=== PATIENT | male | born 1960 | race American Indian/Alaskan Native ===

== ENCOUNTER 2017-07-09 19:58 | Inpatient (IN) | payer OTHER ==
[2017-07-09] MEDS ORDERED: NACL 0.9% 500 ML 500 ML IV ONE (20:36)
[2017-07-09 21:24] LABS: Bacteria,Urine 1+ /HPF (Negative); Bilirubin,Urine NEG (Negative); Blood,Urine NEG (Negative); Ketones,Urine NEG (Negative); Leukocyte Esterase,Urine SM (Negative); Mucus,Urine FEW /HPF; Nitrite,Urine NEG (Negative)
--- NOTE | 2017-07-09 21:25 | Emergency Department Report ---
ED General Adult HPI - General Chief complaint: Dyspnea/Respdistress Stated complaint: WEAKNESS Time Seen by Provider: 07/09/17 21:16 Source: patient, EMS Mode of arrival: Stretcher Limitations: Physical Limitation - History of Present Illness Initial comments: Patient is a 57-year-old male past medical history of CHF who presents with shortness of breath. Patient was found his residence with difficulty in breathing. Patient states that he fell on Tuesday and is able to get. Patient states that he feels pain in his body and his legs. He denies having any chest pain his leg pain is a 6 out of 10 doesn't radiate nothing makes it better or worse. Denies having any symptoms of nausea or vomiting. She is not able to recall how he fell patient denies falling on his head. She is currently satting 96% on 4 L of O2. Patient is not normally not on any oxygen at home. Severity scale (0 -10): 0 - Related Data Allergies Allergy/AdvReac Type Severity Reaction Status Date / Time No Known Allergies Allergy Unverified 07/09/17 20:35 ED Review of Systems ROS: Stated complaint: WEAKNESS Other details as noted in HPI Constitutional: denies: chills, fever Eyes: denies: eye pain, eye discharge, vision change ENT: denies: ear pain, throat pain Respiratory: denies: cough, shortness of breath, wheezing Cardiovascular: denies: chest pain, palpitations Endocrine: no symptoms reported Gastrointestinal: denies: abdominal pain, nausea, diarrhea Genitourinary: denies: urgency, dysuria Musculoskeletal: denies: back pain, joint swelling, arthralgia Skin: denies: rash, lesions Neurological: denies: headache, weakness, paresthesias Psychiatric: denies: anxiety, depression Hematological/Lymphatic: denies: easy bleeding, easy bruising ED Past Medical Hx - Past Medical History Hx Hypertension: Yes Hx Congestive Heart Failure: Yes Hx Diabetes: Yes - Social History Smoking Status: Never Smoker Substance Use Type: None ED Physical Exam - General Limitations: Physical Limitation General appearance: alert, in distress, obese - Head Head exam: Present: atraumatic, normocephalic - Eye Eye exam: Present: normal appearance - ENT ENT exam: Present: mucous membranes moist - Neck Neck exam: Present: normal inspection - Respiratory Respiratory exam: Present: other (dimished breath sounds ). Absent: respiratory distress - Cardiovascular Cardiovascular Exam: Present: regular rate, tachycardia. Absent: systolic murmur, diastolic murmur, rubs, gallop - GI/Abdominal GI/Abdominal exam: Present: soft, normal bowel sounds - Rectal Rectal exam: Present: deferred - exam: Present: other (potter catheter placement ) - Extremities Exam Extremities exam: Present: pedal edema (+2) - Back Exam Back exam: Present: paraspinal tenderness - Neurological Exam Neurological exam: Present: alert - Psychiatric Psychiatric exam: Present: normal affect, normal mood - Skin Skin exam: Present: normal color, other (thickening of skin and edema ). Absent : rash ED Course Vital Signs 07/09/17 07/09/17 07/09/17 20:52 21:30 22:30 Temperature 97 F L Pulse Rate 108 H 109 H 109 H Respiratory 22 20 20 Rate Blood Pressure 88/71 Blood Pressure 88/71 102/67 127/67 [Left] O2 Sat by Pulse 97 97 99 Oximetry 07/09/17 07/10/17 23:35 00:21 Temperature Pulse Rate 109 H 109 H Respiratory 20 20 Rate Blood Pressure Blood Pressure 118/97 113/66 [Left] O2 Sat by Pulse 100 99 Oximetry - Central Line Placement Right IJ Consent Obtained: verbal consent Time Out Performed: Yes Patient Placed on Monitor/Pulse Ox: Yes Prep: mask, gown, gloves, other Ultrasound Used for Placement: Yes Central Line Lumen Inserted: triple Bloods Obtained for Lab: Yes Central Line Position: good blood return, all ports aspirated, flus, sutured in place with 2-0 Dressing Applied: Tegaderm Post Procedure X-Ray: tip of catheter in good p Patient Tolerated Procedure: well Complications: none ED Medical Decision Making - Lab Data Result diagrams: 07/09/17 21:14 07/09/17 21:14 Lab Results 07/09/17 07/09/17 07/09/17 Range/Units 20:52 21:14 21:14 WBC 10.0 (4.5-11.0) K/mm3 RBC 5.09 H (3.65-5.03) M/mm3 Hgb 13.5 (11.8-15.2) gm/dl Hct 42.4 (35.5-45.6) % MCV 83 L (84-94) fl MCH 27 L (28-32) pg MCHC 32 (32-34) % RDW 23.7 H (13.2-15.2) % Plt Count 173 (140-440) K/mm3 Lymph % (Auto) 2.5 L (13.4-35.0) % [place] % (Auto) 9.7 H (0.0-7.3) % Eos % (Auto) 0.1 (0.0-4.3) % Baso % (Auto) 0.2 (0.0-1.8) % Lymph # 0.2 L (1.2-5.4) K/mm3 [place] # 1.0 H (0.0-0.8) K/mm3 Eos # 0.0 (0.0-0.4) K/mm3 Baso # 0.0 (0.0-0.1) K/mm3 Seg Neutrophils % 87.5 H (40.0-70.0) % Seg Neutrophils # 8.8 H (1.8-7.7) K/mm3 PT 17.6 H (12.2-14.9) Sec. INR 1.37 H (0.87-1.13) VBG pH (7.320-7.420) Sodium (137-145) mmol/L Potassium (3.6-5.0) mmol/L Chloride (98-107) mmol/L Carbon Dioxide (22-30) mmol/L Anion Gap mmol/L BUN (9-20) mg/dL Creatinine (0.8-1.5) mg/dL Estimated GFR ml/min BUN/Creatinine Ratio % Glucose (75-100) mg/dL Lactic Acid (0.7-2.0) mmol/L Calcium (8.4-10.2) mg/dL Total Bilirubin (0.1-1.2) mg/dL AST (5-40) units/L ALT (7-56) units/L Alkaline Phosphatase (35-129) units/L Total Creatine Kinase (55-170) units/L Troponin T (0.00-0.029) ng/mL NT-Pro-B Natriuret Pep (0-900) pg/mL Total Protein (6.3-8.2) g/dL Albumin (3.9-5) g/dL Albumin/Globulin Ratio % Triglycerides (2-149) mg/dL Cholesterol (50-199) mg/dL LDL Cholesterol Direct (50-130) mg/dL HDL Cholesterol (40-59) mg/dL Cholesterol/HDL Ratio % Urine Color Priyanka (Yellow) Urine Turbidity Clear (Clear) Urine pH 5.0 (5.0-7.0) Ur Specific [place] 1.014 (1.003-1.030) Urine Protein 100 mg/dl (Negative) mg/dL Urine Glucose (UA) Neg (Negative) mg/dL Urine Ketones Neg (Negative) mg/dL Urine Blood Neg (Negative) Urine Nitrite Neg (Negative) Urine Bilirubin Neg (Negative) Urine Urobilinogen 4.0 (<2.0) mg/dL Ur Leukocyte Esterase Sm (Negative) Urine WBC (Auto) 17.0 H (0.0-6.0) /HPF Urine RBC (Auto) 7.0 (0.0-6.0) /HPF Urine Bacteria (Auto) 1+ (Negative) /HPF Urine Mucus Few /HPF 07/09/17 07/09/17 07/09/17 Range/Units 21:14 21:14 21:14 WBC (4.5-11.0) K/mm3 RBC (3.65-5.03) M/mm3 Hgb (11.8-15.2) gm/dl Hct (35.5-45.6) % MCV (84-94) fl MCH (28-32) pg MCHC (32-34) % RDW (13.2-15.2) % Plt Count (140-440) K/mm3 Lymph % (Auto) (13.4-35.0) % [place] % (Auto) (0.0-7.3) % Eos % (Auto) (0.0-4.3) % Baso % (Auto) (0.0-1.8) % Lymph # (1.2-5.4) K/mm3 [place] # (0.0-0.8) K/mm3 Eos # (0.0-0.4) K/mm3 Baso # (0.0-0.1) K/mm3 Seg Neutrophils % (40.0-70.0) % Seg Neutrophils # (1.8-7.7) K/mm3 PT (12.2-14.9) Sec. INR (0.87-1.13) VBG pH 7.362 (7.320-7.420) Sodium 142 (137-145) mmol/L Potassium 5.3 H (3.6-5.0) mmol/L Chloride 101.9 (98-107) mmol/L Carbon Dioxide 15 L (22-30) mmol/L Anion Gap 30 mmol/L BUN 134 H (9-20) mg/dL Creatinine 4.5 H (0.8-1.5) mg/dL Estimated GFR 16 ml/min BUN/Creatinine Ratio 30 % Glucose 53 L (75-100) mg/dL Lactic Acid 2.00 (0.7-2.0) mmol/L Calcium 9.6 (8.4-10.2) mg/dL Total Bilirubin 3.20 H (0.1-1.2) mg/dL AST 94 H (5-40) units/L ALT 48 (7-56) units/L Alkaline Phosphatase 92 (35-129) units/L Total Creatine Kinase (55-170) units/L Troponin T (0.00-0.029) ng/mL NT-Pro-B Natriuret Pep (0-900) pg/mL Total Protein 7.4 (6.3-8.2) g/dL Albumin 3.5 L (3.9-5) g/dL Albumin/Globulin Ratio 0.9 % Triglycerides (2-149) mg/dL Cholesterol (50-199) mg/dL LDL Cholesterol Direct (50-130) mg/dL HDL Cholesterol (40-59) mg/dL Cholesterol/HDL Ratio % Urine Color (Yellow) Urine Turbidity (Clear) Urine pH (5.0-7.0) Ur Specific [place] (1.003-1.030) Urine Protein (Negative) mg/dL Urine Glucose (UA) (Negative) mg/dL Urine Ketones (Negative) mg/dL Urine Blood (Negative) Urine Nitrite (Negative) Urine Bilirubin (Negative) Urine Urobilinogen (<2.0) mg/dL Ur Leukocyte Esterase (Negative) Urine WBC (Auto) (0.0-6.0) /HPF Urine RBC (Auto) (0.0-6.0) /HPF Urine Bacteria (Auto) (Negative) /HPF Urine Mucus /HPF 07/09/17 07/09/17 07/09/17 Range/Units 21:27 21:27 21:27 WBC (4.5-11.0) K/mm3 RBC (3.65-5.03) M/mm3 Hgb (11.8-15.2) gm/dl Hct (35.5-45.6) % MCV (84-94) fl MCH (28-32) pg MCHC (32-34) % RDW (13.2-15.2) % Plt Count (140-440) K/mm3 Lymph % (Auto) (13.4-35.0) % [place] % (Auto) (0.0-7.3) % Eos % (Auto) (0.0-4.3) % Baso % (Auto) (0.0-1.8) % Lymph # (1.2-5.4) K/mm3 [place] # (0.0-0.8) K/mm3 Eos # (0.0-0.4) K/mm3 Baso # (0.0-0.1) K/mm3 Seg Neutrophils % (40.0-70.0) % Seg Neutrophils # (1.8-7.7) K/mm3 PT (12.2-14.9) Sec. INR (0.87-1.13) VBG pH (7.320-7.420) Sodium (137-145) mmol/L Potassium (3.6-5.0) mmol/L Chloride (98-107) mmol/L Carbon Dioxide (22-30) mmol/L Anion Gap mmol/L BUN (9-20) mg/dL Creatinine (0.8-1.5) mg/dL Estimated GFR ml/min BUN/Creatinine Ratio % Glucose (75-100) mg/dL Lactic Acid (0.7-2.0) mmol/L Calcium (8.4-10.2) mg/dL Total Bilirubin (0.1-1.2) mg/dL AST (5-40) units/L ALT (7-56) units/L Alkaline Phosphatase (35-129) units/L Total Creatine Kinase 1651 H (55-170) units/L Troponin T 0.235 H* (0.00-0.029) ng/mL NT-Pro-B Natriuret Pep 21704 H (0-900) pg/mL Total Protein (6.3-8.2) g/dL Albumin (3.9-5) g/dL Albumin/Globulin Ratio % Triglycerides 93 (2-149) mg/dL Cholesterol 137 (50-199) mg/dL LDL Cholesterol Direct 74 (50-130) mg/dL HDL Cholesterol 45 (40-59) mg/dL Cholesterol/HDL Ratio 3.04 % Urine Color (Yellow) Urine Turbidity (Clear) Urine pH (5.0-7.0) Ur Specific [place] (1.003-1.030) Urine Protein (Negative) mg/dL Urine Glucose (UA) (Negative) mg/dL Urine Ketones (Negative) mg/dL Urine Blood (Negative) Urine Nitrite (Negative) Urine Bilirubin (Negative) Urine Urobilinogen (<2.0) mg/dL Ur Leukocyte Esterase (Negative) Urine WBC (Auto) (0.0-6.0) /HPF Urine RBC (Auto) (0.0-6.0) /HPF Urine Bacteria (Auto) (Negative) /HPF Urine Mucus /HPF 07/09/17 Range/Units 23:11 WBC (4.5-11.0) K/mm3 RBC (3.65-5.03) M/mm3 Hgb (11.8-15.2) gm/dl Hct (35.5-45.6) % MCV (84-94) fl MCH (28-32) pg MCHC (32-34) % RDW (13.2-15.2) % Plt Count (140-440) K/mm3 Lymph % (Auto) (13.4-35.0) % [place] % (Auto) (0.0-7.3) % Eos % (Auto) (0.0-4.3) % Baso % (Auto) (0.0-1.8) % Lymph # (1.2-5.4) K/mm3 [place] # (0.0-0.8) K/mm3 Eos # (0.0-0.4) K/mm3 Baso # (0.0-0.1) K/mm3 Seg Neutrophils % (40.0-70.0) % Seg Neutrophils # (1.8-7.7) K/mm3 PT (12.2-14.9) Sec. INR (0.87-1.13) VBG pH (7.320-7.420) Sodium (137-145) mmol/L Potassium (3.6-5.0) mmol/L Chloride (98-107) mmol/L Carbon Dioxide (22-30) mmol/L Anion Gap mmol/L BUN (9-20) mg/dL Creatinine (0.8-1.5) mg/dL Estimated GFR ml/min BUN/Creatinine Ratio % Glucose (75-100) mg/dL Lactic Acid 1.60 (0.7-2.0) mmol/L Calcium (8.4-10.2) mg/dL Total Bilirubin (0.1-1.2) mg/dL AST (5-40) units/L ALT (7-56) units/L Alkaline Phosphatase (35-129) units/L Total Creatine Kinase (55-170) units/L Troponin T (0.00-0.029) ng/mL NT-Pro-B Natriuret Pep (0-900) pg/mL Total Protein (6.3-8.2) g/dL Albumin (3.9-5) g/dL Albumin/Globulin Ratio % Triglycerides (2-149) mg/dL Cholesterol (50-199) mg/dL LDL Cholesterol Direct (50-130) mg/dL HDL Cholesterol (40-59) mg/dL Cholesterol/HDL Ratio % Urine Color (Yellow) Urine Turbidity (Clear) Urine pH (5.0-7.0) Ur Specific [place] (1.003-1.030) Urine Protein (Negative) mg/dL Urine Glucose (UA) (Negative) mg/dL Urine Ketones (Negative) mg/dL Urine Blood (Negative) Urine Nitrite (Negative) Urine Bilirubin (Negative) Urine Urobilinogen (<2.0) mg/dL Ur Leukocyte Esterase (Negative) Urine WBC (Auto) (0.0-6.0) /HPF Urine RBC (Auto) (0.0-6.0) /HPF Urine Bacteria (Auto) (Negative) /HPF Urine Mucus /HPF - EKG Data -: EKG Interpreted by Pr - EKG Data 07/10/17 02:24 EKG shows sinus or ectopic atrial tachycardia prolonged [place] interval no axis deviation low voltage. - Radiology Data Radiology results: report reviewed, image reviewed Chest x-ray: Shows cardiomegaly no acute findings Chest x-ray: Shows right IJ placement in satisfactory condition. - Medical Decision Making Chief medical diagnosis: Congestive heart failure exacerbation Differential medical diagnosis: Rhabdomyolysis, sepsis, electrolyte abnormality , non-STEMI I'll do EKG, chest x-ray, CBC, CMP, troponin, IV, UA, CK and lactic acid. Due to patient's respiratory distress and being on oxygen he will need to be admitted to the hospital. He has rhabdomyolysis I'll give patient fluid boluses and patient will be admitted to the hospitalist service. Discussed plan with patient he agrees with plan. Critical care attestation.: If time is entered above; I have spent that time in minutes in the direct care of this critically ill patient, excluding procedure time. ED Disposition Clinical Impression: JA (acute kidney injury), SOB (shortness of breath), Hyperkalemia CHF (congestive heart failure) Qualifiers: Congestive heart failure type: unspecified congestive heart failure type Congestive heart failure chronicity: unspecified congestive heart failure chronicity Qualified Code(s): I50.9 - Heart failure, unspecified Rhabdomyolysis Qualifiers: Rhabdomyolysis type: non-traumatic Qualified Code(s): M62.82 - Rhabdomyolysis Disposition: OP ADMIT IP TO THIS HOSP Is pt being admited?: Yes Does the pt Need Aspirin: No Condition: Stable
[2017-07-09 21:40] LABS: Basophils % (Auto) 0.2 % (0.0-1.8); Eosinophils % (Auto) 0.1 % (0.0-4.3); Hematocrit 42.4 % (35.5-45.6); Hemoglobin 13.5 gm/dl (11.8-15.2); Mean Corpuscular HGB Conc 32 % (32-34); Mean Corpuscular Hemoglobin 27 pg (28-32); Mean Corpuscular Volume 83 fl (84-94); Red Blood Count 5.09 M/mm3 (3.65-5.03)
[2017-07-09 21:49] LABS: Platelet Count 173 K/mm3 (140-440); Red Cell Distribution Width 23.7 % (13.2-15.2)
[2017-07-09 21:51] LABS: INR 1.37 (0.87-1.13)
[2017-07-09 21:58] LABS: Albumin 3.5 g/dL (3.9-5); Albumin/Globulin Ratio 0.9 %; Bilirubin,Total 3.2 mg/dL (0.1-1.2); Calcium 9.6 mg/dL (8.4-10.2); Chloride 101.9 mmol/L (98-107); Potassium 5.3 mmol/L (3.6-5.0); Total Protein 7.4 g/dL (6.3-8.2)
--- NOTE | 2017-07-09 22:39 | XRay Report ---
FINAL REPORT EXAM: XR CHEST 1V AP HISTORY: possible Sepsis TECHNIQUE: AP portable view of the chest. PRIORS: None. FINDINGS: The cardiac silhouette is enlarged. The pulmonary vascularity appears normal. The lungs are clear. The bones and soft tissues are unremarkable. IMPRESSION: Cardiomegaly. Otherwise, no acute findings
--- NOTE | 2017-07-09 23:00 | XRay Report ---
FINAL REPORT EXAM: XR CHEST 1V AP HISTORY: SP CVL placement COMPARISON: July 09, 2017. FINDINGS: Frontal view(s) of the chest obtained. Stable mild to moderate cardiac enlargement. Right IJ line is in place with distal tip projecting over the distal SVC in satisfactory position. Shallow inspiration. The cardiac silhouette obscures the left lung base. Remaining lungs are clear. No pneumothorax. IMPRESSION: Right IJ line in satisfactory position. Stable cardiac enlargement. Lungs are grossly clear.
[2017-07-09] MEDS ORDERED: LACTATED RINGERS 1,000 ML IV ONE (23:08)
[2017-07-09] MEDS ORDERED: NACL 0.9% 500 ML 500 ML ONE (23:24)
[2017-07-09] MEDS ORDERED: SUBLIMAZE IV ONE (23:52)
[2017-07-10] MEDS ORDERED: LASIX IV ONE (03:05)
[2017-07-10] MEDS ORDERED: ZOFRAN ONE (04:09)
[2017-07-10] MEDS ORDERED: TYLENOL PO PRN (06:20)
[2017-07-10] MEDS ORDERED: ZOFRAN IV PRN (06:20)
--- NOTE | 2017-07-10 06:29 | History and Physical Report ---
History of Present Illness Date of examination: 07/10/17 History of present illness: 57-year-old man with a history of hypertension, diabetes, CHF was brought to the emergency room because he fell at home and was unable to get up. Patient cannot remember much details Review Of Systems: Constitutional: no weight loss Ears, eyes, nose, mouth and throat: no nasal congestion, no nasal discharge, no sinus pressure, blurry vision, diplopia Neck: No neck pain or rigidity. Cardiovascular: chest pain, orthopnea, palpitations Respiratory: No shortness of breath, cough Gastrointestinal: abdominal pain, hematochezia Genitourinary : no dysuria, frequency , hematuria Musculoskeletal: no muscle ache Integumentary: no rash, no pruritis Neurological: no parathesias, focal weakness Endocrine: no cold or heat intolerance, no polyuria or polydipsia Hematologic/Lymphatic: no easy bruising, no easy bleeding, no gland swelling Allergic/Immunologic: no urticaria, no angioedema. PAST MEDICAL HISTORY:hypertension, diabetes, CHF PAST SURGICAL HISTORY: None FAMILY HISTORY:hypertension SOCIAL HISTORY: Denies alcohol, tobacco, drugs Medications and Allergies Allergies Allergy/AdvReac Type Severity Reaction Status Date / Time No Known Allergies Allergy Unverified 07/09/17 20:35 Home Medications Medication Instructions Recorded Confirmed Last Taken Type B1/B2/Niacin/B12/Protease 1 each PO DAILY 07/10/17 07/10/17 2 Days Ago History [B-Complex with B-12 Tablet] Carvedilol [Coreg] 25 mg PO BID 07/10/17 07/10/17 2 Days Ago History Cholecalciferol (Vitamin D3) 2,000 units PO DAILY 07/10/17 07/10/17 2 Days Ago History [Vitamin D3 2,000 unit] Furosemide [Lasix] 80 mg PO BID 07/10/17 07/10/17 2 Days Ago History Lisinopril [Zestril] 40 mg PO BID 07/10/17 07/10/17 2 Days Ago History Metformin HCl [Glucophage] 1,000 mg PO BID 07/10/17 07/10/17 2 Days Ago History Potassium Chloride [K-Dur] 40 meq PO DAILY 07/10/17 07/10/17 2 Days Ago History Sildenafil Citrate [Sildenafil] 20 mg PO QDAY 07/10/17 07/10/17 2 Days Ago History Spironolactone [Aldactone] 25 mg PO QDAY 07/10/17 07/10/17 2 Days Ago History amLODIPine [Norvasc] 20 mg PO DAILY 07/10/17 07/10/17 2 Days Ago History glipiZIDE [Glipizide] 20 mg PO BID 07/10/17 07/10/17 2 Days Ago History hydrALAZINE [Apresoline] 25 mg PO Q8HR 07/10/17 07/10/17 2 Days Ago History Exam - Physical Exam Narrative exam: Gen. appearance: Patient lying in bed in no acute distress HEENT: Normocephalic/atraumatic, pupils equal round reactive to light, extra alkaline movement intact, no scleral icterus, no JVD or thyromegaly or nodule, neck is supple, mucous membrane moist, no erythema or exudate Heart: S1-S2, regular rate and rhythm Lungs: Clear to auscultation bilateral breathing comfortable Abdomen: Positive bowel sounds, nontender, nondistended, no organomegaly Extremities: anasarcfrom torso down to toes, no cyanosis, clubbing Neuro:: Oriented 3 , cranial nerves II-12 intact, speech, motor intact Skin: No rash, nodules, warm dry - Constitutional Vitals: Temp Pulse Resp BP Pulse Ox 97 F L 110 H 20 152/81 98 07/09/17 20:52 07/10/17 05:30 07/10/17 05:30 07/10/17 05:30 07/10/17 05:30 Results - Labs CBC & Chem 7: 07/13/17 02:30 07/13/17 02:30 Labs: Abnormal lab results 07/09/17 07/09/17 07/09/17 Range/Units 20:52 21:14 21:14 RBC 5.09 H (3.65-5.03) M/mm3 MCV 83 L (84-94) fl MCH 27 L (28-32) pg RDW 23.7 H (13.2-15.2) % Lymph % (Auto) 2.5 L (13.4-35.0) % [place] % (Auto) 9.7 H (0.0-7.3) % Lymph # 0.2 L (1.2-5.4) K/mm3 [place] # 1.0 H (0.0-0.8) K/mm3 Seg Neutrophils % 87.5 H (40.0-70.0) % Seg Neutrophils # 8.8 H (1.8-7.7) K/mm3 PT 17.6 H (12.2-14.9) Sec. INR 1.37 H (0.87-1.13) Potassium (3.6-5.0) mmol/L Carbon Dioxide (22-30) mmol/L BUN (9-20) mg/dL Creatinine (0.8-1.5) mg/dL Glucose (75-100) mg/dL Total Bilirubin (0.1-1.2) mg/dL AST (5-40) units/L Total Creatine Kinase (55-170) units/L Troponin T (0.00-0.029) ng/mL NT-Pro-B Natriuret Pep (0-900) pg/mL Albumin (3.9-5) g/dL Urine WBC (Auto) 17.0 H (0.0-6.0) /HPF 07/09/17 07/09/17 07/09/17 Range/Units 21:14 21:27 21:27 RBC (3.65-5.03) M/mm3 MCV (84-94) fl MCH (28-32) pg RDW (13.2-15.2) % Lymph % (Auto) (13.4-35.0) % [place] % (Auto) (0.0-7.3) % Lymph # (1.2-5.4) K/mm3 [place] # (0.0-0.8) K/mm3 Seg Neutrophils % (40.0-70.0) % Seg Neutrophils # (1.8-7.7) K/mm3 PT (12.2-14.9) Sec. INR (0.87-1.13) Potassium 5.3 H (3.6-5.0) mmol/L Carbon Dioxide 15 L (22-30) mmol/L BUN 134 H (9-20) mg/dL Creatinine 4.5 H (0.8-1.5) mg/dL Glucose 53 L (75-100) mg/dL Total Bilirubin 3.20 H (0.1-1.2) mg/dL AST 94 H (5-40) units/L Total Creatine Kinase 1651 H (55-170) units/L Troponin T (0.00-0.029) ng/mL NT-Pro-B Natriuret Pep 32268 H (0-900) pg/mL Albumin 3.5 L (3.9-5) g/dL Urine WBC (Auto) (0.0-6.0) /HPF 07/09/17 Range/Units 21:27 RBC (3.65-5.03) M/mm3 MCV (84-94) fl MCH (28-32) pg RDW (13.2-15.2) % Lymph % (Auto) (13.4-35.0) % [place] % (Auto) (0.0-7.3) % Lymph # (1.2-5.4) K/mm3 [place] # (0.0-0.8) K/mm3 Seg Neutrophils % (40.0-70.0) % Seg Neutrophils # (1.8-7.7) K/mm3 PT (12.2-14.9) Sec. INR (0.87-1.13) Potassium (3.6-5.0) mmol/L Carbon Dioxide (22-30) mmol/L BUN (9-20) mg/dL Creatinine (0.8-1.5) mg/dL Glucose (75-100) mg/dL Total Bilirubin (0.1-1.2) mg/dL AST (5-40) units/L Total Creatine Kinase (55-170) units/L Troponin T 0.235 H* (0.00-0.029) ng/mL NT-Pro-B Natriuret Pep (0-900) pg/mL Albumin (3.9-5) g/dL Urine WBC (Auto) (0.0-6.0) /HPF - Imaging and Cardiology Chest x-ray: pending CT Scan - head: pending Assessment and Plan Assessment Diffuse anasarca Acute renal failure Rhabdomyolysis Diabetes Hypertension Plan Admit to medicine Consult renal, case discussed with Dr Cortez He recommended decubitus of Lasix Check 56 and initiate insulin sliding scale Please follow CT head Initiate DVT prophylaxis after DVT head
--- NOTE | 2017-07-10 06:43 | Cat Scan Report ---
FINAL REPORT EXAM: CT HEAD/BRAIN WO CON HISTORY: altered mental status TECHNIQUE: CT imaging acquired through the head without intravenous contrast. Transaxial reformations are provided. PRIORS: None. FINDINGS: The ventricles, cisterns and sulci are within normal limits. No intraparenchymal or extra-axial mass, hemorrhage, or mass effect. Vazquez and white-matter differentiation is within normal limits for patient age. Normal spherical shape of the globes. No significant abnormality involving the imaged portions of the paranasal sinuses and mastoid air cells. No skull or facial fracture visualized. IMPRESSION: No acute intracranial abnormality. Consider MRI follow-up as warranted.
[2017-07-10] MEDS ORDERED: D50W (25GM) Syringe IV PRN (06:46)
[2017-07-10] MEDS ORDERED: ZOFRAN IV ONE (07:23)
[2017-07-10 07:34] LABS: Basophils % (Auto) 0.1 % (0.0-1.8); Hematocrit 38.4 % (35.5-45.6); Hemoglobin 12.4 gm/dl (11.8-15.2); Mean Corpuscular HGB Conc 32 % (32-34); Mean Corpuscular Hemoglobin 26 pg (28-32); Mean Corpuscular Volume 80 fl (84-94); Platelet Count 170 K/mm3 (140-440); Red Blood Count 4.78 M/mm3 (3.65-5.03); White Blood Count 10.3 K/mm3 (4.5-11.0)
[2017-07-10] MEDS: NOVOLOG SUB-Q SCH ×3 (07:50→17:48)
[2017-07-10 07:52] LABS: Red Cell Distribution Width 22.1 % (13.2-15.2)
[2017-07-10 07:53] LABS: Calcium 9.5 mg/dL (8.4-10.2); Chloride 100.3 mmol/L (98-107); Potassium 5.3 mmol/L (3.6-5.0)
[2017-07-10 07:55] LABS: Creatine Kinase MB 32.4 ng/mL (0.0-4.0)
--- NOTE | 2017-07-10 08:40 | Progress Note ---
Assessment and Plan Assessment and plan: 57-year-old man with a history of hypertension, diabetes, CHF was brought to the emergency room because he fell at home and was unable to get up. Patient cannot remember much details Diffuse anasarca Acute renal failure Rhabdomyolysis Diabetes Hypertension Plan Admit to medicine Consult renal, case discussed with Dr Cortez He recommended decubitus of Lasix Check 56 and initiate insulin sliding scale Please follow CT head Initiate DVT prophylaxis after DVT head Hospitalist Physical - Constitutional Vitals: Temp Pulse Resp BP Pulse Ox 97 F L 110 H 20 108/81 100 07/09/17 20:52 07/10/17 06:30 07/10/17 06:30 07/10/17 06:30 07/10/17 06:30 Results - Labs CBC & Chem 7: 07/10/17 06:34 07/10/17 06:34 Labs: Laboratory Last Values WBC 10.3 K/mm3 (4.5-11.0) 07/10/17 06:34 RBC 4.78 M/mm3 (3.65-5.03) 07/10/17 06:34 Hgb 12.4 gm/dl (11.8-15.2) 07/10/17 06:34 Hct 38.4 % (35.5-45.6) 07/10/17 06:34 MCV 80 fl (84-94) L 07/10/17 06:34 MCH 26 pg (28-32) L 07/10/17 06:34 MCHC 32 % (32-34) 07/10/17 06:34 RDW 22.1 % (13.2-15.2) H 07/10/17 06:34 Plt Count 170 K/mm3 (140-440) 07/10/17 06:34 Lymph % (Auto) 2.1 % (13.4-35.0) L 07/10/17 06:34 Carter % (Auto) 10.1 % (0.0-7.3) H 07/10/17 06:34 Eos % (Auto) 0.0 % (0.0-4.3) 07/10/17 06:34 Baso % (Auto) 0.1 % (0.0-1.8) 07/10/17 06:34 Lymph # 0.2 K/mm3 (1.2-5.4) L 07/10/17 06:34 Carter # 1.0 K/mm3 (0.0-0.8) H 07/10/17 06:34 Eos # 0.0 K/mm3 (0.0-0.4) 07/10/17 06:34 Baso # 0.0 K/mm3 (0.0-0.1) 07/10/17 06:34 Seg Neutrophils % 87.7 % (40.0-70.0) H 07/10/17 06:34 Seg Neutrophils # 9.1 K/mm3 (1.8-7.7) H 07/10/17 06:34 PT 17.6 Sec. (12.2-14.9) H 07/09/17 21:14 INR 1.37 (0.87-1.13) H 07/09/17 21:14 VBG pH 7.362 (7.320-7.420) 07/09/17 21:14 Sodium 141 mmol/L (137-145) 07/10/17 06:34 Potassium 5.3 mmol/L (3.6-5.0) H 07/10/17 06:34 Chloride 100.3 mmol/L (98-107) 07/10/17 06:34 Carbon Dioxide 16 mmol/L (22-30) L 07/10/17 06:34 Anion Gap 30 mmol/L 07/10/17 06:34 BUN 138 mg/dL (9-20) H 07/10/17 06:34 Creatinine 4.7 mg/dL (0.8-1.5) H 07/10/17 06:34 Estimated GFR 16 ml/min 07/10/17 06:34 BUN/Creatinine Ratio 29 % 07/10/17 06:34 Glucose 51 mg/dL (75-100) L 07/10/17 06:34 Lactic Acid 1.60 mmol/L (0.7-2.0) 07/09/17 23:11 Calcium 9.5 mg/dL (8.4-10.2) 07/10/17 06:34 Total Bilirubin 3.20 mg/dL (0.1-1.2) H 07/09/17 21:14 AST 94 units/L (5-40) H 07/09/17 21:14 ALT 48 units/L (7-56) 10/14/17 21:14 Alkaline Phosphatase 92 units/L (35-129) 07/09/17 21:14 Total Creatine Kinase 1099 units/L (55-170) H 07/10/17 06:32 CK-MB (CK-2) 32.4 ng/mL (0.0-4.0) H 07/10/17 06:32 CK-MB (CK-2) Rel Index 2.9 (0-4) 07/10/17 06:32 Troponin T 0.253 ng/mL (0.00-0.029) H* 07/10/17 06:32 NT-Pro-B Natriuret Pep 12330 pg/mL (0-900) H 07/09/17 21:27 Total Protein 7.4 g/dL (6.3-8.2) 07/09/17 21:14 Albumin 3.5 g/dL (3.9-5) L 07/09/17 21:14 Albumin/Globulin Ratio 0.9 % 07/09/17 21:14 Triglycerides 93 mg/dL (2-149) 07/09/17 21:27 Cholesterol 137 mg/dL (50-199) 07/09/17 21:27 LDL Cholesterol Direct 74 mg/dL (50-130) 07/09/17 21:27 HDL Cholesterol 45 mg/dL (40-59) 07/09/17 21:27 Cholesterol/HDL Ratio 3.04 % 07/09/17 21:27 Urine Color Priyanka (Yellow) 07/09/17 20:52 Urine Turbidity Clear (Clear) 07/09/17 20:52 Urine pH 5.0 (5.0-7.0) 07/09/17 20:52 Ur Specific [place] 1.014 (1.003-1.030) 07/09/17 20:52 Urine Protein 100 mg/dl mg/dL (Negative) 07/09/17 20:52 Urine Glucose (UA) Neg mg/dL (Negative) 07/09/17 20:52 Urine Ketones Neg mg/dL (Negative) 07/09/17 20:52 Urine Blood Neg (Negative) 07/09/17 20:52 Urine Nitrite Neg (Negative) 07/09/17 20:52 Urine Bilirubin Neg (Negative) 07/09/17 20:52 Urine Urobilinogen 4.0 mg/dL (<2.0) 07/09/17 20:52 Ur Leukocyte Esterase Sm (Negative) 07/09/17 20:52 Urine WBC (Auto) 17.0 /HPF (0.0-6.0) H 07/09/17 20:52 Urine RBC (Auto) 7.0 /HPF (0.0-6.0) 07/09/17 20:52 Urine Bacteria (Auto) 1+ /HPF (Negative) 07/09/17 20:52 Urine Mucus Few /HPF 07/09/17 20:52
[2017-07-10] MEDS ORDERED: LOVENOX SUB-Q SCH ×2 (10:00)
[2017-07-10] MEDS ORDERED: D50W (25GM) Vial IV ONE (11:00)
[2017-07-10] MEDS: LOVENOX SUB-Q SCH (11:06)
[2017-07-10] MEDS ORDERED: LASIX IV SCH (12:00)
--- NOTE | 2017-07-10 12:14 | Consultation ---
History of Present Illness - Reason for Consult Consult date: 07/10/17 acute renal failure, hyperkalemia Requesting physician: MARIA DOLORES DODSON - History of Present Illness This is a 57 year old male with PMH of diabetes mellitus type 2 insulin dependent, hypertension, and possibly CHF who presented to [facility] ED last night with complaints of shortness of breath, bilateral upper and lower extremity edema, s/p fall at home (unable to provide information about fall). Patient is lethargic, arouses to verbal stimuli, oriented to self, confused, follows simple commands, but only able to provide limited history, no family at bedside so history obtained from medical record. Patient reported having shortness of breath, worsening edema throughout his body, but doesn't recall duration of swelling, drifts back to sleep. Nurse reports patient had vomiting episode today in the ED, also s/p D50 administration for hypoglycemia management. Patient denies history of kidney problems, reports history of diabetes mellitus type 2 for 10 years and hypertension for 15 years. We were consulted to evaluate this patient who has acute renal failure with anasarca and nephrology consultation requested. On admission, SCr level was 4.5 with BUN of 134, SCr increased to 4.7 with BUN level of 138 today. BNP level was 21,165, IV fluids discontinued, lactic acid 1.60, CK level 1099, and troponin T 0.253. Chest X Ray on 07/09/17 showed cardiomegaly, otherwise no acute findings. CT Head without contrast on 07/09/17 showed no acute intracranial abnormality. Patient seen in the ED, s/p potter catheter placement with blood tinged urine output noted, discussed with nurse who states she notified primary team. We will follow patient closely throughout hospitalization. Past History Past Medical History: diabetes, hypertension Medications and Allergies Allergies Allergy/AdvReac Type Severity Reaction Status Date / Time No Known Allergies Allergy Unverified 07/09/17 20:35 Active Meds: Active Medications Acetaminophen (Tylenol) 650 mg PO Q4H PRN PRN Reason: Pain MILD(1-3)/Fever >100.5/LOCKETT Dextrose (D50w (25gm) Syringe) 50 ml IV PRN PRN PRN Reason: Hypoglycemia Last Admin: 07/10/17 11:00 Dose: 50 ml Enoxaparin Sodium (Lovenox) 30 mg SUB-Q QDAY AUBRIE Last Admin: 07/10/17 11:06 Dose: 30 mg Furosemide (Lasix) 80 mg IV Q12H [facility] Insulin Aspart (Novolog) 0 units SUB-Q ACHS AUBRIE PRN Reason: Protocol Last Admin: 07/10/17 07:50 Dose: Not Given Ondansetron HCl (Zofran) 4 mg IV Q8H PRN PRN Reason: N/V unrelieved by Reglan Review of Systems ROS unobtainable: due to mental status (ROS very limited secondary to confusion) Cardiovascular: edema, shortness of breath, dyspnea on exertion, leg edema, no chest pain Respiratory: shortness of breath, dyspnea on exertion Gastrointestinal: nausea, vomiting Genitourinary Male: hematuria (blood tinged urine) Integumentary: sores (bilateral lower extremity skin sores noted) Exam - Vital Signs Vital signs: Vital Signs Temp Pulse Resp BP Pulse Ox 97 F L 108 H 22 88/71 97 07/09/17 20:52 07/09/17 20:52 07/09/17 20:52 07/09/17 20:52 07/09/17 20:52 - General Appearance General appearance: other (lethargic, oriented to self only, drifts back to sleep, no acute distress) EENT: ATNC Neck: Present: neck supple Respiratory: Other (Lung sounds decreased bilaterally, unlabored on 2 liters nasal cannula) Heart: tachycardia, S1S2 Gastrointestinal: Present: normoactive bowel sounds, other (: Potter to gravity draining blood tinged urine output). Absent: tenderness Integumentary: other (bilateral lower extremity skin sores noted, skin sore wounds underneath right breast fold) Neurologic: confused (lethargic, arouses to verbal stimuli, oriented to self, follows simple commands, moves all 4 extremities) Musculoskeletal: Present: other (anasarca from upper chest/torso down to both lower extremities, 2-3+ edema to both upper and lower extremities) Results - Lab Results 07/10/17 06:34 07/10/17 06:34 Most recent lab results Calcium 9.5 mg/dL (8.4-10.2) 07/10/17 06:34 Assessment and Plan - Patient Problems (1) Anasarca Current Visit: Yes Status: Acute Plan to address problem: Started on Lasix 80 mg IV twice a day Urine studies ordered for evaluation of proteinuria, possible need for Glomerulonephritis work up depending on urine protein studies Patient will require Hemodialysis for ultrafiltration and clearance within the next 24 hours - consulted vascular surgery for Vas Cath placement (2) Acute renal failure (ARF) Current Visit: Yes Status: Acute Qualifiers: Acute renal failure type: A Plan to address problem: Renal function reviewed, SCr level increased to 4.7 with BUN level of 138 today , yesterday's SCr level was 4.5 with BUN of 134 Patient will require initiation of hemodialysis within the next 24 hours, consulted vascular surgery ([facility]) for Vas Catheter placement Hemodialysis orders placed for gentle ultrafiltration and clearance after Vas Catheter placement (either today or tomorrow) Assess need for HD on daily basis Started on Lasix 80 mg IV twice a day Obtain renal ultrasound to r/o obstruction Chest X Ray on 07/09/17 showed cardiomegaly, otherwise no acute findings, BNP was 21,165 on admission Obtain urine lytes/protein studies Follow up results of urine protein studies and determine if Glomerulonephritis work up is needed CK level was 1099 Blood and urine cultures pending Recommend wound care consult for evaluation of skin sore/wound underneath right breastfold and bilateral lower extremities Renally dose medications Obtain daily weight Potter Catheter: Yes Strict intake and output Renal plan discussed with Dr Cortez Continue supportive therapy (3) Hyperkalemia Current Visit: Yes Status: Acute Plan to address problem: Obtain ABG, s/p Lasix Started on renal diet Start Hemodialysis for gentle ultrafiltration and clearance after Vas Catheter placement (4) Type 2 diabetes mellitus with insulin therapy Current Visit: Yes Status: Acute Plan to address problem: On Sliding scale insulin As per primary team
[2017-07-10 12:43] LABS: Creatine Kinase MB 30.9 ng/mL (0.0-4.0)
[2017-07-10] MEDS ORDERED: NACL 0.9% 100 ML IV PRN (13:04)
--- NOTE | 2017-07-10 13:05 | Ultrasound Report ---
RENAL ULTRASOUND: 07/10/17 12:06:00 CLINICAL: Acute renal failure. FINDINGS: High resolution ultrasound demonstrated a very large body habitus severely limits the quality of the exam. Nondilated renal collecting systems. Normal echogenicity of the kidneys. No renal mass, cyst or calculus identified. The right kidney measures 13.9 x 4.3 x 6.3-cm. The renal parenchyma measures 1.4-cm in thickness. The left kidney measures 12.6 x 5.2 x 5.3-cm. The renal parenchyma measures 1.7-cm in thickness. The urinary bladder was not imaged. IMPRESSION: Normal kidneys but limited examination due to body habitus. No hydronephrosis.
[2017-07-10 16:47] LABS: ABG Base Excess -8.5 mmol/L (-2.0-3.0); ABG HCO3 17.4 mmol/L (20.0-26.0); ABG Oxygen Saturation 89.5 % (95.0-99.0); ABG PCO2 37.7 mm Hg; ABG PH 7.283 pH Units (7.350-7.450); ABG PO2 56.5 mm Hg (80.0-90.0)
[2017-07-10] MEDS ORDERED: LASIX 100 MG in NACL 0.9% 50 ML IV ONE ×2 (17:44→17:49)
[2017-07-10] MEDS ORDERED: LASIX PO SCH (18:00)
--- NOTE | 2017-07-10 18:36 | Event Note ---
Date: 07/10/17 Notified by telemetry charge nurse that patient has experienced a change in respiratory status. Pt seen and evaluated. Upon review of laboratory, and radiologic studies-Pt found to have Metabolic Acidosis suspected secondary to Acute on Chronic Renal failure, as well as hypervolemia resulting in acute respiratory failure. Pt found to be hypoxemic and started on NIPPV. Discussed patient status with Nephrology. Pt requires urgent dialysis, and will be transferred to ICU and Vascular Surgery service notified by Dr. Nunez for urgent permacath placement today, so patient can be dialyzed today. Discussed care plan with who is at bedside during exam and interview. Pt acknowledges understanding of care plan, and agrees with plan.
--- NOTE | 2017-07-10 21:38 | Post Operative Note ---
Pre-op diagnosis: ARF Post-op diagnosis: same Findings: 30 cm Trialysis via Rt CFV Procedure: VasCath Anesthesia: local Surgeon: ARGELIA COOLEY Estimated blood loss: none Pathology: none Condition: critical Disposition: ICU
[2017-07-11] MEDS: HEPARIN IV PRN ×2 (01:20→14:43)
[2017-07-11] MEDS: LASIX 100 MG in NACL 0.9% 50 ML IV SCH ×2 (02:35→02:40)
[2017-07-11] MEDS: NOVOLOG SUB-Q SCH ×4 (05:58→22:00)
[2017-07-11 10:19] LABS: Hematocrit 36.7 % (35.5-45.6); Mean Corpuscular HGB Conc 33 % (32-34); Mean Corpuscular Volume 79 fl (84-94); Platelet Count 154 K/mm3 (140-440); Red Blood Count 4.65 M/mm3 (3.65-5.03); White Blood Count 9.1 K/mm3 (4.5-11.0)
[2017-07-11 10:22] LABS: Mean Corpuscular Hemoglobin 26 pg (28-32); Red Cell Distribution Width 22.2 % (13.2-15.2)
[2017-07-11 10:39] LABS: Calcium 8.9 mg/dL (8.4-10.2); Chloride 99.1 mmol/L (98-107); Magnesium 2.9 mg/dL (1.7-2.3); Phosphorous 6.1 mg/dL (2.5-4.5)
[2017-07-11] MEDS: LOVENOX SUB-Q SCH (11:25)
--- NOTE | 2017-07-11 11:30 | Operative Report ---
Operative Report Operative Report: Procedure: Placement of a right common femoral temporary dialysis catheter. Date of Procedure: 07/10/2017 History/Indication: This is a 57 year old male with renal failure. Impression: Successful placement of a 30 cm Trialysis temporary dialysis catheter via the right common femoral vein. Physician: Wade Casiano MD Technique/Procedural Details: Informed consent was obtained. The patient's right groin was prepped and draped in the usual sterile fashion. After administration of local anesthetic, the right common femoral vein was accessed under continuous ultrasound guidance , with an 18-gauge needle. A J-wire was advanced through the needle, and the needle was exchanged for a tissue dilator. After tissue dilation, the temporary dialysis catheter was advanced over the wire. The wire was removed. All 3 lumens were aspirated and flushed. A sterile dressing was placed. There were no complications. Discussion: A 30 cm Trialysis catheter was successfully placed. The right common femoral vein is patent and compressible. Specimen: None EBL: <5 cc
[2017-07-11] MEDS ORDERED: Fluarix Quad 2017-2018(36 MOS+ IM ONE (12:00)
[2017-07-11] MEDS ORDERED: PNEUMOVAX 23 IM ONE (12:00)
[2017-07-11] MEDS ORDERED: SIMPLE SYRUP FEEDTUBE PRN ×2 (13:41)
[2017-07-11] MEDS ORDERED: SODIUM BICARBONATE FEEDTUBE PRN (13:41)
[2017-07-11] MEDS ORDERED: PANCREAZE DR 10,500 UNIT FEEDTUBE PRN (13:41)
--- NOTE | 2017-07-11 14:11 | Event Note ---
Date: 07/11/17 Patient transferred to ICU last evening for stat HD. Vascath was placed by vascular. Once dialyzed, off bipap therapy and no longer in distress. Currently undergoing HD right now. Please transfer out of ICU after HD
[2017-07-11] MEDS ORDERED: NACL 0.9% 100 ML IV PRN (14:23)
--- NOTE | 2017-07-11 14:36 | Progress Note ---
Assessment and Plan Acute renal failure possibly cardiorenal syndrome on intermittent hemodialysis: Unknown CKD: Anasarca with volume overload -Pt does have h/o DM so could have CKD from it, no BL Cr available -UA showed 100 protein, Urine PCR has been ordered. -Urine also showed some red cells will eval for nephritic syndrome with CHRISTOPHER, ANCA, Anti-GBM, C3/C4, Hep panel, HIV. -Initiated on HD yesterday, HD#2 today, HD#3 tomorrow, Pt is volume overloaded. Target UF 3-4L with each HD. -Renally dose all meds and avoid nephrotoxic meds -Renal US -ve for hydronephrosis Hyperkalemia: -Improved with HD -Low K diet when ok to eat per primary 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, acute: -TTE shows low EF -Cardiology consulted -UF via HD Diabetes mellitus type 2 on insulin: -On insulin -Per primary Essential Hypertension: -BP running low, hold all bp meds for now Plan d/w bedside RN. Pato Fisher MD Nephrology, Hypertension, Dialysis, Transplantation Phone no: [phone] Subjective Date of service: 07/11/17 Interval history: Initiated on HD yesterday, getting HD#2 today. On O2 via NC. Objective - Exam Narrative Exam: GE: Awake HEENT: Normocephalic Neck: No JVD Chest: Coarse BS BL CVS: Tachycardic Abd: Soft/BS+ Ext: 3-4+ BLE edema, fem VC Neuro: Awake - Vital Signs Vital signs: Vital Signs - 12hr 07/11/17 07/11/17 07/11/17 02:30 02:41 02:51 Temperature Pulse Rate 123 H 122 H 123 H Respiratory 17 17 19 Rate Blood Pressure 95/59 95/59 95/59 O2 Sat by Pulse 100 Oximetry O2 Sat by Pulse Oximetry [ Anterior Bilateral Throughout] 07/11/17 07/11/17 07/11/17 03:01 03:11 03:21 Temperature Pulse Rate 123 H 123 H 123 H Respiratory 21 16 23 Rate Blood Pressure 95/59 95/59 95/59 O2 Sat by Pulse 98 77 L 100 Oximetry O2 Sat by Pulse Oximetry [ Anterior Bilateral Throughout] 07/11/17 07/11/17 07/11/17 03:31 03:34 03:41 Temperature 95.8 F L Pulse Rate 123 H 124 H Respiratory 18 17 Rate Blood Pressure 120/103 120/103 O2 Sat by Pulse 99 100 Oximetry O2 Sat by Pulse Oximetry [ Anterior Bilateral Throughout] 07/11/17 07/11/17 07/11/17 03:51 04:01 04:11 Temperature Pulse Rate 123 H 123 H 123 H Respiratory 20 20 17 Rate Blood Pressure 141/68 103/58 103/58 O2 Sat by Pulse 100 100 100 Oximetry O2 Sat by Pulse Oximetry [ Anterior Bilateral Throughout] 07/11/17 07/11/17 07/11/17 04:21 04:30 04:34 Temperature Pulse Rate 123 H 123 H 123 H Respiratory 16 24 22 Rate Blood Pressure 103/58 106/67 106/67 O2 Sat by Pulse 100 100 100 Oximetry O2 Sat by Pulse Oximetry [ Anterior Bilateral Throughout] 07/11/17 07/11/17 07/11/17 04:41 04:51 05:00 Temperature Pulse Rate 123 H 123 H 123 H Respiratory 20 17 13 Rate Blood Pressure 106/67 106/67 97/58 O2 Sat by Pulse 100 100 100 Oximetry O2 Sat by Pulse Oximetry [ Anterior Bilateral Throughout] 07/11/17 07/11/17 07/11/17 05:11 05:18 05:21 Temperature Pulse Rate 123 H 124 H 124 H Respiratory 19 14 Rate Blood Pressure 97/58 97/58 O2 Sat by Pulse 100 97 Oximetry O2 Sat by Pulse Oximetry [ Anterior Bilateral Throughout] 07/11/17 07/11/17 07/11/17 05:31 05:41 05:51 Temperature Pulse Rate 124 H 124 H 124 H Respiratory 13 13 13 Rate Blood Pressure 97/58 97/58 97/58 O2 Sat by Pulse 99 100 100 Oximetry O2 Sat by Pulse Oximetry [ Anterior Bilateral Throughout] 07/11/17 07/11/17 07/11/17 06:01 06:11 06:21 Temperature Pulse Rate 124 H 124 H 125 H Respiratory 14 15 19 Rate Blood Pressure 98/72 98/72 98/72 O2 Sat by Pulse 100 100 98 Oximetry O2 Sat by Pulse Oximetry [ Anterior Bilateral Throughout] 07/11/17 07/11/17 07/11/17 06:30 06:41 06:51 Temperature Pulse Rate 125 H 126 H 126 H Respiratory 14 13 18 Rate Blood Pressure 105/64 105/64 105/64 O2 Sat by Pulse 97 100 99 Oximetry O2 Sat by Pulse Oximetry [ Anterior Bilateral Throughout] 07/11/17 07/11/17 07/11/17 07:00 07:01 07:11 Temperature Pulse Rate 126 H 126 H Respiratory 13 14 Rate Blood Pressure 102/53 102/53 O2 Sat by Pulse 98 98 100 Oximetry O2 Sat by Pulse Oximetry [ Anterior Bilateral Throughout] 07/11/17 07/11/17 07/11/17 07:21 07:30 07:41 Temperature Pulse Rate 126 H 127 H 127 H Respiratory 17 17 18 Rate Blood Pressure 102/53 107/63 107/63 O2 Sat by Pulse 100 98 100 Oximetry O2 Sat by Pulse Oximetry [ Anterior Bilateral Throughout] 07/11/17 07/11/17 07/11/17 07:47 07:51 08:00 Temperature 98.0 F Pulse Rate 127 H 127 H Respiratory 26 H 13 Rate Blood Pressure 107/63 107/63 O2 Sat by Pulse 99 99 Oximetry O2 Sat by Pulse Oximetry [ Anterior Bilateral Throughout] 07/11/17 07/11/17 07/11/17 08:01 08:11 08:21 Temperature Pulse Rate 127 H 127 H 128 H Respiratory 15 19 19 Rate Blood Pressure 101/63 101/63 101/63 O2 Sat by Pulse 97 100 100 Oximetry O2 Sat by Pulse Oximetry [ Anterior Bilateral Throughout] 07/11/17 07/11/17 07/11/17 08:30 08:40 08:50 Temperature Pulse Rate 127 H 128 H 127 H Respiratory 18 17 28 H Rate Blood Pressure 98/59 98/59 98/59 O2 Sat by Pulse 99 100 100 Oximetry O2 Sat by Pulse Oximetry [ Anterior Bilateral Throughout] 07/11/17 07/11/17 07/11/17 09:00 09:11 09:21 Temperature Pulse Rate 127 H 128 H 128 H Respiratory 15 19 18 Rate Blood Pressure 109/64 109/64 109/64 O2 Sat by Pulse 98 99 99 Oximetry O2 Sat by Pulse Oximetry [ Anterior Bilateral Throughout] 07/11/17 07/11/17 07/11/17 09:30 09:41 09:51 Temperature Pulse Rate 128 H 128 H Respiratory 15 15 12 Rate Blood Pressure 105/67 105/67 105/67 O2 Sat by Pulse 95 98 98 Oximetry O2 Sat by Pulse Oximetry [ Anterior Bilateral Throughout] 10/07/11/17 07/11/17 10:00 10:11 10:21 Temperature Pulse Rate 128 H 129 H 129 H Respiratory 16 12 20 Rate Blood Pressure 108/66 108/66 108/66 O2 Sat by Pulse 98 98 Oximetry O2 Sat by Pulse Oximetry [ Anterior Bilateral Throughout] 07/11/17 07/11/17 07/11/17 10:30 10:41 10:45 Temperature 98 F Pulse Rate 128 H 128 H 129 H Respiratory 15 18 13 Rate Blood Pressure 108/72 106/52 115/58 O2 Sat by Pulse 95 93 Oximetry O2 Sat by Pulse 97 Oximetry [ Anterior Bilateral Throughout] 07/11/17 07/11/17 07/11/17 10:51 11:00 11:11 Temperature Pulse Rate 129 H 129 H 129 H Respiratory 15 19 16 Rate Blood Pressure 115/58 112/71 112/71 O2 Sat by Pulse 99 97 Oximetry O2 Sat by Pulse Oximetry [ Anterior Bilateral Throughout] 07/11/17 07/11/17 07/11/17 11:15 11:21 11:30 Temperature Pulse Rate 129 H 129 H 129 H Respiratory 8 L Rate Blood Pressure 102/67 102/67 107/57 O2 Sat by Pulse 97 Oximetry O2 Sat by Pulse Oximetry [ Anterior Bilateral Throughout] 07/11/17 07/11/17 07/11/17 11:31 11:41 11:45 Temperature Pulse Rate 129 H 129 H 129 H Respiratory 15 16 Rate Blood Pressure 107/57 107/57 97/64 O2 Sat by Pulse 98 96 Oximetry O2 Sat by Pulse Oximetry [ Anterior Bilateral Throughout] 07/11/17 07/11/17 07/11/17 11:51 12:00 12:01 Temperature 97.7 F Pulse Rate 129 H 129 H 129 H Respiratory 15 15 Rate Blood Pressure 97/64 90/58 90/58 O2 Sat by Pulse 96 96 Oximetry O2 Sat by Pulse Oximetry [ Anterior Bilateral Throughout] 07/11/17 07/11/17 07/11/17 12:10 12:15 12:21 Temperature Pulse Rate 129 H 128 H 128 H Respiratory 18 19 Rate Blood Pressure 90/58 109/61 109/61 O2 Sat by Pulse 96 96 Oximetry O2 Sat by Pulse Oximetry [ Anterior Bilateral Throughout] 07/11/17 07/11/17 07/11/17 12:30 12:41 12:45 Temperature Pulse Rate 128 H 128 H 128 H Respiratory 17 17 Rate Blood Pressure 96/65 96/65 96/62 O2 Sat by Pulse 96 97 Oximetry O2 Sat by Pulse Oximetry [ Anterior Bilateral Throughout] 07/11/17 07/11/17 07/11/17 12:51 13:00 13:11 Temperature Pulse Rate 128 H 128 H 128 H Respiratory 20 17 15 Rate Blood Pressure 96/62 96/62 101/62 O2 Sat by Pulse 97 96 97 Oximetry O2 Sat by Pulse Oximetry [ Anterior Bilateral Throughout] 07/11/17 07/11/17 07/11/17 13:15 13:21 13:30 Temperature Pulse Rate 126 H 128 H 129 H Respiratory 19 13 Rate Blood Pressure 105/53 105/53 96/58 O2 Sat by Pulse 97 95 Oximetry O2 Sat by Pulse Oximetry [ Anterior Bilateral Throughout] 07/11/17 07/11/17 13:45 14:00 Temperature Pulse Rate 128 H 128 H Respiratory Rate Blood Pressure 99/65 95/58 O2 Sat by Pulse Oximetry O2 Sat by Pulse Oximetry [ Anterior Bilateral Throughout] - Lab 07/11/17 10:16 07/11/17 10:16 Most recent lab results ABG pH 7.283 pH Units (7.350-7.450) L 07/10/17 16:06 ABG pCO2 37.7 mm Hg 07/10/17 16:06 ABG pO2 56.5 mm Hg (80.0-90.0) L 07/10/17 16:06 ABG HCO3 17.4 mmol/L (20.0-26.0) L 07/10/17 16:06 ABG O2 Saturation 89.5 % (95.0-99.0) L 07/10/17 16:06 Calcium 8.9 mg/dL (8.4-10.2) 07/11/17 10:16 Phosphorus 6.10 mg/dL (2.5-4.5) H 07/11/17 10:16 Magnesium 2.90 mg/dL (1.7-2.3) H 07/11/17 10:16
[2017-07-11 14:58] LABS: Albumin 3.2 g/dL (3.9-5); Albumin/Globulin Ratio 0.9 %; Bilirubin,Direct 1.5 mg/dL (0-0.2); Bilirubin,Indirect 0.8 mg/dL; Bilirubin,Total 2.3 mg/dL (0.1-1.2); Total Protein 6.7 g/dL (6.3-8.2)
--- NOTE | 2017-07-11 15:25 | Progress Note ---
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, acute: -TTE shows low EF 15 to 20% -Cardiology consulted -UF via HD /Diabetes mellitus type 2 on insulin: -On insulin at home - SSI coverage for now /hypoglycemia - noted in the ED, corrected with d50 /elevated troponin - likely from worsening renal function and underlying CHF - will consult cardiology /Essential Hypertension: -BP running low, hold all bp meds for now /FEN - Npo now as his mental status still not improved - will place on d5NS @30ml/h - RN failed to place a dobhoff Brief History: This is a 57 year old male with PMH of diabetes mellitus type 2 insulin dependent, hypertension, and possibly CHF who presented to [facility] ED last night with complaints of shortness of breath, bilateral upper and lower extremity edema, s/p fall at home (unable to provide information about fall). On admission, SCr level was 4.5 with BUN of 134, BNP level was 21,165, IV fluids discontinued. Chest X Ray on 07/09/17 showed cardiomegaly, otherwise no acute findings. CT Head without contrast on 07/09/17 showed no acute intracranial abnormality. Active medication: Generic Name Dose Route Start Last Admin Trade Name Freq PRN Reason Stop Dose Admin Acetaminophen 650 mg 07/10/17 06:20 Tylenol PO Q4H PRN Pain MILD(1-3)/Fever >100.5/LOCKETT Lipase/Protease/Amylase 1 each 07/11/17 13:41 Pancreshey Nguyen 10,500 Unit FEEDTUBE PRN PRN For Clogged Feeding Tube Aspirin 81 mg 07/12/17 10:00 Baby Aspirin PO QDAY AUBRIE Carvedilol 3.125 mg 07/11/17 22:00 07/12/17 01:48 Coreg PO Not Given BID AUBRIE Dextrose 50 ml 07/10/17 06:46 07/10/17 11:00 D50w (25gm) Syringe IV 50 ml PRN PRN Administration Hypoglycemia Enoxaparin Sodium 30 mg 07/10/17 10:00 07/11/17 11:25 Lovenox SUB-Q 30 mg QDAY AUBRIE Administration Heparin Sodium (Porcine) 5,000 unit 07/10/17 22:10 07/11/17 14:43 Heparin IV 5,000 unit JA PRN Administration dewell Sodium Chloride 100 mls @ 999 mls/hr 07/11/17 14:23 Nacl 0.9% IV JA PRN Hypotension Dextrose/Sodium Chloride 1,000 mls @ 30 mls/hr 07/11/17 17:00 07/11/17 17:10 D5ns IV 30 mls/hr DIRECT AUBRIE Administration Norepinephrine 8 mg/ Sodium 250 mls @ 3.75 mls/hr 07/12/17 04:00 07/12/17 06: 35 Chloride IV 10 mcg/min TITR AUBRIE 18.75 mls/hr Protocol Titration 2 MCG/MIN Insulin Aspart 0 units 07/10/17 07:30 07/11/17 22:00 Novolog SUB-Q Not Given ACHS [facility] Protocol Ondansetron HCl 4 mg 07/10/17 06:20 Zofran IV Q8H PRN N/V unrelieved by Reglan Simple Syrup 15 ml 07/11/17 13:41 Simple Syrup FEEDTUBE PRN PRN Hypoglycemia Simple Syrup 30 ml 07/11/17 13:41 Simple Syrup FEEDTUBE PRN PRN Hypoglycemia Sodium Bicarbonate 325 mg 07/11/17 13:41 Sodium Bicarbonate FEEDTUBE PRN PRN For Clogged Feeding Tube Microbiology 07/09/17 21:14 Peripheral/Venous Blood Culture - Preliminary NO GROWTH AFTER 24 HOURS 07/09/17 21:14 Peripheral/Venous Blood Culture - Preliminary NO GROWTH AFTER 48 HOURS 07/09/17 20:52 Urine,[place] Urine Culture - Final NO GROWTH AFTER 48 HOURS Subjective Date of service: 07/11/17 Interval history: Patient seen and examined. Medical records and medication list reviewed. Discussed plan of care at bedside with the brother Patient getting dialysis at the bedside Patient remained altered and confused and unable to provide any details Attempt of dobhoff failed multiple times, not ready for swallow eval also Review of system: Unable to obtain Objective - Exam Narrative Exam: GENERAL: well-developed and well-nourished WM lying on bed appeared to be confused and not following commend. HEENT: Normocephalic. Atraumatic. No conjunctival congestion or icterus. Patient has dry mucous membranes. NECK: Supple. Trachea midline. CHEST/LUNGS: + BS auscultated bilaterally, breathing nonlabored. HEART/CARDIOVASCULAR: tachycardic. S1 and S2 positive. ABDOMEN: Abdomen is soft, nontender. Patient has normal bowel sounds. SKIN: There is no rash. Warm and dry. NEURO: No focal motor deficit. does not Follows command. MUSCULOSKELETAL: No joint effusion or tenderness. EXTRIMITY: No edema, no cyanosis or clubbing. rt leg with wound dressing PSYCH: not Cooperative. - Constitutional Vitals: Vital Signs - 12hr 07/11/17 07/11/17 07/11/17 03:31 03:34 03:41 Temperature 95.8 F L Pulse Rate 123 H 124 H Respiratory 18 17 Rate Blood Pressure 120/103 120/103 O2 Sat by Pulse 99 100 Oximetry O2 Sat by Pulse Oximetry [ Anterior Bilateral Throughout] 07/11/17 07/11/17 07/11/17 03:51 04:01 04:11 Temperature Pulse Rate 123 H 123 H 123 H Respiratory 20 20 17 Rate Blood Pressure 141/68 103/58 103/58 O2 Sat by Pulse 100 100 100 Oximetry O2 Sat by Pulse Oximetry [ Anterior Bilateral Throughout] 07/11/17 07/11/17 07/11/17 04:21 04:30 04:34 Temperature Pulse Rate 123 H 123 H 123 H Respiratory 16 24 22 Rate Blood Pressure 103/58 106/67 106/67 O2 Sat by Pulse 100 100 100 Oximetry O2 Sat by Pulse Oximetry [ Anterior Bilateral Throughout] 07/11/17 07/11/17 07/11/17 04:41 04:51 05:00 Temperature Pulse Rate 123 H 123 H 123 H Respiratory 20 17 13 Rate Blood Pressure 106/67 106/67 97/58 O2 Sat by Pulse 100 100 100 Oximetry O2 Sat by Pulse Oximetry [ Anterior Bilateral Throughout] 07/11/17 07/11/17 07/11/17 05:11 05:18 05:21 Temperature Pulse Rate 123 H 124 H 124 H Respiratory 19 14 Rate Blood Pressure 97/58 97/58 O2 Sat by Pulse 100 97 Oximetry O2 Sat by Pulse Oximetry [ Anterior Bilateral Throughout] 07/11/17 07/11/17 07/11/17 05:31 05:41 05:51 Temperature Pulse Rate 124 H 124 H 124 H Respiratory 13 13 13 Rate Blood Pressure 97/58 97/58 97/58 O2 Sat by Pulse 99 100 100 Oximetry O2 Sat by Pulse Oximetry [ Anterior Bilateral Throughout] 07/11/17 07/11/17 07/11/17 06:01 06:11 06:21 Temperature Pulse Rate 124 H 124 H 125 H Respiratory 14 15 19 Rate Blood Pressure 98/72 98/72 98/72 O2 Sat by Pulse 100 100 98 Oximetry O2 Sat by Pulse Oximetry [ Anterior Bilateral Throughout] 07/11/17 07/11/17 07/11/17 06:30 06:41 06:51 Temperature Pulse Rate 125 H 126 H 126 H Respiratory 14 13 18 Rate Blood Pressure 105/64 105/64 105/64 O2 Sat by Pulse 97 100 99 Oximetry O2 Sat by Pulse Oximetry [ Anterior Bilateral Throughout] 07/11/17 07/11/17 07/11/17 07:00 07:01 07:11 Temperature Pulse Rate 126 H 126 H Respiratory 13 14 Rate Blood Pressure 102/53 102/53 O2 Sat by Pulse 98 98 100 Oximetry O2 Sat by Pulse Oximetry [ Anterior Bilateral Throughout] 07/11/17 07/11/17 07/11/17 07:21 07:30 07:41 Temperature Pulse Rate 126 H 127 H 127 H Respiratory 17 17 18 Rate Blood Pressure 102/53 107/63 107/63 O2 Sat by Pulse 100 98 100 Oximetry O2 Sat by Pulse Oximetry [ Anterior Bilateral Throughout] 07/11/17 07/11/17 07/11/17 07:47 07:51 08:00 Temperature 98.0 F Pulse Rate 127 H 127 H Respiratory 26 H 13 Rate Blood Pressure 107/63 107/63 O2 Sat by Pulse 99 99 Oximetry O2 Sat by Pulse Oximetry [ Anterior Bilateral Throughout] 07/11/17 07/11/17 07/11/17 08:01 08:11 08:21 Temperature Pulse Rate 127 H 127 H 128 H Respiratory 15 19 19 Rate Blood Pressure 101/63 101/63 101/63 O2 Sat by Pulse 97 100 100 Oximetry O2 Sat by Pulse Oximetry [ Anterior Bilateral Throughout] 07/11/17 07/11/17 07/11/17 08:30 08:40 08:50 Temperature Pulse Rate 127 H 128 H 127 H Respiratory 18 17 28 H Rate Blood Pressure 98/59 98/59 98/59 O2 Sat by Pulse 99 100 100 Oximetry O2 Sat by Pulse Oximetry [ Anterior Bilateral Throughout] 07/11/17 07/11/17 07/11/17 09:00 09:11 09:21 Temperature Pulse Rate 127 H 128 H 128 H Respiratory 15 19 18 Rate Blood Pressure 109/64 109/64 109/64 O2 Sat by Pulse 98 99 99 Oximetry O2 Sat by Pulse Oximetry [ Anterior Bilateral Throughout] 07/11/17 07/11/17 07/11/17 09:30 09:41 09:51 Temperature Pulse Rate 128 H 128 H Respiratory 15 15 12 Rate Blood Pressure 105/67 105/67 105/67 O2 Sat by Pulse 95 98 98 Oximetry O2 Sat by Pulse Oximetry [ Anterior Bilateral Throughout] 07/11/17 07/11/17 07/11/17 10:00 10:11 10:21 Temperature Pulse Rate 128 H 129 H 129 H Respiratory 16 12 20 Rate Blood Pressure 108/66 108/66 108/66 O2 Sat by Pulse 98 98 Oximetry O2 Sat by Pulse Oximetry [ Anterior Bilateral Throughout] 07/11/17 07/11/17 07/11/17 10:30 10:41 10:45 Temperature 98 F Pulse Rate 128 H 128 H 129 H Respiratory 15 18 13 Rate Blood Pressure 108/72 106/52 115/58 O2 Sat by Pulse 95 93 Oximetry O2 Sat by Pulse 97 Oximetry [ Anterior Bilateral Throughout] 07/11/17 07/11/17 07/11/17 10:51 11:00 11:11 Temperature Pulse Rate 129 H 129 H 129 H Respiratory 15 19 16 Rate Blood Pressure 115/58 112/71 112/71 O2 Sat by Pulse 99 97 Oximetry O2 Sat by Pulse Oximetry [ Anterior Bilateral Throughout] 07/11/17 07/11/17 07/11/17 11:15 11:21 11:30 Temperature Pulse Rate 129 H 129 H 129 H Respiratory 8 L Rate Blood Pressure 102/67 102/67 107/57 O2 Sat by Pulse 97 Oximetry O2 Sat by Pulse Oximetry [ Anterior Bilateral Throughout] 07/11/17 07/11/17 07/11/17 11:31 11:41 11:45 Temperature Pulse Rate 129 H 129 H 129 H Respiratory 15 16 Rate Blood Pressure 107/57 107/57 97/64 O2 Sat by Pulse 98 96 Oximetry O2 Sat by Pulse Oximetry [ Anterior Bilateral Throughout] 07/11/17 07/11/17 07/11/17 11:51 12:00 12:01 Temperature 97.7 F Pulse Rate 129 H 129 H 129 H Respiratory 15 15 Rate Blood Pressure 97/64 90/58 90/58 O2 Sat by Pulse 96 96 Oximetry O2 Sat by Pulse Oximetry [ Anterior Bilateral Throughout] 07/11/17 07/11/17 07/11/17 12:10 12:15 12:21 Temperature Pulse Rate 129 H 128 H 128 H Respiratory 18 19 Rate Blood Pressure 90/58 109/61 109/61 O2 Sat by Pulse 96 96 Oximetry O2 Sat by Pulse Oximetry [ Anterior Bilateral Throughout] 07/11/17 07/11/17 07/11/17 12:30 12:41 12:45 Temperature Pulse Rate 128 H 128 H 128 H Respiratory 17 17 Rate Blood Pressure 96/65 96/65 96/62 O2 Sat by Pulse 96 97 Oximetry O2 Sat by Pulse Oximetry [ Anterior Bilateral Throughout] 07/11/17 07/11/17 07/11/17 12:51 13:00 13:11 Temperature Pulse Rate 128 H 128 H 128 H Respiratory 20 17 15 Rate Blood Pressure 96/62 96/62 101/62 O2 Sat by Pulse 97 96 97 Oximetry O2 Sat by Pulse Oximetry [ Anterior Bilateral Throughout] 07/11/17 07/11/17 07/11/17 13:15 13:21 13:30 Temperature Pulse Rate 126 H 128 H 129 H Respiratory 19 13 Rate Blood Pressure 105/53 105/53 96/58 O2 Sat by Pulse 97 95 Oximetry O2 Sat by Pulse Oximetry [ Anterior Bilateral Throughout] 07/11/17 07/11/17 07/11/17 13:45 14:00 14:35 Temperature 98.6 F Pulse Rate 128 H 128 H 128 H Respiratory 20 Rate Blood Pressure 99/65 95/58 95/62 O2 Sat by Pulse Oximetry O2 Sat by Pulse Oximetry [ Anterior Bilateral Throughout] - Labs CBC & Chem 7: 07/12/17 03:29 07/12/17 03:29 Labs: Abnormal lab results 10/07/11/17 07/11/17 Range/Units 16:06 10:16 10:16 MCV 79 L (84-94) fl MCH 26 L (28-32) pg RDW 22.2 H (13.2-15.2) % ABG pH 7.283 L (7.350-7.450) pH Units ABG pO2 56.5 L (80.0-90.0) mm Hg ABG HCO3 17.4 L (20.0-26.0) mmol/L ABG O2 Saturation 89.5 L (95.0-99.0) % ABG Base Excess -8.5 L (-2.0-3.0) mmol/L ABG Hemoglobin 6.3 L (14.0-18.0) gm/dl Oxyhemoglobin 87.5 L (95.0-99.0) % Carbon Dioxide 21 L (22-30) mmol/L BUN 102 H (9-20) mg/dL Creatinine 4.3 H (0.8-1.5) mg/dL Phosphorus 6.10 H (2.5-4.5) mg/dL Magnesium 2.90 H (1.7-2.3) mg/dL Total Bilirubin (0.1-1.2) mg/dL Direct Bilirubin (0-0.2) mg/dL AST (5-40) units/L Albumin (3.9-5) g/dL 07/11/17 Range/Units 14:32 MCV (84-94) fl MCH (28-32) pg RDW (13.2-15.2) % ABG pH (7.350-7.450) pH Units ABG pO2 (80.0-90.0) mm Hg ABG HCO3 (20.0-26.0) mmol/L ABG O2 Saturation (95.0-99.0) % ABG Base Excess (-2.0-3.0) mmol/L ABG Hemoglobin (14.0-18.0) gm/dl Oxyhemoglobin (95.0-99.0) % Carbon Dioxide (22-30) mmol/L BUN (9-20) mg/dL Creatinine (0.8-1.5) mg/dL Phosphorus (2.5-4.5) mg/dL Magnesium (1.7-2.3) mg/dL Total Bilirubin 2.30 H (0.1-1.2) mg/dL Direct Bilirubin 1.5 H (0-0.2) mg/dL AST 59 H (5-40) units/L Albumin 3.2 L (3.9-5) g/dL
--- NOTE | 2017-07-11 16:31 | Consultation ---
History of Present Illness Consult date: 07/11/17 Requesting physician: STEVEN LYNN Consult reason: congestive heart failure, elevated troponin History of present illness: The pt is a 57-year-old male with a past medical history significant for HTN, DM , HLP, systolic heart failure and morbid obesity. He is followed regularly by [facility] - last seen by Dr. Richards in 02/2017. Pt is lethargic and nonverbal on evaluation and thus HPI is obtained per the records. He was brought to the emergency room because he fell at home and was unable to get up. Patient cannot remember much details. Following admission, pt was found to be in acute renal failure with serum K+ 5.3 and he subsequently underwent emergent HD. [facility] 10/2000 at showed angiographically normal coronary arteries. Stress echo done 02/2009 was negative for ischemia, EF heber from 50-65%. Past History Past Medical History: diabetes, hypertension, hyperlipidemia Medications and Allergies Allergies Allergy/AdvReac Type Severity Reaction Status Date / Time No Known Allergies Allergy Unverified 07/09/17 20:35 Home Medications Medication Instructions Recorded Confirmed Last Taken Type B1/B2/Niacin/B12/Protease 1 each PO DAILY 07/10/17 07/10/17 2 Days Ago History [B-Complex with B-12 Tablet] Carvedilol [Coreg] 25 mg PO BID 07/10/17 07/10/17 2 Days Ago History Cholecalciferol (Vitamin D3) 2,000 units PO DAILY 07/10/17 07/10/17 2 Days Ago History [Vitamin D3 2,000 unit] Furosemide [Lasix] 80 mg PO BID 07/10/17 07/10/17 2 Days Ago History Lisinopril [Zestril] 40 mg PO BID 07/10/17 07/10/17 2 Days Ago History Metformin HCl [Glucophage] 1,000 mg PO BID 07/10/17 07/10/17 2 Days Ago History Potassium Chloride [K-Dur] 40 meq PO DAILY 07/10/17 07/10/17 2 Days Ago History Sildenafil Citrate [Sildenafil] 20 mg PO QDAY 07/10/17 07/10/17 2 Days Ago History Spironolactone [Aldactone] 25 mg PO QDAY 07/10/17 07/10/17 2 Days Ago History amLODIPine [Norvasc] 20 mg PO DAILY 07/10/17 07/10/17 2 Days Ago History glipiZIDE [Glipizide] 20 mg PO BID 07/10/17 07/10/17 2 Days Ago History hydrALAZINE [Apresoline] 25 mg PO Q8HR 07/10/17 07/10/17 2 Days Ago History Active Meds: Active Medications Acetaminophen (Tylenol) 650 mg PO Q4H PRN PRN Reason: Pain MILD(1-3)/Fever >100.5/LOCKETT Lipase/Protease/Amylase (Pancreaze Dr 10,500 Unit) 1 each FEEDTUBE PRN PRN PRN Reason: For Clogged Feeding Tube Dextrose (D50w (25gm) Syringe) 50 ml IV PRN PRN PRN Reason: Hypoglycemia Last Admin: 07/10/17 11:00 Dose: 50 ml Enoxaparin Sodium (Lovenox) 30 mg SUB-Q QDAY [facility] Last Admin: 07/11/17 11:25 Dose: 30 mg Heparin Sodium (Porcine) (Heparin) 5,000 unit IV JA PRN PRN Reason: cassidy Last Admin: 07/11/17 14:43 Dose: 5,000 unit Sodium Chloride (Nacl 0.9%) 100 mls @ 999 mls/hr IV JA PRN PRN Reason: Hypotension Furosemide 100 mg/ Sodium (Chloride) 60 mls @ 100 mls/hr IV Q8H [facility] Last Admin: 07/11/17 02:35 Dose: 100 mls/hr Sodium Chloride (Nacl 0.9%) 100 mls @ 999 mls/hr IV JA PRN PRN Reason: Hypotension Insulin Aspart (Novolog) 0 units SUB-Q ACHS [facility] PRN Reason: Protocol Last Admin: 07/11/17 12:08 Dose: Not Given Ondansetron HCl (Zofran) 4 mg IV Q8H PRN PRN Reason: N/V unrelieved by Reglan Simple Syrup (Simple Syrup) 15 ml FEEDTUBE PRN PRN PRN Reason: Hypoglycemia Simple Syrup (Simple Syrup) 30 ml FEEDTUBE PRN PRN PRN Reason: Hypoglycemia Sodium Bicarbonate (Sodium Bicarbonate) 325 mg FEEDTUBE PRN PRN PRN Reason: For Clogged Feeding Tube Review of Systems ROS unobtainable: due to mental status Physical Examination Vital Signs Temp Pulse Resp BP Pulse Ox 97 F L 108 H 22 88/71 97 07/09/17 20:52 07/09/17 20:52 07/09/17 20:52 07/09/17 20:52 07/09/17 20:52 General appearance: no acute distress, other (generalized edema) HEENT: Positive: PERRL, Normocephaly, Mucus Membranes Moist Neck: Positive: neck supple, trachea midline Cardiac: Positive: Regular Rhythm, S1/S2, Tachycardia Lungs: Positive: clear to auscultation (anterior) Neuro: Positive: Other (lethargic) Abdomen: Positive: Other (distended). Negative: Tender Skin: Positive: Clear, Other (generalized edema). Negative: Wound Extremities: Present: edema (BUE/BLE and generalized edema) Results 07/11/17 10:16 07/11/17 10:16 Cardiac Enzymes 07/11/17 Range/Units 14:32 AST 59 H (5-40) units/L CBC 07/11/17 Range/Units 10:16 WBC 9.1 (4.5-11.0) K/mm3 RBC 4.65 (3.65-5.03) M/mm3 Hgb 12.0 (11.8-15.2) gm/dl Hct 36.7 (35.5-45.6) % Plt Count 154 (140-440) K/mm3 Comprehensive Metabolic Panel 07/11/17 07/11/17 Range/Units 10:16 14:32 Sodium 140 (137-145) mmol/L Potassium 5.0 (3.6-5.0) mmol/L Chloride 99.1 (98-107) mmol/L Carbon Dioxide 21 L (22-30) mmol/L BUN 102 H (9-20) mg/dL Creatinine 4.3 H (0.8-1.5) mg/dL Glucose 100 (75-100) mg/dL Calcium 8.9 (8.4-10.2) mg/dL Direct Bilirubin 1.5 H (0-0.2) mg/dL Indirect Bilirubin 0.8 mg/dL AST 59 H (5-40) units/L ALT 43 (7-56) units/L Alkaline Phosphatase 91 (35-129) units/L Total Protein 6.7 (6.3-8.2) g/dL Albumin 3.2 L (3.9-5) g/dL - Imaging and Cardiology Echo: report reviewed (Stress echo done 02/2009 was negative for ischemia, EF heber from 50-65%) Cardiac cath: report reviewed ([facility] 10/2000 at showed angiographically normal coronary arteries) EKG interpretations - Telemetry EKG Rhythm: Sinus Tachycardia - EKG Sinus rhythms and dysrhythmias: sinus tachycardia (low voltage) Assessment and Plan Assessment: Acute renal failure / volume overload - s/p emergent HD Acute systolic heart failure Dilated CMP - EF 15-20% Acute respiratory failure Elevated troponins - ECG with NAF; flat; currently nonspecific in setting of ARF and acutely decompensated systolic HF AMS - head CT with NAF Hyperkalemia - improved s/p HD Anasarca Sinus tachycardia Mild transaminitis and hyperbilirubinemia - ? hepatorenal syndrome H/o HTN - currently with hypotension HLP DM H/o normal coronaries - [facility] 10/2000 at showed angiographically normal coronary arteries Plan: Echo reviewed - EF 15-20%, LV moderate to severely dilated, LA moderate to severely dilated, mild MR, RV moderate to severely dilated, RA moderate to severely dilated, mild TR. Volume optimization per nephrology. Initiate low dose coreg cautiously. Hold for HR <60 and SBP <100. No ACEI/ARB or aldactone at this time in setting of hypotension and ARF. [facility] records reveal that pt was tolerating Coreg, amlodipine, lasix (80mg BID), lisinopril, aldactone at home. Initiate ASA 81. Hold lipitor in setting of mild transaminitis and hyperbilirubinemia. Hold nitrates in setting of hypotension. Repeat EKG in AM. Consider ischemic evaluation once medically stabilized. The patient has been seen in conjunction with Dr. Nice who agrees with the assessment and plan of care.
[2017-07-11] MEDS ORDERED: D5NS 1,000 ML IV SCH (17:00)
[2017-07-11] MEDS ORDERED: MORPHINE IV ONE (17:00)
[2017-07-11 18:42] LABS: HIV-1 Antigen p24 Non React (Non React); HIVR-1/2 Ab Non React (Non React)
[2017-07-11] MEDS ORDERED: NACL 0.9 (PRIMING MACHINE ONLY DIALYSIS) MC ONE (23:13)
--- NOTE | 2017-07-11 23:52 | XRay Report ---
FINAL REPORT EXAM: XR ABDOMEN 1V AP HISTORY: DUBHOFF TUBE PLACEMENT TECHNIQUE: Single-view abdomen 1 image PRIORS: None. FINDINGS: Distal aspect of right internal jugular central venous catheter is seen in the region the superior vena cava. There is a nonobstructed bowel-gas pattern. No feeding tube is identified. No acute osseous abnormality is identified. IMPRESSION: 1. No feeding tube is identified. It is possible that it is external to the patient or coiled in the pharynx. UNF
[2017-07-12] MEDS ORDERED: NACL 0.9% 250ML 250 ML IV ONE (01:45)
[2017-07-12] MEDS: COREG PO SCH ×3 (01:48→23:29)
[2017-07-12] MEDS: LEVOPHED 8 MG in NACL 0.9% 250ML 242 ML IV SCH ×2 (03:37→15:13)
[2017-07-12 04:10] LABS: Hematocrit 36.4 % (35.5-45.6); Hemoglobin 11.8 gm/dl (11.8-15.2); Mean Corpuscular HGB Conc 32 % (32-34); Mean Corpuscular Volume 79 fl (84-94); Platelet Count 130 K/mm3 (140-440)
[2017-07-12 04:22] LABS: Calcium 8.6 mg/dL (8.4-10.2); Chloride 99.2 mmol/L (98-107); Potassium 4.2 mmol/L (3.6-5.0)
[2017-07-12 04:31] LABS: Mean Corpuscular Hemoglobin 26 pg (28-32); Red Cell Distribution Width 22.3 % (13.2-15.2)
[2017-07-12] MEDS ORDERED: LOPRESSOR IV ONE (06:35)
[2017-07-12] MEDS: NOVOLOG SUB-Q SCH ×4 (07:30→23:34)
[2017-07-12] MEDS ORDERED: PROAMATINE PO SCH (11:00)
--- NOTE | 2017-07-12 11:34 | Progress Note ---
Assessment and Plan Assessment: Acute renal failure / volume overload - s/p emergent HD Acute systolic heart failure Dilated CMP - EF 15-20% Atrial flutter with RVR - ? new onset Acute respiratory failure Elevated troponins - ECG with NAF; flat; currently nonspecific in setting of ARF and acutely decompensated systolic HF AMS - head CT with NAF Hyperkalemia - improved s/p HD Anasarca Mild transaminitis and hyperbilirubinemia - ? hepatorenal syndrome H/o HTN - currently with hypotension HLP DM H/o normal coronaries - [facility] 10/2000 at showed angiographically normal coronary arteries Plan: Echo reviewed - EF 15-20%, LV moderate to severely dilated, LA moderate to severely dilated, mild MR, RV moderate to severely dilated, RA moderate to severely dilated, mild TR. Volume optimization per nephrology. Cont low dose coreg cautiously. Hold for HR <60 and SBP <100. No ACEI/ARB or aldactone at this time in setting of hypotension and ARF. [facility] records reveal that pt was tolerating Coreg, amlodipine, lasix (80mg BID), lisinopril, aldactone at home. Cont ASA 81. Hold lipitor in setting of mild transaminitis and hyperbilirubinemia. Hold nitrates in setting of hypotension. Give IV digoxin x 1 dose now and obtain digoxin level this evening. Consider DCCV if pt remains hypotensive and tachycardic. Initiate heparin gtt with initial bolus in setting of AFlutter. 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 Consider ischemic evaluation once medically stabilized. The patient has been seen in conjunction with Dr. Pryor who agrees with the assessment and plan of care. Subjective Date of service: 07/12/17 Principal diagnosis: ARF; HF Interval history: Pt resting in bed, undergoing HD. Appears to be in AFlutter with RVR on telemetry, HR 130s-140s. Hypotensive, requiring levophed gtt. Objective Last Vital Signs Temp 98.5 F 07/12/17 09:30 Pulse 146 H 07/12/17 11:15 Resp 16 07/12/17 10:00 BP 115/69 07/12/17 11:15 Pulse Ox 100 07/12/17 10:00 - Physical Examination General: Other (lethargic) HEENT: Positive: PERRL, Normocephaly, Mucus Membranes Moist Neck: Positive: neck supple, trachea midline Cardiac: Positive: irregularly irregular, S1/S2, Tachycardia Lungs: Positive: Decreased Breath Sounds Neuro: Positive: Other (lethargic) Abdomen: Positive: Other (distended). Negative: Tender Skin: Positive: Clear, Other (generalized edema). Negative: Wound Extremities: Present: edema (BUE/BLE and generalized edema) - Labs and Meds Cardiac Enzymes 07/11/17 Range/Units 14:32 AST 59 H (5-40) units/L CBC 07/12/17 Range/Units 03:29 WBC 9.0 (4.5-11.0) K/mm3 RBC 4.60 (3.65-5.03) M/mm3 Hgb 11.8 (11.8-15.2) gm/dl Hct 36.4 (35.5-45.6) % Plt Count 130 L (140-440) K/mm3 Comprehensive Metabolic Panel 07/11/17 07/12/17 Range/Units 14:32 03:29 Sodium 140 (137-145) mmol/L Potassium 4.2 (3.6-5.0) mmol/L Chloride 99.2 (98-107) mmol/L Carbon Dioxide 23 (22-30) mmol/L BUN 74 H (9-20) mg/dL Creatinine 3.9 H (0.8-1.5) mg/dL Glucose 120 H (75-100) mg/dL Calcium 8.6 (8.4-10.2) mg/dL Direct Bilirubin 1.5 H (0-0.2) mg/dL Indirect Bilirubin 0.8 mg/dL AST 59 H (5-40) units/L ALT 43 (7-56) units/L Alkaline Phosphatase 91 (35-129) units/L Total Protein 6.7 (6.3-8.2) g/dL Albumin 3.2 L (3.9-5) g/dL - Imaging and Cardiology Echo: report reviewed (Stress echo done 02/2009 was negative for ischemia, EF heber from 50-65%) Cardiac cath: report reviewed ([facility] 10/2000 at showed angiographically normal coronary arteries) - Telemetry EKG Rhythm: Atrial Flutter - EKG Sinus rhythms and dysrhythmias: sinus tachycardia (low voltage)
--- NOTE | 2017-07-12 11:54 | Consultation ---
History of Present Illness - Reason for Consult Consult date: 07/12/17 Hypotension on Pressors Requesting physician: AVIVA SCHUSTER - History of Present Illness 57 y/o male, admitted two days go in need of HD. HAd to have emergent vascath and HD done so transferred to unit. Had HD on yesterday and tolerated but now in aflutter on levophed. Past History Past Medical History: diabetes, hypertension, hyperlipidemia Medications and Allergies Allergies Allergy/AdvReac Type Severity Reaction Status Date / Time No Known Allergies Allergy Unverified 07/09/17 20:35 Home Medications Medication Instructions Recorded Confirmed Last Taken Type B1/B2/Niacin/B12/Protease 1 each PO DAILY 07/10/17 07/10/17 2 Days Ago History [B-Complex with B-12 Tablet] Carvedilol [Coreg] 25 mg PO BID 07/10/17 07/10/17 2 Days Ago History Cholecalciferol (Vitamin D3) 2,000 units PO DAILY 07/10/17 07/10/17 2 Days Ago History [Vitamin D3 2,000 unit] Furosemide [Lasix] 80 mg PO BID 07/10/17 07/10/17 2 Days Ago History Lisinopril [Zestril] 40 mg PO BID 07/10/17 07/10/17 2 Days Ago History Metformin HCl [Glucophage] 1,000 mg PO BID 07/10/17 07/10/17 2 Days Ago History Potassium Chloride [K-Dur] 40 meq PO DAILY 07/10/17 07/10/17 2 Days Ago History Sildenafil Citrate [Sildenafil] 20 mg PO QDAY 07/10/17 07/10/17 2 Days Ago History Spironolactone [Aldactone] 25 mg PO QDAY 07/10/17 07/10/17 2 Days Ago History amLODIPine [Norvasc] 20 mg PO DAILY 07/10/17 07/10/17 2 Days Ago History glipiZIDE [Glipizide] 20 mg PO BID 07/10/17 07/10/17 2 Days Ago History hydrALAZINE [Apresoline] 25 mg PO Q8HR 07/10/17 07/10/17 2 Days Ago History Active Meds: Active Medications Acetaminophen (Tylenol) 650 mg PO Q4H PRN PRN Reason: Pain MILD(1-3)/Fever >100.5/LOCKETT Lipase/Protease/Amylase (Jeannine Nguyen 10,500 Unit) 1 each FEEDTUBE PRN PRN PRN Reason: For Clogged Feeding Tube Aspirin (Baby Aspirin) 81 mg PO QDAY [facility] Carvedilol (Coreg) 3.125 mg PO BID [facility] Last Admin: 07/12/17 01:48 Dose: Not Given Dextrose (D50w (25gm) Syringe) 50 ml IV PRN PRN PRN Reason: Hypoglycemia Last Admin: 07/10/17 11:00 Dose: 50 ml Enoxaparin Sodium (Lovenox) 30 mg SUB-Q QDAY [facility] Last Admin: 07/11/17 11:25 Dose: 30 mg Heparin Sodium (Porcine) (Heparin) 5,000 unit IV JA PRN PRN Reason: cassidy Last Admin: 07/11/17 14:43 Dose: 5,000 unit Sodium Chloride (Nacl 0.9%) 100 mls @ 999 mls/hr IV JA PRN PRN Reason: Hypotension Dextrose/Sodium Chloride (D5ns) 1,000 mls @ 30 mls/hr IV DIRECT AUBRIE Last Admin: 07/11/17 17:10 Dose: 30 mls/hr Norepinephrine 8 mg/ Sodium (Chloride) 250 mls @ 3.75 mls/hr IV TITR AUBRIE; 2 MCG /MIN PRN Reason: Protocol Last Titration: 07/12/17 06:35 Dose: 10 mcg/min, 18.75 mls/hr Insulin Aspart (Novolog) 0 units SUB-Q ACHS AUBRIE PRN Reason: Protocol Last Admin: 07/11/17 22:00 Dose: Not Given Ondansetron HCl (Zofran) 4 mg IV Q8H PRN PRN Reason: N/V unrelieved by Reglan Simple Syrup (Simple Syrup) 15 ml FEEDTUBE PRN PRN PRN Reason: Hypoglycemia Simple Syrup (Simple Syrup) 30 ml FEEDTUBE PRN PRN PRN Reason: Hypoglycemia Sodium Bicarbonate (Sodium Bicarbonate) 325 mg FEEDTUBE PRN PRN PRN Reason: For Clogged Feeding Tube Exam - Constitutional Vitals: Temp Pulse Resp BP Pulse Ox 98.5 F 151 H 17 99/66 100 07/12/17 09:30 07/12/17 11:48 07/12/17 11:30 07/12/17 11:48 07/12/17 11:20 Results - Labs CBC & Chem 7: 07/12/17 03:29 07/12/17 03:29 Labs: Abnormal lab results 07/10/17 07/11/17 07/11/17 Range/Units Unknown 11:38 14:32 MCV (84-94) fl MCH (28-32) pg RDW (13.2-15.2) % Plt Count (140-440) K/mm3 BUN (9-20) mg/dL Creatinine (0.8-1.5) mg/dL Glucose (75-100) mg/dL POC Glucose 113 H (70-105) Total Bilirubin 2.30 H (0.1-1.2) mg/dL Direct Bilirubin 1.5 H (0-0.2) mg/dL AST 59 H (5-40) units/L Albumin 3.2 L (3.9-5) g/dL Urine Creatinine 101.5 H (0.1-20.0) mg/dL Urine Total Protein 112 H (5-11.8) mg/dL 07/11/17 07/11/17 07/11/17 Range/Units 17:54 21:23 Unknown MCV (84-94) fl MCH (28-32) pg RDW (13.2-15.2) % Plt Count (140-440) K/mm3 BUN (9-20) mg/dL Creatinine (0.8-1.5) mg/dL Glucose (75-100) mg/dL POC Glucose 108 H 123 H (70-105) Total Bilirubin (0.1-1.2) mg/dL Direct Bilirubin (0-0.2) mg/dL AST (5-40) units/L Albumin (3.9-5) g/dL Urine Creatinine 101.1 H (0.1-20.0) mg/dL Urine Total Protein 112 H (5-11.8) mg/dL 07/12/17 07/12/17 Range/Units 03:29 03:29 MCV 79 L (84-94) fl MCH 26 L (28-32) pg RDW 22.3 H (13.2-15.2) % Plt Count 130 L (140-440) K/mm3 BUN 74 H (9-20) mg/dL Creatinine 3.9 H (0.8-1.5) mg/dL Glucose 120 H (75-100) mg/dL POC Glucose (70-105) Total Bilirubin (0.1-1.2) mg/dL Direct Bilirubin (0-0.2) mg/dL AST (5-40) units/L Albumin (3.9-5) g/dL Urine Creatinine (0.1-20.0) mg/dL Urine Total Protein (5-11.8) mg/dL Assessment and Plan 57 y/o male with acute renal failure requiring HD, now in new onset Aflutter with hypotension. 1. Wean Levophed for MAPS greater than 60-65 2. Spoke with cards and they are evaluating, may consider cardioversion 3. HD per renal 4. Will continue to monitor in unit.
[2017-07-12] MEDS ORDERED: LOPRESSOR IV PRN ×2 (12:30→12:32)
[2017-07-12] MEDS: HEPARIN IV PRN (13:03)
--- NOTE | 2017-07-12 13:07 | Progress Note ---
Assessment and Plan - Patient Problems (1) Anasarca Current Visit: Yes Status: Acute Plan to address problem: Continue daily Hemodialysis for ultrafiltration and clearance via Right Femoral Vas Catheter Monitor labs and patient daily and adjust HD prescription as needed (2) Acute renal failure (ARF) Current Visit: Yes Status: Acute Qualifiers: Acute renal failure type: A Plan to address problem: Acute Renal Failure possibly secondary to cardiorenal syndrome initiated on Hemodialysis Status post HD treatments on 07/10 (first HD treatment) and 07/11/17 Additional Hemodialysis treatment today for ultrafiltration and clearance via right femoral vas catheter Patient will require daily Hemodialysis for ultrafiltration and clearance, goal UF 3-4 liters Assess need for HD on daily basis Renally dose medications Obtain daily weight Thorne Catheter: Yes Strict intake and output Renal plan discussed with Dr Cortez Continue supportive therapy (3) Atrial flutter with rapid ventricular response Current Visit: Yes Status: Acute Plan to address problem: Cardiology consulted, considering DCCV after HD today if remains hypotensive and tachycardic, follow up recs (4) Systolic and diastolic CHF, acute Current Visit: Yes Status: Acute Plan to address problem: Cardiology on board, s/p TTE on 07/10/17 showed EF 15-20% Daily Hemodialysis with ultrafiltation for management of volume overload (5) Type 2 diabetes mellitus with insulin therapy Current Visit: Yes Status: Acute Plan to address problem: On Sliding scale insulin As per primary team Subjective Date of service: 07/12/17 Principal diagnosis: ARF; HF Interval history: Patient very lethargic, opens eyes care home to physical stimuli, but drifts back to sleep, undergoing HD at bedside Objective - Vital Signs Vital signs: Vital Signs - 12hr 07/12/17 07/12/17 07/12/17 01:10 01:20 01:30 Temperature Pulse Rate 129 H 129 H 128 H Respiratory 16 19 16 Rate Respiratory Rate [Soft Tissue] Blood Pressure 87/49 84/50 88/46 O2 Sat by Pulse 99 99 99 Oximetry O2 Sat by Pulse Oximetry [ Anterior Bilateral Throughout] 07/12/17 07/12/17 07/12/17 01:40 01:50 02:00 Temperature Pulse Rate 130 H 130 H 129 H Respiratory 17 16 19 Rate Respiratory Rate [Soft Tissue] Blood Pressure 88/46 84/46 84/50 O2 Sat by Pulse 99 99 93 Oximetry O2 Sat by Pulse Oximetry [ Anterior Bilateral Throughout] 07/12/17 07/12/17 07/12/17 02:10 02:20 02:30 Temperature Pulse Rate 131 H 130 H Respiratory 11 L 15 Rate Respiratory Rate [Soft Tissue] Blood Pressure 84/50 84/50 65/38 O2 Sat by Pulse 97 99 95 Oximetry O2 Sat by Pulse Oximetry [ Anterior Bilateral Throughout] 07/12/17 07/12/17 07/12/17 02:40 02:50 03:00 Temperature Pulse Rate 129 H 129 H 130 H Respiratory 18 16 14 Rate Respiratory Rate [Soft Tissue] Blood Pressure 65/38 69/39 71/36 O2 Sat by Pulse 97 97 95 Oximetry O2 Sat by Pulse Oximetry [ Anterior Bilateral Throughout] 07/12/17 07/12/17 07/12/17 03:10 03:20 03:30 Temperature Pulse Rate 129 H 130 H 129 H Respiratory 17 17 22 Rate Respiratory Rate [Soft Tissue] Blood Pressure 71/36 73/33 69/38 O2 Sat by Pulse 97 97 93 Oximetry O2 Sat by Pulse Oximetry [ Anterior Bilateral Throughout] 07/12/17 07/12/17 07/12/17 03:40 03:50 03:53 Temperature 99.7 F H Pulse Rate 129 H 129 H Respiratory 15 12 Rate Respiratory Rate [Soft Tissue] Blood Pressure 69/38 76/37 O2 Sat by Pulse 98 98 Oximetry O2 Sat by Pulse Oximetry [ Anterior Bilateral Throughout] 07/12/17 07/12/17 07/12/17 04:00 04:06 04:10 Temperature Pulse Rate 130 H 129 H 130 H Respiratory 17 17 Rate Respiratory Rate [Soft Tissue] Blood Pressure 88/37 88/37 O2 Sat by Pulse 95 99 Oximetry O2 Sat by Pulse Oximetry [ Anterior Bilateral Throughout] 07/12/17 07/12/17 07/12/17 04:20 04:30 04:40 Temperature Pulse Rate 130 H 130 H 130 H Respiratory 22 20 16 Rate Respiratory Rate [Soft Tissue] Blood Pressure 87/40 80/49 80/49 O2 Sat by Pulse 98 97 98 Oximetry O2 Sat by Pulse Oximetry [ Anterior Bilateral Throughout] 07/12/17 07/12/17 07/12/17 04:50 05:00 05:08 Temperature Pulse Rate 130 H 131 H Respiratory 21 19 16 Rate Respiratory Rate [Soft Tissue] Blood Pressure 85/53 86/56 O2 Sat by Pulse 100 100 Oximetry O2 Sat by Pulse Oximetry [ Anterior Bilateral Throughout] 07/12/17 07/12/17 07/12/17 05:10 05:20 05:30 Temperature Pulse Rate 133 H 134 H 130 H Respiratory 20 19 21 Rate Respiratory Rate [Soft Tissue] Blood Pressure 86/56 96/58 86/56 O2 Sat by Pulse 96 Oximetry O2 Sat by Pulse Oximetry [ Anterior Bilateral Throughout] 07/12/17 07/12/17 07/12/17 05:40 05:50 06:00 Temperature Pulse Rate 144 H 144 H 143 H Respiratory 18 18 18 Rate Respiratory Rate [Soft Tissue] Blood Pressure 86/56 96/51 95/54 O2 Sat by Pulse 96 97 95 Oximetry O2 Sat by Pulse Oximetry [ Anterior Bilateral Throughout] 07/12/17 07/12/17 07/12/17 06:10 06:20 06:30 Temperature Pulse Rate 140 H 138 H 145 H Respiratory 20 15 19 Rate Respiratory Rate [Soft Tissue] Blood Pressure 95/54 90/44 97/34 O2 Sat by Pulse 97 98 97 Oximetry O2 Sat by Pulse Oximetry [ Anterior Bilateral Throughout] 07/12/17 07/12/17 07/12/17 06:31 06:40 06:47 Temperature 99.8 F H Pulse Rate 144 H 144 H Respiratory 16 Rate Respiratory Rate [Soft Tissue] Blood Pressure 97/34 97/43 O2 Sat by Pulse 97 Oximetry O2 Sat by Pulse Oximetry [ Anterior Bilateral Throughout] 07/12/17 07/12/17 07/12/17 06:50 07:00 07:10 Temperature Pulse Rate 133 H 130 H 130 H Respiratory 19 20 23 Rate Respiratory Rate [Soft Tissue] Blood Pressure 97/43 94/49 94/49 O2 Sat by Pulse 96 100 97 Oximetry O2 Sat by Pulse Oximetry [ Anterior Bilateral Throughout] 07/12/17 07/12/17 07/12/17 07:20 07:30 07:32 Temperature Pulse Rate 136 H 132 H Respiratory 20 18 Rate Respiratory Rate [Soft Tissue] Blood Pressure 89/47 94/37 O2 Sat by Pulse 97 97 Oximetry O2 Sat by Pulse Oximetry [ Anterior Bilateral Throughout] 07/12/17 07/12/17 07/12/17 07:40 07:50 08:00 Temperature 98.5 F Pulse Rate 132 H 132 H 132 H Respiratory 20 22 22 Rate Respiratory Rate [Soft Tissue] Blood Pressure 94/37 85/37 90/50 O2 Sat by Pulse 96 97 97 Oximetry O2 Sat by Pulse Oximetry [ Anterior Bilateral Throughout] 07/12/17 07/12/17 07/12/17 08:10 08:20 08:30 Temperature Pulse Rate 133 H 132 H 135 H Respiratory 21 20 21 Rate Respiratory Rate [Soft Tissue] Blood Pressure 90/50 84/49 89/59 O2 Sat by Pulse 98 97 97 Oximetry O2 Sat by Pulse Oximetry [ Anterior Bilateral Throughout] 07/12/17 07/12/17 07/12/17 08:40 08:50 09:00 Temperature Pulse Rate 133 H 133 H 133 H Respiratory 20 18 22 Rate Respiratory Rate [Soft Tissue] Blood Pressure 89/59 94/55 96/47 O2 Sat by Pulse 97 98 95 Oximetry O2 Sat by Pulse Oximetry [ Anterior Bilateral Throughout] 07/12/17 07/12/17 07/12/17 09:10 09:20 09:30 Temperature 98.5 F Pulse Rate 134 H 135 H 134 H Respiratory 18 16 18 Rate Respiratory Rate [Soft Tissue] Blood Pressure 96/47 82/57 87/54 O2 Sat by Pulse 98 96 97 Oximetry O2 Sat by Pulse 99 Oximetry [ Anterior Bilateral Throughout] 07/12/17 07/12/17 07/12/17 09:40 09:45 09:50 Temperature Pulse Rate 134 H 135 H 134 H Respiratory 16 16 Rate Respiratory Rate [Soft Tissue] Blood Pressure 96/47 88/59 97/49 O2 Sat by Pulse 98 98 Oximetry O2 Sat by Pulse Oximetry [ Anterior Bilateral Throughout] 07/12/17 07/12/17 07/12/17 10:00 10:10 10:15 Temperature Pulse Rate 135 H 136 H 139 H Respiratory 16 17 Rate Respiratory 16 Rate [Soft Tissue] Blood Pressure 97/55 97/49 91/65 O2 Sat by Pulse 97 99 Oximetry O2 Sat by Pulse Oximetry [ Anterior Bilateral Throughout] 07/12/17 07/12/17 07/12/17 10:20 10:30 10:40 Temperature Pulse Rate 137 H 150 H 139 H Respiratory 17 25 H 17 Rate Respiratory Rate [Soft Tissue] Blood Pressure 91/65 97/73 97/73 O2 Sat by Pulse 100 97 100 Oximetry O2 Sat by Pulse Oximetry [ Anterior Bilateral Throughout] 07/12/17 07/12/17 07/12/17 10:45 10:50 11:00 Temperature Pulse Rate 139 H 139 H 146 H Respiratory 17 19 Rate Respiratory Rate [Soft Tissue] Blood Pressure 114/43 114/43 114/43 O2 Sat by Pulse 100 100 Oximetry O2 Sat by Pulse Oximetry [ Anterior Bilateral Throughout] 07/12/17 07/12/17 07/12/17 11:10 11:15 11:20 Temperature Pulse Rate 139 H 146 H 157 H Respiratory 19 20 Rate Respiratory Rate [Soft Tissue] Blood Pressure 98/54 115/69 115/69 O2 Sat by Pulse 99 100 Oximetry O2 Sat by Pulse Oximetry [ Anterior Bilateral Throughout] 07/12/17 07/12/17 07/12/17 11:30 11:31 11:48 Temperature Pulse Rate 155 H 149 H 151 H Respiratory 17 Rate Respiratory Rate [Soft Tissue] Blood Pressure 115/69 124/61 99/66 O2 Sat by Pulse Oximetry O2 Sat by Pulse Oximetry [ Anterior Bilateral Throughout] 07/12/17 07/12/17 07/12/17 12:00 12:02 12:18 Temperature 98.1 F Pulse Rate 158 H 157 H Respiratory Rate Respiratory Rate [Soft Tissue] Blood Pressure 94/60 92/68 O2 Sat by Pulse Oximetry O2 Sat by Pulse Oximetry [ Anterior Bilateral Throughout] 07/12/17 07/12/17 12:30 12:53 Temperature 98.1 F Pulse Rate 172 H 148 H Respiratory 18 Rate Respiratory Rate [Soft Tissue] Blood Pressure 118/61 99/59 O2 Sat by Pulse Oximetry O2 Sat by Pulse 98 Oximetry [ Anterior Bilateral Throughout] - General Appearance General appearance: other (very lethargic, doesn't follow commands, no family at bedside) EENT: ATNC Respiratory: Present: Other (Lung sounds decreased bilaterally) Cardiology: irregularly irregular, tachycardia, S1S2 Gastrointestinal: normoactive bowel sounds, distended Integumentary: other (bilateral skin wounds to both lower extremities/ dressings in place) Neurologic: disoriented (very lethargic, doesn't follow commands, opens eyes care home to physical stimuli, but drifts back to sleep) Musculoskeletal: other (Anasarca to upper torso down to both lower extremities, 3+ edema to both lower extremities) - Lab 07/12/17 03:29 07/12/17 03:29 Most recent lab results ABG pH 7.283 pH Units (7.350-7.450) L 07/10/17 16:06 ABG pCO2 37.7 mm Hg 07/10/17 16:06 ABG pO2 56.5 mm Hg (80.0-90.0) L 07/10/17 16:06 ABG HCO3 17.4 mmol/L (20.0-26.0) L 07/10/17 16:06 ABG O2 Saturation 89.5 % (95.0-99.0) L 07/10/17 16:06 Calcium 8.6 mg/dL (8.4-10.2) 07/12/17 03:29 Phosphorus 6.10 mg/dL (2.5-4.5) H 07/11/17 10:16 Magnesium 2.90 mg/dL (1.7-2.3) H 07/11/17 10:16 Urine Creatinine 101.1 mg/dL (0.1-20.0) H 07/11/17 Unknown Urine Sodium 38 mEq/L 07/10/17 Unknown Urine Total Protein 112 mg/dL (5-11.8) H 07/11/17 Unknown
[2017-07-12] MEDS ORDERED: LANOXIN IV ONE (13:18)
[2017-07-12] MEDS: LOVENOX SUB-Q SCH (13:43)
[2017-07-12] MEDS: BABY ASPIRIN PO SCH (13:52)
--- NOTE | 2017-07-12 16:27 | Progress Note ---
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 /Acute metabolic encephalopathy likley from uremia has h/o fall, Ct head was unremarkable on admission will obtain MRI to r/o possible acute CVA improving / Hyperkalemia: -Improved with HD -Low K pureed diet /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, acute: -TTE shows low EF 15 to 20% -Cardiology consulted -UF via HD /Diabetes mellitus type 2 on insulin: -On insulin at home - SSI coverage for now /hypoglycemia - noted in the ED, corrected with d50 /elevated troponin - likely from worsening renal function and underlying CHF - follow cardiology recommendation /Essential Hypertension: -BP running low, hold all bp meds for now /FEN - placed on pureed diet Brief History: This is a 57 year old male with PMH of diabetes mellitus type 2 insulin dependent, hypertension, and possibly CHF who presented to [facility] ED last night with complaints of shortness of breath, bilateral upper and lower extremity edema, s/p fall at home (unable to provide information about fall). On admission, SCr level was 4.5 with BUN of 134, BNP level was 21,165, IV fluids discontinued. Chest X Ray on 07/09/17 showed cardiomegaly, otherwise no acute findings. CT Head without contrast on 07/09/17 showed no acute intracranial abnormality. Active medication: Generic Name Dose Route Start Last Admin Trade Name Freq PRN Reason Stop Dose Admin Acetaminophen 650 mg 07/10/17 06:20 Tylenol PO Q4H PRN Pain MILD(1-3)/Fever >100.5/LOCKETT Lipase/Protease/Amylase 1 each 07/11/17 13:41 Pancreshey Nguyen 10,500 Unit FEEDTUBE PRN PRN For Clogged Feeding Tube Aspirin 81 mg 07/12/17 10:00 Baby Aspirin PO QDAY AUBRIE Carvedilol 3.125 mg 07/11/17 22:00 07/12/17 01:48 Coreg PO Not Given BID AUBRIE Dextrose 50 ml 07/10/17 06:46 07/10/17 11:00 D50w (25gm) Syringe IV 50 ml PRN PRN Administration Hypoglycemia Enoxaparin Sodium 30 mg 07/10/17 10:00 07/11/17 11:25 Lovenox SUB-Q 30 mg QDAY AUBRIE Administration Heparin Sodium (Porcine) 5,000 unit 07/10/17 22:10 07/11/17 14:43 Heparin IV 5,000 unit JA PRN Administration dewell Sodium Chloride 100 mls @ 999 mls/hr 07/11/17 14:23 Nacl 0.9% IV JA PRN Hypotension Dextrose/Sodium Chloride 1,000 mls @ 30 mls/hr 07/11/17 17:00 07/11/17 17:10 D5ns IV 30 mls/hr DIRECT AUBRIE Administration Norepinephrine 8 mg/ Sodium 250 mls @ 3.75 mls/hr 07/12/17 04:00 07/12/17 06: 35 Chloride IV 10 mcg/min TITR AUBRIE 18.75 mls/hr Protocol Titration 2 MCG/MIN Insulin Aspart 0 units 07/10/17 07:30 07/11/17 22:00 Novolog SUB-Q Not Given [facility] Protocol Ondansetron HCl 4 mg 07/10/17 06:20 Zofran IV Q8H PRN N/V unrelieved by Junior Simple Syrup 15 ml 07/11/17 13:41 Simple Syrup FEEDTUBE PRN PRN Hypoglycemia Simple Syrup 30 ml 07/11/17 13:41 Simple Syrup FEEDTUBE PRN PRN Hypoglycemia Sodium Bicarbonate 325 mg 07/11/17 13:41 Sodium Bicarbonate FEEDTUBE PRN PRN For Clogged Feeding Tube Microbiology 07/09/17 21:14 Peripheral/Venous Blood Culture - Preliminary NO GROWTH AFTER 24 HOURS 07/09/17 21:14 Peripheral/Venous Blood Culture - Preliminary NO GROWTH AFTER 48 HOURS 07/09/17 20:52 Urine,[place] Urine Culture - Final NO GROWTH AFTER 48 HOURS Subjective Date of service: 07/12/17 Principal diagnosis: ARF; HF Interval history: Patient seen and examined. Medical records and medication list reviewed. Patient getting dialysis at the bedside Patient tolerated speech eval today placed on levophed since last night noted atrial flutter on monitor Objective - Constitutional Vitals: Vital Signs - 12hr 07/12/17 07/12/17 07/12/17 04:30 04:40 04:50 Temperature Pulse Rate 130 H 130 H 130 H Respiratory 20 16 21 Rate Respiratory Rate [Soft Tissue] Blood Pressure 80/49 80/49 85/53 O2 Sat by Pulse 97 98 100 Oximetry O2 Sat by Pulse Oximetry [ Anterior Bilateral Throughout] 07/12/17 07/12/17 07/12/17 05:00 05:08 05:10 Temperature Pulse Rate 131 H 133 H Respiratory 19 16 20 Rate Respiratory Rate [Soft Tissue] Blood Pressure 86/56 86/56 O2 Sat by Pulse 100 Oximetry O2 Sat by Pulse Oximetry [ Anterior Bilateral Throughout] 07/12/17 07/12/17 07/12/17 05:20 05:30 05:40 Temperature Pulse Rate 134 H 130 H 144 H Respiratory 19 21 18 Rate Respiratory Rate [Soft Tissue] Blood Pressure 96/58 86/56 86/56 O2 Sat by Pulse 96 96 Oximetry O2 Sat by Pulse Oximetry [ Anterior Bilateral Throughout] 07/12/17 07/12/17 07/12/17 05:50 06:00 06:10 Temperature Pulse Rate 144 H 143 H 140 H Respiratory 18 18 20 Rate Respiratory Rate [Soft Tissue] Blood Pressure 96/51 95/54 95/54 O2 Sat by Pulse 97 95 97 Oximetry O2 Sat by Pulse Oximetry [ Anterior Bilateral Throughout] 07/12/17 07/12/17 07/12/17 06:20 06:30 06:31 Temperature 99.8 F H Pulse Rate 138 H 145 H Respiratory 15 19 Rate Respiratory Rate [Soft Tissue] Blood Pressure 90/44 97/34 O2 Sat by Pulse 98 97 Oximetry O2 Sat by Pulse Oximetry [ Anterior Bilateral Throughout] 07/12/17 07/12/17 07/12/17 06:40 06:47 06:50 Temperature Pulse Rate 144 H 144 H 133 H Respiratory 16 19 Rate Respiratory Rate [Soft Tissue] Blood Pressure 97/34 97/43 97/43 O2 Sat by Pulse 97 96 Oximetry O2 Sat by Pulse Oximetry [ Anterior Bilateral Throughout] 07/12/17 07/12/17 07/12/17 07:00 07:10 07:20 Temperature Pulse Rate 130 H 130 H 136 H Respiratory 20 23 20 Rate Respiratory Rate [Soft Tissue] Blood Pressure 94/49 94/49 89/47 O2 Sat by Pulse 100 97 Oximetry O2 Sat by Pulse Oximetry [ Anterior Bilateral Throughout] 07/12/17 07/12/17 07/12/17 07:30 07:32 07:40 Temperature Pulse Rate 132 H 132 H Respiratory 18 20 Rate Respiratory Rate [Soft Tissue] Blood Pressure 94/37 94/37 O2 Sat by Pulse 97 97 96 Oximetry O2 Sat by Pulse Oximetry [ Anterior Bilateral Throughout] 07/12/17 07/12/17 07/12/17 07:50 08:00 08:10 Temperature 98.5 F Pulse Rate 132 H 132 H 133 H Respiratory 22 22 21 Rate Respiratory Rate [Soft Tissue] Blood Pressure 85/37 90/50 90/50 O2 Sat by Pulse 97 97 98 Oximetry O2 Sat by Pulse Oximetry [ Anterior Bilateral Throughout] 07/12/17 07/12/17 07/12/17 08:20 08:30 08:40 Temperature Pulse Rate 132 H 135 H 133 H Respiratory 20 21 20 Rate Respiratory Rate [Soft Tissue] Blood Pressure 84/49 89/59 89/59 O2 Sat by Pulse 97 97 97 Oximetry O2 Sat by Pulse Oximetry [ Anterior Bilateral Throughout] 07/12/17 07/12/17 07/12/17 08:50 09:00 09:10 Temperature Pulse Rate 133 H 133 H 134 H Respiratory 18 22 18 Rate Respiratory Rate [Soft Tissue] Blood Pressure 94/55 96/47 96/47 O2 Sat by Pulse 98 95 98 Oximetry O2 Sat by Pulse Oximetry [ Anterior Bilateral Throughout] 07/12/17 07/12/17 07/12/17 09:20 09:30 09:40 Temperature 98.5 F Pulse Rate 135 H 134 H 134 H Respiratory 16 18 16 Rate Respiratory Rate [Soft Tissue] Blood Pressure 82/57 87/54 96/47 O2 Sat by Pulse 96 97 98 Oximetry O2 Sat by Pulse 99 Oximetry [ Anterior Bilateral Throughout] 07/12/17 07/12/17 07/12/17 09:45 09:50 10:00 Temperature Pulse Rate 135 H 134 H 135 H Respiratory 16 16 Rate Respiratory 16 Rate [Soft Tissue] Blood Pressure 88/59 97/49 97/55 O2 Sat by Pulse 98 97 Oximetry O2 Sat by Pulse Oximetry [ Anterior Bilateral Throughout] 07/12/17 07/12/17 07/12/17 10:10 10:15 10:20 Temperature Pulse Rate 136 H 139 H 137 H Respiratory 17 17 Rate Respiratory Rate [Soft Tissue] Blood Pressure 97/49 91/65 91/65 O2 Sat by Pulse 99 100 Oximetry O2 Sat by Pulse Oximetry [ Anterior Bilateral Throughout] 07/12/17 07/12/17 07/12/17 10:30 10:40 10:45 Temperature Pulse Rate 130 H 139 H 139 H Respiratory 25 H 17 Rate Respiratory Rate [Soft Tissue] Blood Pressure 97/73 97/73 114/43 O2 Sat by Pulse 97 100 Oximetry O2 Sat by Pulse Oximetry [ Anterior Bilateral Throughout] 07/12/17 07/12/17 07/12/17 10:50 11:00 11:10 Temperature Pulse Rate 139 H 146 H 139 H Respiratory 17 19 19 Rate Respiratory Rate [Soft Tissue] Blood Pressure 114/43 114/43 98/54 O2 Sat by Pulse 100 100 99 Oximetry O2 Sat by Pulse Oximetry [ Anterior Bilateral Throughout] 07/12/17 07/12/17 07/12/17 11:15 11:20 11:30 Temperature Pulse Rate 146 H 157 H 155 H Respiratory 20 17 Rate Respiratory Rate [Soft Tissue] Blood Pressure 115/69 115/69 115/69 O2 Sat by Pulse 100 Oximetry O2 Sat by Pulse Oximetry [ Anterior Bilateral Throughout] 07/12/17 07/12/17 07/12/17 11:31 11:46 11:48 Temperature Pulse Rate 149 H 151 H 151 H Respiratory 17 Rate Respiratory Rate [Soft Tissue] Blood Pressure 124/61 99/66 99/66 O2 Sat by Pulse 100 Oximetry O2 Sat by Pulse Oximetry [ Anterior Bilateral Throughout] 07/12/17 07/12/17 07/12/17 12:00 12:02 12:16 Temperature 98.1 F Pulse Rate 157 H 158 H 153 H Respiratory 17 17 Rate Respiratory Rate [Soft Tissue] Blood Pressure 94/60 94/60 92/68 O2 Sat by Pulse 99 100 Oximetry O2 Sat by Pulse Oximetry [ Anterior Bilateral Throughout] 07/12/17 07/12/17 07/12/17 12:18 12:30 12:46 Temperature Pulse Rate 157 H 160 H 160 H Respiratory 17 13 Rate Respiratory Rate [Soft Tissue] Blood Pressure 92/68 92/68 92/68 O2 Sat by Pulse 99 100 Oximetry O2 Sat by Pulse Oximetry [ Anterior Bilateral Throughout] 07/12/17 07/12/17 07/12/17 12:53 13:00 13:15 Temperature 98.1 F Pulse Rate 148 H 151 H 147 H Respiratory 18 19 17 Rate Respiratory Rate [Soft Tissue] Blood Pressure 99/59 99/59 107/62 O2 Sat by Pulse 97 96 Oximetry O2 Sat by Pulse 98 Oximetry [ Anterior Bilateral Throughout] 07/12/17 07/12/17 07/12/17 13:30 13:37 13:45 Temperature Pulse Rate 148 H 148 H 143 H Respiratory 18 21 Rate Respiratory Rate [Soft Tissue] Blood Pressure 106/62 106/62 104/72 O2 Sat by Pulse 99 95 Oximetry O2 Sat by Pulse Oximetry [ Anterior Bilateral Throughout] 07/12/17 07/12/17 07/12/17 14:00 14:15 14:30 Temperature Pulse Rate 146 H 138 H 139 H Respiratory 22 21 18 Rate Respiratory Rate [Soft Tissue] Blood Pressure 100/50 111/54 99/61 O2 Sat by Pulse 97 96 96 Oximetry O2 Sat by Pulse Oximetry [ Anterior Bilateral Throughout] 07/12/17 07/12/17 07/12/17 14:46 15:00 15:15 Temperature Pulse Rate 136 H 137 H 137 H Respiratory 22 20 21 Rate Respiratory Rate [Soft Tissue] Blood Pressure 102/55 99/60 110/63 O2 Sat by Pulse 99 96 98 Oximetry O2 Sat by Pulse Oximetry [ Anterior Bilateral Throughout] 07/12/17 16:00 Temperature 98.5 F Pulse Rate Respiratory Rate Respiratory Rate [Soft Tissue] Blood Pressure O2 Sat by Pulse Oximetry O2 Sat by Pulse Oximetry [ Anterior Bilateral Throughout] - Labs CBC & Chem 7: 07/12/17 16:38 07/12/17 03:29 Labs: Abnormal lab results 07/10/17 07/11/17 07/11/17 Range/Units Unknown 11:38 17:54 MCV (84-94) fl MCH (28-32) pg RDW (13.2-15.2) % Plt Count (140-440) K/mm3 BUN (9-20) mg/dL Creatinine (0.8-1.5) mg/dL Glucose (75-100) mg/dL POC Glucose 113 H 108 H (70-105) Urine Creatinine 101.5 H (0.1-20.0) mg/dL Urine Total Protein 112 H (5-11.8) mg/dL 1007/11/17 07/12/17 Range/Units 21:23 Unknown 03:29 MCV 79 L (84-94) fl MCH 26 L (28-32) pg RDW 22.3 H (13.2-15.2) % Plt Count 130 L (140-440) K/mm3 BUN (9-20) mg/dL Creatinine (0.8-1.5) mg/dL Glucose (75-100) mg/dL POC Glucose 123 H (70-105) Urine Creatinine 101.1 H (0.1-20.0) mg/dL Urine Total Protein 112 H (5-11.8) mg/dL 07/12/17 07/12/17 07/12/17 Range/Units 03:29 07:46 12:13 MCV (84-94) fl MCH (28-32) pg RDW (13.2-15.2) % Plt Count (140-440) K/mm3 BUN 74 H (9-20) mg/dL Creatinine 3.9 H (0.8-1.5) mg/dL Glucose 120 H (75-100) mg/dL POC Glucose 121 H 127 H (70-105) Urine Creatinine (0.1-20.0) mg/dL Urine Total Protein (5-11.8) mg/dL 07/12/17 Range/Units 16:01 MCV (84-94) fl MCH (28-32) pg RDW (13.2-15.2) % Plt Count (140-440) K/mm3 BUN (9-20) mg/dL Creatinine (0.8-1.5) mg/dL Glucose (75-100) mg/dL POC Glucose 137 H (70-105) Urine Creatinine (0.1-20.0) mg/dL Urine Total Protein (5-11.8) mg/dL
[2017-07-12] MEDS ORDERED: HEPARIN 10,000 UNITS/10 ML IV ONE (17:00)
[2017-07-12 17:23] LABS: Hematocrit 38.6 % (35.5-45.6); Hemoglobin 12.7 gm/dl (11.8-15.2)
[2017-07-12 17:58] LABS: INR 1.59 (0.87-1.13)
[2017-07-12 17:59] LABS: Partial Thromboplastin Time 39.8 Sec. (24.2-36.6)
[2017-07-12] MEDS: HEPARIN/ 0.45% NACL-25,000 UNIT/500 ML 25,000 UNIT/500 ML BAG IV SCH (19:46)
[2017-07-13 03:01] LABS: Mean Corpuscular HGB Conc 33 % (32-34); Mean Corpuscular Hemoglobin 26 pg (28-32); Mean Corpuscular Volume 79 fl (84-94); Platelet Count 157 K/mm3 (140-440); Red Blood Count 4.97 M/mm3 (3.65-5.03); White Blood Count 10.3 K/mm3 (4.5-11.0)
[2017-07-13 03:02] LABS: Red Cell Distribution Width 22.7 % (13.2-15.2)
[2017-07-13 03:20] LABS: Chloride 100.2 mmol/L (98-107); Potassium 4.3 mmol/L (3.6-5.0)
[2017-07-13] MEDS: LEVOPHED 8 MG in NACL 0.9% 250ML 242 ML IV SCH ×2 (03:26→22:58)
[2017-07-13] MEDS: NOVOLOG SUB-Q SCH ×3 (09:13→22:55)
[2017-07-13] MEDS ORDERED: HEPARIN 10,000 UNITS/10 ML ONE (09:42)
--- NOTE | 2017-07-13 09:56 | Progress Note ---
Assessment and Plan Assessment: Acute renal failure / volume overload - requiring HD Acute systolic heart failure Dilated CMP - EF 15-20% Atrial flutter with RVR - ? new onset; pt reports 2 year h/o atrial fibrillation /atrial flutter, states he was on coumadin prior to admission Acute respiratory failure Elevated troponins - ECG with NAF; flat; currently nonspecific in setting of ARF and acutely decompensated systolic HF AMS - head CT with NAF Hyperkalemia - improved s/p HD Anasarca Mild transaminitis and hyperbilirubinemia - ? hepatorenal syndrome H/o HTN - currently with hypotension HLP DM H/o normal coronaries - [facility] 10/2000 at showed angiographically normal coronary arteries Plan: Volume optimization per nephrology. Cont low dose coreg cautiously. Hold for HR <60 and SBP <100. No ACEI/ARB or aldactone at this time in setting of hypotension and ARF. Cont ASA 81. Hold lipitor in setting of mild transaminitis and hyperbilirubinemia. Hold nitrates in setting of hypotension. Give another dose IV digoxin x 1 dose now and obtain digoxin level in AM. Consider JADA guided DCCV if pt remains hypotensive and tachycardic. Wean levophed as tolerated. Cont heparin gtt. 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 Consider ischemic evaluation once medically stabilized. The patient has been seen in conjunction with Dr. Pryor who agrees with the assessment and plan of care. Subjective Date of service: 07/13/17 Principal diagnosis: ARF; HF Interval history: Pt resting in bed, undergoing HD. Appears more alert today. Remains in AFlutter with RVR on telemetry, HR 130ss. HR peaked to 170s yesterday afternoon and improved following IV digoxin. Hypotensive, requiring levophed gtt. Objective Last Vital Signs Temp 98.9 F 07/13/17 08:00 Pulse 129 H 07/13/17 08:46 Resp 11 L 07/13/17 08:46 BP 99/72 07/13/17 08:46 Pulse Ox 96 07/13/17 08:46 - Physical Examination General: No Apparent Distress HEENT: Positive: PERRL, Normocephaly, Mucus Membranes Moist Neck: Positive: neck supple, trachea midline Cardiac: Positive: irregularly irregular, S1/S2, S3, S4, Tachycardia Lungs: Positive: Decreased Breath Sounds Neuro: Positive: Grossly Intact Abdomen: Positive: Other (distended). Negative: Tender Skin: Positive: Clear, Other (generalized edema). Negative: Wound Extremities: Present: edema (BUE/BLE and generalized edema) - Labs and Meds Coagulation 07/12/17 Range/Units 16:38 PT 19.7 H (12.2-14.9) Sec. INR 1.59 H (0.87-1.13) APTT 39.8 H (24.2-36.6) Sec. CBC 07/12/17 07/13/17 Range/Units 16:38 02:30 WBC 10.3 (4.5-11.0) K/mm3 RBC 4.97 (3.65-5.03) M/mm3 Hgb 12.7 13.0 (11.8-15.2) gm/dl Hct 38.6 39.0 (35.5-45.6) % Plt Count 149 157 (140-440) K/mm3 Comprehensive Metabolic Panel 07/13/17 Range/Units 02:30 Sodium 142 (137-145) mmol/L Potassium 4.3 (3.6-5.0) mmol/L Chloride 100.2 (98-107) mmol/L Carbon Dioxide 25 (22-30) mmol/L BUN 65 H (9-20) mg/dL Creatinine 3.6 H (0.8-1.5) mg/dL Glucose 155 H (75-100) mg/dL Calcium 9.0 (8.4-10.2) mg/dL - Imaging and Cardiology Echo: report reviewed (Stress echo done 02/2009 was negative for ischemia, EF heber from 50-65%) Cardiac cath: report reviewed ([facility] 10/2000 at showed angiographically normal coronary arteries) - Telemetry EKG Rhythm: Atrial Flutter - EKG Sinus rhythms and dysrhythmias: sinus tachycardia (low voltage)
--- NOTE | 2017-07-13 10:41 | Progress Note ---
Assessment and Plan Congestive heart failure, decompensated Cardiomyopathy with low ejection fraction Atrial flutter. Currently been followed by cardiology and some discussion about JADA directed cardioversion, been considered Acute on chronic kidney injury. Patient is having hemodialysis morning Morbid obesity Recommendations Hemodialysis in process, monitor blood pressure and optimize fluids Following cardiology leaving regarding atrial flutter management. Digoxin 1 being ordered already Taper down Levophed as tolerated Baseline patient hemodynamics unknown. Unclear if he tends to run with low blood pressure chronically Continue heparin drip and monitor per protocol Watch for fever and initiate cultures as noted No family members available for case discussion Critical care time was 35 minutes of [id number] evaluation and coordination of care Subjective Date of service: 07/13/17 Principal diagnosis: ARF; HF Interval history: Reports no respiratory complaints. He appears slightly confused, asking for the phone to instruct his Objective Vital Signs - 12hr 07/12/17 07/12/17 07/12/17 22:45 23:00 23:16 Temperature Pulse Rate 136 H 130 H 136 H Respiratory 25 H 19 22 Rate Blood Pressure 107/65 111/61 115/50 O2 Sat by Pulse 99 98 Oximetry O2 Sat by Pulse Oximetry [ Anterior Bilateral Throughout] 07/12/17 07/12/17 07/12/17 23:20 23:29 23:30 Temperature Pulse Rate 138 H 138 H 137 H Respiratory 17 23 Rate Blood Pressure 104/65 110/50 115/50 O2 Sat by Pulse 98 92 Oximetry O2 Sat by Pulse Oximetry [ Anterior Bilateral Throughout] 07/12/17 07/12/17 07/13/17 23:36 23:46 00:00 Temperature 98.6 F Pulse Rate 137 H 137 H 133 H Respiratory 22 20 22 Rate Blood Pressure 112/44 110/69 107/72 O2 Sat by Pulse 99 Oximetry O2 Sat by Pulse Oximetry [ Anterior Bilateral Throughout] 07/13/17 07/13/17 07/13/17 00:11 00:16 00:30 Temperature Pulse Rate 138 H 130 H Respiratory 22 21 Rate Blood Pressure 103/71 108/66 O2 Sat by Pulse 98 95 93 Oximetry O2 Sat by Pulse Oximetry [ Anterior Bilateral Throughout] 07/13/17 07/13/17 07/13/17 00:45 01:00 01:15 Temperature Pulse Rate 122 H 122 H Respiratory 22 21 Rate Blood Pressure 108/63 109/67 108/68 O2 Sat by Pulse 94 94 97 Oximetry O2 Sat by Pulse Oximetry [ Anterior Bilateral Throughout] 07/13/17 07/13/17 07/13/17 01:30 01:45 02:00 Temperature Pulse Rate 126 H 138 H 122 H Respiratory 18 11 L 17 Rate Blood Pressure 108/68 107/66 107/63 O2 Sat by Pulse 97 97 100 Oximetry O2 Sat by Pulse Oximetry [ Anterior Bilateral Throughout] 07/13/17 07/13/17 07/13/17 02:15 02:30 02:45 Temperature Pulse Rate 124 H 123 H 130 H Respiratory 24 20 23 Rate Blood Pressure 104/67 101/62 103/68 O2 Sat by Pulse 97 97 97 Oximetry O2 Sat by Pulse Oximetry [ Anterior Bilateral Throughout] 07/13/17 07/13/17 07/13/17 03:00 03:16 03:30 Temperature Pulse Rate 129 H Respiratory 16 Rate Blood Pressure 103/68 103/68 100/73 O2 Sat by Pulse 99 98 95 Oximetry O2 Sat by Pulse Oximetry [ Anterior Bilateral Throughout] 07/13/17 07/13/17 07/13/17 03:45 03:51 04:01 Temperature 98.9 F Pulse Rate 129 H 129 H Respiratory 24 20 Rate Blood Pressure 87/66 104/59 O2 Sat by Pulse 96 97 Oximetry O2 Sat by Pulse Oximetry [ Anterior Bilateral Throughout] 07/13/17 07/13/17 07/13/17 04:15 04:30 04:33 Temperature Pulse Rate 123 H 129 H Respiratory 16 22 16 Rate Blood Pressure 94/62 99/58 O2 Sat by Pulse 96 97 100 Oximetry O2 Sat by Pulse Oximetry [ Anterior Bilateral Throughout] 07/13/17 07/13/17 07/13/17 04:45 04:56 05:00 Temperature Pulse Rate 138 H 138 H 137 H Respiratory 26 H 15 Rate Blood Pressure 95/66 103/58 O2 Sat by Pulse 96 97 Oximetry O2 Sat by Pulse Oximetry [ Anterior Bilateral Throughout] 07/13/17 07/13/17 07/13/17 05:15 05:30 05:45 Temperature Pulse Rate 121 H 121 H 128 H Respiratory 20 18 20 Rate Blood Pressure 93/63 91/56 99/63 O2 Sat by Pulse 92 92 93 Oximetry O2 Sat by Pulse Oximetry [ Anterior Bilateral Throughout] 07/13/17 07/13/17 07/13/17 06:00 06:15 06:30 Temperature Pulse Rate 126 H 122 H 137 H Respiratory 14 17 21 Rate Blood Pressure 90/57 94/61 102/65 O2 Sat by Pulse 96 94 94 Oximetry O2 Sat by Pulse Oximetry [ Anterior Bilateral Throughout] 07/13/17 07/13/17 07/13/17 06:46 07:00 07:15 Temperature Pulse Rate 137 H 137 H 137 H Respiratory 20 18 16 Rate Blood Pressure 102/65 90/65 95/65 O2 Sat by Pulse 97 94 93 Oximetry O2 Sat by Pulse Oximetry [ Anterior Bilateral Throughout] 07/13/17 07/13/17 07/13/17 07:30 07:41 07:45 Temperature Pulse Rate 137 H 138 H Respiratory 19 22 Rate Blood Pressure 103/57 102/64 O2 Sat by Pulse 95 100 96 Oximetry O2 Sat by Pulse Oximetry [ Anterior Bilateral Throughout] 07/13/17 07/13/17 07/13/17 08:00 08:15 08:30 Temperature 98.9 F 98.9 F Pulse Rate 138 H 131 H 137 H Respiratory 20 10 L 26 H Rate Blood Pressure 103/67 95/57 98/63 O2 Sat by Pulse 95 94 94 Oximetry O2 Sat by Pulse 100 Oximetry [ Anterior Bilateral Throughout] 07/13/17 07/13/17 07/13/17 08:46 08:50 09:00 Temperature Pulse Rate 129 H 137 H 137 H Respiratory 11 L Rate Blood Pressure 99/72 98/63 93/59 O2 Sat by Pulse 96 Oximetry O2 Sat by Pulse Oximetry [ Anterior Bilateral Throughout] 07/13/17 07/13/17 07/13/17 09:15 09:30 09:45 Temperature Pulse Rate 138 H 138 H 137 H Respiratory Rate Blood Pressure 95/69 95/74 97/82 O2 Sat by Pulse Oximetry O2 Sat by Pulse Oximetry [ Anterior Bilateral Throughout] 07/13/17 07/13/17 07/13/17 10:00 10:15 10:30 Temperature Pulse Rate 137 H 131 H 129 H Respiratory Rate Blood Pressure 109/79 108/74 97/68 O2 Sat by Pulse Oximetry O2 Sat by Pulse Oximetry [ Anterior Bilateral Throughout] Constitutional: no acute distress, alert Neck: supple, no lymphadenopathy, no JVD, other (right IJ) Ascultation: Bilateral: clear (obese patient), diminished breath sounds ( Limited expansion) Cardiovascular: irregular rhythm, other (tachycardic) Gastrointestinal: normoactive bowel sounds, non-distended, other (morbidly obese ) Extremities: no cyanosis, no edema Neurologic: non-focal exam, pupils equal and round, CN II-XII normal, motor strength normal and, other (appears slightly confused) Psychiatric: mood appropriate, affect normal CBC and BMP: 07/13/17 02:30 07/13/17 02:30 ABG, PT/INR, D-dimer: ABG ABG pH 7.283 pH Units (7.350-7.450) L 07/10/17 16:06 ABG pCO2 37.7 mm Hg 07/10/17 16:06 ABG pO2 56.5 mm Hg (80.0-90.0) L 07/10/17 16:06 ABG O2 Saturation 89.5 % (95.0-99.0) L 07/10/17 16:06 PT/INR, D-dimer PT 19.7 Sec. (12.2-14.9) H 07/12/17 16:38 INR 1.59 (0.87-1.13) H 07/12/17 16:38 Abnormal lab findings: Abnormal Labs 07/10/17 07/10/17 07/10/17 06:32 06:34 06:34 MCV 80 L MCH 26 L RDW 22.1 H Plt Count Lymph % (Auto) 2.1 L Randolph % (Auto) 10.1 H Lymph # 0.2 L Randolph # 1.0 H Seg Neutrophils % 87.7 H Seg Neutrophils # 9.1 H PT INR APTT Heparin Anti-Xa Level ABG pH ABG pO2 ABG HCO3 ABG O2 Saturation ABG Base Excess ABG Hemoglobin Oxyhemoglobin Potassium 5.3 H Carbon Dioxide 16 L BUN 138 H Creatinine 4.7 H Glucose 51 L POC Glucose Phosphorus Magnesium Total Bilirubin Direct Bilirubin AST Total Creatine Kinase 1099 H CK-MB (CK-2) 32.4 H Troponin T 0.253 H* Albumin Urine Creatinine Urine Total Protein Digoxin 07/10/17 07/10/17 07/10/17 10:43 12:11 13:31 MCV MCH RDW Plt Count Lymph % (Auto) Randolph % (Auto) Lymph # Randolph # Seg Neutrophils % Seg Neutrophils # PT INR APTT Heparin Anti-Xa Level ABG pH ABG pO2 ABG HCO3 ABG O2 Saturation ABG Base Excess ABG Hemoglobin Oxyhemoglobin Potassium Carbon Dioxide BUN Creatinine Glucose POC Glucose 49 L 69 L Phosphorus Magnesium Total Bilirubin Direct Bilirubin AST Total Creatine Kinase 892 H CK-MB (CK-2) 30.9 H Troponin T 0.267 H* Albumin Urine Creatinine Urine Total Protein Digoxin 07/10/17 07/10/17 07/11/17 16:06 Unknown 10:16 MCV 79 L MCH 26 L RDW 22.2 H Plt Count Lymph % (Auto) Randolph % (Auto) Lymph # Randolph # Seg Neutrophils % Seg Neutrophils # PT INR APTT Heparin Anti-Xa Level ABG pH 7.283 L ABG pO2 56.5 L ABG HCO3 17.4 L ABG O2 Saturation 89.5 L ABG Base Excess -8.5 L ABG Hemoglobin 6.3 L Oxyhemoglobin 87.5 L Potassium Carbon Dioxide BUN Creatinine Glucose POC Glucose Phosphorus Magnesium Total Bilirubin Direct Bilirubin AST Total Creatine Kinase CK-MB (CK-2) Troponin T Albumin Urine Creatinine 101.5 H Urine Total Protein 112 H Digoxin 07/11/17 07/11/17 07/11/17 10:16 11:38 14:32 MCV MCH RDW Plt Count Lymph % (Auto) Randolph % (Auto) Lymph # Randolph # Seg Neutrophils % Seg Neutrophils # PT INR APTT Heparin Anti-Xa Level ABG pH ABG pO2 ABG HCO3 ABG O2 Saturation ABG Base Excess ABG Hemoglobin Oxyhemoglobin Potassium Carbon Dioxide 21 L BUN 102 H Creatinine 4.3 H Glucose POC Glucose 113 H Phosphorus 6.10 H Magnesium 2.90 H Total Bilirubin 2.30 H Direct Bilirubin 1.5 H AST 59 H Total Creatine Kinase CK-MB (CK-2) Troponin T Albumin 3.2 L Urine Creatinine Urine Total Protein Digoxin 07/11/17 07/11/17 07/11/17 17:54 21:23 Unknown MCV MCH RDW Plt Count Lymph % (Auto) Randolph % (Auto) Lymph # Randolph # Seg Neutrophils % Seg Neutrophils # PT INR APTT Heparin Anti-Xa Level ABG pH ABG pO2 ABG HCO3 ABG O2 Saturation ABG Base Excess ABG Hemoglobin Oxyhemoglobin Potassium Carbon Dioxide BUN Creatinine Glucose POC Glucose 108 H 123 H Phosphorus Magnesium Total Bilirubin Direct Bilirubin AST Total Creatine Kinase CK-MB (CK-2) Troponin T Albumin Urine Creatinine 101.1 H Urine Total Protein 112 H Digoxin 07/12/17 07/12/17 07/12/17 03:29 03:29 07:46 MCV 79 L MCH 26 L RDW 22.3 H Plt Count 130 L Lymph % (Auto) Randolph % (Auto) Lymph # Randolph # Seg Neutrophils % Seg Neutrophils # PT INR APTT Heparin Anti-Xa Level ABG pH ABG pO2 ABG HCO3 ABG O2 Saturation ABG Base Excess ABG Hemoglobin Oxyhemoglobin Potassium Carbon Dioxide BUN 74 H Creatinine 3.9 H Glucose 120 H POC Glucose 121 H Phosphorus Magnesium Total Bilirubin Direct Bilirubin AST Total Creatine Kinase CK-MB (CK-2) Troponin T Albumin Urine Creatinine Urine Total Protein Digoxin 07/12/17 07/12/17 07/12/17 12:13 16:01 16:38 MCV MCH RDW Plt Count Lymph % (Auto) Randolph % (Auto) Lymph # Randolph # Seg Neutrophils % Seg Neutrophils # PT 19.7 H INR 1.59 H APTT 39.8 H Heparin Anti-Xa Level ABG pH ABG pO2 ABG HCO3 ABG O2 Saturation ABG Base Excess ABG Hemoglobin Oxyhemoglobin Potassium Carbon Dioxide BUN Creatinine Glucose POC Glucose 127 H 137 H Phosphorus Magnesium Total Bilirubin Direct Bilirubin AST Total Creatine Kinase CK-MB (CK-2) Troponin T Albumin Urine Creatinine Urine Total Protein Digoxin 07/12/17 07/12/17 07/13/17 19:00 22:12 02:30 MCV 79 L MCH 26 L RDW 22.7 H Plt Count Lymph % (Auto) Randolph % (Auto) Lymph # Randolph # Seg Neutrophils % Seg Neutrophils # PT INR APTT Heparin Anti-Xa Level ABG pH ABG pO2 ABG HCO3 ABG O2 Saturation ABG Base Excess ABG Hemoglobin Oxyhemoglobin Potassium Carbon Dioxide BUN Creatinine Glucose POC Glucose 158 H Phosphorus Magnesium Total Bilirubin Direct Bilirubin AST Total Creatine Kinase CK-MB (CK-2) Troponin T Albumin Urine Creatinine Urine Total Protein Digoxin 0.7 L 07/13/17 07/13/17 02:30 02:30 MCV MCH RDW Plt Count Lymph % (Auto) Randolph % (Auto) Lymph # Randolph # Seg Neutrophils % Seg Neutrophils # PT INR APTT Heparin Anti-Xa Level 0.10 L ABG pH ABG pO2 ABG HCO3 ABG O2 Saturation ABG Base Excess ABG Hemoglobin Oxyhemoglobin Potassium Carbon Dioxide BUN 65 H Creatinine 3.6 H Glucose 155 H POC Glucose Phosphorus Magnesium Total Bilirubin Direct Bilirubin AST Total Creatine Kinase CK-MB (CK-2) Troponin T Albumin Urine Creatinine Urine Total Protein Digoxin
--- NOTE | 2017-07-13 10:47 | Progress Note ---
Assessment and Plan Assessment and plan: Acute kidney injury due to acute tubular necrosis Presented with Anasarca and volume overload Pt does have h/o DM so could have CKD from it, baseline unknown Initiated on HD since 07/10/17, Renally dose all meds and avoid nephrotoxic meds Renal US -ve for hydronephrosis Shock/Hypotension May be due to cardiogenic shock he is still on Levophed to maintain blood pressure Atrial flutter BB for rate control placed on heparin drip by admission specialist Acute metabolic encephalopathy likley from uremia has h/o fall, CT head was unremarkable on admission MRI Brain ordered to r/o possible acute CVA improving Hyperkalemia: This is now resolved with dialysis. Potassium 4.3 today, was 5.3 on admission. Low K pureed diet Acute on chronic combined Systolic and diastolic congestive heart failure TTE shows low EF 15 to 20% Cardiology following UF via HD Diabetes mellitus type 2 on insulin: On insulin at home SSI coverage for now hypoglycemia noted in the ED, corrected with D50 elevated troponin likely from worsening renal function and underlying CHF Cardiology following Essential Hypertension,history Antihypertensives on hold because of hypotension DVT prophylaxis. On Heparin drip. Full code status. History Interval history: Patient initially presented with shortness of breath, edema and fall at home. Less shortness of breath, No chest pain Hospitalist Physical - Physical exam Narrative exam: Gen Appearance: Not in acute distress,Morbidly obese HEENT: normocephalic, atraumatic Neck: supple, no JVD Lungs: Clear to auscultation, no rales, no wheezing, Heart: S1 and S2 regular, no murmurs,no rubs or gallop, Abdomen: Soft , non tender, non distended, normal bowel sounds Extremity: Edema both lower ext, no clubbing or cyanosis, Neuro : Awake,alert, normal speech, moves all extremities - Constitutional Vitals: Temp Pulse Resp BP Pulse Ox 98.9 F 129 H 11 L 97/68 96 07/13/17 08:30 07/13/17 10:30 07/13/17 08:46 07/13/17 10:30 07/13/17 08:46 General appearance: Present: no acute distress, other (generalized edema) Results - Labs CBC & Chem 7: 07/13/17 02:30 07/13/17 02:30 Labs: Laboratory Last Values WBC 10.3 K/mm3 (4.5-11.0) 07/13/17 02:30 RBC 4.97 M/mm3 (3.65-5.03) 07/13/17 02:30 Hgb 13.0 gm/dl (11.8-15.2) 07/13/17 02:30 Hct 39.0 % (35.5-45.6) 07/13/17 02:30 MCV 79 fl (84-94) L 07/13/17 02:30 MCH 26 pg (28-32) L 07/13/17 02:30 MCHC 33 % (32-34) 07/13/17 02:30 RDW 22.7 % (13.2-15.2) H 07/13/17 02:30 Plt Count 157 K/mm3 (140-440) 07/13/17 02:30 Lymph % (Auto) 2.1 % (13.4-35.0) L 07/10/17 06:34 Mcdowell % (Auto) 10.1 % (0.0-7.3) H 07/10/17 06:34 Eos % (Auto) 0.0 % (0.0-4.3) 07/10/17 06:34 Baso % (Auto) 0.1 % (0.0-1.8) 07/10/17 06:34 Lymph # 0.2 K/mm3 (1.2-5.4) L 07/10/17 06:34 Mcdowell # 1.0 K/mm3 (0.0-0.8) H 07/10/17 06:34 Eos # 0.0 K/mm3 (0.0-0.4) 07/10/17 06:34 Baso # 0.0 K/mm3 (0.0-0.1) 07/10/17 06:34 Seg Neutrophils % 87.7 % (40.0-70.0) H 07/10/17 06:34 Seg Neutrophils # 9.1 K/mm3 (1.8-7.7) H 07/10/17 06:34 PT 19.7 Sec. (12.2-14.9) H 07/12/17 16:38 INR 1.59 (0.87-1.13) H 07/12/17 16:38 APTT 39.8 Sec. (24.2-36.6) H 07/12/17 16:38 Heparin Anti-Xa Level 0.10 U.I./ml (0.3-0.7) L 07/13/17 02:30 ABG pH 7.283 pH Units (7.350-7.450) L 07/10/17 16:06 ABG pCO2 37.7 mm Hg 07/10/17 16:06 ABG pO2 56.5 mm Hg (80.0-90.0) L 07/10/17 16:06 ABG HCO3 17.4 mmol/L (20.0-26.0) L 07/10/17 16:06 ABG O2 Saturation 89.5 % (95.0-99.0) L 07/10/17 16:06 ABG O2 Content 7.9 (0.0-44) 07/10/17 16:06 ABG Base Excess -8.5 mmol/L (-2.0-3.0) L 07/10/17 16:06 ABG Hemoglobin 6.3 gm/dl (14.0-18.0) L 07/10/17 16:06 ABG Carboxyhemoglobin 1.8 % (0.0-5.0) 07/10/17 16:06 ABG Methemoglobin 0.3 % (0.0-1.5) 07/10/17 16:06 VBG pH 7.362 (7.320-7.420) 07/09/17 21:14 Oxyhemoglobin 87.5 % (95.0-99.0) L 07/10/17 16:06 FiO2 28 % 07/10/17 16:06 Sodium 142 mmol/L (137-145) 07/13/17 02:30 Potassium 4.3 mmol/L (3.6-5.0) 07/13/17 02:30 Chloride 100.2 mmol/L (98-107) 07/13/17 02:30 Carbon Dioxide 25 mmol/L (22-30) 07/13/17 02:30 Anion Gap 21 mmol/L 07/13/17 02:30 BUN 65 mg/dL (9-20) H 07/13/17 02:30 Creatinine 3.6 mg/dL (0.8-1.5) H 07/13/17 02:30 Estimated GFR 21 ml/min 07/13/17 02:30 BUN/Creatinine Ratio 18 % 07/13/17 02:30 Glucose 155 mg/dL (75-100) H 07/13/17 02:30 POC Glucose 158 (70-105) H 07/12/17 22:12 Lactic Acid 1.60 mmol/L (0.7-2.0) 07/09/17 23:11 Calcium 9.0 mg/dL (8.4-10.2) 07/13/17 02:30 Phosphorus 6.10 mg/dL (2.5-4.5) H 07/11/17 10:16 Magnesium 2.90 mg/dL (1.7-2.3) H 07/11/17 10:16 Total Bilirubin 2.30 mg/dL (0.1-1.2) H 07/11/17 14:32 Direct Bilirubin 1.5 mg/dL (0-0.2) H 07/11/17 14:32 Indirect Bilirubin 0.8 mg/dL 07/11/17 14:32 AST 59 units/L (5-40) H 07/11/17 14:32 ALT 43 units/L (7-56) 07/11/17 14:32 Alkaline Phosphatase 91 units/L (35-129) 07/11/17 14:32 Total Creatine Kinase 892 units/L (55-170) H 07/10/17 12:11 CK-MB (CK-2) 30.9 ng/mL (0.0-4.0) H 07/10/17 12:11 CK-MB (CK-2) Rel Index 3.4 (0-4) 07/10/17 12:11 Troponin T 0.267 ng/mL (0.00-0.029) H* 07/10/17 12:11 NT-Pro-B Natriuret Pep 08884 pg/mL (0-900) H 07/09/17 21:27 Total Protein 6.7 g/dL (6.3-8.2) 07/11/17 14:32 Albumin 3.2 g/dL (3.9-5) L 07/11/17 14:32 Albumin/Globulin Ratio 0.9 % 07/11/17 14:32 Triglycerides 93 mg/dL (2-149) 07/09/17 21: Cholesterol 137 mg/dL (50-199) 07/09/17 21:27 LDL Cholesterol Direct 74 mg/dL (50-130) 07/09/17 21: HDL Cholesterol 45 mg/dL (40-59) 07/09/17 21:27 Cholesterol/HDL Ratio 3.04 % 07/09/17 21:27 Urine Color Priyanka (Yellow) 07/09/17 20:52 Urine Turbidity Clear (Clear) 07/09/17 20:52 Urine pH 5.0 (5.0-7.0) 07/09/17 20:52 Ur Specific [place] 1.014 (1.003-1.030) 07/09/17 20:52 Urine Protein 100 mg/dl mg/dL (Negative) 07/09/17 20:52 Urine Glucose (UA) Neg mg/dL (Negative) 07/09/17 20:52 Urine Ketones Neg mg/dL (Negative) 07/09/17 20:52 Urine Blood Neg (Negative) 07/09/17 20:52 Urine Nitrite Neg (Negative) 07/09/17 20:52 Urine Bilirubin Neg (Negative) 07/09/17 20:52 Urine Urobilinogen 4.0 mg/dL (<2.0) 07/09/17 20:52 Ur Leukocyte Esterase Sm (Negative) 07/09/17 20:52 Urine WBC (Auto) 17.0 /HPF (0.0-6.0) H 07/09/17 20:52 Urine RBC (Auto) 7.0 /HPF (0.0-6.0) 07/09/17 20:52 Urine Bacteria (Auto) 1+ /HPF (Negative) 07/09/17 20:52 Urine Mucus Few /HPF 07/09/17 20:52 Urine Eosinophils None seen (None Seen) 07/11/17 Unknown Urine Creatinine 101.1 mg/dL (0.1-20.0) H 07/11/17 Unknown Urine Microalbumin 27.9 mg/dL (0.1-34.0) 07/10/17 Unknown Microalb/Creat Ratio 274.8 ug/mg 07/10/17 Unknown Protein/Creatinin Ratio 1.11 07/11/17 Unknown Urine Sodium 38 mEq/L 07/10/17 Unknown Urine Urea Nitrogen 337 10/15/17 Unknown Urine Total Protein 112 mg/dL (5-11.8) H 07/11/17 Unknown Digoxin 0.7 ng/mL (0.9-2.0) L 07/12/17 19:00 Hepatitis A IgM Ab Non-reactive (NonReactive) 07/11/17 09:19 Hep Bs Antigen Non-reactive (Negative) 07/11/17 09:19 Hep B Core IgM Ab Non-reactive (NonReactive) 07/11/17 09:19 Hepatitis C Antibody Non-reactive (NonReactive) 07/11/17 09:19 HIV 1&2 Antibody Rapid Non react (Non React) 07/11/17 09:19 HIV P24 Antigen Non react (Non React) 07/11/17 09:19
[2017-07-13] MEDS ORDERED: LANOXIN IV ONE (11:00)
[2017-07-13] MEDS: HEPARIN IV PRN (12:42)
[2017-07-13] MEDS: COREG PO SCH ×2 (12:46→22:48)
[2017-07-13] MEDS: BABY ASPIRIN PO SCH (12:47)
[2017-07-13] MEDS: HEPARIN/ 0.45% NACL-25,000 UNIT/500 ML 25,000 UNIT/500 ML BAG IV SCH (12:48)
--- NOTE | 2017-07-13 14:11 | Progress Note ---
Assessment and Plan Acute renal failure possibly cardiorenal syndrome/ATN from low BP on intermittent hemodialysis: Unknown CKD: Anasarca with volume overload -Pt does have h/o DM so could have CKD from it, no BL Cr available -UA showed 100 protein, Urine PCR is 1.11. Check SPEP/UPEP/IFX. -Urine also showed some red cells will eval for nephritic syndrome with CHRISTOPHER, ANCA, Anti-GBM, C3/C4, Hep panel, HIV. -HIV, Hep panel -ve. -Currently on IHD via fem VC. HD today, HD again tomorrow via fem VC. Target UF 3-4L with each HD. -Renally dose all meds and avoid nephrotoxic meds -Renal US -ve for hydronephrosis Metabolic acidosis: -on NahCO3 -Imrpoved with IHD, hold NaHCO3 for now. 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 -UF via HD Diabetes mellitus type 2 on insulin: -On insulin -Per primary Hypotension -BP running low, hold all bp meds for now -Pt on levophed for hypotension -Per ICU Atrial fibrillation: -Cards considering TTE Cardioversion. per them Plan d/w bedside RN. Pato Fisher MD Nephrology, Hypertension, Dialysis, Transplantation Phone no: [phone] Subjective Date of service: 07/13/17 Principal diagnosis: ARF; HF Interval history: s/p HD today. Remains somewhat confused, per nurse only oriented to self only. Objective - Exam Narrative Exam: GE: Awake, confused HEENT: Normocephalic Neck: No JVD Chest: Coarse BS BL CVS: Tachycardic Abd: Soft/BS+ Ext: 3-4+ BLE edema, fem VC Neuro: Awake - Vital Signs Vital signs: Vital Signs - 12hr 07/13/17 07/13/17 07/13/17 02:15 02:30 02:45 Temperature Pulse Rate 124 H 123 H 130 H Respiratory 24 20 23 Rate Blood Pressure 104/67 101/62 103/68 O2 Sat by Pulse 97 97 97 Oximetry O2 Sat by Pulse Oximetry [ Anterior Bilateral Throughout] 07/13/17 07/13/17 07/13/17 03:00 03:16 03:30 Temperature Pulse Rate 129 H Respiratory 16 Rate Blood Pressure 103/68 103/68 100/73 O2 Sat by Pulse 99 98 95 Oximetry O2 Sat by Pulse Oximetry [ Anterior Bilateral Throughout] 07/13/17 07/13/17 07/13/17 03:45 03:51 04:01 Temperature 98.9 F Pulse Rate 129 H 129 H Respiratory 24 20 Rate Blood Pressure 87/66 104/59 O2 Sat by Pulse 96 97 Oximetry O2 Sat by Pulse Oximetry [ Anterior Bilateral Throughout] 07/13/17 07/13/17 07/13/17 04:15 04:30 04:33 Temperature Pulse Rate 123 H 129 H Respiratory 16 22 16 Rate Blood Pressure 94/62 99/58 O2 Sat by Pulse 96 97 100 Oximetry O2 Sat by Pulse Oximetry [ Anterior Bilateral Throughout] 07/13/17 07/13/17 07/13/17 04:45 04:56 05:00 Temperature Pulse Rate 138 H 138 H 137 H Respiratory 26 H 15 Rate Blood Pressure 95/66 103/58 O2 Sat by Pulse 96 97 Oximetry O2 Sat by Pulse Oximetry [ Anterior Bilateral Throughout] 07/13/17 07/13/17 07/13/17 05:15 05:30 05:45 Temperature Pulse Rate 121 H 121 H 128 H Respiratory 20 18 20 Rate Blood Pressure 93/63 91/56 99/63 O2 Sat by Pulse 92 92 93 Oximetry O2 Sat by Pulse Oximetry [ Anterior Bilateral Throughout] 07/13/17 07/13/17 07/13/17 06:00 06:15 06:30 Temperature Pulse Rate 126 H 122 H 137 H Respiratory 14 17 21 Rate Blood Pressure 90/57 94/61 102/65 O2 Sat by Pulse 96 94 94 Oximetry O2 Sat by Pulse Oximetry [ Anterior Bilateral Throughout] 07/13/17 07/13/17 07/13/17 06:46 07:00 07:15 Temperature Pulse Rate 137 H 137 H 137 H Respiratory 20 18 16 Rate Blood Pressure 102/65 90/65 95/65 O2 Sat by Pulse 97 94 93 Oximetry O2 Sat by Pulse Oximetry [ Anterior Bilateral Throughout] 07/13/17 07/13/17 07/13/17 07:30 07:41 07:45 Temperature Pulse Rate 137 H 138 H Respiratory 19 22 Rate Blood Pressure 103/57 102/64 O2 Sat by Pulse 95 100 96 Oximetry O2 Sat by Pulse Oximetry [ Anterior Bilateral Throughout] 07/13/17 07/13/17 07/13/17 08:00 08:15 08:30 Temperature 98.9 F 98.9 F Pulse Rate 138 H 131 H 137 H Respiratory 20 10 L 26 H Rate Blood Pressure 103/67 95/57 98/63 O2 Sat by Pulse 95 94 94 Oximetry O2 Sat by Pulse 100 Oximetry [ Anterior Bilateral Throughout] 07/13/17 07/13/17 07/13/17 08:46 08:50 09:00 Temperature Pulse Rate 129 H 137 H 137 H Respiratory 11 L Rate Blood Pressure 99/72 98/63 93/59 O2 Sat by Pulse 96 Oximetry O2 Sat by Pulse Oximetry [ Anterior Bilateral Throughout] 07/13/17 07/13/17 07/13/17 09:15 09:30 09:45 Temperature Pulse Rate 138 H 138 H 137 H Respiratory Rate Blood Pressure 95/69 95/74 97/82 O2 Sat by Pulse Oximetry O2 Sat by Pulse Oximetry [ Anterior Bilateral Throughout] 07/13/17 07/13/17 07/13/17 10:00 10:15 10:30 Temperature Pulse Rate 137 H 131 H 129 H Respiratory Rate Blood Pressure 109/79 108/74 97/68 O2 Sat by Pulse Oximetry O2 Sat by Pulse Oximetry [ Anterior Bilateral Throughout] 07/13/17 07/13/17 07/13/17 10:45 11:00 11:15 Temperature Pulse Rate 124 H 122 H 141 H Respiratory Rate Blood Pressure 97/67 106/64 94/69 O2 Sat by Pulse Oximetry O2 Sat by Pulse Oximetry [ Anterior Bilateral Throughout] 07/13/17 07/13/17 07/13/17 11:32 11:46 12:00 Temperature 98.4 F Pulse Rate 129 H 121 H 122 H Respiratory Rate Blood Pressure 93/66 106/65 97/59 O2 Sat by Pulse Oximetry O2 Sat by Pulse Oximetry [ Anterior Bilateral Throughout] 07/13/17 07/13/17 07/13/17 12:15 12:32 12:34 Temperature 98.4 F Pulse Rate 122 H 131 H 122 H Respiratory 17 Rate Blood Pressure 105/62 103/64 103/64 O2 Sat by Pulse Oximetry O2 Sat by Pulse 97 Oximetry [ Anterior Bilateral Throughout] 07/13/17 07/13/17 12:45 12:46 Temperature Pulse Rate 122 H 136 H Respiratory Rate Blood Pressure 103/64 97/59 O2 Sat by Pulse Oximetry O2 Sat by Pulse Oximetry [ Anterior Bilateral Throughout] - Lab 07/13/17 02:30 07/13/17 02:30 Most recent lab results ABG pH 7.283 pH Units (7.350-7.450) L 07/10/17 16:06 ABG pCO2 37.7 mm Hg 07/10/17 16:06 ABG pO2 56.5 mm Hg (80.0-90.0) L 07/10/17 16:06 ABG HCO3 17.4 mmol/L (20.0-26.0) L 07/10/17 16:06 ABG O2 Saturation 89.5 % (95.0-99.0) L 07/10/17 16:06 Calcium 9.0 mg/dL (8.4-10.2) 07/13/17 02:30 Phosphorus 6.10 mg/dL (2.5-4.5) H 07/11/17 10:16 Magnesium 2.90 mg/dL (1.7-2.3) H 07/11/17 10:16 Urine Creatinine 101.1 mg/dL (0.1-20.0) H 07/11/17 Unknown Urine Sodium 38 mEq/L 07/10/17 Unknown Urine Total Protein 112 mg/dL (5-11.8) H 07/11/17 Unknown
--- NOTE | 2017-07-13 14:13 | XRay Report ---
Single view chest: Compared to 07/09/17. History: Congestion. Findings: Marked cardiomegaly. Trachea is midline. No consolidation, pneumothorax or pleural effusion. Stable right central line. Impression: Cardiomegaly. No acute lung changes.
[2017-07-14] MEDS: HEPARIN/ 0.45% NACL-25,000 UNIT/500 ML 25,000 UNIT/500 ML BAG IV SCH ×2 (02:44→17:23)
[2017-07-14 05:21] LABS: Hematocrit 38.6 % (35.5-45.6); Hemoglobin 13.1 gm/dl (11.8-15.2); Mean Corpuscular HGB Conc 34 % (32-34); Mean Corpuscular Hemoglobin 27 pg (28-32); Mean Corpuscular Volume 79 fl (84-94); Red Blood Count 4.91 M/mm3 (3.65-5.03); White Blood Count 8.5 K/mm3 (4.5-11.0)
[2017-07-14 05:22] LABS: Platelet Count 149 K/mm3 (140-440); Red Cell Distribution Width 22.8 % (13.2-15.2)
[2017-07-14 05:42] LABS: Calcium 8.7 mg/dL (8.4-10.2); Chloride 96.4 mmol/L (98-107); Potassium 4.1 mmol/L (3.6-5.0)
[2017-07-14] MEDS: NOVOLOG SUB-Q SCH ×5 (07:58→21:38)
--- NOTE | 2017-07-14 07:58 | Progress Note ---
Assessment and Plan Congestive heart failure, decompensated. Appears to be controlled Hypotension.still on levo. Cardiomyopathy with low ejection fraction Atrial flutter. Followed by cardiology and some discussion about JADA directed cardioversion, on Dig Acute on chronic kidney injury. Nephro following , on hemodialysis Morbid obesity DM Recommendations monitor blood pressure and optimize fluids Cardiology f/u Taper down Levophed as tolerated Baseline patient hemodynamics unknown. He may be running with low blood pressure chronically, but is unclear at this point Continue heparin drip and monitor per protocol Watch for fever No family members available for case discussion Critical care time was 31 minutes of [id number] evaluation and coordination of care Subjective Date of service: 07/14/17 Principal diagnosis: ARF; HF Interval history: Alert, not combative but confused. Objective Vital Signs - 12hr 07/13/17 07/13/17 07/13/17 20:00 20:15 20:30 Temperature Pulse Rate 90 102 H 104 H Respiratory 22 21 16 Rate Blood Pressure 95/69 102/64 98/72 O2 Sat by Pulse Oximetry 07/13/17 07/13/17 07/13/17 20:45 21:00 21:15 Temperature Pulse Rate 101 H 104 H 107 H Respiratory 23 17 19 Rate Blood Pressure 103/74 94/66 97/67 O2 Sat by Pulse Oximetry 07/13/17 07/13/17 07/13/17 21:30 21:45 22:00 Temperature Pulse Rate 92 H 104 H 97 H Respiratory 19 18 16 Rate Blood Pressure 90/64 89/59 99/62 O2 Sat by Pulse 100 100 100 Oximetry 07/13/17 07/13/17 07/13/17 22:15 22:28 22:30 Temperature Pulse Rate 92 H 93 H 93 H Respiratory 19 16 17 Rate Blood Pressure 95/57 95/57 91/54 O2 Sat by Pulse 100 100 100 Oximetry 07/13/17 07/13/17 07/13/17 22:45 22:48 23:00 Temperature Pulse Rate 97 H 93 H 91 H Respiratory 18 17 Rate Blood Pressure 96/67 96/67 93/64 O2 Sat by Pulse 100 Oximetry 07/13/17 07/13/17 07/13/17 23:16 23:30 23:44 Temperature Pulse Rate 105 H 96 H Respiratory 28 H 17 Rate Blood Pressure 96/66 94/68 O2 Sat by Pulse 100 100 100 Oximetry 1007/14/17 07/14/17 23:45 00:00 00:15 Temperature 98.9 F Pulse Rate 91 H 102 H 94 H Respiratory 15 19 20 Rate Blood Pressure 91/62 93/69 100/65 O2 Sat by Pulse 100 100 100 Oximetry 07/14/17 07/14/17 07/14/17 00:30 00:45 01:00 Temperature Pulse Rate 96 H 101 H 92 H Respiratory 18 18 18 Rate Blood Pressure 104/68 102/65 98/65 O2 Sat by Pulse 100 100 100 Oximetry 07/14/17 07/14/17 07/14/17 01:15 01:30 01:46 Temperature Pulse Rate 97 H 124 H 105 H Respiratory 17 22 11 L Rate Blood Pressure 108/67 105/65 100/64 O2 Sat by Pulse 100 100 96 Oximetry 07/14/17 07/14/17 07/14/17 02:00 02:15 02:30 Temperature Pulse Rate 95 H 97 H 94 H Respiratory 19 19 20 Rate Blood Pressure 103/67 103/63 95/69 O2 Sat by Pulse 100 99 99 Oximetry 07/14/17 07/14/17 07/14/17 02:45 03:00 03:15 Temperature Pulse Rate 105 H 94 H 123 H Respiratory 24 13 17 Rate Blood Pressure 101/70 100/70 102/67 O2 Sat by Pulse 95 Oximetry 07/14/17 07/14/17 07/14/17 03:30 03:45 04:00 Temperature 98.7 F Pulse Rate 123 H 123 H 123 H Respiratory 19 20 21 Rate Blood Pressure 107/67 107/70 117/60 O2 Sat by Pulse Oximetry 07/14/17 07/14/17 07/14/17 04:16 04:30 04:45 Temperature Pulse Rate 125 H 124 H 124 H Respiratory 18 20 23 Rate Blood Pressure 116/66 113/73 108/64 O2 Sat by Pulse 99 99 Oximetry 07/14/17 07/14/17 07/14/17 05:00 05:15 05:30 Temperature Pulse Rate 124 H 124 H 123 H Respiratory 22 17 20 Rate Blood Pressure 106/66 113/69 110/62 O2 Sat by Pulse 99 Oximetry 07/14/17 07/14/17 07/14/17 05:45 05:56 07:55 Temperature 98.3 F Pulse Rate 123 H Respiratory 20 16 Rate Blood Pressure 107/68 O2 Sat by Pulse Oximetry Constitutional: no acute distress, alert, other (morbidly obese) ENT: other (medical closure with Mallampati class IV airway) Neck: supple, no lymphadenopathy, no JVD, other (right IJ) Ascultation: Bilateral: clear (obese patient), diminished breath sounds ( Limited expansion) Cardiovascular: irregular rhythm, other (tachycardic) Gastrointestinal: normoactive bowel sounds, non-distended, other (morbidly obese ) Extremities: no cyanosis, no edema Neurologic: non-focal exam, pupils equal and round, CN II-XII normal, motor strength normal and, other (appears slightly confused) Psychiatric: mood appropriate, affect normal CBC and BMP: 07/14/17 04:00 07/14/17 05:00 ABG, PT/INR, D-dimer: ABG ABG pH 7.283 pH Units (7.350-7.450) L 07/10/17 16:06 ABG pCO2 37.7 mm Hg 07/10/17 16:06 ABG pO2 56.5 mm Hg (80.0-90.0) L 07/10/17 16:06 ABG O2 Saturation 89.5 % (95.0-99.0) L 07/10/17 16:06 PT/INR, D-dimer PT 19.7 Sec. (12.2-14.9) H 07/12/17 16:38 INR 1.59 (0.87-1.13) H 07/12/17 16:38 Abnormal lab findings: Abnormal Labs 07/10/17 07/10/17 07/10/17 06:32 06:34 06:34 MCV 80 L MCH 26 L RDW 22.1 H Plt Count Lymph % (Auto) 2.1 L [place] % (Auto) 10.1 H Lymph # 0.2 L [place] # 1.0 H Seg Neutrophils % 87.7 H Seg Neutrophils # 9.1 H PT INR APTT Heparin Anti-Xa Level ABG pH ABG pO2 ABG HCO3 ABG O2 Saturation ABG Base Excess ABG Hemoglobin Oxyhemoglobin Potassium 5.3 H Chloride Carbon Dioxide 16 L BUN 138 H Creatinine 4.7 H Glucose 51 L POC Glucose Phosphorus Magnesium Total Bilirubin Direct Bilirubin AST Total Creatine Kinase 1099 H CK-MB (CK-2) 32.4 H Troponin T 0.253 H* Albumin Urine Creatinine Urine Total Protein Digoxin 07/10/17 07/10/17 07/10/17 10:43 12:11 13:31 MCV MCH RDW Plt Count Lymph % (Auto) [place] % (Auto) Lymph # [place] # Seg Neutrophils % Seg Neutrophils # PT INR APTT Heparin Anti-Xa Level ABG pH ABG pO2 ABG HCO3 ABG O2 Saturation ABG Base Excess ABG Hemoglobin Oxyhemoglobin Potassium Chloride Carbon Dioxide BUN Creatinine Glucose POC Glucose 49 L 69 L Phosphorus Magnesium Total Bilirubin Direct Bilirubin AST Total Creatine Kinase 892 H CK-MB (CK-2) 30.9 H Troponin T 0.267 H* Albumin Urine Creatinine Urine Total Protein Digoxin 07/10/17 07/10/17 07/11/17 16:06 Unknown 10:16 MCV 79 L MCH 26 L RDW 22.2 H Plt Count Lymph % (Auto) [place] % (Auto) Lymph # [place] # Seg Neutrophils % Seg Neutrophils # PT INR APTT Heparin Anti-Xa Level ABG pH 7.283 L ABG pO2 56.5 L ABG HCO3 17.4 L ABG O2 Saturation 89.5 L ABG Base Excess -8.5 L ABG Hemoglobin 6.3 L Oxyhemoglobin 87.5 L Potassium Chloride Carbon Dioxide BUN Creatinine Glucose POC Glucose Phosphorus Magnesium Total Bilirubin Direct Bilirubin AST Total Creatine Kinase CK-MB (CK-2) Troponin T Albumin Urine Creatinine 101.5 H Urine Total Protein 112 H Digoxin 07/11/17 07/11/17 07/11/17 10:16 11:38 14:32 MCV MCH RDW Plt Count Lymph % (Auto) [place] % (Auto) Lymph # [place] # Seg Neutrophils % Seg Neutrophils # PT INR APTT Heparin Anti-Xa Level ABG pH ABG pO2 ABG HCO3 ABG O2 Saturation ABG Base Excess ABG Hemoglobin Oxyhemoglobin Potassium Chloride Carbon Dioxide 21 L BUN 102 H Creatinine 4.3 H Glucose POC Glucose 113 H Phosphorus 6.10 H Magnesium 2.90 H Total Bilirubin 2.30 H Direct Bilirubin 1.5 H AST 59 H Total Creatine Kinase CK-MB (CK-2) Troponin T Albumin 3.2 L Urine Creatinine Urine Total Protein Digoxin 07/11/17 07/11/17 07/11/17 17:54 21:23 Unknown MCV MCH RDW Plt Count Lymph % (Auto) [place] % (Auto) Lymph # [place] # Seg Neutrophils % Seg Neutrophils # PT INR APTT Heparin Anti-Xa Level ABG pH ABG pO2 ABG HCO3 ABG O2 Saturation ABG Base Excess ABG Hemoglobin Oxyhemoglobin Potassium Chloride Carbon Dioxide BUN Creatinine Glucose POC Glucose 108 H 123 H Phosphorus Magnesium Total Bilirubin Direct Bilirubin AST Total Creatine Kinase CK-MB (CK-2) Troponin T Albumin Urine Creatinine 101.1 H Urine Total Protein 112 H Digoxin 07/12/17 07/12/17 07/12/17 03:29 03:29 07:46 MCV 79 L MCH 26 L RDW 22.3 H Plt Count 130 L Lymph % (Auto) [place] % (Auto) Lymph # [place] # Seg Neutrophils % Seg Neutrophils # PT INR APTT Heparin Anti-Xa Level ABG pH ABG pO2 ABG HCO3 ABG O2 Saturation ABG Base Excess ABG Hemoglobin Oxyhemoglobin Potassium Chloride Carbon Dioxide BUN 74 H Creatinine 3.9 H Glucose 120 H POC Glucose 121 H Phosphorus Magnesium Total Bilirubin Direct Bilirubin AST Total Creatine Kinase CK-MB (CK-2) Troponin T Albumin Urine Creatinine Urine Total Protein Digoxin 07/12/17 07/12/17 07/12/17 12:13 16:01 16:38 MCV MCH RDW Plt Count Lymph % (Auto) [place] % (Auto) Lymph # [place] # Seg Neutrophils % Seg Neutrophils # PT 19.7 H INR 1.59 H APTT 39.8 H Heparin Anti-Xa Level ABG pH ABG pO2 ABG HCO3 ABG O2 Saturation ABG Base Excess ABG Hemoglobin Oxyhemoglobin Potassium Chloride Carbon Dioxide BUN Creatinine Glucose POC Glucose 127 H 137 H Phosphorus Magnesium Total Bilirubin Direct Bilirubin AST Total Creatine Kinase CK-MB (CK-2) Troponin T Albumin Urine Creatinine Urine Total Protein Digoxin 07/12/17 07/12/17 07/13/17 19:00 22:12 02:30 MCV 79 L MCH 26 L RDW 22.7 H Plt Count Lymph % (Auto) [place] % (Auto) Lymph # [place] # Seg Neutrophils % Seg Neutrophils # PT INR APTT Heparin Anti-Xa Level ABG pH ABG pO2 ABG HCO3 ABG O2 Saturation ABG Base Excess ABG Hemoglobin Oxyhemoglobin Potassium Chloride Carbon Dioxide BUN Creatinine Glucose POC Glucose 158 H Phosphorus Magnesium Total Bilirubin Direct Bilirubin AST Total Creatine Kinase CK-MB (CK-2) Troponin T Albumin Urine Creatinine Urine Total Protein Digoxin 0.7 L 07/13/17 07/13/17 07/13/17 02:30 02:30 08:10 MCV MCH RDW Plt Count Lymph % (Auto) [place] % (Auto) Lymph # [place] # Seg Neutrophils % Seg Neutrophils # PT INR APTT Heparin Anti-Xa Level 0.10 L ABG pH ABG pO2 ABG HCO3 ABG O2 Saturation ABG Base Excess ABG Hemoglobin Oxyhemoglobin Potassium Chloride Carbon Dioxide BUN 65 H Creatinine 3.6 H Glucose 155 H POC Glucose 122 H Phosphorus Magnesium Total Bilirubin Direct Bilirubin AST Total Creatine Kinase CK-MB (CK-2) Troponin T Albumin Urine Creatinine Urine Total Protein Digoxin 07/13/17 07/13/17 07/13/17 11:47 16:15 21:20 MCV MCH RDW Plt Count Lymph % (Auto) [place] % (Auto) Lymph # [place] # Seg Neutrophils % Seg Neutrophils # PT INR APTT Heparin Anti-Xa Level ABG pH ABG pO2 ABG HCO3 ABG O2 Saturation ABG Base Excess ABG Hemoglobin Oxyhemoglobin Potassium Chloride Carbon Dioxide BUN Creatinine Glucose POC Glucose 140 H 146 H 156 H Phosphorus Magnesium Total Bilirubin Direct Bilirubin AST Total Creatine Kinase CK-MB (CK-2) Troponin T Albumin Urine Creatinine Urine Total Protein Digoxin 07/14/17 07/14/17 07/14/17 04:00 04:00 05:00 MCV 79 L MCH 27 L RDW 22.8 H Plt Count Lymph % (Auto) [place] % (Auto) Lymph # [place] # Seg Neutrophils % Seg Neutrophils # PT INR APTT Heparin Anti-Xa Level ABG pH ABG pO2 ABG HCO3 ABG O2 Saturation ABG Base Excess ABG Hemoglobin Oxyhemoglobin Potassium Chloride 96.4 L Carbon Dioxide BUN 50 H Creatinine 2.9 H Glucose 171 H POC Glucose Phosphorus Magnesium Total Bilirubin Direct Bilirubin AST Total Creatine Kinase CK-MB (CK-2) Troponin T Albumin Urine Creatinine Urine Total Protein Digoxin 0.6 L 07/14/17 07:44 MCV MCH RDW Plt Count Lymph % (Auto) [place] % (Auto) Lymph # [place] # Seg Neutrophils % Seg Neutrophils # PT INR APTT Heparin Anti-Xa Level ABG pH ABG pO2 ABG HCO3 ABG O2 Saturation ABG Base Excess ABG Hemoglobin Oxyhemoglobin Potassium Chloride Carbon Dioxide BUN Creatinine Glucose POC Glucose 143 H Phosphorus Magnesium Total Bilirubin Direct Bilirubin AST Total Creatine Kinase CK-MB (CK-2) Troponin T Albumin Urine Creatinine Urine Total Protein Digoxin
--- NOTE | 2017-07-14 09:35 | Progress Note ---
Assessment and Plan Assessment: Acute renal failure / volume overload - requiring HD Acute systolic heart failure Dilated CMP - EF 15-20% Atrial flutter with RVR - ? new onset; pt reports 2 year h/o atrial fibrillation /atrial flutter, states he was on coumadin prior to admission Acute respiratory failure Elevated troponins - ECG with NAF; flat; currently nonspecific in setting of ARF and acutely decompensated systolic HF AMS - head CT with NAF Hyperkalemia - improved s/p HD Anasarca Mild transaminitis and hyperbilirubinemia - ? hepatorenal syndrome H/o HTN - currently with hypotension HLP DM H/o normal coronaries - [facility] 10/2000 at showed angiographically normal coronary arteries Plan: Volume optimization per nephrology. No BB, ACEI/ARB or aldactone at this time in setting of hypotension and ARF. Cont ASA 81. Hold lipitor in setting of mild transaminitis and hyperbilirubinemia. Hold nitrates in setting of hypotension. Give another dose IV digoxin x 1 dose now and obtain digoxin level in AM. D/c levophed and initiate dobutamine gtt. Maintain MAP >65mmHg. Cont heparin gtt. Plan for conversion to shelter systemic OAC prior to discharge. Consider ischemic evaluation once medically stabilized. The patient has been seen in conjunction with Dr. Pryor who agrees with the assessment and plan of care. Subjective Date of service: 07/14/17 Principal diagnosis: ARF; HF Interval history: Pt resting in bed, NAD. A&O. no current complaints. Remains in AFlutter with RVR on telemetry, HR 120s. Hypotensive, requiring levophed gtt. Objective Last Vital Signs Temp 98.3 F 07/14/17 07:55 Pulse 121 H 07/14/17 09:16 Resp 22 07/14/17 09:16 BP 105/62 07/14/17 09:16 Pulse Ox 99 07/14/17 07:45 - Physical Examination General: No Apparent Distress HEENT: Positive: PERRL, Normocephaly, Mucus Membranes Moist Neck: Positive: neck supple, trachea midline Cardiac: Positive: irregularly irregular, S1/S2, S3, Tachycardia Lungs: Positive: Decreased Breath Sounds Neuro: Positive: Grossly Intact Abdomen: Positive: Other (distended). Negative: Tender Skin: Positive: Clear, Other (generalized edema). Negative: Wound Extremities: Present: edema (BUE/BLE and generalized edema) - Labs and Meds CBC 07/14/17 Range/Units 04:00 WBC 8.5 (4.5-11.0) K/mm3 RBC 4.91 (3.65-5.03) M/mm3 Hgb 13.1 (11.8-15.2) gm/dl Hct 38.6 (35.5-45.6) % Plt Count 149 (140-440) K/mm3 Comprehensive Metabolic Panel 07/14/17 Range/Units 05:00 Sodium 137 (137-145) mmol/L Potassium 4.1 (3.6-5.0) mmol/L Chloride 96.4 L (98-107) mmol/L Carbon Dioxide 27 (22-30) mmol/L BUN 50 H (9-20) mg/dL Creatinine 2.9 H (0.8-1.5) mg/dL Glucose 171 H (75-100) mg/dL Calcium 8.7 (8.4-10.2) mg/dL - Imaging and Cardiology Echo: report reviewed (Stress echo done 02/2009 was negative for ischemia, EF heber from 50-65%) Cardiac cath: report reviewed ([facility] 10/2000 at showed angiographically normal coronary arteries) - Telemetry EKG Rhythm: Atrial Flutter - EKG Sinus rhythms and dysrhythmias: sinus tachycardia (low voltage)
[2017-07-14] MEDS ORDERED: LANOXIN IV ONE ×2 (10:00→14:00)
--- NOTE | 2017-07-14 10:05 | Progress Note ---
Assessment and Plan Assessment and plan: Acute kidney injury due to acute tubular necrosis Presented with Anasarca and volume overload Pt does have h/o DM so could have CKD from it, baseline unknown Initiated on HD since 07/10/17, Renally dose all meds and avoid nephrotoxic meds Renal US neg for hydronephrosis Shock/Hypotension May be due to cardiogenic shock he is still on Levophed to maintain blood pressure Atrial flutter BB for rate control placed on heparin drip by java core developer Acute metabolic encephalopathy daniele from uremia has h/o fall, CT head was unremarkable on admission MRI Brain ordered to r/o possible acute CVA Improving mental status. he is oriented to person, place but not to time. Hyperkalemia: This is now resolved with dialysis. Potassium 4.1 today, was 5.3 on admission. Acute on chronic combined Systolic and diastolic congestive heart failure TTE shows low EF of 15 to 20% Cardiology following Start Dobutamine drip today Diabetes mellitus type 2 on insulin: On insulin at home SSI coverage for now hypoglycemia noted in the ED, corrected with 50% [id number] elevated troponin likely from worsening renal function and underlying CHF Cardiology following Essential Hypertension,history Antihypertensives on hold because of hypotension DVT prophylaxis. On Heparin drip. Full code status. History Interval history: Patient initially presented with shortness of breath, edema and fall at home. Less shortness of breath, No chest pain Hospitalist Physical - Physical exam Narrative exam: Gen Appearance: Not in acute distress,Morbidly obese HEENT: normocephalic, atraumatic Neck: supple, no JVD Lungs: Clear to auscultation, no rales, no wheezing, Heart: S1 and S2 regular, no murmurs,no rubs or gallop, Abdomen: Soft , non tender, non distended, normal bowel sounds Extremity: Edema both lower ext, no clubbing or cyanosis, Neuro : Awake,alert, normal speech, moves all extremities - Constitutional Vitals: Temp Pulse Resp BP Pulse Ox 98.3 F 121 H 22 105/62 99 07/14/17 07:55 07/14/17 09:16 07/14/17 09:16 07/14/17 09:16 07/14/17 07:45 General appearance: Present: no acute distress, other (generalized edema) Results - Labs CBC & Chem 7: 07/14/17 04:00 07/14/17 05:00 Labs: Laboratory Last Values WBC 8.5 K/mm3 (4.5-11.0) 07/14/17 04:00 RBC 4.91 M/mm3 (3.65-5.03) 07/14/17 04:00 Hgb 13.1 gm/dl (11.8-15.2) 07/14/17 04:00 Hct 38.6 % (35.5-45.6) 07/14/17 04:00 MCV 79 fl (84-94) L 07/14/17 04:00 MCH 27 pg (28-32) L 07/14/17 04:00 MCHC 34 % (32-34) 07/14/17 04:00 RDW 22.8 % (13.2-15.2) H 07/14/17 04:00 Plt Count 149 K/mm3 (140-440) 07/14/17 04:00 Lymph % (Auto) 2.1 % (13.4-35.0) L 07/10/17 06:34 Vance % (Auto) 10.1 % (0.0-7.3) H 07/10/17 06:34 Eos % (Auto) 0.0 % (0.0-4.3) 07/10/17 06:34 Baso % (Auto) 0.1 % (0.0-1.8) 07/10/17 06:34 Lymph # 0.2 K/mm3 (1.2-5.4) L 07/10/17 06:34 Vance # 1.0 K/mm3 (0.0-0.8) H 07/10/17 06:34 Eos # 0.0 K/mm3 (0.0-0.4) 07/10/17 06:34 Baso # 0.0 K/mm3 (0.0-0.1) 07/10/17 06:34 Seg Neutrophils % 87.7 % (40.0-70.0) H 07/10/17 06:34 Seg Neutrophils # 9.1 K/mm3 (1.8-7.7) H 07/10/17 06:34 PT 19.7 Sec. (12.2-14.9) H 07/12/17 16:38 INR 1.59 (0.87-1.13) H 07/12/17 16:38 APTT 39.8 Sec. (24.2-36.6) H 07/12/17 16:38 Heparin Anti-Xa Level 0.34 U.I./ml (0.3-0.7) 07/13/17 11:00 ABG pH 7.283 pH Units (7.350-7.450) L 07/10/17 16:06 ABG pCO2 37.7 mm Hg 07/10/17 16:06 ABG pO2 56.5 mm Hg (80.0-90.0) L 07/10/17 16:06 ABG HCO3 17.4 mmol/L (20.0-26.0) L 07/10/17 16:06 ABG O2 Saturation 89.5 % (95.0-99.0) L 07/10/17 16:06 ABG O2 Content 7.9 (0.0-44) 07/10/17 16:06 ABG Base Excess -8.5 mmol/L (-2.0-3.0) L 07/10/17 16:06 ABG Hemoglobin 6.3 gm/dl (14.0-18.0) L 07/10/17 16:06 ABG Carboxyhemoglobin 1.8 % (0.0-5.0) 07/10/17 16:06 ABG Methemoglobin 0.3 % (0.0-1.5) 07/10/17 16:06 VBG pH 7.362 (7.320-7.420) 07/09/17 21:14 Oxyhemoglobin 87.5 % (95.0-99.0) L 07/10/17 16:06 FiO2 28 % 07/10/17 16:06 Sodium 137 mmol/L (137-145) 07/14/17 05:00 Potassium 4.1 mmol/L (3.6-5.0) 07/14/17 05:00 Chloride 96.4 mmol/L (98-107) L 07/14/17 05:00 Carbon Dioxide 27 mmol/L (22-30) 07/14/17 05:00 Anion Gap 18 mmol/L 07/14/17 05:00 BUN 50 mg/dL (9-20) H 07/14/17 05:00 Creatinine 2.9 mg/dL (0.8-1.5) H 07/14/17 05:00 Estimated GFR 27 ml/min 07/14/17 05:00 BUN/Creatinine Ratio 17 % 07/14/17 05:00 Glucose 171 mg/dL (75-100) H 07/14/17 05:00 POC Glucose 143 (70-105) H 07/14/17 07:44 Lactic Acid 1.60 mmol/L (0.7-2.0) 07/09/17 23:11 Calcium 8.7 mg/dL (8.4-10.2) 07/14/17 05:00 Phosphorus 6.10 mg/dL (2.5-4.5) H 07/11/17 10:16 Magnesium 2.90 mg/dL (1.7-2.3) H 07/11/17 10: Total Bilirubin 2.30 mg/dL (0.1-1.2) H 07/11/17 14:32 Direct Bilirubin 1.5 mg/dL (0-0.2) H 07/11/17 14:32 Indirect Bilirubin 0.8 mg/dL 07/11/17 14:32 AST 59 units/L (5-40) H 07/11/17 14:32 ALT 43 units/L (7-56) 07/11/17 14:32 Alkaline Phosphatase 91 units/L (35-129) 07/11/17 14:32 Total Creatine Kinase 892 units/L (55-170) H 07/10/17 12:11 CK-MB (CK-2) 30.9 ng/mL (0.0-4.0) H 07/10/17 12:11 CK-MB (CK-2) Rel Index 3.4 (0-4) 07/10/17 12:11 Troponin T 0.267 ng/mL (0.00-0.029) H* 07/10/17 12:11 NT-Pro-B Natriuret Pep 63490 pg/mL (0-900) H 07/09/17 21:27 Total Protein 6.7 g/dL (6.3-8.2) 07/11/17 14:32 Albumin 3.2 g/dL (3.9-5) L 07/11/17 14:32 Albumin/Globulin Ratio 0.9 % 07/11/17 14:32 Triglycerides 93 mg/dL (2-149) 07/09/17 21:27 Cholesterol 137 mg/dL (50-199) 07/09/17 21:27 LDL Cholesterol Direct 74 mg/dL (50-130) 07/09/17 21:27 HDL Cholesterol 45 mg/dL (40-59) 07/09/17 21:27 Cholesterol/HDL Ratio 3.04 % 07/09/17 21:27 Urine Color Priyanka (Yellow) 07/09/17 20:52 Urine Turbidity Clear (Clear) 07/09/17 20:52 Urine pH 5.0 (5.0-7.0) 07/09/17 20:52 Ur Specific [place] 1.014 (1.003-1.030) 07/09/17 20:52 Urine Protein 100 mg/dl mg/dL (Negative) 07/09/17 20:52 Urine Glucose (UA) Neg mg/dL (Negative) 07/09/17 20:52 Urine Ketones Neg mg/dL (Negative) 07/09/17 20:52 Urine Blood Neg (Negative) 07/09/17 20:52 Urine Nitrite Neg (Negative) 07/09/17 20:52 Urine Bilirubin Neg (Negative) 07/09/17 20:52 Urine Urobilinogen 4.0 mg/dL (<2.0) 07/09/17 20:52 Ur Leukocyte Esterase Sm (Negative) 07/09/17 20:52 Urine WBC (Auto) 17.0 /HPF (0.0-6.0) H 07/09/17 20:52 Urine RBC (Auto) 7.0 /HPF (0.0-6.0) 07/09/17 20:52 Urine Bacteria (Auto) 1+ /HPF (Negative) 07/09/17 20:52 Urine Mucus Few /HPF 07/09/17 20:52 Urine Eosinophils None seen (None Seen) 07/11/17 Unknown Urine Creatinine 101.1 mg/dL (0.1-20.0) H 07/11/17 Unknown Urine Microalbumin 27.9 mg/dL (0.1-34.0) 07/10/17 Unknown Microalb/Creat Ratio 274.8 ug/mg 07/10/17 Unknown Protein/Creatinin Ratio 1.11 07/11/17 Unknown Urine Sodium 38 mEq/L 07/10/17 Unknown Urine Urea Nitrogen 337 07/10/17 Unknown Urine Total Protein 112 mg/dL (5-11.8) H 07/11/17 Unknown Digoxin 0.6 ng/mL (0.9-2.0) L 07/14/17 04:00 CHRISTOPHER Screen Negative (Negative) 07/11/17 09:19 Hepatitis A IgM Ab Non-reactive (NonReactive) 07/11/17 09:19 Hep Bs Antigen Non-reactive (Negative) 07/11/17 09:19 Hep B Core IgM Ab Non-reactive (NonReactive) 07/11/17 09:19 Hepatitis C Antibody Non-reactive (NonReactive) 07/11/17 09:19 HIV 1&2 Antibody Rapid Non react (Non React) 07/11/17 09:19 HIV P24 Antigen Non react (Non React) 07/11/17 09:19
--- NOTE | 2017-07-14 10:19 | Progress Note ---
Assessment and Plan (1) Anasarca Current Visit: Yes Status: Acute Plan to address problem: cont daily ultrafiltration (2) Acute renal failure (ARF) Current Visit: Yes Status: Acute Qualifiers: Acute renal failure type: A Plan to address problem: unknown baseline kidney function HD today for clearance and volume removal will cont daily HD for ultrafiltraion, UF goal 3-4 L as tolerated vasculitis and secondary GN work up is pending Renally dose medications Obtain daily weight Thorne Catheter: Yes (3) Atrial flutter with rapid ventricular response Current Visit: Yes Status: Acute Plan to address problem: Cardiology consulted On Digoxin (4) Systolic and diastolic CHF, acute Current Visit: Yes Status: Acute Plan to address problem: Cardiology on board, s/p TTE on 07/10/17 showed EF 15-20% will be switched to Dobutamine today (5) Type 2 diabetes mellitus with insulin therapy Current Visit: Yes Status: Acute Plan to address problem: On Sliding scale insulin As per primary team Subjective Date of service: 07/14/17 Principal diagnosis: ARF; HF Interval history: more awake this AM, tolerated dialysis yesterday Objective - Vital Signs Vital signs: Vital Signs - 12hr 07/13/17 07/13/17 07/13/17 22:28 22:30 22:45 Temperature Pulse Rate 93 H 93 H 97 H Respiratory 16 17 18 Rate Blood Pressure 95/57 91/54 96/67 O2 Sat by Pulse 100 100 100 Oximetry 07/13/17 07/13/17 07/13/17 22:48 23:00 23:16 Temperature Pulse Rate 93 H 91 H 105 H Respiratory 17 28 H Rate Blood Pressure 96/67 93/64 96/66 O2 Sat by Pulse 100 Oximetry 07/13/17 07/13/17 07/13/17 23:30 23:44 23:45 Temperature Pulse Rate 96 H 91 H Respiratory 17 15 Rate Blood Pressure 94/68 91/62 O2 Sat by Pulse 100 100 100 Oximetry 07/14/17 07/14/17 07/14/17 00:00 00:15 00:30 Temperature 98.9 F Pulse Rate 102 H 94 H 96 H Respiratory 19 20 18 Rate Blood Pressure 93/69 100/65 104/68 O2 Sat by Pulse 100 100 100 Oximetry 07/14/17 07/14/17 07/14/17 00:45 01:00 01:15 Temperature Pulse Rate 101 H 92 H 97 H Respiratory 18 18 17 Rate Blood Pressure 102/65 98/65 108/67 O2 Sat by Pulse 100 100 100 Oximetry 07/14/17 07/14/17 07/14/17 01:30 01:46 02:00 Temperature Pulse Rate 124 H 105 H 95 H Respiratory 22 11 L 19 Rate Blood Pressure 105/65 100/64 103/67 O2 Sat by Pulse 100 96 100 Oximetry 07/14/17 07/14/17 07/14/17 02:15 02:30 02:45 Temperature Pulse Rate 97 H 94 H 105 H Respiratory 19 20 24 Rate Blood Pressure 103/63 95/69 101/70 O2 Sat by Pulse 99 99 95 Oximetry 07/14/17 07/14/17 07/14/17 03:00 03:15 03:30 Temperature Pulse Rate 94 H 123 H 123 H Respiratory 13 17 19 Rate Blood Pressure 100/70 102/67 107/67 O2 Sat by Pulse Oximetry 07/14/17 07/14/17 07/14/17 03:45 04:00 04:16 Temperature 98.7 F Pulse Rate 123 H 123 H 125 H Respiratory 20 21 18 Rate Blood Pressure 107/70 117/60 116/66 O2 Sat by Pulse 99 Oximetry 07/14/17 07/14/17 07/14/17 04:30 04:45 05:00 Temperature Pulse Rate 124 H 124 H 124 H Respiratory 20 23 22 Rate Blood Pressure 113/73 108/64 106/66 O2 Sat by Pulse 99 Oximetry 07/14/17 07/14/17 07/14/17 05:15 05:30 05:45 Temperature Pulse Rate 124 H 123 H 123 H Respiratory 17 20 20 Rate Blood Pressure 113/69 110/62 107/68 O2 Sat by Pulse 99 Oximetry 07/14/17 07/14/17 07/14/17 05:56 06:00 06:15 Temperature Pulse Rate 123 H 125 H Respiratory 16 17 30 H Rate Blood Pressure 115/68 113/67 O2 Sat by Pulse 82 L Oximetry 07/14/17 07/14/17 07/14/17 06:30 06:45 07:00 Temperature Pulse Rate 129 H 124 H 132 H Respiratory 13 18 19 Rate Blood Pressure 113/67 116/69 122/74 O2 Sat by Pulse Oximetry 07/14/17 07/14/17 07/14/17 07:15 07:30 07:45 Temperature Pulse Rate 123 H 123 H 123 H Respiratory 21 12 8 L Rate Blood Pressure 114/68 115/64 112/65 O2 Sat by Pulse 99 99 99 Oximetry 07/14/17 07/14/17 07/14/17 07:55 08:00 08:15 Temperature 98.3 F Pulse Rate 123 H 123 H Respiratory 20 11 L Rate Blood Pressure 112/66 112/66 O2 Sat by Pulse Oximetry 07/14/17 07/14/17 07/14/17 08:30 08:46 09:00 Temperature Pulse Rate 122 H 123 H 122 H Respiratory 17 21 17 Rate Blood Pressure 105/58 102/59 104/59 O2 Sat by Pulse Oximetry 07/14/17 09:16 Temperature Pulse Rate 121 H Respiratory 22 Rate Blood Pressure 105/62 O2 Sat by Pulse Oximetry - General Appearance General appearance: well-developed, well-nourished EENT: ATNC, PERRL, mucous membranes moist Neck: no JVD, no carotid bruit Respiratory: Present: Decreased Breath Sounds Cardiology: tachycardia Gastrointestinal: normoactive bowel sounds, no tenderness, no distended, obese Integumentary: no rash, warm and dry Neurologic: no focal deficit Musculoskeletal: other (Anasarca) Psychiatric: cooperative - Lab 07/14/17 04:00 07/14/17 05:00 Most recent lab results ABG pH 7.283 pH Units (7.350-7.450) L 07/10/17 16:06 ABG pCO2 37.7 mm Hg 07/10/17 16:06 ABG pO2 56.5 mm Hg (80.0-90.0) L 07/10/17 16:06 ABG HCO3 17.4 mmol/L (20.0-26.0) L 07/10/17 16:06 ABG O2 Saturation 89.5 % (95.0-99.0) L 07/10/17 16:06 Calcium 8.7 mg/dL (8.4-10.2) 07/14/17 05:00 Phosphorus 6.10 mg/dL (2.5-4.5) H 07/11/17 10:16 Magnesium 2.90 mg/dL (1.7-2.3) H 07/11/17 10:16 Urine Creatinine 101.1 mg/dL (0.1-20.0) H 07/11/17 Unknown Urine Sodium 38 mEq/L 07/10/17 Unknown Urine Total Protein 112 mg/dL (5-11.8) H 07/11/17 Unknown
[2017-07-14] MEDS: HEPARIN IV PRN (13:41)
[2017-07-14] MEDS: DOBUTREX DRIP 500MG/D5W 250ML 500 MG/250 ML BAG IV SCH (14:06)
[2017-07-14] MEDS: BABY ASPIRIN PO SCH (14:13)
[2017-07-14 17:45] LABS: Myeloperoxidase Antibody <1.0 AI (<1.0)
[2017-07-15] MEDS: DOBUTREX DRIP 500MG/D5W 250ML 500 MG/250 ML BAG IV SCH ×2 (02:30→14:41)
[2017-07-15 06:00] LABS: Hematocrit 35.4 % (35.5-45.6); Hemoglobin 11.7 gm/dl (11.8-15.2); Mean Corpuscular HGB Conc 33 % (32-34); Mean Corpuscular Hemoglobin 26 pg (28-32); Mean Corpuscular Volume 79 fl (84-94); Platelet Count 120 K/mm3 (140-440); Red Blood Count 4.47 M/mm3 (3.65-5.03); White Blood Count 5.7 K/mm3 (4.5-11.0)
[2017-07-15 06:02] LABS: Red Cell Distribution Width 22.3 % (13.2-15.2)
[2017-07-15 06:22] LABS: Calcium 8.3 mg/dL (8.4-10.2); Chloride 97.6 mmol/L (98-107); Potassium 3.8 mmol/L (3.6-5.0)
[2017-07-15] MEDS: NOVOLOG SUB-Q SCH ×3 (07:41→17:18)
[2017-07-15] MEDS: HEPARIN/ 0.45% NACL-25,000 UNIT/500 ML 25,000 UNIT/500 ML BAG IV SCH ×2 (07:48→21:45)
--- NOTE | 2017-07-15 09:05 | Progress Note ---
Assessment and Plan Congestive heart failure, decompensated. Controlled Hypotension. Improved. probably running low BP also due to HF low EF state Cardiomyopathy with low ejection fraction Atrial flutter. On meds,improving Acute on chronic kidney injury. Nephro following , on hemodialysis Morbid obesity DM Recommendations Agree with recommendation to change RT femoral access to other site for HD. Should avoid use for > 5 days if possible Taper pressors to keep BP > 90/60, MAP> 60. Discussed with nephro/HD goal of maintaining euvolemia,avoiding reflex tachycardia Dobutamine per cards Watch x bleeding on hep drip,follow protocol Monitor for fever No family members available for case discussion Critical care time was 31 minutes of [id number] evaluation and coordination of care Subjective Date of service: 07/15/17 Principal diagnosis: ARF; HF Interval history: Denies cough or SOB Objective Vital Signs - 12hr 07/14/17 07/14/17 07/14/17 21:16 21:30 21:36 Temperature Pulse Rate 125 H 124 H 125 H Respiratory 18 17 16 Rate Blood Pressure 106/46 110/50 110/50 O2 Sat by Pulse 97 98 Oximetry 07/14/17 07/14/17 07/14/17 21:45 22:00 22:16 Temperature Pulse Rate 125 H 113 H 126 H Respiratory 16 16 17 Rate Blood Pressure 95/49 99/59 113/47 O2 Sat by Pulse 99 98 100 Oximetry 07/14/17 07/14/17 07/14/17 22:30 22:45 23:00 Temperature Pulse Rate 125 H 125 H 114 H Respiratory 17 17 18 Rate Blood Pressure 113/51 112/50 96/51 O2 Sat by Pulse 100 100 100 Oximetry 07/14/17 07/14/17 07/14/17 23:16 23:30 23:36 Temperature 99.6 F Pulse Rate 119 H 127 H Respiratory 15 18 Rate Blood Pressure 103/52 109/49 O2 Sat by Pulse 100 99 Oximetry 07/14/17 07/15/17 07/15/17 23:45 00:00 00:05 Temperature Pulse Rate 125 H 124 H 126 H Respiratory 16 17 15 Rate Blood Pressure 106/49 103/54 O2 Sat by Pulse 98 100 Oximetry 07/15/17 07/15/17 07/15/17 00:15 00:30 00:45 Temperature Pulse Rate 126 H 126 H 118 H Respiratory 14 13 12 Rate Blood Pressure 109/51 112/49 107/49 O2 Sat by Pulse 96 96 96 Oximetry 07/15/17 07/15/17 07/15/17 01:00 01:15 01:28 Temperature Pulse Rate 124 H 124 H 125 H Respiratory 16 16 18 Rate Blood Pressure 108/46 111/52 111/52 O2 Sat by Pulse 96 96 98 Oximetry 07/15/17 07/15/17 07/15/17 01:30 01:45 02:00 Temperature Pulse Rate 124 H 125 H 125 H Respiratory 21 17 16 Rate Blood Pressure 107/46 113/51 120/60 O2 Sat by Pulse 96 97 99 Oximetry 07/15/17 07/15/17 07/15/17 02:15 02:30 02:45 Temperature Pulse Rate 124 H 125 H 121 H Respiratory 15 17 19 Rate Blood Pressure 110/47 110/49 111/55 O2 Sat by Pulse 96 96 96 Oximetry 07/15/17 07/15/17 07/15/17 03:00 03:15 03:30 Temperature Pulse Rate 125 H 122 H 125 H Respiratory 11 L 17 18 Rate Blood Pressure 111/49 113/48 112/48 O2 Sat by Pulse 97 97 96 Oximetry 07/15/17 07/15/17 07/15/17 03:41 03:45 03:50 Temperature 98.6 F Pulse Rate 126 H 126 H Respiratory 20 16 Rate Blood Pressure 105/48 O2 Sat by Pulse 96 100 Oximetry 07/15/17 07/15/17 07/15/17 04:00 04:15 04:30 Temperature Pulse Rate 125 H 124 H 125 H Respiratory 17 18 20 Rate Blood Pressure 114/49 111/58 111/51 O2 Sat by Pulse 96 98 99 Oximetry 07/15/17 07/15/17 07/15/17 04:45 05:00 05:15 Temperature Pulse Rate 125 H 125 H 130 H Respiratory 18 20 21 Rate Blood Pressure 113/48 117/46 115/53 O2 Sat by Pulse Oximetry 07/15/17 07/15/17 07/15/17 05:22 05:25 05:30 Temperature Pulse Rate 127 H 124 H Respiratory 21 16 18 Rate Blood Pressure 115/53 118/54 O2 Sat by Pulse 98 100 Oximetry 07/15/17 07/15/17 07/15/17 05:45 06:00 06:15 Temperature Pulse Rate 125 H 125 H 113 H Respiratory 17 11 L 23 Rate Blood Pressure 119/50 111/46 107/51 O2 Sat by Pulse Oximetry 07/15/17 07/15/17 07/15/17 06:30 06:46 07:00 Temperature Pulse Rate 125 H 124 H 125 H Respiratory 19 21 16 Rate Blood Pressure 108/57 116/49 113/43 O2 Sat by Pulse 96 Oximetry 07/15/17 07/15/17 07/15/17 07:16 07:30 07:46 Temperature Pulse Rate 115 H 111 H 108 H Respiratory 16 13 21 Rate Blood Pressure 99/52 102/56 106/48 O2 Sat by Pulse 98 95 Oximetry 07/15/17 07/15/17 07/15/17 08:00 08:15 08:30 Temperature 97.8 F Pulse Rate 108 H 120 H 116 H Respiratory 19 14 17 Rate Blood Pressure 103/54 117/91 117/91 O2 Sat by Pulse 92 Oximetry Constitutional: no acute distress, alert, other (morbidly obese) ENT: other (medical closure with Mallampati class IV airway) Neck: supple, no lymphadenopathy, no JVD, other (right IJ) Ascultation: Bilateral: clear (obese patient), diminished breath sounds ( Limited expansion) Cardiovascular: irregular rhythm, other (tachycardic) Gastrointestinal: normoactive bowel sounds, non-distended, other (morbidly obese ) Extremities: no cyanosis, no edema, other (Rt femoral line) Neurologic: non-focal exam, pupils equal and round, CN II-XII normal, motor strength normal and, other (appears slightly confused) Psychiatric: mood appropriate, affect normal CBC and BMP: 07/15/17 04:25 07/15/17 04:25 ABG, PT/INR, D-dimer: ABG ABG pH 7.283 pH Units (7.350-7.450) L 07/10/17 16:06 ABG pCO2 37.7 mm Hg 07/10/17 16:06 ABG pO2 56.5 mm Hg (80.0-90.0) L 07/10/17 16:06 ABG O2 Saturation 89.5 % (95.0-99.0) L 07/10/17 16:06 PT/INR, D-dimer PT 19.7 Sec. (12.2-14.9) H 07/12/17 16:38 INR 1.59 (0.87-1.13) H 07/12/17 16:38 Abnormal lab findings: Abnormal Labs 07/10/17 07/10/17 07/10/17 06:32 06:34 06:34 Hgb Hct MCV 80 L MCH 26 L RDW 22.1 H Plt Count Lymph % (Auto) 2.1 L Rogers % (Auto) 10.1 H Lymph # 0.2 L Rogers # 1.0 H Seg Neutrophils % 87.7 H Seg Neutrophils # 9.1 H PT INR APTT Heparin Anti-Xa Level ABG pH ABG pO2 ABG HCO3 ABG O2 Saturation ABG Base Excess ABG Hemoglobin Oxyhemoglobin Potassium 5.3 H Chloride Carbon Dioxide 16 L BUN 138 H Creatinine 4.7 H Glucose 51 L POC Glucose Hemoglobin A1c Calcium Phosphorus Magnesium Total Bilirubin Direct Bilirubin AST Total Creatine Kinase 1099 H CK-MB (CK-2) 32.4 H Troponin T 0.253 H* Albumin Urine Creatinine Urine Total Protein Digoxin 07/10/17 07/10/17 07/10/17 10:43 12:11 13:31 Hgb Hct MCV MCH RDW Plt Count Lymph % (Auto) [place] % (Auto) Lymph # Rogers # Seg Neutrophils % Seg Neutrophils # PT INR APTT Heparin Anti-Xa Level ABG pH ABG pO2 ABG HCO3 ABG O2 Saturation ABG Base Excess ABG Hemoglobin Oxyhemoglobin Potassium Chloride Carbon Dioxide BUN Creatinine Glucose POC Glucose 49 L 69 L Hemoglobin A1c Calcium Phosphorus Magnesium Total Bilirubin Direct Bilirubin AST Total Creatine Kinase 892 H CK-MB (CK-2) 30.9 H Troponin T 0.267 H* Albumin Urine Creatinine Urine Total Protein Digoxin 07/10/17 07/10/17 07/11/17 16:06 Unknown 10:16 Hgb Hct MCV 79 L MCH 26 L RDW 22.2 H Plt Count Lymph % (Auto) [place] % (Auto) Lymph # Rogers # Seg Neutrophils % Seg Neutrophils # PT INR APTT Heparin Anti-Xa Level ABG pH 7.283 L ABG pO2 56.5 L ABG HCO3 17.4 L ABG O2 Saturation 89.5 L ABG Base Excess -8.5 L ABG Hemoglobin 6.3 L Oxyhemoglobin 87.5 L Potassium Chloride Carbon Dioxide BUN Creatinine Glucose POC Glucose Hemoglobin A1c Calcium Phosphorus Magnesium Total Bilirubin Direct Bilirubin AST Total Creatine Kinase CK-MB (CK-2) Troponin T Albumin Urine Creatinine 101.5 H Urine Total Protein 112 H Digoxin 07/11/17 07/11/17 07/11/17 10:16 11:38 14:32 Hgb Hct MCV MCH RDW Plt Count Lymph % (Auto) [place] % (Auto) Lymph # Rogers # Seg Neutrophils % Seg Neutrophils # PT INR APTT Heparin Anti-Xa Level ABG pH ABG pO2 ABG HCO3 ABG O2 Saturation ABG Base Excess ABG Hemoglobin Oxyhemoglobin Potassium Chloride Carbon Dioxide 21 L BUN 102 H Creatinine 4.3 H Glucose POC Glucose 113 H Hemoglobin A1c Calcium Phosphorus 6.10 H Magnesium 2.90 H Total Bilirubin 2.30 H Direct Bilirubin 1.5 H AST 59 H Total Creatine Kinase CK-MB (CK-2) Troponin T Albumin 3.2 L Urine Creatinine Urine Total Protein Digoxin 07/11/17 07/11/17 07/11/17 17:54 21:23 Unknown Hgb Hct MCV MCH RDW Plt Count Lymph % (Auto) [place] % (Auto) Lymph # Rogers # Seg Neutrophils % Seg Neutrophils # PT INR APTT Heparin Anti-Xa Level ABG pH ABG pO2 ABG HCO3 ABG O2 Saturation ABG Base Excess ABG Hemoglobin Oxyhemoglobin Potassium Chloride Carbon Dioxide BUN Creatinine Glucose POC Glucose 108 H 123 H Hemoglobin A1c Calcium Phosphorus Magnesium Total Bilirubin Direct Bilirubin AST Total Creatine Kinase CK-MB (CK-2) Troponin T Albumin Urine Creatinine 101.1 H Urine Total Protein 112 H Digoxin 07/12/17 07/12/17 07/12/17 03:29 03:29 07:46 Hgb Hct MCV 79 L MCH 26 L RDW 22.3 H Plt Count 130 L Lymph % (Auto) [place] % (Auto) Lymph # Rogers # Seg Neutrophils % Seg Neutrophils # PT INR APTT Heparin Anti-Xa Level ABG pH ABG pO2 ABG HCO3 ABG O2 Saturation ABG Base Excess ABG Hemoglobin Oxyhemoglobin Potassium Chloride Carbon Dioxide BUN 74 H Creatinine 3.9 H Glucose 120 H POC Glucose 121 H Hemoglobin A1c Calcium Phosphorus Magnesium Total Bilirubin Direct Bilirubin AST Total Creatine Kinase CK-MB (CK-2) Troponin T Albumin Urine Creatinine Urine Total Protein Digoxin 07/12/17 07/12/17 07/12/17 12:13 16:01 16:38 Hgb Hct MCV MCH RDW Plt Count Lymph % (Auto) [place] % (Auto) Lymph # Rogers # Seg Neutrophils % Seg Neutrophils # PT 19.7 H INR 1.59 H APTT 39.8 H Heparin Anti-Xa Level ABG pH ABG pO2 ABG HCO3 ABG O2 Saturation ABG Base Excess ABG Hemoglobin Oxyhemoglobin Potassium Chloride Carbon Dioxide BUN Creatinine Glucose POC Glucose 127 H 137 H Hemoglobin A1c Calcium Phosphorus Magnesium Total Bilirubin Direct Bilirubin AST Total Creatine Kinase CK-MB (CK-2) Troponin T Albumin Urine Creatinine Urine Total Protein Digoxin 07/12/17 07/12/17 07/13/17 19:00 22:12 02:30 Hgb Hct MCV 79 L MCH 26 L RDW 22.7 H Plt Count Lymph % (Auto) [place] % (Auto) Lymph # Rogers # Seg Neutrophils % Seg Neutrophils # PT INR APTT Heparin Anti-Xa Level ABG pH ABG pO2 ABG HCO3 ABG O2 Saturation ABG Base Excess ABG Hemoglobin Oxyhemoglobin Potassium Chloride Carbon Dioxide BUN Creatinine Glucose POC Glucose 158 H Hemoglobin A1c Calcium Phosphorus Magnesium Total Bilirubin Direct Bilirubin AST Total Creatine Kinase CK-MB (CK-2) Troponin T Albumin Urine Creatinine Urine Total Protein Digoxin 0.7 L 07/13/17 07/13/17 07/13/17 02:30 02:30 08:10 Hgb Hct MCV MCH RDW Plt Count Lymph % (Auto) [place] % (Auto) Lymph # Rogers # Seg Neutrophils % Seg Neutrophils # PT INR APTT Heparin Anti-Xa Level 0.10 L ABG pH ABG pO2 ABG HCO3 ABG O2 Saturation ABG Base Excess ABG Hemoglobin Oxyhemoglobin Potassium Chloride Carbon Dioxide BUN 65 H Creatinine 3.6 H Glucose 155 H POC Glucose 122 H Hemoglobin A1c Calcium Phosphorus Magnesium Total Bilirubin Direct Bilirubin AST Total Creatine Kinase CK-MB (CK-2) Troponin T Albumin Urine Creatinine Urine Total Protein Digoxin 07/13/17 07/13/17 07/13/17 11:47 16:15 21:20 Hgb Hct MCV MCH RDW Plt Count Lymph % (Auto) [place] % (Auto) Lymph # Rogers # Seg Neutrophils % Seg Neutrophils # PT INR APTT Heparin Anti-Xa Level ABG pH ABG pO2 ABG HCO3 ABG O2 Saturation ABG Base Excess ABG Hemoglobin Oxyhemoglobin Potassium Chloride Carbon Dioxide BUN Creatinine Glucose POC Glucose 140 H 146 H 156 H Hemoglobin A1c Calcium Phosphorus Magnesium Total Bilirubin Direct Bilirubin AST Total Creatine Kinase CK-MB (CK-2) Troponin T Albumin Urine Creatinine Urine Total Protein Digoxin 07/14/17 07/14/17 07/14/17 04:00 04:00 05:00 Hgb Hct MCV 79 L MCH 27 L RDW 22.8 H Plt Count Lymph % (Auto) [place] % (Auto) Lymph # Rogers # Seg Neutrophils % Seg Neutrophils # PT INR APTT Heparin Anti-Xa Level ABG pH ABG pO2 ABG HCO3 ABG O2 Saturation ABG Base Excess ABG Hemoglobin Oxyhemoglobin Potassium Chloride 96.4 L Carbon Dioxide BUN 50 H Creatinine 2.9 H Glucose 171 H POC Glucose Hemoglobin A1c Calcium Phosphorus Magnesium Total Bilirubin Direct Bilirubin AST Total Creatine Kinase CK-MB (CK-2) Troponin T Albumin Urine Creatinine Urine Total Protein Digoxin 0.6 L 07/14/17 07/14/17 07/14/17 07:44 11:50 16:36 Hgb Hct MCV MCH RDW Plt Count Lymph % (Auto) [place] % (Auto) Lymph # Rogers # Seg Neutrophils % Seg Neutrophils # PT INR APTT Heparin Anti-Xa Level ABG pH ABG pO2 ABG HCO3 ABG O2 Saturation ABG Base Excess ABG Hemoglobin Oxyhemoglobin Potassium Chloride Carbon Dioxide BUN Creatinine Glucose POC Glucose 143 H 137 H 178 H Hemoglobin A1c Calcium Phosphorus Magnesium Total Bilirubin Direct Bilirubin AST Total Creatine Kinase CK-MB (CK-2) Troponin T Albumin Urine Creatinine Urine Total Protein Digoxin 07/14/17 07/15/17 07/15/17 21:24 04:25 04:25 Hgb 11.7 L Hct 35.4 L MCV 79 L MCH 26 L RDW 22.3 H Plt Count 120 L Lymph % (Auto) [place] % (Auto) Lymph # Rogers # Seg Neutrophils % Seg Neutrophils # PT INR APTT Heparin Anti-Xa Level ABG pH ABG pO2 ABG HCO3 ABG O2 Saturation ABG Base Excess ABG Hemoglobin Oxyhemoglobin Potassium Chloride 97.6 L Carbon Dioxide BUN 36 H Creatinine 2.4 H Glucose 132 H POC Glucose 144 H Hemoglobin A1c Calcium 8.3 L Phosphorus Magnesium Total Bilirubin Direct Bilirubin AST Total Creatine Kinase CK-MB (CK-2) Troponin T Albumin Urine Creatinine Urine Total Protein Digoxin 07/15/17 07/15/17 04:25 04:25 Hgb Hct MCV MCH RDW Plt Count Lymph % (Auto) Rogers % (Auto) Lymph # Rogers # Seg Neutrophils % Seg Neutrophils # PT INR APTT Heparin Anti-Xa Level ABG pH ABG pO2 ABG HCO3 ABG O2 Saturation ABG Base Excess ABG Hemoglobin Oxyhemoglobin Potassium Chloride Carbon Dioxide BUN Creatinine Glucose POC Glucose Hemoglobin A1c 6.6 H Calcium Phosphorus Magnesium Total Bilirubin Direct Bilirubin AST Total Creatine Kinase CK-MB (CK-2) Troponin T Albumin Urine Creatinine Urine Total Protein Digoxin 0.8 L
--- NOTE | 2017-07-15 09:46 | Progress Note ---
Assessment and Plan Assessment: Acute renal failure / volume overload - requiring HD Acute systolic heart failure / ? 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 new onset; pt reports 2 year h/o atrial fibrillation /atrial flutter, states he was on coumadin prior to admission Acute respiratory failure Elevated troponins - ECG with NAF; flat; currently nonspecific in setting of ARF and acutely decompensated systolic HF AMS - improving; head CT with NAF Hyperkalemia - improved s/p HD Anasarca Mild transaminitis and hyperbilirubinemia - ? hepatorenal syndrome H/o HTN - currently with hypotension HLP DM H/o normal coronaries - C 10/2000 at showed angiographically normal coronary arteries Plan: Volume optimization per nephrology. pt reportedly net neg 10L since admission per primary RN. No BB, ACEI/ARB or aldactone at this time in setting of hypotension and ARF. Cont ASA 81. Hold lipitor in setting of mild transaminitis and hyperbilirubinemia. Hold nitrates in setting of hypotension. Give another dose IV digoxin x 1 dose now and obtain digoxin level in AM. Cont dobutamine gtt (will plan to continue for full 72hours - d/c ~07/17). Maintain MAP >65mmHg. Cont heparin gtt. Plan for conversion to [facility] systemic OAC prior to discharge. Consider ischemic evaluation once medically stabilized. The patient has been seen in conjunction with Dr. Nice who agrees with the assessment and plan of care. Subjective Date of service: 07/15/17 Principal diagnosis: ARF; HF Interval history: Pt resting in bed, NAD. A&O. no current complaints. Remains in AFlutter with RVR on telemetry, HR 100-120ss. BPs improved. On dobutamine gtt. Objective Last Vital Signs Temp 97.8 F 07/15/17 08:00 Pulse 112 H 07/15/17 09:15 Resp 19 07/15/17 09:15 BP 118/59 07/15/17 09:15 Pulse Ox 92 07/15/17 08:00 - Physical Examination General: No Apparent Distress HEENT: Positive: PERRL, Normocephaly, Mucus Membranes Moist Neck: Positive: neck supple, trachea midline Cardiac: Positive: irregularly irregular, S1/S2 Lungs: Positive: Decreased Breath Sounds Neuro: Positive: Grossly Intact Abdomen: Positive: Other (distended). Negative: Tender Skin: Positive: Clear, Other (generalized edema). Negative: Wound Extremities: Present: edema (BUE/BLE and generalized edema) - Labs and Meds CBC 07/15/17 Range/Units 04:25 WBC 5.7 (4.5-11.0) K/mm3 RBC 4.47 (3.65-5.03) M/mm3 Hgb 11.7 L (11.8-15.2) gm/dl Hct 35.4 L (35.5-45.6) % Plt Count 120 L (140-440) K/mm3 Comprehensive Metabolic Panel 07/15/17 Range/Units 04:25 Sodium 137 (137-145) mmol/L Potassium 3.8 (3.6-5.0) mmol/L Chloride 97.6 L (98-107) mmol/L Carbon Dioxide 28 (22-30) mmol/L BUN 36 H (9-20) mg/dL Creatinine 2.4 H (0.8-1.5) mg/dL Glucose 132 H (75-100) mg/dL Calcium 8.3 L (8.4-10.2) mg/dL - Imaging and Cardiology Echo: report reviewed (Stress echo done 02/2009 was negative for ischemia, EF heber from 50-65%) Cardiac cath: report reviewed ([facility] 10/2000 at showed angiographically normal coronary arteries) - EKG Sinus rhythms and dysrhythmias: sinus tachycardia (low voltage)
[2017-07-15] MEDS ORDERED: LANOXIN IV ONE ×2 (11:30→15:00)
--- NOTE | 2017-07-15 11:40 | Progress Note ---
Assessment and Plan Assessment and plan: Acute kidney injury due to acute tubular necrosis Presented with Anasarca and volume overload Pt does have h/o DM so could have CKD from it, baseline unknown Initiated on HD since 07/10/17, Renally dose all meds and avoid nephrotoxic meds Renal US neg for hydronephrosis Shock/Hypotension May be due to cardiogenic shock he is still on Levophed to maintain blood pressure Atrial flutter BB for rate control placed on heparin drip by tooth inspector Acute metabolic encephalopathy daniele from uremia has h/o fall, CT head was unremarkable on admission MRI Brain ordered to r/o possible acute CVA Improving mental status. he is oriented to person, place but not to time. Hyperkalemia: This is now resolved with dialysis. Potassium 3.8 today, was 5.3 on admission. Acute on chronic combined Systolic and diastolic congestive heart failure TTE shows low EF of 15 to 20% Cardiology following Started on Dobutamine drip yesteday Diabetes mellitus type 2 on insulin: On insulin at home SSI coverage for now hypoglycemia noted in the ED, corrected with 50% [id number] elevated troponin likely from worsening renal function and underlying CHF Cardiology following Essential Hypertension,history Antihypertensives on hold because of hypotension DVT prophylaxis. On Heparin drip. Full code status. Discussed with brother yesterday. History Interval history: Patient initially presented with shortness of breath, edema and fall at home. Less shortness of breath, No chest pain, less confusion Hospitalist Physical - Physical exam Narrative exam: Gen Appearance: Not in acute distress,Morbidly obese HEENT: normocephalic, atraumatic Neck: supple, no JVD Lungs: Clear to auscultation, no rales, no wheezing, Heart: S1 and S2 regular, no murmurs,no rubs or gallop, Abdomen: Soft , non tender, non distended, normal bowel sounds Extremity: Edema both lower ext, no clubbing or cyanosis, Neuro : Awake,alert, normal speech, Oriented in person, place, not in time, moves all extremities - Constitutional Vitals: Temp Pulse Resp BP Pulse Ox 97.8 F 135 H 10 L 114/65 92 07/15/17 09:00 07/15/17 11:16 07/15/17 10:16 07/15/17 11:16 07/15/17 08:00 General appearance: Present: no acute distress, other (generalized edema) Results - Labs CBC & Chem 7: 07/15/17 04:25 07/15/17 04:25 Labs: Laboratory Last Values WBC 5.7 K/mm3 (4.5-11.0) 07/15/17 04:25 RBC 4.47 M/mm3 (3.65-5.03) 07/15/17 04:25 Hgb 11.7 gm/dl (11.8-15.2) L 07/15/17 04:25 Hct 35.4 % (35.5-45.6) L 07/15/17 04:25 MCV 79 fl (84-94) L 07/15/17 04:25 MCH 26 pg (28-32) L 07/15/17 04:25 MCHC 33 % (32-34) 07/15/17 04:25 RDW 22.3 % (13.2-15.2) H 07/15/17 04:25 Plt Count 120 K/mm3 (140-440) L 07/15/17 04:25 Lymph % (Auto) 2.1 % (13.4-35.0) L 07/10/17 06:34 [place] % (Auto) 10.1 % (0.0-7.3) H 07/10/17 06:34 Eos % (Auto) 0.0 % (0.0-4.3) 07/10/17 06:34 Baso % (Auto) 0.1 % (0.0-1.8) 07/10/17 06:34 Lymph # 0.2 K/mm3 (1.2-5.4) L 07/10/17 06:34 [place] # 1.0 K/mm3 (0.0-0.8) H 07/10/17 06:34 Eos # 0.0 K/mm3 (0.0-0.4) 07/10/17 06:34 Baso # 0.0 K/mm3 (0.0-0.1) 07/10/17 06:34 Seg Neutrophils % 87.7 % (40.0-70.0) H 07/10/17 06:34 Seg Neutrophils # 9.1 K/mm3 (1.8-7.7) H 07/10/17 06:34 PT 19.7 Sec. (12.2-14.9) H 07/12/17 16:38 INR 1.59 (0.87-1.13) H 07/12/17 16:38 APTT 39.8 Sec. (24.2-36.6) H 07/12/17 16:38 Heparin Anti-Xa Level 0.15 U.I./ml (0.3-0.7) L 07/15/17 10:42 ABG pH 7.283 pH Units (7.350-7.450) L 07/10/17 16:06 ABG pCO2 37.7 mm Hg 07/10/17 16:06 ABG pO2 56.5 mm Hg (80.0-90.0) L 07/10/17 16:06 ABG HCO3 17.4 mmol/L (20.0-26.0) L 07/10/17 16:06 ABG O2 Saturation 89.5 % (95.0-99.0) L 07/10/17 16:06 ABG O2 Content 7.9 (0.0-44) 07/10/17 16:06 ABG Base Excess -8.5 mmol/L (-2.0-3.0) L 07/10/17 16:06 ABG Hemoglobin 6.3 gm/dl (14.0-18.0) L 07/10/17 16:06 ABG Carboxyhemoglobin 1.8 % (0.0-5.0) 07/10/17 16:06 ABG Methemoglobin 0.3 % (0.0-1.5) 07/10/17 16:06 VBG pH 7.362 (7.320-7.420) 07/09/17 21:14 Oxyhemoglobin 87.5 % (95.0-99.0) L 07/10/17 16:06 FiO2 28 % 07/10/17 16:06 Sodium 137 mmol/L (137-145) 07/15/17 04:25 Potassium 3.8 mmol/L (3.6-5.0) 07/15/17 04:25 Chloride 97.6 mmol/L (98-107) L 07/15/17 04:25 Carbon Dioxide 28 mmol/L (22-30) 07/15/17 04:25 Anion Gap 15 mmol/L 07/15/17 04:25 BUN 36 mg/dL (9-20) H 07/15/17 04:25 Creatinine 2.4 mg/dL (0.8-1.5) H 07/15/17 04:25 Estimated GFR 34 ml/min 07/15/17 04:25 BUN/Creatinine Ratio 15 % 07/15/17 04:25 Glucose 132 mg/dL (75-100) H 07/15/17 04:25 POC Glucose 153 (70-105) H 07/15/17 11:29 Hemoglobin A1c 6.6 % (4-6) H 07/15/17 04:25 Lactic Acid 1.60 mmol/L (0.7-2.0) 07/09/17 23:11 Calcium 8.3 mg/dL (8.4-10.2) L 07/15/17 04:25 Phosphorus 6.10 mg/dL (2.5-4.5) H 07/11/17 10:16 Magnesium 2.90 mg/dL (1.7-2.3) H 07/11/17 10:16 Total Bilirubin 2.30 mg/dL (0.1-1.2) H 07/11/17 14:32 Direct Bilirubin 1.5 mg/dL (0-0.2) H 07/11/17 14:32 Indirect Bilirubin 0.8 mg/dL 07/11/17 14:32 AST 59 units/L (5-40) H 07/11/17 14:32 ALT 43 units/L (7-56) 07/11/17 14:32 Alkaline Phosphatase 91 units/L (35-129) 07/11/17 14:32 Total Creatine Kinase 892 units/L (55-170) H 07/10/17 12:11 CK-MB (CK-2) 30.9 ng/mL (0.0-4.0) H 07/10/17 12:11 CK-MB (CK-2) Rel Index 3.4 (0-4) 07/10/17 12:11 Troponin T 0.267 ng/mL (0.00-0.029) H* 07/10/17 12:11 NT-Pro-B Natriuret Pep 82218 pg/mL (0-900) H 07/09/17 21:27 Total Protein 6.7 g/dL (6.3-8.2) 07/11/17 14:32 Albumin 3.2 g/dL (3.9-5) L 07/11/17 14:32 Albumin/Globulin Ratio 0.9 % 07/11/17 14:32 Triglycerides 93 mg/dL (2-149) 07/09/17 21: Cholesterol 137 mg/dL (50-199) 07/09/17 21: LDL Cholesterol Direct 74 mg/dL (50-130) 07/09/17 21: HDL Cholesterol 45 mg/dL (40-59) 07/09/17 21: Cholesterol/HDL Ratio 3.04 % 07/09/17 21:27 Urine Color Priyanka (Yellow) 07/09/17 20:52 Urine Turbidity Clear (Clear) 07/09/17 20:52 Urine pH 5.0 (5.0-7.0) 07/09/17 20:52 Ur Specific [place] 1.014 (1.003-1.030) 07/09/17 20:52 Urine Protein 100 mg/dl mg/dL (Negative) 07/09/17 20:52 Urine Glucose (UA) Neg mg/dL (Negative) 07/09/17 20:52 Urine Ketones Neg mg/dL (Negative) 07/09/17 20:52 Urine Blood Neg (Negative) 07/09/17 20:52 Urine Nitrite Neg (Negative) 07/09/17 20:52 Urine Bilirubin Neg (Negative) 07/09/17 20:52 Urine Urobilinogen 4.0 mg/dL (<2.0) 07/09/17 20:52 Ur Leukocyte Esterase Sm (Negative) 07/09/17 20:52 Urine WBC (Auto) 17.0 /HPF (0.0-6.0) H 07/09/17 20:52 Urine RBC (Auto) 7.0 /HPF (0.0-6.0) 07/09/17 20:52 Urine Bacteria (Auto) 1+ /HPF (Negative) 07/09/17 20:52 Urine Mucus Few /HPF 07/09/17 20:52 Urine Eosinophils None seen (None Seen) 07/11/17 Unknown Urine Creatinine 101.1 mg/dL (0.1-20.0) H 07/11/17 Unknown Urine Microalbumin 27.9 mg/dL (0.1-34.0) 07/10/17 Unknown Microalb/Creat Ratio 274.8 ug/mg 07/10/17 Unknown Protein/Creatinin Ratio 1.11 07/11/17 Unknown Urine Sodium 38 mEq/L 07/10/17 Unknown Urine Urea Nitrogen 337 07/10/17 Unknown Urine Total Protein 112 mg/dL (5-11.8) H 07/11/17 Unknown Digoxin 0.8 ng/mL (0.9-2.0) L 07/15/17 04:25 CHRISTOPHER Screen Negative (Negative) 07/11/17 09:19 Proteinase 3 (PR3) Ab <1.0 AI (<1.0) 07/11/17 09:19 Myeloperoxidase Ab <1.0 AI (<1.0) 07/11/17 09:19 Hepatitis A IgM Ab Non-reactive (NonReactive) 07/11/17 09:19 Hep Bs Antigen Non-reactive (Negative) 07/11/17 09:19 Hep B Core IgM Ab Non-reactive (NonReactive) 07/11/17 09:19 Hepatitis C Antibody Non-reactive (NonReactive) 07/11/17 09:19 HIV 1&2 Antibody Rapid Non react (Non React) 07/11/17 09:19 HIV P24 Antigen Non react (Non React) 07/11/17 09:19
[2017-07-15] MEDS ORDERED: NACL 0.9% 1000 ML 2,000 ML ONE (11:53)
--- NOTE | 2017-07-15 12:01 | Progress Note ---
Assessment and Plan Acute renal failure possibly cardiorenal syndrome/ATN from low BP on intermittent hemodialysis: Unknown CKD: Anasarca with volume overload -Pt does have h/o DM so could have CKD from it, no BL Cr available -UA showed 100 protein, Urine PCR is 1.11. Check SPEP/UPEP/IFX. -Urine also showed some red cells will eval for nephritic syndrome with CHRISTOPHER, ANCA, Anti-GBM, C3/C4, Hep panel, HIV. -HIV, Hep panel -ve. -Currently on IHD via fem VC. HD today, HD again tomorrow via fem VC. Target UF 3-4L with each HD. -Recommend consulting Vascular Surgery to switch Fem VC to IJ Tunnel dialysis catheter (Permcath) since may be dialysis dependant for now. -Renally dose all meds and avoid nephrotoxic meds -Renal US -ve for hydronephrosis Metabolic acidosis: -Improved with IHD. 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 -UF via HD -On dobutamine drip. Diabetes mellitus type 2 on insulin: -On insulin -Per primary Hypotension -BP running low, hold all bp meds for now -Pt on dubutamine drip for hypotension -Per ICU Atrial fibrillation: -Cards considering TTE Cardioversion. per them Plan d/w bedside RN. Pato Fisher MD Nephrology, Hypertension, Dialysis, Transplantation Phone no: [phone] Subjective Date of service: 07/15/17 Principal diagnosis: ARF; HF Interval history: Seen on HD today. Mental status improved. Awake and interactive. Objective - Exam Narrative Exam: GE: Awake HEENT: Normocephalic Neck: No JVD Chest: Coarse BS BL CVS: Tachycardic Abd: Soft/BS+ Ext: 3-4+ BLE edema, fem VC Neuro: Awake - Vital Signs Vital signs: Vital Signs - 12hr 07/15/17 07/15/17 07/15/17 00:00 00:05 00:15 Temperature Pulse Rate 124 H 126 H 126 H Pulse Rate [ From Monitor] Respiratory 17 15 14 Rate Blood Pressure 103/54 109/51 O2 Sat by Pulse 100 96 Oximetry 07/15/17 07/15/17 07/15/17 00:30 00:45 01:00 Temperature Pulse Rate 126 H 118 H 124 H Pulse Rate [ From Monitor] Respiratory 13 12 16 Rate Blood Pressure 112/49 107/49 108/46 O2 Sat by Pulse 96 96 96 Oximetry 07/15/17 07/15/17 07/15/17 01:15 01:28 01:30 Temperature Pulse Rate 124 H 125 H 124 H Pulse Rate [ From Monitor] Respiratory 16 18 21 Rate Blood Pressure 111/52 111/52 107/46 O2 Sat by Pulse 96 98 96 Oximetry 07/15/17 07/15/17 07/15/17 01:45 02:00 02:15 Temperature Pulse Rate 125 H 125 H 124 H Pulse Rate [ From Monitor] Respiratory 17 16 15 Rate Blood Pressure 113/51 120/60 110/47 O2 Sat by Pulse 97 99 96 Oximetry 07/15/17 07/15/17 07/15/17 02:30 02:45 03:00 Temperature Pulse Rate 125 H 121 H 125 H Pulse Rate [ From Monitor] Respiratory 17 19 11 L Rate Blood Pressure 110/49 111/55 111/49 O2 Sat by Pulse 96 96 97 Oximetry 07/15/17 07/15/17 07/15/17 03:15 03:30 03:41 Temperature 98.6 F Pulse Rate 122 H 125 H Pulse Rate [ From Monitor] Respiratory 17 18 Rate Blood Pressure 113/48 112/48 O2 Sat by Pulse 97 96 Oximetry 07/15/17 07/15/17 07/15/17 03:45 03:50 04:00 Temperature Pulse Rate 126 H 126 H 125 H Pulse Rate [ From Monitor] Respiratory 20 16 17 Rate Blood Pressure 105/48 114/49 O2 Sat by Pulse 96 100 96 Oximetry 07/15/17 07/15/17 07/15/17 04:15 04:30 04:45 Temperature Pulse Rate 124 H 125 H 125 H Pulse Rate [ From Monitor] Respiratory 18 20 18 Rate Blood Pressure 111/58 111/51 113/48 O2 Sat by Pulse 98 99 Oximetry 07/15/17 07/15/17 07/15/17 05:00 05:15 05:22 Temperature Pulse Rate 125 H 130 H 127 H Pulse Rate [ From Monitor] Respiratory 20 21 21 Rate Blood Pressure 117/46 115/53 115/53 O2 Sat by Pulse 98 Oximetry 07/15/17 07/15/17 07/15/17 05:25 05:30 05:45 Temperature Pulse Rate 124 H 125 H Pulse Rate [ From Monitor] Respiratory 16 18 17 Rate Blood Pressure 118/54 119/50 O2 Sat by Pulse 100 Oximetry 07/15/17 07/15/17 07/15/17 06:00 06:15 06:30 Temperature Pulse Rate 125 H 113 H 125 H Pulse Rate [ From Monitor] Respiratory 11 L 23 19 Rate Blood Pressure 111/46 107/51 108/57 O2 Sat by Pulse Oximetry 07/15/17 07/15/17 07/15/17 06:46 07:00 07:16 Temperature Pulse Rate 124 H 125 H 115 H Pulse Rate [ From Monitor] Respiratory 21 16 16 Rate Blood Pressure 116/49 113/43 99/52 O2 Sat by Pulse 96 Oximetry 07/15/17 07/15/17 07/15/17 07:30 07:46 08:00 Temperature 97.8 F Pulse Rate 111 H 108 H 108 H Pulse Rate [ 107 H From Monitor] Respiratory 13 21 19 Rate Blood Pressure 102/56 106/48 103/54 O2 Sat by Pulse 98 95 92 Oximetry 07/15/17 07/15/17 07/15/17 08:15 08:30 08:46 Temperature Pulse Rate 120 H 116 H 125 H Pulse Rate [ From Monitor] Respiratory 14 17 13 Rate Blood Pressure 117/91 117/91 117/91 O2 Sat by Pulse Oximetry 07/15/17 07/15/17 07/15/17 09:00 09:15 09:30 Temperature 97.8 F Pulse Rate 101 H 101 H 109 H Pulse Rate [ From Monitor] Respiratory 19 19 16 Rate Blood Pressure 118/59 118/59 132/73 O2 Sat by Pulse Oximetry 07/15/17 07/15/17 07/15/17 09:45 09:46 10:00 Temperature Pulse Rate 120 H 123 H 125 H Pulse Rate [ From Monitor] Respiratory 16 17 Rate Blood Pressure 124/64 124/64 130/62 O2 Sat by Pulse Oximetry 07/15/17 07/15/17 07/15/17 10:15 10:16 10:30 Temperature Pulse Rate 120 H 125 H 124 H Pulse Rate [ From Monitor] Respiratory 10 L Rate Blood Pressure 129/63 129/63 130/60 O2 Sat by Pulse Oximetry 07/15/17 07/15/17 07/15/17 10:45 11:00 11:16 Temperature Pulse Rate 130 H 135 H 135 H Pulse Rate [ From Monitor] Respiratory Rate Blood Pressure 119/69 127/65 114/65 O2 Sat by Pulse Oximetry 07/15/17 07/15/17 11:30 11:45 Temperature Pulse Rate 134 H 133 H Pulse Rate [ From Monitor] Respiratory Rate Blood Pressure 119/68 120/69 O2 Sat by Pulse Oximetry - Lab 07/15/17 04:25 07/15/17 04:25 Most recent lab results ABG pH 7.283 pH Units (7.350-7.450) L 07/10/17 16:06 ABG pCO2 37.7 mm Hg 07/10/17 16:06 ABG pO2 56.5 mm Hg (80.0-90.0) L 07/10/17 16:06 ABG HCO3 17.4 mmol/L (20.0-26.0) L 07/10/17 16:06 ABG O2 Saturation 89.5 % (95.0-99.0) L 07/10/17 16:06 Calcium 8.3 mg/dL (8.4-10.2) L 07/15/17 04:25 Phosphorus 6.10 mg/dL (2.5-4.5) H 07/11/17 10:16 Magnesium 2.90 mg/dL (1.7-2.3) H 07/11/17 10:16 Urine Creatinine 101.1 mg/dL (0.1-20.0) H 07/11/17 Unknown Urine Sodium 38 mEq/L 07/10/17 Unknown Urine Total Protein 112 mg/dL (5-11.8) H 07/11/17 Unknown
[2017-07-15] MEDS: HEPARIN IV PRN (13:03)
[2017-07-15] MEDS: BABY ASPIRIN PO SCH (14:46)
[2017-07-16] MEDS: NOVOLOG SUB-Q SCH ×5 (00:10→22:09)
[2017-07-16] MEDS: DOBUTREX DRIP 500MG/D5W 250ML 500 MG/250 ML BAG IV SCH ×2 (06:08→18:15)
[2017-07-16 07:00] LABS: Hematocrit 35.2 % (35.5-45.6); Hemoglobin 11.6 gm/dl (11.8-15.2); Mean Corpuscular HGB Conc 33 % (32-34); Mean Corpuscular Volume 79 fl (84-94); Platelet Count 107 K/mm3 (140-440); Red Blood Count 4.48 M/mm3 (3.65-5.03); White Blood Count 5.4 K/mm3 (4.5-11.0)
[2017-07-16 07:06] LABS: Mean Corpuscular Hemoglobin 26 pg (28-32); Red Cell Distribution Width 22.5 % (13.2-15.2)
[2017-07-16 07:18] LABS: Calcium 8.4 mg/dL (8.4-10.2); Chloride 99.3 mmol/L (98-107); Potassium 3.6 mmol/L (3.6-5.0)
--- NOTE | 2017-07-16 08:36 | Progress Note ---
Assessment and Plan - Patient Problems (1) Acute renal failure (ARF) Current Visit: Yes Status: Acute Qualifiers: Acute renal failure type: A Plan to address problem: Renal function reviewed. Serum creatinine 2.1 today. Was receiving HD daily due to Anasarca Hemodialysis today for UF mainly Patient accepted at [facility] on T,T,S at 10:30 a,m SPEP/UPEP/IFX-pending Will need Permcath placement prior to discharge since may be dialysis dependent for now Renally dose all meds Avoid Nephrotoxic agents Obtain dialy weights Assess dialysis needs daily (2) Acute systolic CHF (congestive heart failure) Current Visit: Yes Status: Acute Plan to address problem: TTE- LV EF of 15 to 20% Cardiology following On Dobutamine drip (3) Type 2 diabetes mellitus with insulin therapy Current Visit: Yes Status: Acute Plan to address problem: As per primary team Subjective Date of service: 07/16/17 Principal diagnosis: ARF; HF Interval history: Patient seen lying in bed receiving HD. Objective - Vital Signs Vital signs: Vital Signs - 12hr 07/15/17 07/15/17 07/15/17 20:45 21:00 21:15 Temperature Pulse Rate 132 H 134 H 132 H Pulse Rate [ From Monitor] Respiratory 17 27 H 22 Rate Blood Pressure 115/71 109/69 116/72 O2 Sat by Pulse 95 97 Oximetry 07/15/17 07/15/17 07/15/17 21:30 21:45 21:51 Temperature Pulse Rate 131 H 132 H 134 H Pulse Rate [ From Monitor] Respiratory 16 18 16 Rate Blood Pressure 109/65 116/74 116/74 O2 Sat by Pulse 96 97 99 Oximetry 07/15/17 07/15/17 07/15/17 22:00 22:15 22:30 Temperature Pulse Rate 131 H 132 H 132 H Pulse Rate [ From Monitor] Respiratory 16 20 25 H Rate Blood Pressure 121/74 124/82 117/78 O2 Sat by Pulse 94 Oximetry 07/15/17 07/15/17 07/15/17 22:45 23:00 23:15 Temperature Pulse Rate 132 H 131 H 132 H Pulse Rate [ From Monitor] Respiratory 15 14 16 Rate Blood Pressure 118/77 125/82 116/79 O2 Sat by Pulse Oximetry 07/15/17 07/15/17 07/16/17 23:30 23:45 00:00 Temperature Pulse Rate 132 H 118 H 132 H Pulse Rate [ From Monitor] Respiratory 15 17 20 Rate Blood Pressure 115/75 112/74 115/75 O2 Sat by Pulse Oximetry 07/16/17 07/16/17 07/16/17 00:15 00:30 00:45 Temperature Pulse Rate 132 H 132 H 132 H Pulse Rate [ From Monitor] Respiratory 16 21 27 H Rate Blood Pressure 115/72 120/74 119/78 O2 Sat by Pulse Oximetry 07/16/17 07/16/17 07/16/17 01:00 01:15 01:31 Temperature Pulse Rate 131 H 132 H 132 H Pulse Rate [ From Monitor] Respiratory 15 14 Rate Blood Pressure 118/78 120/74 112/68 O2 Sat by Pulse 98 Oximetry 07/16/17 07/16/17 07/16/17 01:45 02:00 02:15 Temperature Pulse Rate 134 H 131 H 133 H Pulse Rate [ From Monitor] Respiratory 14 12 17 Rate Blood Pressure 119/76 127/76 127/76 O2 Sat by Pulse 97 97 97 Oximetry 07/16/17 07/16/17 07/16/17 02:31 02:45 03:01 Temperature Pulse Rate 134 H 133 H 134 H Pulse Rate [ From Monitor] Respiratory 23 20 16 Rate Blood Pressure 127/76 127/76 127/76 O2 Sat by Pulse 97 96 98 Oximetry 07/16/17 07/16/17 07/16/17 03:15 03:31 03:45 Temperature Pulse Rate 119 H 133 H 131 H Pulse Rate [ From Monitor] Respiratory 17 16 17 Rate Blood Pressure 127/76 127/76 112/63 O2 Sat by Pulse 97 97 93 Oximetry 07/16/17 07/16/17 07/16/17 04:00 04:15 04:30 Temperature Pulse Rate 134 H 134 H 134 H Pulse Rate [ From Monitor] Respiratory 16 14 15 Rate Blood Pressure 116/64 112/63 120/74 O2 Sat by Pulse 94 95 96 Oximetry 07/16/17 07/16/17 07/16/17 04:45 05:00 05:15 Temperature Pulse Rate 110 H 127 H 99 H Pulse Rate [ From Monitor] Respiratory 17 18 16 Rate Blood Pressure 113/53 103/66 94/57 O2 Sat by Pulse 93 94 96 Oximetry 07/16/17 07/16/17 07/16/17 05:31 05:45 06:01 Temperature Pulse Rate 89 89 118 H Pulse Rate [ From Monitor] Respiratory 17 9 L 13 Rate Blood Pressure 94/57 94/57 94/57 O2 Sat by Pulse 93 Oximetry 07/16/17 07/16/17 07/16/17 06:15 06:31 06:45 Temperature Pulse Rate 124 H 134 H 134 H Pulse Rate [ From Monitor] Respiratory 14 17 15 Rate Blood Pressure 96/63 113/75 124/76 O2 Sat by Pulse Oximetry 07/16/17 07/16/17 07/16/17 07:00 07:15 07:30 Temperature Pulse Rate 134 H 134 H 136 H Pulse Rate [ From Monitor] Respiratory 15 18 19 Rate Blood Pressure 124/77 118/72 116/81 O2 Sat by Pulse Oximetry 07/16/17 07/16/17 07/16/17 07:45 08:00 08:15 Temperature 98.1 F Pulse Rate 126 H 121 H 124 H Pulse Rate [ 123 H From Monitor] Respiratory 18 17 17 Rate Blood Pressure 113/69 117/66 119/68 O2 Sat by Pulse Oximetry - General Appearance General appearance: well-developed, appears stated age EENT: ATNC, PERRL, hearing intact, vision intact Neck: no JVD, supple Respiratory: Present: Decreased Breath Sounds Cardiology: regular, S1S2 Gastrointestinal: normoactive bowel sounds Integumentary: warm and dry Neurologic: alert and oriented x3 Musculoskeletal: joint swelling, other (has 2+ edema to thighs and legs) Psychiatric: cooperative - Lab 07/16/17 06:00 07/16/17 06:00 Most recent lab results ABG pH 7.283 pH Units (7.350-7.450) L 07/10/17 16:06 ABG pCO2 37.7 mm Hg 07/10/17 16:06 ABG pO2 56.5 mm Hg (80.0-90.0) L 07/10/17 16:06 ABG HCO3 17.4 mmol/L (20.0-26.0) L 07/10/17 16:06 ABG O2 Saturation 89.5 % (95.0-99.0) L 07/10/17 16:06 Calcium 8.4 mg/dL (8.4-10.2) 07/16/17 06:00 Phosphorus 6.10 mg/dL (2.5-4.5) H 07/11/17 10:16 Magnesium 2.90 mg/dL (1.7-2.3) H 07/11/17 10:16 Urine Creatinine 101.1 mg/dL (0.1-20.0) H 07/11/17 Unknown Urine Sodium 38 mEq/L 07/10/17 Unknown Urine Total Protein 112 mg/dL (5-11.8) H 07/11/17 Unknown
[2017-07-16] MEDS ORDERED: NACL 0.9% 100 ML IV PRN (08:56)
--- NOTE | 2017-07-16 09:18 | Progress Note ---
Assessment and Plan Assessment and plan: Acute kidney injury due to acute tubular necrosis Presented with Anasarca and volume overload Pt does have h/o DM so could have CKD from it, baseline unknown Initiated on HD since 07/10/17, Renally dose all meds and avoid nephrotoxic meds Renal US neg for hydronephrosis Shock/Hypotension May be due to cardiogenic shock Now on Dobutamine, off Levophed Atrial flutter BB for rate control placed on heparin drip by weir fisher Acute metabolic encephalopathy daniele from uremia has h/o fall, CT head was unremarkable on admission MRI Brain ordered to r/o possible acute CVA Improving mental status. He is oriented to person, place but not to time. Hyperkalemia: This is now resolved with dialysis. Potassium 3.6 today. Acute on chronic combined Systolic and diastolic congestive heart failure TTE shows low EF of 15 to 20% Cardiology following Continue Dobutamine drip Diabetes mellitus type 2 on insulin: On insulin at home SSI coverage for now hypoglycemia noted in the ED, corrected with 50% [id number] elevated troponin likely from worsening renal function and underlying CHF Cardiology following Essential Hypertension,history Antihypertensives on hold because of hypotension DVT prophylaxis. On Heparin drip. Full code status. Discussed with brother few days ago. History Interval history: Patient initially presented with shortness of breath, edema and fall at home. Less shortness of breath, No chest pain, No more confusion Hospitalist Physical - Physical exam Narrative exam: Gen Appearance: Not in acute distress,Morbidly obese HEENT: normocephalic, atraumatic Neck: supple, no JVD Lungs: Clear to auscultation, no rales, no wheezing, Heart: S1 and S2 regular, no murmurs,no rubs or gallop, Abdomen: Soft , non tender, non distended, normal bowel sounds Extremity: Edema both lower ext, no clubbing or cyanosis, Neuro : Awake,alert, normal speech, Oriented in person, place, not in time, moves all extremities - Constitutional Vitals: Temp Pulse Resp BP Pulse Ox 98.1 F 124 H 17 136/74 93 07/16/17 08:00 07/16/17 09:01 07/16/17 08:15 07/16/17 09:01 07/16/17 05:31 General appearance: Present: no acute distress, other (generalized edema) Results - Labs CBC & Chem 7: 07/16/17 06:00 07/16/17 06:00 Labs: Laboratory Last Values WBC 5.4 K/mm3 (4.5-11.0) 07/16/17 06:00 RBC 4.48 M/mm3 (3.65-5.03) 07/16/17 06:00 Hgb 11.6 gm/dl (11.8-15.2) L 07/16/17 06:00 Hct 35.2 % (35.5-45.6) L 07/16/17 06:00 MCV 79 fl (84-94) L 07/16/17 06:00 MCH 26 pg (28-32) L 07/16/17 06:00 MCHC 33 % (32-34) 07/16/17 06:00 RDW 22.5 % (13.2-15.2) H 07/16/17 06:00 Plt Count 107 K/mm3 (140-440) L 07/16/17 06:00 Lymph % (Auto) 2.1 % (13.4-35.0) L 07/10/17 06:34 [place] % (Auto) 10.1 % (0.0-7.3) H 07/10/17 06:34 Eos % (Auto) 0.0 % (0.0-4.3) 07/10/17 06:34 Baso % (Auto) 0.1 % (0.0-1.8) 07/10/17 06:34 Lymph # 0.2 K/mm3 (1.2-5.4) L 07/10/17 06:34 [place] # 1.0 K/mm3 (0.0-0.8) H 07/10/17 06:34 Eos # 0.0 K/mm3 (0.0-0.4) 07/10/17 06:34 Baso # 0.0 K/mm3 (0.0-0.1) 07/10/17 06:34 Seg Neutrophils % 87.7 % (40.0-70.0) H 07/10/17 06:34 Seg Neutrophils # 9.1 K/mm3 (1.8-7.7) H 07/10/17 06:34 PT 19.7 Sec. (12.2-14.9) H 07/12/17 16:38 INR 1.59 (0.87-1.13) H 07/12/17 16:38 APTT 39.8 Sec. (24.2-36.6) H 07/12/17 16:38 Heparin Anti-Xa Level 0.10 U.I./ml (0.3-0.7) L 07/16/17 06:00 ABG pH 7.283 pH Units (7.350-7.450) L 07/10/17 16:06 ABG pCO2 37.7 mm Hg 07/10/17 16:06 ABG pO2 56.5 mm Hg (80.0-90.0) L 07/10/17 16:06 ABG HCO3 17.4 mmol/L (20.0-26.0) L 07/10/17 16:06 ABG O2 Saturation 89.5 % (95.0-99.0) L 07/10/17 16:06 ABG O2 Content 7.9 (0.0-44) 07/10/17 16:06 ABG Base Excess -8.5 mmol/L (-2.0-3.0) L 07/10/17 16:06 ABG Hemoglobin 6.3 gm/dl (14.0-18.0) L 07/10/17 16:06 ABG Carboxyhemoglobin 1.8 % (0.0-5.0) 07/10/17 16:06 ABG Methemoglobin 0.3 % (0.0-1.5) 07/10/17 16:06 VBG pH 7.362 (7.320-7.420) 07/09/17 21:14 Oxyhemoglobin 87.5 % (95.0-99.0) L 07/10/17 16:06 FiO2 28 % 07/10/17 16:06 Sodium 139 mmol/L (137-145) 07/16/17 06:00 Potassium 3.6 mmol/L (3.6-5.0) 07/16/17 06:00 Chloride 99.3 mmol/L (98-107) 07/16/17 06:00 Carbon Dioxide 30 mmol/L (22-30) 07/16/17 06:00 Anion Gap 13 mmol/L 07/16/17 06:00 BUN 27 mg/dL (9-20) H 07/16/17 06:00 Creatinine 2.1 mg/dL (0.8-1.5) H 07/16/17 06:00 Estimated GFR 40 ml/min 07/16/17 06:00 BUN/Creatinine Ratio 13 % 07/16/17 06:00 Glucose 162 mg/dL (75-100) H 07/16/17 06:00 POC Glucose 205 (70-105) H 07/16/17 00:01 Hemoglobin A1c 6.6 % (4-6) H 07/15/17 04:25 Lactic Acid 1.60 mmol/L (0.7-2.0) 07/09/17 23:11 Calcium 8.4 mg/dL (8.4-10.2) 07/16/17 06:00 Phosphorus 6.10 mg/dL (2.5-4.5) H 07/11/17 10:16 Magnesium 2.90 mg/dL (1.7-2.3) H 07/11/17 10:16 Total Bilirubin 2.30 mg/dL (0.1-1.2) H 07/11/17 14:32 Direct Bilirubin 1.5 mg/dL (0-0.2) H 07/11/17 14:32 Indirect Bilirubin 0.8 mg/dL 07/11/17 14:32 AST 59 units/L (5-40) H 07/11/17 14:32 ALT 43 units/L (7-56) 07/11/17 14:32 Alkaline Phosphatase 91 units/L (35-129) 07/11/17 14:32 Total Creatine Kinase 892 units/L (55-170) H 07/10/17 12:11 CK-MB (CK-2) 30.9 ng/mL (0.0-4.0) H 07/10/17 12:11 CK-MB (CK-2) Rel Index 3.4 (0-4) 07/10/17 12:11 Troponin T 0.267 ng/mL (0.00-0.029) H* 07/10/17 12:11 NT-Pro-B Natriuret Pep 17962 pg/mL (0-900) H 07/09/17 21:27 Total Protein 6.7 g/dL (6.3-8.2) 07/11/17 14:32 Albumin 3.2 g/dL (3.9-5) L 07/11/17 14:32 Albumin/Globulin Ratio 0.9 % 07/11/17 14:32 Triglycerides 93 mg/dL (2-149) 07/09/17 21: Cholesterol 137 mg/dL (50-199) 07/09/17 21: LDL Cholesterol Direct 74 mg/dL (50-130) 07/09/17 21: HDL Cholesterol 45 mg/dL (40-59) 07/09/17 21: Cholesterol/HDL Ratio 3.04 % 07/09/17 21:27 Urine Color Priyanka (Yellow) 07/09/17 20:52 Urine Turbidity Clear (Clear) 07/09/17 20:52 Urine pH 5.0 (5.0-7.0) 07/09/17 20:52 Ur Specific [place] 1.014 (1.003-1.030) 07/09/17 20:52 Urine Protein 100 mg/dl mg/dL (Negative) 07/09/17 20:52 Urine Glucose (UA) Neg mg/dL (Negative) 07/09/17 20:52 Urine Ketones Neg mg/dL (Negative) 07/09/17 20:52 Urine Blood Neg (Negative) 07/09/17 20:52 Urine Nitrite Neg (Negative) 07/09/17 20:52 Urine Bilirubin Neg (Negative) 07/09/17 20:52 Urine Urobilinogen 4.0 mg/dL (<2.0) 07/09/17 20:52 Ur Leukocyte Esterase Sm (Negative) 07/09/17 20:52 Urine WBC (Auto) 17.0 /HPF (0.0-6.0) H 07/09/17 20:52 Urine RBC (Auto) 7.0 /HPF (0.0-6.0) 07/09/17 20:52 Urine Bacteria (Auto) 1+ /HPF (Negative) 07/09/17 20:52 Urine Mucus Few /HPF 07/09/17 20:52 Urine Eosinophils None seen (None Seen) 07/11/17 Unknown Urine Creatinine 101.1 mg/dL (0.1-20.0) H 07/11/17 Unknown Urine Microalbumin 27.9 mg/dL (0.1-34.0) 07/10/17 Unknown Microalb/Creat Ratio 274.8 ug/mg 07/10/17 Unknown Protein/Creatinin Ratio 1.11 07/11/17 Unknown Urine Sodium 38 mEq/L 07/10/17 Unknown Urine Urea Nitrogen 337 07/10/17 Unknown Urine Total Protein 112 mg/dL (5-11.8) H 07/11/17 Unknown Digoxin 0.7 ng/mL (0.9-2.0) L 07/16/17 06:00 CHRISTOPHER Screen Negative (Negative) 07/11/17: Proteinase 3 (PR3) Ab <1.0 AI (<1.0) 07/11/17 09:19 Myeloperoxidase Ab <1.0 AI (<1.0) 07/11/17 09:19 Hepatitis A IgM Ab Non-reactive (NonReactive) 07/11/17:19 Hep Bs Antigen Non-reactive (Negative) 07/11/17 09:19 Hep B Core IgM Ab Non-reactive (NonReactive) 07/11/17 09:19 Hepatitis C Antibody Non-reactive (NonReactive) 07/11/17:19 HIV 1&2 Antibody Rapid Non react (Non React) 07/11/17 09:19 HIV P24 Antigen Non react (Non React) 07/11/17 09:19
--- NOTE | 2017-07-16 10:13 | Progress Note ---
Assessment and Plan - Patient Problems (1) Acute renal failure (ARF) Current Visit: Yes Status: Acute Qualifiers: Acute renal failure type: A (2) Acute respiratory failure Current Visit: Yes Status: Acute Qualifiers: Respiratory failure complication: R (3) Acute systolic CHF (congestive heart failure) Current Visit: Yes Status: Acute (4) Anasarca Current Visit: Yes Status: Acute (5) Atrial flutter with rapid ventricular response Current Visit: Yes Status: Acute (6) CHF (congestive heart failure) Current Visit: Yes Status: Acute Qualifiers: Congestive heart failure type: unspecified congestive heart failure type Congestive heart failure chronicity: unspecified congestive heart failure chronicity Qualified Code(s): I50.9 - Heart failure, unspecified (7) Hyperkalemia Current Visit: Yes Status: Acute (8) Type 2 diabetes mellitus Current Visit: Yes Status: Acute Qualifiers: Diabetes mellitus complication status: D Diabetes mellitus complication detail: D Diabetic retinopathy severity: D Proliferative retinopathy type: P Diabetes mellitus macular edema: D 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 : D Laterality: L Chronic kidney disease stage: C Subjective Principal diagnosis: ARF; HF Interval history: On HD at time of visit Objective Vital Signs - 12hr 07/15/17 07/15/17 07/15/17 22:15 22:30 22:45 Temperature Pulse Rate 132 H 132 H 132 H Pulse Rate [ From Monitor] Respiratory 20 25 H 15 Rate Blood Pressure 124/82 117/78 118/77 O2 Sat by Pulse Oximetry 07/15/17 07/15/17 07/15/17 23:00 23:15 23:30 Temperature Pulse Rate 131 H 132 H 132 H Pulse Rate [ From Monitor] Respiratory 14 16 15 Rate Blood Pressure 125/82 116/79 115/75 O2 Sat by Pulse Oximetry 07/15/17 07/16/17 07/16/17 23:45 00:00 00:15 Temperature 98.4 F Pulse Rate 118 H 132 H 132 H Pulse Rate [ From Monitor] Respiratory 17 20 16 Rate Blood Pressure 112/74 115/75 115/72 O2 Sat by Pulse Oximetry 07/16/17 07/16/17 07/16/17 00:30 00:45 01:00 Temperature Pulse Rate 132 H 132 H 131 H Pulse Rate [ From Monitor] Respiratory 21 27 H 15 Rate Blood Pressure 120/74 119/78 118/78 O2 Sat by Pulse Oximetry 07/16/17 07/16/17 07/16/17 01:15 01:31 01:45 Temperature Pulse Rate 132 H 132 H 134 H Pulse Rate [ From Monitor] Respiratory 14 14 Rate Blood Pressure 120/74 112/68 119/76 O2 Sat by Pulse 98 97 Oximetry 07/16/17 07/16/17 07/16/17 02:00 02:15 02:31 Temperature Pulse Rate 131 H 133 H 134 H Pulse Rate [ 34 L From Monitor] Respiratory 12 17 23 Rate Blood Pressure 127/76 127/76 127/76 O2 Sat by Pulse 97 97 97 Oximetry 07/16/17 07/16/17 07/16/17 02:45 03:01 03:15 Temperature Pulse Rate 133 H 134 H 119 H Pulse Rate [ From Monitor] Respiratory 20 16 17 Rate Blood Pressure 127/76 127/76 127/76 O2 Sat by Pulse 96 98 97 Oximetry 07/16/17 07/16/17 07/16/17 03:31 03:45 04:00 Temperature 98.1 F Pulse Rate 133 H 131 H 134 H Pulse Rate [ From Monitor] Respiratory 16 17 16 Rate Blood Pressure 127/76 112/63 116/64 O2 Sat by Pulse 97 93 94 Oximetry 07/16/17 07/16/17 07/16/17 04:15 04:30 04:45 Temperature Pulse Rate 134 H 134 H 110 H Pulse Rate [ From Monitor] Respiratory 14 15 17 Rate Blood Pressure 112/63 120/74 113/53 O2 Sat by Pulse 95 96 93 Oximetry 07/16/17 07/16/17 07/16/17 05:00 05:15 05:31 Temperature Pulse Rate 127 H 99 H 89 Pulse Rate [ From Monitor] Respiratory 18 16 17 Rate Blood Pressure 103/66 94/57 94/57 O2 Sat by Pulse 94 96 93 Oximetry 07/16/17 07/16/17 07/16/17 05:45 06:01 06:15 Temperature Pulse Rate 89 118 H 124 H Pulse Rate [ From Monitor] Respiratory 9 L 13 14 Rate Blood Pressure 94/57 94/57 96/63 O2 Sat by Pulse Oximetry 07/16/17 07/16/17 07/16/17 06:31 06:45 07:00 Temperature Pulse Rate 134 H 134 H 134 H Pulse Rate [ From Monitor] Respiratory 17 15 15 Rate Blood Pressure 113/75 124/76 124/77 O2 Sat by Pulse Oximetry 07/16/17 07/16/17 07/16/17 07:15 07:30 07:45 Temperature Pulse Rate 134 H 136 H 126 H Pulse Rate [ From Monitor] Respiratory 18 19 18 Rate Blood Pressure 118/72 116/81 113/69 O2 Sat by Pulse Oximetry 07/16/17 07/16/17 07/16/17 08:00 08:10 08:15 Temperature 98.1 F Pulse Rate 117 H 117 H 118 H Pulse Rate [ 123 H From Monitor] Respiratory 17 17 Rate Blood Pressure 117/66 117/66 119/68 O2 Sat by Pulse Oximetry 07/16/17 07/16/17 07/16/17 08:30 08:31 08:45 Temperature Pulse Rate 122 H 118 H 124 H Pulse Rate [ From Monitor] Respiratory 15 18 Rate Blood Pressure 132/87 132/87 127/88 O2 Sat by Pulse Oximetry 07/16/17 07/16/17 07/16/17 09:01 09:15 09:30 Temperature Pulse Rate 123 H 120 H 136 H Pulse Rate [ From Monitor] Respiratory 17 18 Rate Blood Pressure 136/74 130/70 122/87 O2 Sat by Pulse Oximetry 07/16/17 09:45 Temperature Pulse Rate 121 H Pulse Rate [ From Monitor] Respiratory Rate Blood Pressure 121/79 O2 Sat by Pulse Oximetry Constitutional: no acute distress, alert ENT: other (medical closure with Mallampati class IV airway) Neck: supple, no lymphadenopathy, no JVD, other (right IJ) Ascultation: Bilateral: clear (obese patient), diminished breath sounds ( Limited expansion) Cardiovascular: irregular rhythm, other (tachycardic) Gastrointestinal: normoactive bowel sounds, non-distended, other (morbidly obese ) Extremities: no cyanosis, no edema, other (Rt femoral line) Neurologic: non-focal exam, pupils equal and round, CN II-XII normal, motor strength normal and, other (appears slightly confused) Psychiatric: mood appropriate, affect normal CBC and BMP: 07/16/17 06:00 07/16/17 06:00 ABG, PT/INR, D-dimer: ABG ABG pH 7.283 pH Units (7.350-7.450) L 07/10/17 16:06 ABG pCO2 37.7 mm Hg 07/10/17 16:06 ABG pO2 56.5 mm Hg (80.0-90.0) L 07/10/17 16:06 ABG O2 Saturation 89.5 % (95.0-99.0) L 07/10/17 16:06 PT/INR, D-dimer PT 19.7 Sec. (12.2-14.9) H 07/12/17 16:38 INR 1.59 (0.87-1.13) H 07/12/17 16:38 Abnormal lab findings: Abnormal Labs 07/10/17 07/10/17 07/10/17 06:32 06:34 06:34 Hgb Hct MCV 80 L MCH 26 L RDW 22.1 H Plt Count Lymph % (Auto) 2.1 L [place] % (Auto) 10.1 H Lymph # 0.2 L [place] # 1.0 H Seg Neutrophils % 87.7 H Seg Neutrophils # 9.1 H PT INR APTT Heparin Anti-Xa Level ABG pH ABG pO2 ABG HCO3 ABG O2 Saturation ABG Base Excess ABG Hemoglobin Oxyhemoglobin Potassium 5.3 H Chloride Carbon Dioxide 16 L BUN 138 H Creatinine 4.7 H Glucose 51 L POC Glucose Hemoglobin A1c Calcium Phosphorus Magnesium Total Bilirubin Direct Bilirubin AST Total Creatine Kinase 1099 H CK-MB (CK-2) 32.4 H Troponin T 0.253 H* Albumin Urine Creatinine Urine Total Protein Digoxin 07/10/17 07/10/17 07/10/17 10:43 12:11 13:31 Hgb Hct MCV MCH RDW Plt Count Lymph % (Auto) [place] % (Auto) Lymph # [place] # Seg Neutrophils % Seg Neutrophils # PT INR APTT Heparin Anti-Xa Level ABG pH ABG pO2 ABG HCO3 ABG O2 Saturation ABG Base Excess ABG Hemoglobin Oxyhemoglobin Potassium Chloride Carbon Dioxide BUN Creatinine Glucose POC Glucose 49 L 69 L Hemoglobin A1c Calcium Phosphorus Magnesium Total Bilirubin Direct Bilirubin AST Total Creatine Kinase 892 H CK-MB (CK-2) 30.9 H Troponin T 0.267 H* Albumin Urine Creatinine Urine Total Protein Digoxin 07/10/17 07/10/17 07/11/17 16:06 Unknown 10:16 Hgb Hct MCV 79 L MCH 26 L RDW 22.2 H Plt Count Lymph % (Auto) [place] % (Auto) Lymph # [place] # Seg Neutrophils % Seg Neutrophils # PT INR APTT Heparin Anti-Xa Level ABG pH 7.283 L ABG pO2 56.5 L ABG HCO3 17.4 L ABG O2 Saturation 89.5 L ABG Base Excess -8.5 L ABG Hemoglobin 6.3 L Oxyhemoglobin 87.5 L Potassium Chloride Carbon Dioxide BUN Creatinine Glucose POC Glucose Hemoglobin A1c Calcium Phosphorus Magnesium Total Bilirubin Direct Bilirubin AST Total Creatine Kinase CK-MB (CK-2) Troponin T Albumin Urine Creatinine 101.5 H Urine Total Protein 112 H Digoxin 07/11/17 07/11/17 07/11/17 10:16 11:38 14:32 Hgb Hct MCV MCH RDW Plt Count Lymph % (Auto) [place] % (Auto) Lymph # [place] # Seg Neutrophils % Seg Neutrophils # PT INR APTT Heparin Anti-Xa Level ABG pH ABG pO2 ABG HCO3 ABG O2 Saturation ABG Base Excess ABG Hemoglobin Oxyhemoglobin Potassium Chloride Carbon Dioxide 21 L BUN 102 H Creatinine 4.3 H Glucose POC Glucose 113 H Hemoglobin A1c Calcium Phosphorus 6.10 H Magnesium 2.90 H Total Bilirubin 2.30 H Direct Bilirubin 1.5 H AST 59 H Total Creatine Kinase CK-MB (CK-2) Troponin T Albumin 3.2 L Urine Creatinine Urine Total Protein Digoxin 07/11/17 07/11/17 07/11/17 17:54 21:23 Unknown Hgb Hct MCV MCH RDW Plt Count Lymph % (Auto) [place] % (Auto) Lymph # [place] # Seg Neutrophils % Seg Neutrophils # PT INR APTT Heparin Anti-Xa Level ABG pH ABG pO2 ABG HCO3 ABG O2 Saturation ABG Base Excess ABG Hemoglobin Oxyhemoglobin Potassium Chloride Carbon Dioxide BUN Creatinine Glucose POC Glucose 108 H 123 H Hemoglobin A1c Calcium Phosphorus Magnesium Total Bilirubin Direct Bilirubin AST Total Creatine Kinase CK-MB (CK-2) Troponin T Albumin Urine Creatinine 101.1 H Urine Total Protein 112 H Digoxin 07/12/17 07/12/17 07/12/17 03:29 03:29 07:46 Hgb Hct MCV 79 L MCH 26 L RDW 22.3 H Plt Count 130 L Lymph % (Auto) [place] % (Auto) Lymph # [place] # Seg Neutrophils % Seg Neutrophils # PT INR APTT Heparin Anti-Xa Level ABG pH ABG pO2 ABG HCO3 ABG O2 Saturation ABG Base Excess ABG Hemoglobin Oxyhemoglobin Potassium Chloride Carbon Dioxide BUN 74 H Creatinine 3.9 H Glucose 120 H POC Glucose 121 H Hemoglobin A1c Calcium Phosphorus Magnesium Total Bilirubin Direct Bilirubin AST Total Creatine Kinase CK-MB (CK-2) Troponin T Albumin Urine Creatinine Urine Total Protein Digoxin 07/12/17 07/12/17 07/12/17 12:13 16:01 16:38 Hgb Hct MCV MCH RDW Plt Count Lymph % (Auto) [place] % (Auto) Lymph # [place] # Seg Neutrophils % Seg Neutrophils # PT 19.7 H INR 1.59 H APTT 39.8 H Heparin Anti-Xa Level ABG pH ABG pO2 ABG HCO3 ABG O2 Saturation ABG Base Excess ABG Hemoglobin Oxyhemoglobin Potassium Chloride Carbon Dioxide BUN Creatinine Glucose POC Glucose 127 H 137 H Hemoglobin A1c Calcium Phosphorus Magnesium Total Bilirubin Direct Bilirubin AST Total Creatine Kinase CK-MB (CK-2) Troponin T Albumin Urine Creatinine Urine Total Protein Digoxin 07/12/17 07/12/17 07/13/17 19:00 22:12 02:30 Hgb Hct MCV 79 L MCH 26 L RDW 22.7 H Plt Count Lymph % (Auto) [place] % (Auto) Lymph # [place] # Seg Neutrophils % Seg Neutrophils # PT INR APTT Heparin Anti-Xa Level ABG pH ABG pO2 ABG HCO3 ABG O2 Saturation ABG Base Excess ABG Hemoglobin Oxyhemoglobin Potassium Chloride Carbon Dioxide BUN Creatinine Glucose POC Glucose 158 H Hemoglobin A1c Calcium Phosphorus Magnesium Total Bilirubin Direct Bilirubin AST Total Creatine Kinase CK-MB (CK-2) Troponin T Albumin Urine Creatinine Urine Total Protein Digoxin 0.7 L 07/13/17 07/13/17 07/13/17 02:30 02:30 08:10 Hgb Hct MCV MCH RDW Plt Count Lymph % (Auto) [place] % (Auto) Lymph # [place] # Seg Neutrophils % Seg Neutrophils # PT INR APTT Heparin Anti-Xa Level 0.10 L ABG pH ABG pO2 ABG HCO3 ABG O2 Saturation ABG Base Excess ABG Hemoglobin Oxyhemoglobin Potassium Chloride Carbon Dioxide BUN 65 H Creatinine 3.6 H Glucose 155 H POC Glucose 122 H Hemoglobin A1c Calcium Phosphorus Magnesium Total Bilirubin Direct Bilirubin AST Total Creatine Kinase CK-MB (CK-2) Troponin T Albumin Urine Creatinine Urine Total Protein Digoxin 07/13/17 07/13/17 07/13/17 11:47 16:15 21:20 Hgb Hct MCV MCH RDW Plt Count Lymph % (Auto) [place] % (Auto) Lymph # [place] # Seg Neutrophils % Seg Neutrophils # PT INR APTT Heparin Anti-Xa Level ABG pH ABG pO2 ABG HCO3 ABG O2 Saturation ABG Base Excess ABG Hemoglobin Oxyhemoglobin Potassium Chloride Carbon Dioxide BUN Creatinine Glucose POC Glucose 140 H 146 H 156 H Hemoglobin A1c Calcium Phosphorus Magnesium Total Bilirubin Direct Bilirubin AST Total Creatine Kinase CK-MB (CK-2) Troponin T Albumin Urine Creatinine Urine Total Protein Digoxin 07/14/17 07/14/17 07/14/17 04:00 04:00 05:00 Hgb Hct MCV 79 L MCH 27 L RDW 22.8 H Plt Count Lymph % (Auto) [place] % (Auto) Lymph # [place] # Seg Neutrophils % Seg Neutrophils # PT INR APTT Heparin Anti-Xa Level ABG pH ABG pO2 ABG HCO3 ABG O2 Saturation ABG Base Excess ABG Hemoglobin Oxyhemoglobin Potassium Chloride 96.4 L Carbon Dioxide BUN 50 H Creatinine 2.9 H Glucose 171 H POC Glucose Hemoglobin A1c Calcium Phosphorus Magnesium Total Bilirubin Direct Bilirubin AST Total Creatine Kinase CK-MB (CK-2) Troponin T Albumin Urine Creatinine Urine Total Protein Digoxin 0.6 L 07/14/17 07/14/17 07/14/17 07:44 11:50 16:36 Hgb Hct MCV MCH RDW Plt Count Lymph % (Auto) [place] % (Auto) Lymph # [place] # Seg Neutrophils % Seg Neutrophils # PT INR APTT Heparin Anti-Xa Level ABG pH ABG pO2 ABG HCO3 ABG O2 Saturation ABG Base Excess ABG Hemoglobin Oxyhemoglobin Potassium Chloride Carbon Dioxide BUN Creatinine Glucose POC Glucose 143 H 137 H 178 H Hemoglobin A1c Calcium Phosphorus Magnesium Total Bilirubin Direct Bilirubin AST Total Creatine Kinase CK-MB (CK-2) Troponin T Albumin Urine Creatinine Urine Total Protein Digoxin 07/14/17 07/15/17 07/15/17 21:24 04:25 04:25 Hgb 11.7 L Hct 35.4 L MCV 79 L MCH 26 L RDW 22.3 H Plt Count 120 L Lymph % (Auto) [place] % (Auto) Lymph # [place] # Seg Neutrophils % Seg Neutrophils # PT INR APTT Heparin Anti-Xa Level ABG pH ABG pO2 ABG HCO3 ABG O2 Saturation ABG Base Excess ABG Hemoglobin Oxyhemoglobin Potassium Chloride 97.6 L Carbon Dioxide BUN 36 H Creatinine 2.4 H Glucose 132 H POC Glucose 144 H Hemoglobin A1c Calcium 8.3 L Phosphorus Magnesium Total Bilirubin Direct Bilirubin AST Total Creatine Kinase CK-MB (CK-2) Troponin T Albumin Urine Creatinine Urine Total Protein Digoxin 07/15/17 07/15/17 07/15/17 04:25 04:25 07:30 Hgb Hct MCV MCH RDW Plt Count Lymph % (Auto) [place] % (Auto) Lymph # [place] # Seg Neutrophils % Seg Neutrophils # PT INR APTT Heparin Anti-Xa Level ABG pH ABG pO2 ABG HCO3 ABG O2 Saturation ABG Base Excess ABG Hemoglobin Oxyhemoglobin Potassium Chloride Carbon Dioxide BUN Creatinine Glucose POC Glucose 148 H Hemoglobin A1c 6.6 H Calcium Phosphorus Magnesium Total Bilirubin Direct Bilirubin AST Total Creatine Kinase CK-MB (CK-2) Troponin T Albumin Urine Creatinine Urine Total Protein Digoxin 0.8 L 07/15/17 07/15/17 07/15/17 10:42 11:29 17:12 Hgb Hct MCV MCH RDW Plt Count Lymph % (Auto) [place] % (Auto) Lymph # [place] # Seg Neutrophils % Seg Neutrophils # PT INR APTT Heparin Anti-Xa Level 0.15 L ABG pH ABG pO2 ABG HCO3 ABG O2 Saturation ABG Base Excess ABG Hemoglobin Oxyhemoglobin Potassium Chloride Carbon Dioxide BUN Creatinine Glucose POC Glucose 153 H 233 H Hemoglobin A1c Calcium Phosphorus Magnesium Total Bilirubin Direct Bilirubin AST Total Creatine Kinase CK-MB (CK-2) Troponin T Albumin Urine Creatinine Urine Total Protein Digoxin 07/15/17 07/16/17 07/16/17 20:55 00:01 06:00 Hgb 11.6 L Hct 35.2 L MCV 79 L MCH 26 L RDW 22.5 H Plt Count 107 L Lymph % (Auto) [place] % (Auto) Lymph # [place] # Seg Neutrophils % Seg Neutrophils # PT INR APTT Heparin Anti-Xa Level 0.16 L ABG pH ABG pO2 ABG HCO3 ABG O2 Saturation ABG Base Excess ABG Hemoglobin Oxyhemoglobin Potassium Chloride Carbon Dioxide BUN Creatinine Glucose POC Glucose 205 H Hemoglobin A1c Calcium Phosphorus Magnesium Total Bilirubin Direct Bilirubin AST Total Creatine Kinase CK-MB (CK-2) Troponin T Albumin Urine Creatinine Urine Total Protein Digoxin 07/16/17 07/16/17 07/16/17 06:00 06:00 06:00 Hgb Hct MCV MCH RDW Plt Count Lymph % (Auto) [place] % (Auto) Lymph # [place] # Seg Neutrophils % Seg Neutrophils # PT INR APTT Heparin Anti-Xa Level 0.10 L ABG pH ABG pO2 ABG HCO3 ABG O2 Saturation ABG Base Excess ABG Hemoglobin Oxyhemoglobin Potassium Chloride Carbon Dioxide BUN 27 H Creatinine 2.1 H Glucose 162 H POC Glucose Hemoglobin A1c Calcium Phosphorus Magnesium Total Bilirubin Direct Bilirubin AST Total Creatine Kinase CK-MB (CK-2) Troponin T Albumin Urine Creatinine Urine Total Protein Digoxin 0.7 L
[2017-07-16] MEDS: HEPARIN/ 0.45% NACL-25,000 UNIT/500 ML 25,000 UNIT/500 ML BAG IV SCH ×2 (10:41→22:09)
[2017-07-16] MEDS ORDERED: NACL 0.9% 1000 ML 2,000 ML ONE (10:43)
[2017-07-16] MEDS: BABY ASPIRIN PO SCH (10:43)
[2017-07-16] MEDS: HEPARIN IV PRN (11:40)
--- NOTE | 2017-07-16 12:56 | Progress Note ---
Assessment and Plan 57 yo male: Assessment: Acute renal failure / volume overload - requiring HD Acute systolic heart failure / ? 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 new onset; pt reports 2 year h/o atrial fibrillation /atrial flutter, states he was on coumadin prior to admission Acute respiratory failure Elevated troponins - ECG with NAF; flat; currently nonspecific in setting of ARF and acutely decompensated systolic HF AMS - improving; head CT with NAF Hyperkalemia - improved s/p HD Anasarca Mild transaminitis and hyperbilirubinemia - ? hepatorenal syndrome H/o HTN - currently with hypotension HLP DM H/o normal coronaries - [facility] 10/2000 at showed angiographically normal coronary arteries Plan: Volume optimization per nephrology. pt reportedly net neg 10L since admission per primary RN. No BB, ACEI/ARB or aldactone at this time in setting of hypotension and ARF. Cont ASA 81. Hold lipitor in setting of mild transaminitis and hyperbilirubinemia. Hold nitrates in setting of hypotension. Cont dobutamine gtt (will plan to continue for full 72hours - d/c ~07/17). Maintain MAP >65mmHg. Cont heparin gtt. 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 Consider ischemic evaluation once medically stabilized. I attempted to call brother (for update) but no answer. Subjective Date of service: 07/16/17 Principal diagnosis: ARF; HF Interval history: no new complaints Objective Vital Signs Temp Pulse Pulse Resp BP Pulse Ox 07/16/17 12:15 122 H 134 H 16 112/67 07/16/17 12:01 116 H 22 105/58 07/16/17 12:00 98.4 F 134 H 21 105/58 07/16/17 11:45 136 H 18 103/46 07/16/17 11:40 130 H 110/88 07/16/17 11:34 136 H 113/87 07/16/17 11:31 135 H 16 113/87 07/16/17 11:15 117 H 19 96/64 07/16/17 11:01 99 H 18 96/64 07/16/17 11:00 102 H 96/64 07/16/17 10:45 128 H 19 120/78 07/16/17 10:31 136 H 20 124/76 07/16/17 10:30 129 H 124/76 07/16/17 10:15 134 H 120 H 18 121/73 07/16/17 10:01 121 H 16 119/70 07/16/17 09:45 126 H 18 121/79 07/16/17 09:31 136 H 20 122/87 07/16/17 09:30 136 H 122/87 07/16/17 09:15 120 H 18 130/70 07/16/17 09:01 123 H 17 136/74 07/16/17 08:45 124 H 18 127/88 07/16/17 08:31 118 H 15 132/87 07/16/17 08:30 122 H 132/87 07/16/17 08:15 118 H 17 119/68 07/16/17 08:10 117 H 117/66 07/16/17 08:00 98.1 F 117 H 123 H 17 117/66 07/16/17 07:45 126 H 18 113/69 07/16/17 07:30 136 H 19 116/81 07/16/17 07:15 134 H 18 118/72 07/16/17 07:00 134 H 15 124/77 07/16/17 06:45 134 H 15 124/76 07/16/17 06:31 134 H 17 113/75 07/16/17 06:15 124 H 14 96/63 07/16/17 06:01 118 H 13 94/57 07/16/17 05:45 89 9 L 94/57 07/16/17 05:31 89 17 94/57 93 07/16/17 05:15 99 H 16 94/57 96 07/16/17 05:00 127 H 18 103/66 94 07/16/17 04:45 110 H 17 113/53 93 07/16/17 04:30 134 H 15 120/74 96 07/16/17 04:15 134 H 14 112/63 95 07/16/17 04:00 98.1 F 134 H 16 116/64 94 07/16/17 03:45 131 H 17 112/63 93 07/16/17 03:31 133 H 16 127/76 97 07/16/17 03:15 119 H 17 127/76 97 07/16/17 03:01 134 H 16 127/76 98 07/16/17 02:45 133 H 20 127/76 96 07/16/17 02:31 134 H 23 127/76 97 07/16/17 02:15 133 H 34 L 17 127/76 97 07/16/17 02:00 131 H 12 127/76 97 07/16/17 01:45 134 H 14 119/76 97 07/16/17 01:31 132 H 112/68 98 07/16/17 01:15 132 H 14 120/74 07/16/17 01:00 131 H 15 118/78 07/16/17 00:45 132 H 27 H 119/78 07/16/17 00:30 132 H 21 120/74 07/16/17 00:15 132 H 16 115/72 07/16/17 00:00 98.4 F 132 H 20 115/75 07/15/17 23:45 118 H 17 112/74 07/15/17 23:30 132 H 15 115/75 07/15/17 23:15 132 H 16 116/79 07/15/17 23:00 131 H 14 125/82 07/15/17 22:45 132 H 15 118/77 07/15/17 22:30 132 H 25 H 117/78 07/15/17 22:15 132 H 20 124/82 07/15/17 22:00 131 H 16 121/74 94 07/15/17 21:51 134 H 16 116/74 99 07/15/17 21:45 132 H 18 116/74 97 07/15/17 21:30 131 H 16 109/65 96 07/15/17 21:15 132 H 22 116/72 97 07/15/17 21:00 98.2 F 134 H 27 H 109/69 95 07/15/17 20:45 132 H 17 115/71 07/15/17 20:30 133 H 17 120/74 07/15/17 20:15 133 H 133 H 16 118/73 07/15/17 20:09 94 07/15/17 20:00 133 H 15 112/75 07/15/17 19:45 133 H 17 113/72 07/15/17 19:30 133 H 19 123/76 07/15/17 19:16 136 H 17 117/77 07/15/17 19:00 133 H 17 117/77 07/15/17 18:46 129 H 18 115/66 10/20/17 18:30 134 H 15 115/66 07/15/17 18:16 126 H 12 115/66 07/15/17 18:00 133 H 18 115/66 07/15/17 17:46 133 H 17 115/66 07/15/17 17:30 133 H 20 115/66 07/15/17 17:16 134 H 26 H 115/66 07/15/17 17:00 133 H 17 115/07/15/17 16:46 133 H 27 H 115/07/15/17 16:45 133 H 26 H 07/15/17 16:30 133 H 17 115/66 07/15/17 16:16 133 H 15 115/66 07/15/17 16:00 98.2 F 136 H 11 L 07/15/17 15:45 134 H 15 115/66 07/15/17 15:30 134 H 17 116/67 07/15/17 15:15 134 H 15 112/69 07/15/17 15:00 135 H 15 102/52 07/15/17 14:45 134 H 18 114/61 07/15/17 14:42 134 H 114/61 07/15/17 14:30 134 H 15 103/61 07/15/17 14:16 135 H 17 103/61 07/15/17 14:00 132 H 15 103/61 07/15/17 13:46 137 H 12 103/61 07/15/17 13:30 134 H 13 103/61 07/15/17 13:15 134 H 15 98/61 07/15/17 13:00 134 H 16 98/57 07/15/17 12:59 98.2 F 134 H 12 116/68 - Physical Examination General: No Apparent Distress HEENT: Positive: PERRL, Normocephaly, Mucus Membranes Moist Neck: Positive: neck supple, trachea midline Neuro: Positive: Grossly Intact Abdomen: Positive: Other (distended). Negative: Tender Skin: Positive: Clear, Other (generalized edema). Negative: Wound Extremities: Present: edema (BUE/BLE and generalized edema) - Labs and Meds CBC 07/16/17 Range/Units 06:00 WBC 5.4 (4.5-11.0) K/mm3 RBC 4.48 (3.65-5.03) M/mm3 Hgb 11.6 L (11.8-15.2) gm/dl Hct 35.2 L (35.5-45.6) % Plt Count 107 L (140-440) K/mm3 Comprehensive Metabolic Panel 07/16/17 Range/Units 06:00 Sodium 139 (137-145) mmol/L Potassium 3.6 (3.6-5.0) mmol/L Chloride 99.3 (98-107) mmol/L Carbon Dioxide 30 (22-30) mmol/L BUN 27 H (9-20) mg/dL Creatinine 2.1 H (0.8-1.5) mg/dL Glucose 162 H (75-100) mg/dL Calcium 8.4 (8.4-10.2) mg/dL - Imaging and Cardiology Echo: report reviewed (Stress echo done 02/2009 was negative for ischemia, EF heber from 50-65%) Cardiac cath: report reviewed ([facility] 10/2000 at showed angiographically normal coronary arteries) - EKG Sinus rhythms and dysrhythmias: sinus tachycardia (low voltage)
[2017-07-17] MEDS: NOVOLOG SUB-Q SCH ×4 (08:59→22:34)
--- NOTE | 2017-07-17 09:08 | Progress Note ---
Assessment and Plan Assessment and plan: Acute kidney injury due to acute tubular necrosis Presented with Anasarca and volume overload Pt does have h/o DM so could have CKD from it, baseline unknown Initiated on HD since 07/10/17, Renally dose all meds and avoid nephrotoxic meds Renal US neg for hydronephrosis Outpatient dialysis arranged to continue hemodialysis on discharge. Shock/Hypotension May be due to cardiogenic shock Now on Dobutamine, off Levophed. Dobutamine drip for 72 hrs, to be discontinued today. Atrial flutter BB for rate control Continue heparin drip by marketing outreach coordinator Acute metabolic encephalopathy daniele from uremia has h/o fall, CT head was unremarkable on admission MRI Brain ordered to r/o possible acute CVA Improving mental status. He is oriented to person, place but not to time. Hyperkalemia: This is now resolved with dialysis. Potassium 3.6 today. Acute on chronic combined Systolic and diastolic congestive heart failure TTE shows low EF of 15 to 20% Cardiology following Continue Dobutamine drip, to be discontinued today. Diabetes mellitus type 2 on insulin: On insulin at home SSI coverage for now hypoglycemia noted in the ED, corrected with 50% [id number] elevated troponin likely from worsening renal function and underlying CHF Cardiology following Essential Hypertension,history Antihypertensives on hold because of hypotension DVT prophylaxis. On Heparin drip. Full code status. Discussed with brother few days ago. Patient states he is not fully aware of plan of care and i discussed plan and goals of care with him. I explained, he is on Dobutamine drip amnd will be transferred to Telemetry once off drip. Discussed also with Dr. Anuel Garcia, Cardiology today. History Interval history: Patient initially presented with shortness of breath, edema and fall at home. Less shortness of breath, No chest pain, No more confusion Hospitalist Physical - Physical exam Narrative exam: Gen Appearance: Not in acute distress,Morbidly obese HEENT: normocephalic, atraumatic Neck: supple, no JVD Lungs: Clear to auscultation, no rales, no wheezing, Heart: S1 and S2 regular, no murmurs,no rubs or gallop, Abdomen: Soft , non tender, non distended, normal bowel sounds Extremity: Edema both lower ext, no clubbing or cyanosis, Neuro : Awake,alert, normal speech, Oriented in person, place, not in time, moves all extremities - Constitutional Vitals: Temp Pulse Resp BP Pulse Ox 98.7 F 123 H 14 135/81 96 07/17/17 07:55 07/17/17 07:31 07/17/17 07:31 07/17/17 07:31 07/17/17 07:31 General appearance: Present: no acute distress, other (generalized edema) Results - Labs CBC & Chem 7: 07/16/17 06:00 07/16/17 06:00 Labs: Laboratory Last Values WBC 5.4 K/mm3 (4.5-11.0) 07/16/17 06:00 RBC 4.48 M/mm3 (3.65-5.03) 07/16/17 06:00 Hgb 11.6 gm/dl (11.8-15.2) L 07/16/17 06:00 Hct 35.2 % (35.5-45.6) L 07/16/17 06:00 MCV 79 fl (84-94) L 07/16/17 06:00 MCH 26 pg (28-32) L 07/16/17 06:00 MCHC 33 % (32-34) 07/16/17 06:00 RDW 22.5 % (13.2-15.2) H 07/16/17 06:00 Plt Count 107 K/mm3 (140-440) L 07/16/17 06:00 Lymph % (Auto) 2.1 % (13.4-35.0) L 07/10/17 06:34 [place] % (Auto) 10.1 % (0.0-7.3) H 07/10/17 06:34 Eos % (Auto) 0.0 % (0.0-4.3) 07/10/17 06:34 Baso % (Auto) 0.1 % (0.0-1.8) 07/10/17 06:34 Lymph # 0.2 K/mm3 (1.2-5.4) L 07/10/17 06:34 [place] # 1.0 K/mm3 (0.0-0.8) H 07/10/17 06:34 Eos # 0.0 K/mm3 (0.0-0.4) 07/10/17 06:34 Baso # 0.0 K/mm3 (0.0-0.1) 07/10/17 06:34 Seg Neutrophils % 87.7 % (40.0-70.0) H 07/10/17 06:34 Seg Neutrophils # 9.1 K/mm3 (1.8-7.7) H 07/10/17 06:34 PT 19.7 Sec. (12.2-14.9) H 07/12/17 16:38 INR 1.59 (0.87-1.13) H 07/12/17 16:38 APTT 39.8 Sec. (24.2-36.6) H 07/12/17 16:38 Heparin Anti-Xa Level 0.20 U.I./ml (0.3-0.7) L 07/17/17 05:45 ABG pH 7.283 pH Units (7.350-7.450) L 07/10/17 16:06 ABG pCO2 37.7 mm Hg 07/10/17 16:06 ABG pO2 56.5 mm Hg (80.0-90.0) L 07/10/17 16:06 ABG HCO3 17.4 mmol/L (20.0-26.0) L 07/10/17 16:06 ABG O2 Saturation 89.5 % (95.0-99.0) L 07/10/17 16:06 ABG O2 Content 7.9 (0.0-44) 07/10/17 16:06 ABG Base Excess -8.5 mmol/L (-2.0-3.0) L 07/10/17 16:06 ABG Hemoglobin 6.3 gm/dl (14.0-18.0) L 07/10/17 16:06 ABG Carboxyhemoglobin 1.8 % (0.0-5.0) 07/10/17 16:06 ABG Methemoglobin 0.3 % (0.0-1.5) 07/10/17 16:06 VBG pH 7.362 (7.320-7.420) 07/09/17 21:14 Oxyhemoglobin 87.5 % (95.0-99.0) L 07/10/17 16:06 FiO2 28 % 07/10/17 16:06 Sodium 139 mmol/L (137-145) 07/16/17 06:00 Potassium 3.6 mmol/L (3.6-5.0) 07/16/17 06:00 Chloride 99.3 mmol/L (98-107) 07/16/17 06:00 Carbon Dioxide 30 mmol/L (22-30) 07/16/17 06:00 Anion Gap 13 mmol/L 07/16/17 06:00 BUN 27 mg/dL (9-20) H 07/16/17 06:00 Creatinine 2.1 mg/dL (0.8-1.5) H 07/16/17 06:00 Estimated GFR 40 ml/min 07/16/17 06:00 BUN/Creatinine Ratio 13 % 07/16/17 06:00 Glucose 162 mg/dL (75-100) H 07/16/17 06:00 POC Glucose 116 (70-105) H 07/17/17 07:50 Hemoglobin A1c 6.6 % (4-6) H 07/15/17 04:25 Lactic Acid 1.60 mmol/L (0.7-2.0) 07/09/17 23:11 Calcium 8.4 mg/dL (8.4-10.2) 07/16/17 06:00 Phosphorus 6.10 mg/dL (2.5-4.5) H 07/11/17 10:16 Magnesium 2.90 mg/dL (1.7-2.3) H 07/11/17 10:16 Total Bilirubin 2.30 mg/dL (0.1-1.2) H 07/11/17 14:32 Direct Bilirubin 1.5 mg/dL (0-0.2) H 07/11/17 14:32 Indirect Bilirubin 0.8 mg/dL 07/11/17 14:32 AST 59 units/L (5-40) H 07/11/17 14:32 ALT 43 units/L (7-56) 07/11/17 14:32 Alkaline Phosphatase 91 units/L (35-129) 07/11/17 14:32 Total Creatine Kinase 892 units/L (55-170) H 07/10/17 12:11 CK-MB (CK-2) 30.9 ng/mL (0.0-4.0) H 07/10/17 12:11 CK-MB (CK-2) Rel Index 3.4 (0-4) 07/10/17 12:11 Troponin T 0.267 ng/mL (0.00-0.029) H* 07/10/17 12:11 NT-Pro-B Natriuret Pep 03907 pg/mL (0-900) H 07/09/17 21:27 Total Protein 6.7 g/dL (6.3-8.2) 07/11/17 14:32 Albumin 3.2 g/dL (3.9-5) L 07/11/17 14:32 Albumin/Globulin Ratio 0.9 % 07/11/17 14:32 Triglycerides 93 mg/dL (2-149) 07/09/17 21: Cholesterol 137 mg/dL (50-199) 07/09/17 21: LDL Cholesterol Direct 74 mg/dL (50-130) 07/09/17 21: HDL Cholesterol 45 mg/dL (40-59) 07/09/17 21: Cholesterol/HDL Ratio 3.04 % 07/09/17 21:27 Urine Color Priyanka (Yellow) 07/09/17 20:52 Urine Turbidity Clear (Clear) 07/09/17 20:52 Urine pH 5.0 (5.0-7.0) 07/09/17 20:52 Ur Specific [place] 1.014 (1.003-1.030) 07/09/17 20:52 Urine Protein 100 mg/dl mg/dL (Negative) 07/09/17 20:52 Urine Glucose (UA) Neg mg/dL (Negative) 07/09/17 20:52 Urine Ketones Neg mg/dL (Negative) 07/09/17 20:52 Urine Blood Neg (Negative) 07/09/17 20:52 Urine Nitrite Neg (Negative) 07/09/17 20:52 Urine Bilirubin Neg (Negative) 07/09/17 20:52 Urine Urobilinogen 4.0 mg/dL (<2.0) 07/09/17 20:52 Ur Leukocyte Esterase Sm (Negative) 07/09/17 20:52 Urine WBC (Auto) 17.0 /HPF (0.0-6.0) H 07/09/17 20:52 Urine RBC (Auto) 7.0 /HPF (0.0-6.0) 07/09/17 20:52 Urine Bacteria (Auto) 1+ /HPF (Negative) 07/09/17 20:52 Urine Mucus Few /HPF 07/09/17 20:52 Urine Eosinophils None seen (None Seen) 07/11/17 Unknown Urine Creatinine 101.1 mg/dL (0.1-20.0) H 07/11/17 Unknown Urine Microalbumin 27.9 mg/dL (0.1-34.0) 07/10/17 Unknown Microalb/Creat Ratio 274.8 ug/mg 07/10/17 Unknown Protein/Creatinin Ratio 1.11 07/11/17 Unknown Urine Sodium 38 mEq/L 07/10/17 Unknown Urine Urea Nitrogen 337 07/10/17 Unknown Urine Total Protein 112 mg/dL (5-11.8) H 07/11/17 Unknown Digoxin 0.7 ng/mL (0.9-2.0) L 07/16/17 06:00 CHRISTOPHER Screen Negative (Negative) 07/11/17 09:19 Proteinase 3 (PR3) Ab <1.0 AI (<1.0) 07/11/17 09:19 Myeloperoxidase Ab <1.0 AI (<1.0) 07/11/17 09:19 Hepatitis A IgM Ab Non-reactive (NonReactive) 07/11/17 09:19 Hep Bs Antigen Non-reactive (Negative) 07/11/17 09:19 Hep B Core IgM Ab Non-reactive (NonReactive) 07/11/17 09:19 Hepatitis C Antibody Non-reactive (NonReactive) 07/11/17 09:19 HIV 1&2 Antibody Rapid Non react (Non React) 07/11/17 09:19 HIV P24 Antigen Non react (Non React) 07/11/17 09:19
[2017-07-17] MEDS: DOBUTREX DRIP 500MG/D5W 250ML 500 MG/250 ML BAG IV SCH ×2 (09:10→19:48)
[2017-07-17] MEDS: BABY ASPIRIN PO SCH (09:10)
--- NOTE | 2017-07-17 10:23 | Progress Note ---
Assessment and Plan - Patient Problems (1) Acute renal failure (ARF) Current Visit: Yes Status: Acute Qualifiers: Acute renal failure type: A Plan to address problem: Received hemodialysis yesterday for UF and clearance Patient accepted at [facility] on ,,S at 10:30 a,m No new labs noted for today SPEP/UPEP/IFX-pending Will need Permcath placement prior to discharge since may be dialysis dependent currently Renally dose medications Avoid Nephrotoxic agents Obtain daily weights Assess dialysis needs daily (2) Acute systolic CHF (congestive heart failure) Current Visit: Yes Status: Acute Plan to address problem: TTE- LV EF of 15 to 20% Cardiology following On Dobutamine drip (3) Type 2 diabetes mellitus with insulin therapy Current Visit: Yes Status: Acute Plan to address problem: As per primary team Subjective Date of service: 07/17/17 Principal diagnosis: ARF; HF Interval history: Patient seen lying in bed. Requesting to use bedpan. Objective - Vital Signs Vital signs: Vital Signs - 12hr 07/16/17 07/16/17 07/16/17 22:31 22:45 23:01 Temperature Pulse Rate 132 H 118 H 125 H Pulse Rate [ From Monitor] Respiratory 18 19 19 Rate Blood Pressure 115/65 122/71 126/72 O2 Sat by Pulse 96 Oximetry 07/16/17 07/16/17 07/16/17 23:15 23:31 23:45 Temperature Pulse Rate 118 H 124 H 120 H Pulse Rate [ From Monitor] Respiratory 30 H 16 22 Rate Blood Pressure 135/78 129/84 126/84 O2 Sat by Pulse 98 97 Oximetry 07/16/17 07/17/17 07/17/17 23:50 00:00 00:15 Temperature 98.6 F Pulse Rate 116 H 112 H 112 H Pulse Rate [ 120 H From Monitor] Respiratory 23 17 17 Rate Blood Pressure 126/84 136/80 129/82 O2 Sat by Pulse 100 98 99 Oximetry 07/17/17 07/17/17 07/17/17 00:30 00:45 01:00 Temperature Pulse Rate 128 H 120 H 128 H Pulse Rate [ From Monitor] Respiratory 19 18 11 L Rate Blood Pressure 132/83 135/80 137/74 O2 Sat by Pulse 99 100 Oximetry 07/17/17 07/17/17 07/17/17 01:15 01:31 01:45 Temperature Pulse Rate 134 H 118 H 124 H Pulse Rate [ From Monitor] Respiratory 17 17 15 Rate Blood Pressure 131/88 126/79 132/80 O2 Sat by Pulse 98 98 96 Oximetry 07/17/17 07/17/17 07/17/17 02:01 02:15 02:30 Temperature Pulse Rate 117 H 115 H 137 H Pulse Rate [ From Monitor] Respiratory 16 16 14 Rate Blood Pressure 139/77 131/79 122/70 O2 Sat by Pulse 97 95 Oximetry 07/17/17 07/17/17 07/17/17 02:45 03:01 03:15 Temperature Pulse Rate 123 H 128 H 120 H Pulse Rate [ From Monitor] Respiratory 14 18 19 Rate Blood Pressure 122/70 131/74 125/73 O2 Sat by Pulse 99 96 Oximetry 07/17/17 07/17/17 07/17/17 03:31 03:45 04:00 Temperature 98.1 F Pulse Rate 113 H 124 H 120 H Pulse Rate [ 121 H From Monitor] Respiratory 20 16 28 H Rate Blood Pressure 133/64 126/69 116/73 O2 Sat by Pulse 96 99 96 Oximetry 07/17/17 07/17/17 07/17/17 04:15 04:31 04:45 Temperature Pulse Rate 124 H 123 H 118 H Pulse Rate [ From Monitor] Respiratory 16 18 13 Rate Blood Pressure 132/81 132/81 115/82 O2 Sat by Pulse 95 94 Oximetry 07/17/17 07/17/17 07/17/17 05:00 05:15 05:31 Temperature Pulse Rate 134 H 142 H 122 H Pulse Rate [ From Monitor] Respiratory 17 16 14 Rate Blood Pressure 122/82 132/83 136/81 O2 Sat by Pulse 96 97 95 Oximetry 07/17/17 07/17/17 07/17/17 05:45 06:01 06:15 Temperature Pulse Rate 116 H 135 H 127 H Pulse Rate [ From Monitor] Respiratory 19 15 19 Rate Blood Pressure 127/77 126/76 123/58 O2 Sat by Pulse 98 97 Oximetry 07/17/17 07/17/17 07/17/17 06:31 06:45 07:01 Temperature Pulse Rate 122 H 119 H 121 H Pulse Rate [ From Monitor] Respiratory 19 16 13 Rate Blood Pressure 123/58 127/71 130/77 O2 Sat by Pulse 98 97 95 Oximetry 10/07/17/17 07/17/17 07:15 07:31 07:55 Temperature 98.7 F Pulse Rate 129 H 123 H Pulse Rate [ From Monitor] Respiratory 19 14 Rate Blood Pressure 127/79 135/81 O2 Sat by Pulse 97 96 Oximetry - General Appearance General appearance: well-developed, appears stated age EENT: ATNC, PERRL, hearing intact, vision intact Neck: no JVD, supple Respiratory: Present: Decreased Breath Sounds Cardiology: regular, S1S2 Gastrointestinal: normoactive bowel sounds Integumentary: warm and dry Neurologic: alert and oriented x3 Musculoskeletal: joint swelling, other (2+ edema to BLE) Psychiatric: cooperative - Lab 07/16/17 06:00 07/16/17 06:00 Most recent lab results ABG pH 7.283 pH Units (7.350-7.450) L 07/10/17 16:06 ABG pCO2 37.7 mm Hg 07/10/17 16:06 ABG pO2 56.5 mm Hg (80.0-90.0) L 07/10/17 16:06 ABG HCO3 17.4 mmol/L (20.0-26.0) L 07/10/17 16:06 ABG O2 Saturation 89.5 % (95.0-99.0) L 07/10/17 16:06 Calcium 8.4 mg/dL (8.4-10.2) 07/16/17 06:00 Phosphorus 6.10 mg/dL (2.5-4.5) H 07/11/17 10:16 Magnesium 2.90 mg/dL (1.7-2.3) H 07/11/17 10:16 Urine Creatinine 101.1 mg/dL (0.1-20.0) H 07/11/17 Unknown Urine Sodium 38 mEq/L 07/10/17 Unknown Urine Total Protein 112 mg/dL (5-11.8) H 07/11/17 Unknown
--- NOTE | 2017-07-17 11:18 | Progress Note ---
Assessment and Plan - Patient Problems (1) Acute renal failure (ARF) Current Visit: Yes Status: Acute Qualifiers: Acute renal failure type: A (2) Acute respiratory failure Current Visit: Yes Status: Acute Qualifiers: Respiratory failure complication: R (3) Acute systolic CHF (congestive heart failure) Current Visit: Yes Status: Acute (4) Anasarca Current Visit: Yes Status: Acute (5) Atrial flutter with rapid ventricular response Current Visit: Yes Status: Acute (6) CHF (congestive heart failure) Current Visit: Yes Status: Acute Qualifiers: Congestive heart failure type: unspecified congestive heart failure type Congestive heart failure chronicity: unspecified congestive heart failure chronicity Qualified Code(s): I50.9 - Heart failure, unspecified (7) Hyperkalemia Current Visit: Yes Status: Acute (8) Type 2 diabetes mellitus Current Visit: Yes Status: Acute Qualifiers: Diabetes mellitus complication status: D Diabetes mellitus complication detail: D Diabetic retinopathy severity: D Proliferative retinopathy type: P Diabetes mellitus macular edema: D 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 : D Laterality: L Chronic kidney disease stage: C Subjective Principal diagnosis: ARF; HF Interval history: no change Objective Vital Signs - 12hr 07/16/17 07/16/17 07/16/17 23:31 23:45 23:50 Temperature Pulse Rate 124 H 120 H 116 H Pulse Rate [ From Monitor] Respiratory 16 22 23 Rate Blood Pressure 129/84 126/84 126/84 O2 Sat by Pulse 98 97 100 Oximetry 07/17/17 07/17/17 07/17/17 00:00 00:15 00:30 Temperature 98.6 F Pulse Rate 112 H 112 H 128 H Pulse Rate [ 120 H From Monitor] Respiratory 17 17 19 Rate Blood Pressure 136/80 129/82 132/83 O2 Sat by Pulse 98 99 99 Oximetry 07/17/17 07/17/17 07/17/17 00:45 01:00 01:15 Temperature Pulse Rate 120 H 128 H 134 H Pulse Rate [ From Monitor] Respiratory 18 11 L 17 Rate Blood Pressure 135/80 137/74 131/88 O2 Sat by Pulse 100 98 Oximetry 07/17/17 07/17/17 07/17/17 01:31 01:45 02:01 Temperature Pulse Rate 118 H 124 H 117 H Pulse Rate [ From Monitor] Respiratory 17 15 16 Rate Blood Pressure 126/79 132/80 139/77 O2 Sat by Pulse 98 96 97 Oximetry 07/17/17 07/17/17 07/17/17 02:15 02:30 02:45 Temperature Pulse Rate 115 H 137 H 123 H Pulse Rate [ From Monitor] Respiratory 16 14 14 Rate Blood Pressure 131/79 122/70 122/70 O2 Sat by Pulse 95 99 Oximetry 07/17/17 07/17/17 07/17/17 03:01 03:15 03:31 Temperature Pulse Rate 128 H 120 H 113 H Pulse Rate [ From Monitor] Respiratory 18 19 20 Rate Blood Pressure 131/74 125/73 133/64 O2 Sat by Pulse 96 96 Oximetry 07/17/17 07/17/17 07/17/17 03:45 04:00 04:15 Temperature 98.1 F Pulse Rate 124 H 120 H 124 H Pulse Rate [ 121 H From Monitor] Respiratory 16 28 H 16 Rate Blood Pressure 126/69 116/73 132/81 O2 Sat by Pulse 99 96 95 Oximetry 07/17/17 07/17/17 07/17/17 04:31 04:45 05:00 Temperature Pulse Rate 123 H 118 H 134 H Pulse Rate [ From Monitor] Respiratory 18 13 17 Rate Blood Pressure 132/81 115/82 122/82 O2 Sat by Pulse 94 96 Oximetry 07/17/17 07/17/17 07/17/17 05:15 05:31 05:45 Temperature Pulse Rate 142 H 122 H 116 H Pulse Rate [ From Monitor] Respiratory 16 14 19 Rate Blood Pressure 132/83 136/81 127/77 O2 Sat by Pulse 97 95 Oximetry 07/17/17 07/17/17 07/17/17 06:01 06:15 06:31 Temperature Pulse Rate 135 H 127 H 122 H Pulse Rate [ From Monitor] Respiratory 15 19 19 Rate Blood Pressure 126/76 123/58 123/58 O2 Sat by Pulse 98 97 98 Oximetry 07/17/17 07/17/17 07/17/17 06:45 07:01 07:15 Temperature Pulse Rate 119 H 121 H 129 H Pulse Rate [ From Monitor] Respiratory 16 13 19 Rate Blood Pressure 127/71 130/77 127/79 O2 Sat by Pulse 97 95 97 Oximetry 07/17/17 07/17/17 07:31 07:55 Temperature 98.7 F Pulse Rate 123 H Pulse Rate [ From Monitor] Respiratory 14 Rate Blood Pressure 135/81 O2 Sat by Pulse 96 Oximetry Constitutional: no acute distress, alert ENT: other (medical closure with Mallampati class IV airway) Neck: supple, no lymphadenopathy, no JVD, other (right IJ) Ascultation: Bilateral: clear (obese patient), diminished breath sounds ( Limited expansion) Cardiovascular: irregular rhythm, other (tachycardic) Gastrointestinal: normoactive bowel sounds, non-distended, other (morbidly obese ) Extremities: no cyanosis, no edema, other (Rt femoral line) Neurologic: non-focal exam, pupils equal and round, CN II-XII normal, motor strength normal and, other (appears slightly confused) Psychiatric: mood appropriate, affect normal CBC and BMP: 07/16/17 06:00 07/16/17 06:00 ABG, PT/INR, D-dimer: ABG ABG pH 7.283 pH Units (7.350-7.450) L 07/10/17 16:06 ABG pCO2 37.7 mm Hg 07/10/17 16:06 ABG pO2 56.5 mm Hg (80.0-90.0) L 07/10/17 16:06 ABG O2 Saturation 89.5 % (95.0-99.0) L 07/10/17 16:06 PT/INR, D-dimer PT 19.7 Sec. (12.2-14.9) H 07/12/17 16:38 INR 1.59 (0.87-1.13) H 07/12/17 16:38 Abnormal lab findings: Abnormal Labs 07/10/17 07/10/17 07/10/17 06:32 06:34 06:34 Hgb Hct MCV 80 L MCH 26 L RDW 22.1 H Plt Count Lymph % (Auto) 2.1 L [place] % (Auto) 10.1 H Lymph # 0.2 L [place] # 1.0 H Seg Neutrophils % 87.7 H Seg Neutrophils # 9.1 H PT INR APTT Heparin Anti-Xa Level ABG pH ABG pO2 ABG HCO3 ABG O2 Saturation ABG Base Excess ABG Hemoglobin Oxyhemoglobin Potassium 5.3 H Chloride Carbon Dioxide 16 L BUN 138 H Creatinine 4.7 H Glucose 51 L POC Glucose Hemoglobin A1c Calcium Phosphorus Magnesium Total Bilirubin Direct Bilirubin AST Total Creatine Kinase 1099 H CK-MB (CK-2) 32.4 H Troponin T 0.253 H* Albumin Urine Creatinine Urine Total Protein Digoxin 07/10/17 07/10/17 07/10/17 10:43 12:11 13:31 Hgb Hct MCV MCH RDW Plt Count Lymph % (Auto) [place] % (Auto) Lymph # [place] # Seg Neutrophils % Seg Neutrophils # PT INR APTT Heparin Anti-Xa Level ABG pH ABG pO2 ABG HCO3 ABG O2 Saturation ABG Base Excess ABG Hemoglobin Oxyhemoglobin Potassium Chloride Carbon Dioxide BUN Creatinine Glucose POC Glucose 49 L 69 L Hemoglobin A1c Calcium Phosphorus Magnesium Total Bilirubin Direct Bilirubin AST Total Creatine Kinase 892 H CK-MB (CK-2) 30.9 H Troponin T 0.267 H* Albumin Urine Creatinine Urine Total Protein Digoxin 07/10/17 07/10/17 07/11/17 16:06 Unknown 10:16 Hgb Hct MCV 79 L MCH 26 L RDW 22.2 H Plt Count Lymph % (Auto) [place] % (Auto) Lymph # [place] # Seg Neutrophils % Seg Neutrophils # PT INR APTT Heparin Anti-Xa Level ABG pH 7.283 L ABG pO2 56.5 L ABG HCO3 17.4 L ABG O2 Saturation 89.5 L ABG Base Excess -8.5 L ABG Hemoglobin 6.3 L Oxyhemoglobin 87.5 L Potassium Chloride Carbon Dioxide BUN Creatinine Glucose POC Glucose Hemoglobin A1c Calcium Phosphorus Magnesium Total Bilirubin Direct Bilirubin AST Total Creatine Kinase CK-MB (CK-2) Troponin T Albumin Urine Creatinine 101.5 H Urine Total Protein 112 H Digoxin 07/11/17 07/11/17 07/11/17 10:16 11:38 14:32 Hgb Hct MCV MCH RDW Plt Count Lymph % (Auto) [place] % (Auto) Lymph # [place] # Seg Neutrophils % Seg Neutrophils # PT INR APTT Heparin Anti-Xa Level ABG pH ABG pO2 ABG HCO3 ABG O2 Saturation ABG Base Excess ABG Hemoglobin Oxyhemoglobin Potassium Chloride Carbon Dioxide 21 L BUN 102 H Creatinine 4.3 H Glucose POC Glucose 113 H Hemoglobin A1c Calcium Phosphorus 6.10 H Magnesium 2.90 H Total Bilirubin 2.30 H Direct Bilirubin 1.5 H AST 59 H Total Creatine Kinase CK-MB (CK-2) Troponin T Albumin 3.2 L Urine Creatinine Urine Total Protein Digoxin 07/11/17 07/11/17 07/11/17 17:54 21:23 Unknown Hgb Hct MCV MCH RDW Plt Count Lymph % (Auto) [place] % (Auto) Lymph # [place] # Seg Neutrophils % Seg Neutrophils # PT INR APTT Heparin Anti-Xa Level ABG pH ABG pO2 ABG HCO3 ABG O2 Saturation ABG Base Excess ABG Hemoglobin Oxyhemoglobin Potassium Chloride Carbon Dioxide BUN Creatinine Glucose POC Glucose 108 H 123 H Hemoglobin A1c Calcium Phosphorus Magnesium Total Bilirubin Direct Bilirubin AST Total Creatine Kinase CK-MB (CK-2) Troponin T Albumin Urine Creatinine 101.1 H Urine Total Protein 112 H Digoxin 07/12/17 07/12/17 07/12/17 03:29 03:29 07:46 Hgb Hct MCV 79 L MCH 26 L RDW 22.3 H Plt Count 130 L Lymph % (Auto) [place] % (Auto) Lymph # [place] # Seg Neutrophils % Seg Neutrophils # PT INR APTT Heparin Anti-Xa Level ABG pH ABG pO2 ABG HCO3 ABG O2 Saturation ABG Base Excess ABG Hemoglobin Oxyhemoglobin Potassium Chloride Carbon Dioxide BUN 74 H Creatinine 3.9 H Glucose 120 H POC Glucose 121 H Hemoglobin A1c Calcium Phosphorus Magnesium Total Bilirubin Direct Bilirubin AST Total Creatine Kinase CK-MB (CK-2) Troponin T Albumin Urine Creatinine Urine Total Protein Digoxin 07/12/17 07/12/17 07/12/17 12:13 16:01 16:38 Hgb Hct MCV MCH RDW Plt Count Lymph % (Auto) [place] % (Auto) Lymph # [place] # Seg Neutrophils % Seg Neutrophils # PT 19.7 H INR 1.59 H APTT 39.8 H Heparin Anti-Xa Level ABG pH ABG pO2 ABG HCO3 ABG O2 Saturation ABG Base Excess ABG Hemoglobin Oxyhemoglobin Potassium Chloride Carbon Dioxide BUN Creatinine Glucose POC Glucose 127 H 137 H Hemoglobin A1c Calcium Phosphorus Magnesium Total Bilirubin Direct Bilirubin AST Total Creatine Kinase CK-MB (CK-2) Troponin T Albumin Urine Creatinine Urine Total Protein Digoxin 07/12/17 07/12/17 07/13/17 19:00 22:12 02:30 Hgb Hct MCV 79 L MCH 26 L RDW 22.7 H Plt Count Lymph % (Auto) [place] % (Auto) Lymph # [place] # Seg Neutrophils % Seg Neutrophils # PT INR APTT Heparin Anti-Xa Level ABG pH ABG pO2 ABG HCO3 ABG O2 Saturation ABG Base Excess ABG Hemoglobin Oxyhemoglobin Potassium Chloride Carbon Dioxide BUN Creatinine Glucose POC Glucose 158 H Hemoglobin A1c Calcium Phosphorus Magnesium Total Bilirubin Direct Bilirubin AST Total Creatine Kinase CK-MB (CK-2) Troponin T Albumin Urine Creatinine Urine Total Protein Digoxin 0.7 L 07/13/17 07/13/17 07/13/17 02:30 02:30 08:10 Hgb Hct MCV MCH RDW Plt Count Lymph % (Auto) [place] % (Auto) Lymph # [place] # Seg Neutrophils % Seg Neutrophils # PT INR APTT Heparin Anti-Xa Level 0.10 L ABG pH ABG pO2 ABG HCO3 ABG O2 Saturation ABG Base Excess ABG Hemoglobin Oxyhemoglobin Potassium Chloride Carbon Dioxide BUN 65 H Creatinine 3.6 H Glucose 155 H POC Glucose 122 H Hemoglobin A1c Calcium Phosphorus Magnesium Total Bilirubin Direct Bilirubin AST Total Creatine Kinase CK-MB (CK-2) Troponin T Albumin Urine Creatinine Urine Total Protein Digoxin 07/13/17 07/13/17 07/13/17 11:47 16:15 21:20 Hgb Hct MCV MCH RDW Plt Count Lymph % (Auto) [place] % (Auto) Lymph # [place] # Seg Neutrophils % Seg Neutrophils # PT INR APTT Heparin Anti-Xa Level ABG pH ABG pO2 ABG HCO3 ABG O2 Saturation ABG Base Excess ABG Hemoglobin Oxyhemoglobin Potassium Chloride Carbon Dioxide BUN Creatinine Glucose POC Glucose 140 H 146 H 156 H Hemoglobin A1c Calcium Phosphorus Magnesium Total Bilirubin Direct Bilirubin AST Total Creatine Kinase CK-MB (CK-2) Troponin T Albumin Urine Creatinine Urine Total Protein Digoxin 07/14/17 07/14/17 07/14/17 04:00 04:00 05:00 Hgb Hct MCV 79 L MCH 27 L RDW 22.8 H Plt Count Lymph % (Auto) [place] % (Auto) Lymph # [place] # Seg Neutrophils % Seg Neutrophils # PT INR APTT Heparin Anti-Xa Level ABG pH ABG pO2 ABG HCO3 ABG O2 Saturation ABG Base Excess ABG Hemoglobin Oxyhemoglobin Potassium Chloride 96.4 L Carbon Dioxide BUN 50 H Creatinine 2.9 H Glucose 171 H POC Glucose Hemoglobin A1c Calcium Phosphorus Magnesium Total Bilirubin Direct Bilirubin AST Total Creatine Kinase CK-MB (CK-2) Troponin T Albumin Urine Creatinine Urine Total Protein Digoxin 0.6 L 07/14/17 07/14/17 07/14/17 07:44 11:50 16:36 Hgb Hct MCV MCH RDW Plt Count Lymph % (Auto) [place] % (Auto) Lymph # [place] # Seg Neutrophils % Seg Neutrophils # PT INR APTT Heparin Anti-Xa Level ABG pH ABG pO2 ABG HCO3 ABG O2 Saturation ABG Base Excess ABG Hemoglobin Oxyhemoglobin Potassium Chloride Carbon Dioxide BUN Creatinine Glucose POC Glucose 143 H 137 H 178 H Hemoglobin A1c Calcium Phosphorus Magnesium Total Bilirubin Direct Bilirubin AST Total Creatine Kinase CK-MB (CK-2) Troponin T Albumin Urine Creatinine Urine Total Protein Digoxin 07/14/17 07/15/17 07/15/17 21:24 04:25 04:25 Hgb 11.7 L Hct 35.4 L MCV 79 L MCH 26 L RDW 22.3 H Plt Count 120 L Lymph % (Auto) [place] % (Auto) Lymph # [place] # Seg Neutrophils % Seg Neutrophils # PT INR APTT Heparin Anti-Xa Level ABG pH ABG pO2 ABG HCO3 ABG O2 Saturation ABG Base Excess ABG Hemoglobin Oxyhemoglobin Potassium Chloride 97.6 L Carbon Dioxide BUN 36 H Creatinine 2.4 H Glucose 132 H POC Glucose 144 H Hemoglobin A1c Calcium 8.3 L Phosphorus Magnesium Total Bilirubin Direct Bilirubin AST Total Creatine Kinase CK-MB (CK-2) Troponin T Albumin Urine Creatinine Urine Total Protein Digoxin 07/15/17 07/15/17 07/15/17 04:25 04:25 07:30 Hgb Hct MCV MCH RDW Plt Count Lymph % (Auto) [place] % (Auto) Lymph # [place] # Seg Neutrophils % Seg Neutrophils # PT INR APTT Heparin Anti-Xa Level ABG pH ABG pO2 ABG HCO3 ABG O2 Saturation ABG Base Excess ABG Hemoglobin Oxyhemoglobin Potassium Chloride Carbon Dioxide BUN Creatinine Glucose POC Glucose 148 H Hemoglobin A1c 6.6 H Calcium Phosphorus Magnesium Total Bilirubin Direct Bilirubin AST Total Creatine Kinase CK-MB (CK-2) Troponin T Albumin Urine Creatinine Urine Total Protein Digoxin 0.8 L 07/15/17 07/15/17 07/15/17 10:42 11:29 17:12 Hgb Hct MCV MCH RDW Plt Count Lymph % (Auto) [place] % (Auto) Lymph # [place] # Seg Neutrophils % Seg Neutrophils # PT INR APTT Heparin Anti-Xa Level 0.15 L ABG pH ABG pO2 ABG HCO3 ABG O2 Saturation ABG Base Excess ABG Hemoglobin Oxyhemoglobin Potassium Chloride Carbon Dioxide BUN Creatinine Glucose POC Glucose 153 H 233 H Hemoglobin A1c Calcium Phosphorus Magnesium Total Bilirubin Direct Bilirubin AST Total Creatine Kinase CK-MB (CK-2) Troponin T Albumin Urine Creatinine Urine Total Protein Digoxin 07/15/17 07/16/17 07/16/17 20:55 00:01 06:00 Hgb 11.6 L Hct 35.2 L MCV 79 L MCH 26 L RDW 22.5 H Plt Count 107 L Lymph % (Auto) [place] % (Auto) Lymph # [place] # Seg Neutrophils % Seg Neutrophils # PT INR APTT Heparin Anti-Xa Level 0.16 L ABG pH ABG pO2 ABG HCO3 ABG O2 Saturation ABG Base Excess ABG Hemoglobin Oxyhemoglobin Potassium Chloride Carbon Dioxide BUN Creatinine Glucose POC Glucose 205 H Hemoglobin A1c Calcium Phosphorus Magnesium Total Bilirubin Direct Bilirubin AST Total Creatine Kinase CK-MB (CK-2) Troponin T Albumin Urine Creatinine Urine Total Protein Digoxin 07/16/17 07/16/17 07/16/17 06:00 06:00 06:00 Hgb Hct MCV MCH RDW Plt Count Lymph % (Auto) [place] % (Auto) Lymph # [place] # Seg Neutrophils % Seg Neutrophils # PT INR APTT Heparin Anti-Xa Level 0.10 L ABG pH ABG pO2 ABG HCO3 ABG O2 Saturation ABG Base Excess ABG Hemoglobin Oxyhemoglobin Potassium Chloride Carbon Dioxide BUN 27 H Creatinine 2.1 H Glucose 162 H POC Glucose Hemoglobin A1c Calcium Phosphorus Magnesium Total Bilirubin Direct Bilirubin AST Total Creatine Kinase CK-MB (CK-2) Troponin T Albumin Urine Creatinine Urine Total Protein Digoxin 0.7 L 07/16/17 07/16/17 07/16/17 07:38 11:39 15:33 Hgb Hct MCV MCH RDW Plt Count Lymph % (Auto) [place] % (Auto) Lymph # [place] # Seg Neutrophils % Seg Neutrophils # PT INR APTT Heparin Anti-Xa Level ABG pH ABG pO2 ABG HCO3 ABG O2 Saturation ABG Base Excess ABG Hemoglobin Oxyhemoglobin Potassium Chloride Carbon Dioxide BUN Creatinine Glucose POC Glucose 154 H 160 H 187 H Hemoglobin A1c Calcium Phosphorus Magnesium Total Bilirubin Direct Bilirubin AST Total Creatine Kinase CK-MB (CK-2) Troponin T Albumin Urine Creatinine Urine Total Protein Digoxin 07/16/17 07/17/17 07/17/17:17 05:45 07:50 Hgb Hct MCV MCH RDW Plt Count Lymph % (Auto) [place] % (Auto) Lymph # [place] # Seg Neutrophils % Seg Neutrophils # PT INR APTT Heparin Anti-Xa Level 0.20 L ABG pH ABG pO2 ABG HCO3 ABG O2 Saturation ABG Base Excess ABG Hemoglobin Oxyhemoglobin Potassium Chloride Carbon Dioxide BUN Creatinine Glucose POC Glucose 206 H 116 H Hemoglobin A1c Calcium Phosphorus Magnesium Total Bilirubin Direct Bilirubin AST Total Creatine Kinase CK-MB (CK-2) Troponin T Albumin Urine Creatinine Urine Total Protein Digoxin
--- NOTE | 2017-07-17 12:22 | Progress Note ---
Assessment and Plan 57 yo male: Assessment: Acute renal failure / volume overload - requiring HD, pt has lost ~50lb since presentation Acute systolic heart failure / ? 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 new onset; pt reports 2 year h/o atrial fibrillation /atrial flutter, states he was on coumadin prior to admission Acute respiratory failure - sig improved AMS - resolved Hyperkalemia -resolved Anasarca Mild transaminitis and hyperbilirubinemia - ? hepatorenal syndrome H/o HTN - currently with hypotension HLP DM H/o normal coronaries - [facility] 10/2000 at showed angiographically normal coronary arteries Plan: Cont ASA 81. Hold lipitor in setting of mild transaminitis and hyperbilirubinemia. Hold nitrates in setting of hypotension. Cont dobutamine gtt (will plan to continue for full 72hours - d/c ~07/17). Maintain MAP >65mmHg. d/c in am Cont heparin gtt. Plan for conversion to long goods drier systemic OAC prior to discharge. Consider ischemic evaluation once medically stabilized. Pt had multiple questions. I spent a significant amount of time reviewing his overall condition and hospital course. Despite this, I'm not convinced that pt understands the gravity of the constellation of his co-morbidities. Subjective Date of service: 07/17/17 Principal diagnosis: ARF; HF Interval history: feeling better, long discussion today about his overall condition Objective Vital Signs Temp Pulse Pulse Resp BP Pulse Ox 07/17/17 12:04 97 07/17/17 11:46 118 H 14 132/88 96 07/17/17 11:31 115 H 16 127/87 95 07/17/17 11:15 112 H 17 131/84 95 07/17/17 11:00 112 H 10 L 127/79 95 07/17/17 10:45 138 H 14 122/85 99 07/17/17 10:31 116 H 21 122/85 97 07/17/17 10:15 124 H 22 122/85 95 07/17/17 10:01 131 H 24 122/81 96 07/17/17 09:45 127 H 15 135/82 97 07/17/17 09:30 134 H 22 127/80 99 07/17/17 09:15 138 H 16 119/85 98 07/17/17 09:01 118 H 19 118/58 98 07/17/17 08:45 103 H 14 118/58 98 07/17/17 08:31 107 H 20 85/62 97 07/17/17 08:15 91 H 16 110/69 93 07/17/17 08:00 118 H 16 124/79 97 07/17/17 07:55 98.7 F 07/17/17 07:45 120 H 17 128/81 96 07/17/17 07:31 123 H 14 135/81 96 07/17/17 07:15 129 H 19 127/79 97 07/17/17 07:01 121 H 13 130/77 95 07/17/17 06:45 119 H 16 127/71 97 07/17/17 06:31 122 H 19 123/58 98 07/17/17 06:15 127 H 19 123/58 97 07/17/17 06:01 135 H 15 126/76 98 07/17/17 05:45 116 H 19 127/77 07/17/17 05:31 122 H 14 136/81 95 07/17/17 05:15 142 H 16 132/83 97 07/17/17 05:00 134 H 17 122/82 96 07/17/17 04:45 118 H 13 115/82 07/17/17 04:31 123 H 18 132/81 94 07/17/17 04:15 124 H 16 132/81 95 07/17/17 04:00 98.1 F 120 H 121 H 28 H 116/73 96 07/17/17 03:45 124 H 16 126/69 99 07/17/17 03:31 113 H 20 133/64 96 07/17/17 03:15 120 H 19 125/73 07/17/17 03:01 128 H 18 131/74 96 07/17/17 02:45 123 H 14 122/70 99 07/17/17 02:30 137 H 14 122/70 95 07/17/17 02:15 115 H 16 131/79 07/17/17 02:01 117 H 16 139/77 97 07/17/17 01:45 124 H 15 132/80 96 07/17/17 01:31 118 H 17 126/79 98 07/17/17 01:15 134 H 17 131/88 98 07/17/17 01:00 128 H 11 L 137/74 100 07/17/17 00:45 120 H 18 135/80 07/17/17 00:30 128 H 19 132/83 99 07/17/17 00:15 112 H 17 129/82 99 07/17/17 00:00 98.6 F 112 H 120 H 17 136/80 98 07/16/17 23:50 116 H 23 126/84 100 07/16/17 23:45 120 H 22 126/84 97 07/16/17 23:31 124 H 16 129/84 98 07/16/17 23:15 118 H 30 H 135/78 07/16/17 23:01 125 H 19 126/72 07/16/17 22:45 118 H 19 122/71 07/16/17 22:31 132 H 18 115/65 96 07/16/17 22:15 123 H 12 111/71 98 07/16/17 22:00 138 H 19 111/71 96 07/16/17 21:45 134 H 16 118/79 97 07/16/17 21:30 138 H 12 126/77 97 07/16/17 21:15 123 H 18 114/78 98 07/16/17 21:00 118 H 16 129/73 98 07/16/17 20:45 115 H 18 124/73 99 07/16/17 20:39 113 H 19 125/71 97 07/16/17 20:30 118 H 18 125/71 98 07/16/17 20:15 120 H 17 115/70 97 07/16/17 20:01 137 H 12 115/70 98 07/16/17 20:00 98.8 F 118 H 118 H 99 07/16/17 19:52 95 07/16/17 19:45 122 H 18 115/70 07/16/17 19:31 137 H 25 H 115/70 07/16/17 19:15 138 H 14 115/70 07/16/17 19:01 137 H 21 115/70 07/16/17 18:30 133 H 13 122/70 07/16/17 18:15 137 H 21 118/66 07/16/17 18:00 136 H 20 114/79 07/16/17 17:49 136 H 22 100 07/16/17 17:45 136 H 20 110/70 07/16/17 17:31 131 H 17 126/67 07/16/17 17:15 122 H 13 101/62 07/16/17 17:01 101 H 18 101/62 07/16/17 16:45 94 H 19 94/60 07/16/17 16:31 96 H 12 101/57 07/16/17 16:15 126 H 18 119/69 07/16/17 16:08 128 H 18 100 07/16/17 16:01 119 H 18 114/64 07/16/17 16:00 98.6 F 07/16/17 15:45 130 H 20 121/67 07/16/17 15:30 133 H 18 122/69 07/16/17 15:15 131 H 19 115/72 07/16/17 15:00 124 H 18 123/69 07/16/17 14:45 124 H 17 115/72 07/16/17 14:31 130 H 21 110/65 07/16/17 14:15 137 H 22 105/56 07/16/17 14:03 137 H 12 105/56 07/16/17 13:54 133 H 17 100 07/16/17 13:46 105/56 91 07/16/17 13:30 122 H 19 105/56 07/16/17 13:15 125 H 19 107/64 07/16/17 13:00 137 H 18 99/60 07/16/17 12:45 136 H 17 107/57 07/16/17 12:31 125 H 14 107/57 - Physical Examination General: No Apparent Distress HEENT: Positive: PERRL, Normocephaly, Mucus Membranes Moist Neck: Positive: neck supple, trachea midline Neuro: Positive: Grossly Intact Abdomen: Positive: Other (distended). Negative: Tender Skin: Positive: Clear, Other (generalized edema). Negative: Wound Extremities: Present: edema (BUE/BLE and generalized edema) - Imaging and Cardiology Echo: report reviewed (Stress echo done 02/2009 was negative for ischemia, EF heber from 50-65%) Cardiac cath: report reviewed ([facility] 10/2000 at showed angiographically normal coronary arteries) - EKG Sinus rhythms and dysrhythmias: sinus tachycardia (low voltage)
[2017-07-18 04:50] LABS: Albumin 2.6 g/dL (3.8-4.8); Gamma Globulin 1.5 g/dL (0.8-1.7)
[2017-07-18 05:35] LABS: Basophils % (Auto) 0.3 % (0.0-1.8); Eosinophils % (Auto) 1.8 % (0.0-4.3); Hematocrit 35.3 % (35.5-45.6); Hemoglobin 11.6 gm/dl (11.8-15.2); Mean Corpuscular HGB Conc 33 % (32-34); Mean Corpuscular Volume 79 fl (84-94); Platelet Count 111 K/mm3 (140-440); Red Blood Count 4.49 M/mm3 (3.65-5.03); White Blood Count 5.9 K/mm3 (4.5-11.0)
[2017-07-18 05:38] LABS: Mean Corpuscular Hemoglobin 26 pg (28-32); Red Cell Distribution Width 22.4 % (13.2-15.2)
[2017-07-18 05:55] LABS: Albumin 2.6 g/dL (3.9-5); Albumin/Globulin Ratio 0.7 %; Bilirubin,Total 2.2 mg/dL (0.1-1.2); Calcium 8.4 mg/dL (8.4-10.2); Chloride 94.4 mmol/L (98-107); Potassium 3.9 mmol/L (3.6-5.0); Total Protein 6.5 g/dL (6.3-8.2)
[2017-07-18] MEDS: HEPARIN/ 0.45% NACL-25,000 UNIT/500 ML 25,000 UNIT/500 ML BAG IV SCH ×2 (07:43→18:17)
[2017-07-18] MEDS: NOVOLOG SUB-Q SCH ×4 (08:00→22:00)
[2017-07-18] MEDS ORDERED: NOVOLOG SUB-Q SCH (09:00)
--- NOTE | 2017-07-18 09:12 | Progress Note ---
Assessment and Plan Congestive heart failure, decompensated. Controlled Hypotension. Low BP also due to HF low EF state. Now appears to be adequate, just discontinued fromdobutamine per Cards Cardiomyopathy with low ejection fraction Atrial flutter. On meds,improving Acute on chronic kidney injury. Nephro following , on hemodialysis Morbid obesity DM Recommendations Continue monitoring blood pressure. Goal is to maintain off pressors with MAP of 65 If he remains off pressors with no additional issues, he could be transferred out of the unit. Hemodialysis per nephrology. Continue anticoagulation, monitor for bleeding, follow-up cardiology recommendations for atrial flutter No family members available for case discussion Critical care time was 31 minutes of [id number] evaluation and coordination of care Subjective Date of service: 07/18/17 Principal diagnosis: ARF; HF Interval history: Complains of being hungry. No respiratory complaints at this time. Getting his dialysis, no chest pain reported Objective Vital Signs - 12hr 07/17/17 07/17/17 07/17/17 21:15 21:30 21:45 Temperature Pulse Rate 122 H 122 H 134 H Pulse Rate [ From Monitor] Respiratory 16 16 16 Rate Blood Pressure 144/72 140/74 135/93 O2 Sat by Pulse 98 96 96 Oximetry 07/17/17 07/17/17 07/17/17 22:00 22:16 22:22 Temperature Pulse Rate 116 H 122 H 114 H Pulse Rate [ From Monitor] Respiratory 16 13 15 Rate Blood Pressure 133/79 126/77 126/77 O2 Sat by Pulse 96 95 97 Oximetry 07/17/17 07/17/17 07/17/17 22:30 22:46 23:00 Temperature Pulse Rate 115 H 118 H 136 H Pulse Rate [ From Monitor] Respiratory 22 17 18 Rate Blood Pressure 136/76 141/82 135/91 O2 Sat by Pulse 96 95 96 Oximetry 07/17/17 07/17/17 07/17/17 23:16 23:25 23:30 Temperature Pulse Rate 115 H 127 H 115 H Pulse Rate [ From Monitor] Respiratory 17 18 19 Rate Blood Pressure 142/82 142/82 142/82 O2 Sat by Pulse 98 99 Oximetry 07/17/17 07/18/17 07/18/17 23:46 00:00 00:16 Temperature 98.5 F Pulse Rate 119 H 112 H 111 H Pulse Rate [ 124 H From Monitor] Respiratory 14 10 L 19 Rate Blood Pressure 142/82 142/82 142/82 O2 Sat by Pulse 98 99 100 Oximetry 07/18/17 07/18/17 07/18/17 00:30 00:46 01:00 Temperature Pulse Rate 107 H 121 H 117 H Pulse Rate [ From Monitor] Respiratory 19 14 21 Rate Blood Pressure 142/82 142/82 142/82 O2 Sat by Pulse 99 98 99 Oximetry 07/18/17 07/18/17 07/18/17 01:16 01:30 01:46 Temperature Pulse Rate 122 H 125 H 123 H Pulse Rate [ From Monitor] Respiratory 16 17 17 Rate Blood Pressure 116/83 105/78 105/78 O2 Sat by Pulse 98 99 98 Oximetry 07/18/17 07/18/17 07/18/17 02:00 02:16 02:30 Temperature Pulse Rate 115 H 122 H 117 H Pulse Rate [ From Monitor] Respiratory 19 19 18 Rate Blood Pressure 103/85 103/85 132/94 O2 Sat by Pulse 98 100 Oximetry 07/18/17 07/18/17 07/18/17 02:46 03:00 03:16 Temperature Pulse Rate 121 H 114 H 138 H Pulse Rate [ From Monitor] Respiratory 18 20 18 Rate Blood Pressure 132/94 123/90 123/90 O2 Sat by Pulse 98 98 98 Oximetry 07/18/17 07/18/17 07/18/17 03:30 03:46 04:00 Temperature 98.1 F Pulse Rate 141 H 140 H 117 H Pulse Rate [ 110 H From Monitor] Respiratory 21 14 21 Rate Blood Pressure 122/95 122/95 124/72 O2 Sat by Pulse 98 98 98 Oximetry 07/18/17 07/18/17 07/18/17 04:16 04:30 04:46 Temperature Pulse Rate 114 H 117 H 122 H Pulse Rate [ From Monitor] Respiratory 19 21 21 Rate Blood Pressure 124/72 127/73 127/73 O2 Sat by Pulse 98 97 97 Oximetry 07/18/17 07/18/17 07/18/17 05:00 05:16 05:30 Temperature Pulse Rate 114 H 109 H 121 H Pulse Rate [ From Monitor] Respiratory 20 15 21 Rate Blood Pressure 125/68 125/68 116/78 O2 Sat by Pulse 98 98 94 Oximetry 07/18/17 07/18/17 07/18/17 05:46 06:00 06:16 Temperature Pulse Rate 117 H 125 H 115 H Pulse Rate [ From Monitor] Respiratory 19 16 18 Rate Blood Pressure 116/78 126/81 126/81 O2 Sat by Pulse 97 98 97 Oximetry 07/18/17 07/18/17 07/18/17 06:30 06:46 07:00 Temperature Pulse Rate 123 H 113 H 118 H Pulse Rate [ From Monitor] Respiratory 19 14 18 Rate Blood Pressure 122/80 122/80 119/73 O2 Sat by Pulse 98 96 94 Oximetry 07/18/17 07/18/17 07/18/17 07:16 07:30 07:50 Temperature 98.0 F Pulse Rate 109 H 114 H 111 H Pulse Rate [ From Monitor] Respiratory 18 13 12 Rate Blood Pressure 119/73 113/68 113/68 O2 Sat by Pulse 95 93 Oximetry 07/18/17 07/18/17 07/18/17 08:00 08:15 08:30 Temperature 98 F Pulse Rate 111 H 113 H 115 H Pulse Rate [ From Monitor] Respiratory Rate Blood Pressure 122/74 132/83 133/85 O2 Sat by Pulse Oximetry 07/18/17 07/18/17 08:45 09:00 Temperature Pulse Rate 113 H 116 H Pulse Rate [ From Monitor] Respiratory Rate Blood Pressure 133/82 141/83 O2 Sat by Pulse Oximetry Constitutional: no acute distress, alert Neck: supple, no lymphadenopathy, no JVD Ascultation: Bilateral: clear (obese patient), diminished breath sounds ( Limited expansion) Cardiovascular: irregular rhythm Gastrointestinal: normoactive bowel sounds, non-distended, other (morbidly obese ) Extremities: no cyanosis, no edema, other (Rt femoral line) Neurologic: non-focal exam, pupils equal and round, CN II-XII normal, motor strength normal and Psychiatric: mood appropriate, affect normal CBC and BMP: 07/18/17 05:00 07/18/17 05:00 ABG, PT/INR, D-dimer: ABG ABG pH 7.283 pH Units (7.350-7.450) L 07/10/17 16:06 ABG pCO2 37.7 mm Hg 07/10/17 16:06 ABG pO2 56.5 mm Hg (80.0-90.0) L 07/10/17 16:06 ABG O2 Saturation 89.5 % (95.0-99.0) L 07/10/17 16:06 PT/INR, D-dimer PT 19.7 Sec. (12.2-14.9) H 07/12/17 16:38 INR 1.59 (0.87-1.13) H 07/12/17 16:38 Abnormal lab findings: Abnormal Labs 07/10/17 07/10/17 07/10/17 06:32 06:34 06:34 Hgb Hct MCV 80 L MCH 26 L RDW 22.1 H Plt Count Lymph % (Auto) 2.1 L [place] % (Auto) 10.1 H Lymph # 0.2 L [place] # 1.0 H Seg Neutrophils % 87.7 H Seg Neutrophils # 9.1 H PT INR APTT Heparin Anti-Xa Level ABG pH ABG pO2 ABG HCO3 ABG O2 Saturation ABG Base Excess ABG Hemoglobin Oxyhemoglobin Sodium Potassium 5.3 H Chloride Carbon Dioxide 16 L BUN 138 H Creatinine 4.7 H Glucose 51 L POC Glucose Hemoglobin A1c Calcium Phosphorus Magnesium Total Bilirubin Direct Bilirubin AST Total Creatine Kinase 1099 H CK-MB (CK-2) 32.4 H Troponin T 0.253 H* Albumin Inkfc-5-Bvookxbnj Beta Globulins PEP Interpretation Urine Creatinine Urine Total Protein Digoxin 07/10/17 07/10/17 07/10/17 10:43 12:11 13:31 Hgb Hct MCV MCH RDW Plt Count Lymph % (Auto) [place] % (Auto) Lymph # [place] # Seg Neutrophils % Seg Neutrophils # PT INR APTT Heparin Anti-Xa Level ABG pH ABG pO2 ABG HCO3 ABG O2 Saturation ABG Base Excess ABG Hemoglobin Oxyhemoglobin Sodium Potassium Chloride Carbon Dioxide BUN Creatinine Glucose POC Glucose 49 L 69 L Hemoglobin A1c Calcium Phosphorus Magnesium Total Bilirubin Direct Bilirubin AST Total Creatine Kinase 892 H CK-MB (CK-2) 30.9 H Troponin T 0.267 H* Albumin Xmntj-8-Uhsqgtkfo Beta Globulins PEP Interpretation Urine Creatinine Urine Total Protein Digoxin 07/10/17 07/10/17 07/11/17 16:06 Unknown 10:16 Hgb Hct MCV 79 L MCH 26 L RDW 22.2 H Plt Count Lymph % (Auto) [place] % (Auto) Lymph # [place] # Seg Neutrophils % Seg Neutrophils # PT INR APTT Heparin Anti-Xa Level ABG pH 7.283 L ABG pO2 56.5 L ABG HCO3 17.4 L ABG O2 Saturation 89.5 L ABG Base Excess -8.5 L ABG Hemoglobin 6.3 L Oxyhemoglobin 87.5 L Sodium Potassium Chloride Carbon Dioxide BUN Creatinine Glucose POC Glucose Hemoglobin A1c Calcium Phosphorus Magnesium Total Bilirubin Direct Bilirubin AST Total Creatine Kinase CK-MB (CK-2) Troponin T Albumin Rserq-3-Gaxrsjkeu Beta Globulins PEP Interpretation Urine Creatinine 101.5 H Urine Total Protein 112 H Digoxin 07/11/17 07/11/17 07/11/17 10:16 11:38 14:32 Hgb Hct MCV MCH RDW Plt Count Lymph % (Auto) [place] % (Auto) Lymph # [place] # Seg Neutrophils % Seg Neutrophils # PT INR APTT Heparin Anti-Xa Level ABG pH ABG pO2 ABG HCO3 ABG O2 Saturation ABG Base Excess ABG Hemoglobin Oxyhemoglobin Sodium Potassium Chloride Carbon Dioxide 21 L BUN 102 H Creatinine 4.3 H Glucose POC Glucose 113 H Hemoglobin A1c Calcium Phosphorus 6.10 H Magnesium 2.90 H Total Bilirubin 2.30 H Direct Bilirubin 1.5 H AST 59 H Total Creatine Kinase CK-MB (CK-2) Troponin T Albumin 3.2 L Nwdtx-7-Amuqohdip Beta Globulins PEP Interpretation Urine Creatinine Urine Total Protein Digoxin 07/11/17 07/11/17 07/11/17 17:54 21:23 Unknown Hgb Hct MCV MCH RDW Plt Count Lymph % (Auto) [place] % (Auto) Lymph # [place] # Seg Neutrophils % Seg Neutrophils # PT INR APTT Heparin Anti-Xa Level ABG pH ABG pO2 ABG HCO3 ABG O2 Saturation ABG Base Excess ABG Hemoglobin Oxyhemoglobin Sodium Potassium Chloride Carbon Dioxide BUN Creatinine Glucose POC Glucose 108 H 123 H Hemoglobin A1c Calcium Phosphorus Magnesium Total Bilirubin Direct Bilirubin AST Total Creatine Kinase CK-MB (CK-2) Troponin T Albumin Aqvlk-9-Vlhsatfgw Beta Globulins PEP Interpretation Urine Creatinine 101.1 H Urine Total Protein 112 H Digoxin 07/12/17 07/12/17 07/12/17 03:29 03:29 07:46 Hgb Hct MCV 79 L MCH 26 L RDW 22.3 H Plt Count 130 L Lymph % (Auto) [place] % (Auto) Lymph # [place] # Seg Neutrophils % Seg Neutrophils # PT INR APTT Heparin Anti-Xa Level ABG pH ABG pO2 ABG HCO3 ABG O2 Saturation ABG Base Excess ABG Hemoglobin Oxyhemoglobin Sodium Potassium Chloride Carbon Dioxide BUN 74 H Creatinine 3.9 H Glucose 120 H POC Glucose 121 H Hemoglobin A1c Calcium Phosphorus Magnesium Total Bilirubin Direct Bilirubin AST Total Creatine Kinase CK-MB (CK-2) Troponin T Albumin Nyvsx-5-Qpztlftds Beta Globulins PEP Interpretation Urine Creatinine Urine Total Protein Digoxin 07/12/17 07/12/17 07/12/17 12:13 16:01 16:38 Hgb Hct MCV MCH RDW Plt Count Lymph % (Auto) [place] % (Auto) Lymph # [place] # Seg Neutrophils % Seg Neutrophils # PT 19.7 H INR 1.59 H APTT 39.8 H Heparin Anti-Xa Level ABG pH ABG pO2 ABG HCO3 ABG O2 Saturation ABG Base Excess ABG Hemoglobin Oxyhemoglobin Sodium Potassium Chloride Carbon Dioxide BUN Creatinine Glucose POC Glucose 127 H 137 H Hemoglobin A1c Calcium Phosphorus Magnesium Total Bilirubin Direct Bilirubin AST Total Creatine Kinase CK-MB (CK-2) Troponin T Albumin Arkrz-7-Xyffqrnil Beta Globulins PEP Interpretation Urine Creatinine Urine Total Protein Digoxin 07/12/17 07/12/17 07/13/17 19:00 22:12 02:30 Hgb Hct MCV 79 L MCH 26 L RDW 22.7 H Plt Count Lymph % (Auto) [place] % (Auto) Lymph # [place] # Seg Neutrophils % Seg Neutrophils # PT INR APTT Heparin Anti-Xa Level ABG pH ABG pO2 ABG HCO3 ABG O2 Saturation ABG Base Excess ABG Hemoglobin Oxyhemoglobin Sodium Potassium Chloride Carbon Dioxide BUN Creatinine Glucose POC Glucose 158 H Hemoglobin A1c Calcium Phosphorus Magnesium Total Bilirubin Direct Bilirubin AST Total Creatine Kinase CK-MB (CK-2) Troponin T Albumin Ohagb-5-Nwgebmjxt Beta Globulins PEP Interpretation Urine Creatinine Urine Total Protein Digoxin 0.7 L 07/13/17 07/13/17 07/13/17 02:30 02:30 08:10 Hgb Hct MCV MCH RDW Plt Count Lymph % (Auto) [place] % (Auto) Lymph # [place] # Seg Neutrophils % Seg Neutrophils # PT INR APTT Heparin Anti-Xa Level 0.10 L ABG pH ABG pO2 ABG HCO3 ABG O2 Saturation ABG Base Excess ABG Hemoglobin Oxyhemoglobin Sodium Potassium Chloride Carbon Dioxide BUN 65 H Creatinine 3.6 H Glucose 155 H POC Glucose 122 H Hemoglobin A1c Calcium Phosphorus Magnesium Total Bilirubin Direct Bilirubin AST Total Creatine Kinase CK-MB (CK-2) Troponin T Albumin Bfhgk-5-Ljmavkstj Beta Globulins PEP Interpretation Urine Creatinine Urine Total Protein Digoxin 07/13/17 07/13/17 07/13/17 11:47 16:15 21:20 Hgb Hct MCV MCH RDW Plt Count Lymph % (Auto) [place] % (Auto) Lymph # [place] # Seg Neutrophils % Seg Neutrophils # PT INR APTT Heparin Anti-Xa Level ABG pH ABG pO2 ABG HCO3 ABG O2 Saturation ABG Base Excess ABG Hemoglobin Oxyhemoglobin Sodium Potassium Chloride Carbon Dioxide BUN Creatinine Glucose POC Glucose 140 H 146 H 156 H Hemoglobin A1c Calcium Phosphorus Magnesium Total Bilirubin Direct Bilirubin AST Total Creatine Kinase CK-MB (CK-2) Troponin T Albumin Qyxhj-1-Mpypjnsxx Beta Globulins PEP Interpretation Urine Creatinine Urine Total Protein Digoxin 07/13/17 07/14/17 07/14/17 Unknown 04:00 04:00 Hgb Hct MCV 79 L MCH 27 L RDW 22.8 H Plt Count Lymph % (Auto) [place] % (Auto) Lymph # [place] # Seg Neutrophils % Seg Neutrophils # PT INR APTT Heparin Anti-Xa Level ABG pH ABG pO2 ABG HCO3 ABG O2 Saturation ABG Base Excess ABG Hemoglobin Oxyhemoglobin Sodium Potassium Chloride Carbon Dioxide BUN Creatinine Glucose POC Glucose Hemoglobin A1c Calcium Phosphorus Magnesium Total Bilirubin Direct Bilirubin AST Total Creatine Kinase CK-MB (CK-2) Troponin T Albumin 2.6 L Fchsf-5-Ulclviigk 0.4 H Beta Globulins 0.6 H PEP Interpretation see below H Urine Creatinine Urine Total Protein Digoxin 0.6 L 07/14/17 07/14/17 07/14/17 05:00 07:44 11:50 Hgb Hct MCV MCH RDW Plt Count Lymph % (Auto) [place] % (Auto) Lymph # [place] # Seg Neutrophils % Seg Neutrophils # PT INR APTT Heparin Anti-Xa Level ABG pH ABG pO2 ABG HCO3 ABG O2 Saturation ABG Base Excess ABG Hemoglobin Oxyhemoglobin Sodium Potassium Chloride 96.4 L Carbon Dioxide BUN 50 H Creatinine 2.9 H Glucose 171 H POC Glucose 143 H 137 H Hemoglobin A1c Calcium Phosphorus Magnesium Total Bilirubin Direct Bilirubin AST Total Creatine Kinase CK-MB (CK-2) Troponin T Albumin Zdzws-2-Jbpdiqjtk Beta Globulins PEP Interpretation Urine Creatinine Urine Total Protein Digoxin 07/14/17 07/14/17 07/15/17 16:36 21:24 04:25 Hgb 11.7 L Hct 35.4 L MCV 79 L MCH 26 L RDW 22.3 H Plt Count 120 L Lymph % (Auto) [place] % (Auto) Lymph # [place] # Seg Neutrophils % Seg Neutrophils # PT INR APTT Heparin Anti-Xa Level ABG pH ABG pO2 ABG HCO3 ABG O2 Saturation ABG Base Excess ABG Hemoglobin Oxyhemoglobin Sodium Potassium Chloride Carbon Dioxide BUN Creatinine Glucose POC Glucose 178 H 144 H Hemoglobin A1c Calcium Phosphorus Magnesium Total Bilirubin Direct Bilirubin AST Total Creatine Kinase CK-MB (CK-2) Troponin T Albumin Vzaca-3-Ezaawhwts Beta Globulins PEP Interpretation Urine Creatinine Urine Total Protein Digoxin 07/15/17 07/15/17 07/15/17 04:25 04:25 04:25 Hgb Hct MCV MCH RDW Plt Count Lymph % (Auto) [place] % (Auto) Lymph # [place] # Seg Neutrophils % Seg Neutrophils # PT INR APTT Heparin Anti-Xa Level ABG pH ABG pO2 ABG HCO3 ABG O2 Saturation ABG Base Excess ABG Hemoglobin Oxyhemoglobin Sodium Potassium Chloride 97.6 L Carbon Dioxide BUN 36 H Creatinine 2.4 H Glucose 132 H POC Glucose Hemoglobin A1c 6.6 H Calcium 8.3 L Phosphorus Magnesium Total Bilirubin Direct Bilirubin AST Total Creatine Kinase CK-MB (CK-2) Troponin T Albumin Jcgje-7-Lcmvztmpz Beta Globulins PEP Interpretation Urine Creatinine Urine Total Protein Digoxin 0.8 L 07/15/17 07/15/17 07/15/17 07:30 10:42 11:29 Hgb Hct MCV MCH RDW Plt Count Lymph % (Auto) [place] % (Auto) Lymph # [place] # Seg Neutrophils % Seg Neutrophils # PT INR APTT Heparin Anti-Xa Level 0.15 L ABG pH ABG pO2 ABG HCO3 ABG O2 Saturation ABG Base Excess ABG Hemoglobin Oxyhemoglobin Sodium Potassium Chloride Carbon Dioxide BUN Creatinine Glucose POC Glucose 148 H 153 H Hemoglobin A1c Calcium Phosphorus Magnesium Total Bilirubin Direct Bilirubin AST Total Creatine Kinase CK-MB (CK-2) Troponin T Albumin Mmavj-2-Sudregtia Beta Globulins PEP Interpretation Urine Creatinine Urine Total Protein Digoxin 07/15/17 07/15/17 07/16/17 17:12 20:55 00:01 Hgb Hct MCV MCH RDW Plt Count Lymph % (Auto) [place] % (Auto) Lymph # [place] # Seg Neutrophils % Seg Neutrophils # PT INR APTT Heparin Anti-Xa Level 0.16 L ABG pH ABG pO2 ABG HCO3 ABG O2 Saturation ABG Base Excess ABG Hemoglobin Oxyhemoglobin Sodium Potassium Chloride Carbon Dioxide BUN Creatinine Glucose POC Glucose 233 H 205 H Hemoglobin A1c Calcium Phosphorus Magnesium Total Bilirubin Direct Bilirubin AST Total Creatine Kinase CK-MB (CK-2) Troponin T Albumin Yktlz-9-Qfuoiovov Beta Globulins PEP Interpretation Urine Creatinine Urine Total Protein Digoxin 07/16/17 07/16/17 07/16/17 06:00 06:00 06:00 Hgb 11.6 L Hct 35.2 L MCV 79 L MCH 26 L RDW 22.5 H Plt Count 107 L Lymph % (Auto) [place] % (Auto) Lymph # [place] # Seg Neutrophils % Seg Neutrophils # PT INR APTT Heparin Anti-Xa Level ABG pH ABG pO2 ABG HCO3 ABG O2 Saturation ABG Base Excess ABG Hemoglobin Oxyhemoglobin Sodium Potassium Chloride Carbon Dioxide BUN 27 H Creatinine 2.1 H Glucose 162 H POC Glucose Hemoglobin A1c Calcium Phosphorus Magnesium Total Bilirubin Direct Bilirubin AST Total Creatine Kinase CK-MB (CK-2) Troponin T Albumin Xjmlv-6-Lznlrvnnz Beta Globulins PEP Interpretation Urine Creatinine Urine Total Protein Digoxin 0.7 L 07/16/17 07/16/17 07/16/17 06:00 07:38 11:39 Hgb Hct MCV MCH RDW Plt Count Lymph % (Auto) [place] % (Auto) Lymph # [place] # Seg Neutrophils % Seg Neutrophils # PT INR APTT Heparin Anti-Xa Level 0.10 L ABG pH ABG pO2 ABG HCO3 ABG O2 Saturation ABG Base Excess ABG Hemoglobin Oxyhemoglobin Sodium Potassium Chloride Carbon Dioxide BUN Creatinine Glucose POC Glucose 154 H 160 H Hemoglobin A1c Calcium Phosphorus Magnesium Total Bilirubin Direct Bilirubin AST Total Creatine Kinase CK-MB (CK-2) Troponin T Albumin Cyvya-4-Qayxxluxq Beta Globulins PEP Interpretation Urine Creatinine Urine Total Protein Digoxin 07/16/17 07/16/17 07/17/17 15:33 21:17 05:45 Hgb Hct MCV MCH RDW Plt Count Lymph % (Auto) [place] % (Auto) Lymph # [place] # Seg Neutrophils % Seg Neutrophils # PT INR APTT Heparin Anti-Xa Level 0.20 L ABG pH ABG pO2 ABG HCO3 ABG O2 Saturation ABG Base Excess ABG Hemoglobin Oxyhemoglobin Sodium Potassium Chloride Carbon Dioxide BUN Creatinine Glucose POC Glucose 187 H 206 H Hemoglobin A1c Calcium Phosphorus Magnesium Total Bilirubin Direct Bilirubin AST Total Creatine Kinase CK-MB (CK-2) Troponin T Albumin Hmojs-6-Xicoysmex Beta Globulins PEP Interpretation Urine Creatinine Urine Total Protein Digoxin 07/17/17 07/17/17 07/17/17 07:50 13:26 16:15 Hgb Hct MCV MCH RDW Plt Count Lymph % (Auto) [place] % (Auto) Lymph # [place] # Seg Neutrophils % Seg Neutrophils # PT INR APTT Heparin Anti-Xa Level ABG pH ABG pO2 ABG HCO3 ABG O2 Saturation ABG Base Excess ABG Hemoglobin Oxyhemoglobin Sodium Potassium Chloride Carbon Dioxide BUN Creatinine Glucose POC Glucose 116 H 161 H 148 H Hemoglobin A1c Calcium Phosphorus Magnesium Total Bilirubin Direct Bilirubin AST Total Creatine Kinase CK-MB (CK-2) Troponin T Albumin Ehcvl-5-Cjnpyecbv Beta Globulins PEP Interpretation Urine Creatinine Urine Total Protein Digoxin 07/17/17 07/18/17 07/18/17 21:30 05:00 05:00 Hgb 11.6 L Hct 35.3 L MCV 79 L MCH 26 L RDW 22.4 H Plt Count 111 L Lymph % (Auto) 10.3 L [place] % (Auto) 13.6 H Lymph # 0.6 L [place] # Seg Neutrophils % 74.0 H Seg Neutrophils # PT INR APTT Heparin Anti-Xa Level ABG pH ABG pO2 ABG HCO3 ABG O2 Saturation ABG Base Excess ABG Hemoglobin Oxyhemoglobin Sodium 135 L Potassium Chloride 94.4 L Carbon Dioxide BUN 27 H Creatinine 2.1 H Glucose 149 H POC Glucose 198 H Hemoglobin A1c Calcium Phosphorus Magnesium Total Bilirubin 2.20 H Direct Bilirubin AST Total Creatine Kinase CK-MB (CK-2) Troponin T Albumin 2.6 L Tjtay-4-Wnaulifgb Beta Globulins PEP Interpretation Urine Creatinine Urine Total Protein Digoxin 07/18/17 05:00 Hgb Hct MCV MCH RDW Plt Count Lymph % (Auto) [place] % (Auto) Lymph # [place] # Seg Neutrophils % Seg Neutrophils # PT INR APTT Heparin Anti-Xa Level 0.21 L ABG pH ABG pO2 ABG HCO3 ABG O2 Saturation ABG Base Excess ABG Hemoglobin Oxyhemoglobin Sodium Potassium Chloride Carbon Dioxide BUN Creatinine Glucose POC Glucose Hemoglobin A1c Calcium Phosphorus Magnesium Total Bilirubin Direct Bilirubin AST Total Creatine Kinase CK-MB (CK-2) Troponin T Albumin Txmdx-9-Xqzwonlfe Beta Globulins PEP Interpretation Urine Creatinine Urine Total Protein Digoxin
[2017-07-18] MEDS: HEPARIN IV PRN (09:57)
--- NOTE | 2017-07-18 12:30 | Progress Note ---
Assessment and Plan Assessment and plan: Acute kidney injury due to acute tubular necrosis Presented with Anasarca and volume overload Pt does have h/o DM type 2 so could have CKD from it, baseline unknown Initiated on HD since 07/10/17, Renally dose all meds and avoid nephrotoxic meds Renal US neg for hydronephrosis Outpatient dialysis arranged to continue hemodialysis on discharge. Shock/Hypotension ardiogenic shock Now resolved Off Levophed. Dobutamine drip discontinued today. 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 He is now oriented to person, place and time. Hyperkalemia: This is now resolved with dialysis. Potassium 3.9 today. Acute on chronic combined Systolic and diastolic congestive heart failure TTE shows low EF of 15 to 20% Discussed case with Cardiology again today Dobutamine drip discontinued today. Diabetes mellitus type 2 on insulin: Was on Insulin at home A1C is 6.6, showing overall controlled diabetes SSI coverage for now hypoglycemia noted in the ED, corrected with 50% DextroseD elevated troponin likely from worsening renal function and underlying CHF Cardiology following Essential Hypertension,history Antihypertensives on hold because of hypotension DVT prophylaxis. On Heparin drip. Full code status. Discussed with brother few days ago. Yesterday 07/17/17, Patient stated he is not fully aware of plan of care and I discussed plan and goals of care with him. I explained, he is on Dobutamine drip and will be transferred to Telemetry once off drip. Discussed also with Dr. Anuel Garcia, Cardiology yesterday.. History Interval history: Patient initially presented with shortness of breath, edema and fall at home. Less shortness of breath, No chest pain, No more confusion Frustrated that he is still sick in hospital Hospitalist Physical - Physical exam Narrative exam: Gen Appearance: Not in acute distress,Morbidly obese HEENT: normocephalic, atraumatic Neck: supple, no JVD Lungs: Clear to auscultation, no rales, no wheezing, Heart: S1 and S2 regular, no murmurs,no rubs or gallop, Abdomen: Soft , non tender, non distended, normal bowel sounds Extremity: Edema both lower ext, no clubbing or cyanosis, Neuro : Awake,alert, normal speech, Oriented in person, place, not in time, moves all extremities - Constitutional Vitals: Temp Pulse Resp BP Pulse Ox 98 F 100 H 18 119/86 100 07/18/17 08:00 07/18/17 11:30 07/18/17 09:30 07/18/17 11:30 07/18/17 09:30 General appearance: Present: no acute distress, other (generalized edema) Results - Labs CBC & Chem 7: 07/18/17 05:00 07/18/17 05:00 Labs: Laboratory Last Values WBC 5.9 K/mm3 (4.5-11.0) 07/18/17 05:00 RBC 4.49 M/mm3 (3.65-5.03) 07/18/17 05:00 Hgb 11.6 gm/dl (11.8-15.2) L 07/18/17 05:00 Hct 35.3 % (35.5-45.6) L 07/18/17 05:00 MCV 79 fl (84-94) L 07/18/17 05:00 MCH 26 pg (28-32) L 07/18/17 05:00 MCHC 33 % (32-34) 07/18/17 05:00 RDW 22.4 % (13.2-15.2) H 07/18/17 05:00 Plt Count 111 K/mm3 (140-440) L 07/18/17 05:00 Lymph % (Auto) 10.3 % (13.4-35.0) L 07/18/17 05:00 [place] % (Auto) 13.6 % (0.0-7.3) H 07/18/17 05:00 Eos % (Auto) 1.8 % (0.0-4.3) 07/18/17 05:00 Baso % (Auto) 0.3 % (0.0-1.8) 07/18/17 05:00 Lymph # 0.6 K/mm3 (1.2-5.4) L 07/18/17 05:00 [place] # 0.8 K/mm3 (0.0-0.8) 07/18/17 05:00 Eos # 0.1 K/mm3 (0.0-0.4) 07/18/17 05:00 Baso # 0.0 K/mm3 (0.0-0.1) 07/18/17 05:00 Seg Neutrophils % 74.0 % (40.0-70.0) H 07/18/17 05:00 Seg Neutrophils # 4.4 K/mm3 (1.8-7.7) 07/18/17 05:00 PT 19.7 Sec. (12.2-14.9) H 07/12/17 16:38 INR 1.59 (0.87-1.13) H 07/12/17 16:38 APTT 39.8 Sec. (24.2-36.6) H 07/12/17 16:38 Heparin Anti-Xa Level 0.21 U.I./ml (0.3-0.7) L 07/18/17 05:00 ABG pH 7.283 pH Units (7.350-7.450) L 07/10/17 16:06 ABG pCO2 37.7 mm Hg 07/10/17 16:06 ABG pO2 56.5 mm Hg (80.0-90.0) L 07/10/17 16:06 ABG HCO3 17.4 mmol/L (20.0-26.0) L 07/10/17 16:06 ABG O2 Saturation 89.5 % (95.0-99.0) L 07/10/17 16:06 ABG O2 Content 7.9 (0.0-44) 07/10/17 16:06 ABG Base Excess -8.5 mmol/L (-2.0-3.0) L 07/10/17 16:06 ABG Hemoglobin 6.3 gm/dl (14.0-18.0) L 07/10/17 16:06 ABG Carboxyhemoglobin 1.8 % (0.0-5.0) 07/10/17 16:06 ABG Methemoglobin 0.3 % (0.0-1.5) 07/10/17 16:06 VBG pH 7.362 (7.320-7.420) 07/09/17 21:14 Oxyhemoglobin 87.5 % (95.0-99.0) L 07/10/17 16:06 FiO2 28 % 07/10/17 16:06 Sodium 135 mmol/L (137-145) L 07/18/17 05:00 Potassium 3.9 mmol/L (3.6-5.0) 07/18/17 05:00 Chloride 94.4 mmol/L (98-107) L 07/18/17 05:00 Carbon Dioxide 29 mmol/L (22-30) 07/18/17 05:00 Anion Gap 16 mmol/L 07/18/17 05:00 BUN 27 mg/dL (9-20) H 07/18/17 05:00 Creatinine 2.1 mg/dL (0.8-1.5) H 07/18/17 05:00 Estimated GFR 40 ml/min 07/18/17 05:00 BUN/Creatinine Ratio 13 % 07/18/17 05:00 Glucose 149 mg/dL (75-100) H 07/18/17 05:00 POC Glucose 198 (70-105) H 07/17/17 21:30 Hemoglobin A1c 6.6 % (4-6) H 07/15/17 04:25 Lactic Acid 1.60 mmol/L (0.7-2.0) 07/09/17 23:11 Calcium 8.4 mg/dL (8.4-10.2) 07/18/17 05:00 Phosphorus 6.10 mg/dL (2.5-4.5) H 07/11/17 10:16 Magnesium 2.90 mg/dL (1.7-2.3) H 07/11/17 10:16 Total Bilirubin 2.20 mg/dL (0.1-1.2) H 07/18/17 05:00 Direct Bilirubin 1.5 mg/dL (0-0.2) H 07/11/17 14:32 Indirect Bilirubin 0.8 mg/dL 07/11/17 14:32 AST 17 units/L (5-40) 07/18/17 05:00 ALT 18 units/L (7-56) 07/18/17 05:00 Alkaline Phosphatase 114 units/L (35-129) 07/18/17 05:00 Total Creatine Kinase 892 units/L (55-170) H 07/10/17 12:11 CK-MB (CK-2) 30.9 ng/mL (0.0-4.0) H 07/10/17 12:11 CK-MB (CK-2) Rel Index 3.4 (0-4) 07/10/17 12:11 Troponin T 0.267 ng/mL (0.00-0.029) H* 07/10/17 12:11 NT-Pro-B Natriuret Pep 33638 pg/mL (0-900) H 07/09/17 21:27 Serum Total Protein 6.1 g/dL (6.1-8.1) 07/13/17 Unknown Total Protein 6.5 g/dL (6.3-8.2) 07/18/17 05:00 Albumin 2.6 g/dL (3.9-5) L 07/18/17 05:00 Albumin/Globulin Ratio 0.7 % 07/18/17 05:00 Idmrn-8-Tmjqvwigo 0.4 g/dL (0.2-0.3) H 07/13/17 Unknown Rdwli-1-Eufdybqgm 0.7 g/dL (0.5-0.9) 07/13/17 Unknown Beta Globulins 0.6 g/dL (0.2-0.5) H 07/13/17 Unknown Gamma Globulins 1.5 g/dL (0.8-1.7) 07/13/17 Unknown Abnorm Protein Band 1 see below 07/13/17 Unknown PEP Interpretation see below H 07/13/17 Unknown Triglycerides 93 mg/dL (2-149) 07/09/17 21:27 Cholesterol 137 mg/dL (50-199) 07/09/17 21:27 LDL Cholesterol Direct 74 mg/dL (50-130) 07/09/17 21:27 HDL Cholesterol 45 mg/dL (40-59) 07/09/17 21:27 Cholesterol/HDL Ratio 3.04 % 07/09/17 21:27 Urine Color Priyanka (Yellow) 07/09/17 20:52 Urine Turbidity Clear (Clear) 07/09/17 20:52 Urine pH 5.0 (5.0-7.0) 07/09/17 20:52 Ur Specific [place] 1.014 (1.003-1.030) 07/09/17 20:52 Urine Protein 100 mg/dl mg/dL (Negative) 07/09/17 20:52 Urine Glucose (UA) Neg mg/dL (Negative) 07/09/17 20:52 Urine Ketones Neg mg/dL (Negative) 07/09/17 20:52 Urine Blood Neg (Negative) 07/09/17 20:52 Urine Nitrite Neg (Negative) 07/09/17 20:52 Urine Bilirubin Neg (Negative) 07/09/17 20:52 Urine Urobilinogen 4.0 mg/dL (<2.0) 07/09/17 20:52 Ur Leukocyte Esterase Sm (Negative) 07/09/17 20:52 Urine WBC (Auto) 17.0 /HPF (0.0-6.0) H 07/09/17 20:52 Urine RBC (Auto) 7.0 /HPF (0.0-6.0) 07/09/17 20:52 Urine Bacteria (Auto) 1+ /HPF (Negative) 07/09/17 20:52 Urine Mucus Few /HPF 07/09/17 20:52 Urine Eosinophils None seen (None Seen) 07/11/17 Unknown Urine Creatinine 101.1 mg/dL (0.1-20.0) H 07/11/17 Unknown Urine Microalbumin 27.9 mg/dL (0.1-34.0) 07/10/17 Unknown Microalb/Creat Ratio 274.8 ug/mg 07/10/17 Unknown Protein/Creatinin Ratio 1.11 07/11/17 Unknown Urine Sodium 38 mEq/L 07/10/17 Unknown Urine Urea Nitrogen 337 07/10/17 Unknown Urine Total Protein 112 mg/dL (5-11.8) H 07/11/17 Unknown Digoxin 0.7 ng/mL (0.9-2.0) L 07/16/17 06:00 CHRISTOPHER Screen Negative (Negative) 07/11/17 09: Proteinase 3 (PR3) Ab <1.0 AI (<1.0) 07/11/17 09:19 Myeloperoxidase Ab <1.0 AI (<1.0) 07/11/17 09:19 Hepatitis A IgM Ab Non-reactive (NonReactive) 07/11/17 09:19 Hep Bs Antigen Non-reactive (Negative) 07/11/17 09:19 Hep B Core IgM Ab Non-reactive (NonReactive) 07/11/17 09:19 Hepatitis C Antibody Non-reactive (NonReactive) 07/11/17 09:19 HIV 1&2 Antibody Rapid Non react (Non React) 07/11/17 09:19 HIV P24 Antigen Non react (Non React) 07/11/17 09:19
--- NOTE | 2017-07-18 14:24 | Progress Note ---
Assessment and Plan Initiate low dose coreg. 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 He states he had been on coumadin for approx. 2 years prior to admission. Will initiate coumadin. Cont heparin gtt. D/c heparin gtt once tx INR of 2-3 is achieved. Pt may tx from ICU to telemetry from cardiology standpoint. The patient has been seen in conjunction with Dr. Gonzalez who agrees with the assessment and plan of care. - Patient Problems (1) Acute renal failure (ARF) Current Visit: Yes Status: Acute Qualifiers: Acute renal failure type: A (2) Acute systolic CHF (congestive heart failure) Current Visit: Yes Status: Acute (3) Dilated cardiomyopathy Current Visit: Yes Status: Chronic (4) Atrial flutter with rapid ventricular response Current Visit: Yes Status: Acute (5) Acute respiratory failure Current Visit: Yes Status: Resolved Qualifiers: Respiratory failure complication: R (6) History of hypertension Current Visit: Yes Status: Chronic (7) Hyperlipidemia Current Visit: Yes Status: Chronic Qualifiers: Hyperlipidemia type: H (8) Diabetes Current Visit: Yes Status: Chronic Qualifiers: Diabetes mellitus type: D Diabetes mellitus complication status: D Diabetes mellitus complication detail: D Diabetic retinopathy severity: D Proliferative retinopathy type: P Diabetes mellitus macular edema: D Diabetes mellitus assisted insulin use: D Laterality: L Chronic kidney disease stage: C (9) Anasarca Current Visit: Yes Status: Acute (10) Normal coronary arteries Current Visit: Yes Status: Suspected Subjective Date of service: 07/18/17 Principal diagnosis: ARF; HF Interval history: Pt resting in bed, NAD. A&O. no current complaints. Remains in AFlutter with RVR on telemetry, HR 100-110s. BPs stable. Off levophed and dobutamine gtts. Heparin gtt infusing. Objective Last Vital Signs Temp 97.5 F L 07/18/17 12:00 Pulse 95 H 07/18/17 11:40 Resp 18 07/18/17 11:40 BP 112/77 07/18/17 11:40 Pulse Ox 100 07/18/17 09:30 - Physical Examination General: No Apparent Distress HEENT: Positive: PERRL, Normocephaly, Mucus Membranes Moist Neck: Positive: neck supple, trachea midline Cardiac: Positive: irregularly irregular, S1/S2 Lungs: Positive: Decreased Breath Sounds Neuro: Positive: Grossly Intact Abdomen: Positive: Other (distended). Negative: Tender Skin: Positive: Clear, Other (generalized edema). Negative: Wound Extremities: Present: edema (BUE/BLE and generalized edema) - Labs and Meds Cardiac Enzymes 07/18/17 Range/Units 05:00 AST 17 (5-40) units/L CBC 07/18/17 Range/Units 05:00 WBC 5.9 (4.5-11.0) K/mm3 RBC 4.49 (3.65-5.03) M/mm3 Hgb 11.6 L (11.8-15.2) gm/dl Hct 35.3 L (35.5-45.6) % Plt Count 111 L (140-440) K/mm3 Lymph # 0.6 L (1.2-5.4) K/mm3 [place] # 0.8 (0.0-0.8) K/mm3 Eos # 0.1 (0.0-0.4) K/mm3 Baso # 0.0 (0.0-0.1) K/mm3 Comprehensive Metabolic Panel 07/13/17 07/18/17 Range/Units Unknown 05:00 Sodium 135 L (137-145) mmol/L Potassium 3.9 (3.6-5.0) mmol/L Chloride 94.4 L (98-107) mmol/L Carbon Dioxide 29 (22-30) mmol/L BUN 27 H (9-20) mg/dL Creatinine 2.1 H (0.8-1.5) mg/dL Glucose 149 H (75-100) mg/dL Calcium 8.4 (8.4-10.2) mg/dL AST 17 (5-40) units/L ALT 18 (7-56) units/L Alkaline Phosphatase 114 (35-129) units/L Total Protein 6.5 (6.3-8.2) g/dL Albumin 2.6 L 2.6 L (3.8-4.8) g/dL - Imaging and Cardiology Echo: report reviewed (Stress echo done 02/2009 was negative for ischemia, EF heber from 50-65%) Cardiac cath: report reviewed ([facility] 10/2000 at showed angiographically normal coronary arteries) - EKG Sinus rhythms and dysrhythmias: sinus tachycardia (low voltage)
[2017-07-18 15:17] LABS: INR 1.29 (0.87-1.13)
--- NOTE | 2017-07-18 15:36 | Progress Note ---
Assessment and Plan - Patient Problems (1) Acute renal failure (ARF) Current Visit: Yes Status: Acute Qualifiers: Acute renal failure type: A Plan to address problem: Hemodialysis today for UF and clearance. Hemodialysis tomorrow for UF only. Patient accepted at [facility] on ,T,S at 10:30 a,m SPEP/UPEP/IFX-pending Will need Permcath placement prior to discharge since may be dialysis dependent currently Renally dose medications Avoid Nephrotoxic agents Obtain daily weights Assess dialysis needs daily (2) Acute systolic CHF (congestive heart failure) Current Visit: Yes Status: Acute Plan to address problem: TTE- LV EF of 15 to 20% Cardiology following On Dobutamine drip (3) Type 2 diabetes mellitus with insulin therapy Current Visit: Yes Status: Acute Plan to address problem: As per primary team Subjective Date of service: 07/18/17 Principal diagnosis: ARF; HF Interval history: Patient seen lying in bed. Sleepy. Objective - Vital Signs Vital signs: Vital Signs - 12hr 07/18/17 07/18/17 07/18/17 03:46 04:00 04:16 Temperature 98.1 F Pulse Rate 140 H 117 H 114 H Pulse Rate [ 110 H From Monitor] Respiratory 14 21 19 Rate Blood Pressure 122/95 124/72 124/72 O2 Sat by Pulse 98 98 98 Oximetry 07/18/17 07/18/17 07/18/17 04:30 04:46 05:00 Temperature Pulse Rate 117 H 122 H 114 H Pulse Rate [ From Monitor] Respiratory 21 21 20 Rate Blood Pressure 127/73 127/73 125/68 O2 Sat by Pulse 97 97 98 Oximetry 07/18/17 07/18/17 07/18/17 05:16 05:30 05:46 Temperature Pulse Rate 109 H 121 H 117 H Pulse Rate [ From Monitor] Respiratory 15 21 19 Rate Blood Pressure 125/68 116/78 116/78 O2 Sat by Pulse 98 94 97 Oximetry 07/18/17 07/18/17 07/18/17 06:00 06:16 06:30 Temperature Pulse Rate 125 H 115 H 123 H Pulse Rate [ From Monitor] Respiratory 16 18 19 Rate Blood Pressure 126/81 126/81 122/80 O2 Sat by Pulse 98 97 98 Oximetry 07/18/17 07/18/17 07/18/17 06:46 07:00 07:16 Temperature Pulse Rate 113 H 118 H 109 H Pulse Rate [ From Monitor] Respiratory 14 18 18 Rate Blood Pressure 122/80 119/73 119/73 O2 Sat by Pulse 96 94 95 Oximetry 07/18/17 07/18/17 07/18/17 07:30 07:46 07:50 Temperature 98.0 F Pulse Rate 114 H 126 H 111 H Pulse Rate [ From Monitor] Respiratory 13 20 12 Rate Blood Pressure 113/68 113/68 113/68 O2 Sat by Pulse 93 96 Oximetry 07/18/17 07/18/17 07/18/17 08:00 08:15 08:16 Temperature 98 F Pulse Rate 126 H 113 H 116 H Pulse Rate [ 114 H From Monitor] Respiratory 16 16 Rate Blood Pressure 122/74 132/83 132/83 O2 Sat by Pulse 97 100 Oximetry 07/18/17 07/18/17 07/18/17 08:30 08:45 08:46 Temperature Pulse Rate 114 H 113 H 118 H Pulse Rate [ From Monitor] Respiratory 20 18 Rate Blood Pressure 133/82 133/82 141/83 O2 Sat by Pulse 97 97 Oximetry 07/18/17 07/18/17 07/18/17 09:00 09:15 09:16 Temperature Pulse Rate 119 H 110 H 101 H Pulse Rate [ From Monitor] Respiratory 17 14 Rate Blood Pressure 128/88 128/86 119/68 O2 Sat by Pulse 96 99 Oximetry 07/18/17 07/18/17 07/18/17 09:30 09:45 10:00 Temperature Pulse Rate 99 H 97 H 91 H Pulse Rate [ From Monitor] Respiratory 18 Rate Blood Pressure 106/75 110/80 118/75 O2 Sat by Pulse 100 Oximetry 07/18/17 07/18/17 07/18/17 10:15 10:30 10:45 Temperature Pulse Rate 96 H 103 H 102 H Pulse Rate [ From Monitor] Respiratory Rate Blood Pressure 107/71 116/70 105/67 O2 Sat by Pulse Oximetry 07/18/17 07/18/17 07/18/17 11:00 11:15 11:30 Temperature Pulse Rate 99 H 104 H 100 H Pulse Rate [ From Monitor] Respiratory Rate Blood Pressure 108/60 114/73 119/86 O2 Sat by Pulse Oximetry 07/18/17 07/18/17 11:40 12:00 Temperature 98.0 F 97.5 F L Pulse Rate 95 H Pulse Rate [ From Monitor] Respiratory 18 Rate Blood Pressure 112/77 O2 Sat by Pulse Oximetry - General Appearance General appearance: well-developed, appears stated age EENT: ATNC, PERRL, hearing intact, vision intact Neck: no JVD, supple Respiratory: Present: Decreased Breath Sounds Cardiology: regular, S1S2 Gastrointestinal: normoactive bowel sounds Integumentary: warm and dry Neurologic: alert and oriented x3 Musculoskeletal: joint swelling Psychiatric: mood/affect appropriate - Lab 07/18/17 05:00 07/18/17 05:00 Most recent lab results ABG pH 7.283 pH Units (7.350-7.450) L 07/10/17 16:06 ABG pCO2 37.7 mm Hg 07/10/17 16:06 ABG pO2 56.5 mm Hg (80.0-90.0) L 07/10/17 16:06 ABG HCO3 17.4 mmol/L (20.0-26.0) L 07/10/17 16:06 ABG O2 Saturation 89.5 % (95.0-99.0) L 07/10/17 16:06 Calcium 8.4 mg/dL (8.4-10.2) 07/18/17 05:00 Phosphorus 6.10 mg/dL (2.5-4.5) H 07/11/17 10:16 Magnesium 2.90 mg/dL (1.7-2.3) H 07/11/17 10:16 Urine Creatinine 101.1 mg/dL (0.1-20.0) H 07/11/17 Unknown Urine Sodium 38 mEq/L 07/10/17 Unknown Urine Total Protein 112 mg/dL (5-11.8) H 07/11/17 Unknown
[2017-07-18] MEDS: BABY ASPIRIN PO SCH (16:06)
[2017-07-18] MEDS ORDERED: COUMADIN PO SCH (17:00)
[2017-07-18] MEDS: COREG PO SCH (22:01)
[2017-07-19] MEDS: HEPARIN/ 0.45% NACL-25,000 UNIT/500 ML 25,000 UNIT/500 ML BAG IV SCH ×2 (00:02→16:46)
[2017-07-19 08:11] LABS: Albumin 2.3 g/dL (3.9-5); Albumin/Globulin Ratio 0.6 %; Bilirubin,Total 2.1 mg/dL (0.1-1.2); Calcium 8.7 mg/dL (8.4-10.2); Chloride 99.9 mmol/L (98-107); Total Protein 6.4 g/dL (6.3-8.2)
[2017-07-19 08:37] LABS: INR 1.4 (0.87-1.13)
[2017-07-19] MEDS ORDERED: NACL 0.9% 100 ML IV PRN (10:00)
[2017-07-19] MEDS: BABY ASPIRIN PO SCH (10:01)
[2017-07-19] MEDS: COREG PO SCH ×3 (10:01→22:43)
[2017-07-19] MEDS: NOVOLOG SUB-Q SCH ×5 (10:02→22:40)
--- NOTE | 2017-07-19 10:05 | Progress Note ---
Assessment and Plan (1) severe renal failure on HD Current Visit: Yes Status: Acute Qualifiers: Acute renal failure type: A Plan to address problem: HD today for UF only, will monitor dialyssi needs daily, for now will only do dry UF to monitor renal recovery if any, no baseline Cr is available, very likely he has advanced CKD Patient accepted at [facility] on T,T,S at 10:30 a,m Will need Permcath placement prior to discharge since may be dialysis dependent currently Renally dose medications Avoid Nephrotoxic agents Obtain daily weights Assess dialysis needs daily (2) Acute systolic CHF (congestive heart failure) Current Visit: Yes Status: Acute Plan to address problem: TTE- LV EF of 15 to 20% Cardiology following (3) Type 2 diabetes mellitus with insulin therapy Current Visit: Yes Status: Acute Plan to address problem: As per primary team Subjective Date of service: 07/19/17 Principal diagnosis: ARF; HF Interval history: tolerated HD yesterday Objective - Vital Signs Vital signs: Vital Signs - 12hr 07/18/17 07/18/17 07/19/17 22:56 23:50 05:03 Temperature 97.6 F 98.4 F Pulse Rate 90 92 H 80 Pulse Rate [ From Monitor] Respiratory 20 20 20 Rate Blood Pressure Blood Pressure 120/73 122/57 [Left] O2 Sat by Pulse 95 Oximetry 07/19/17 07/19/17 07/19/17 05:08 05:36 06:12 Temperature 98.5 F Pulse Rate 90 94 H Pulse Rate [ 92 H From Monitor] Respiratory 17 Rate Blood Pressure Blood Pressure 113/63 [Left] O2 Sat by Pulse Oximetry 07/19/17 07/19/17 07/19/17 08:49 09:38 10:01 Temperature 97.7 F Pulse Rate 91 H Pulse Rate [ From Monitor] Respiratory 20 Rate Blood Pressure 106/71 102/75 Blood Pressure [Left] O2 Sat by Pulse 97 98 Oximetry - General Appearance General appearance: well-developed, well-nourished, obese EENT: ATNC, PERRL, mucous membranes moist Neck: no JVD, no carotid bruit Respiratory: Present: Clear to Ascultation. Absent: Rales, Ronchi Cardiology: regular, S1S2 Gastrointestinal: normoactive bowel sounds, no tenderness, no distended, obese Integumentary: no rash, warm and dry Neurologic: no focal deficit, no asterixis, alert and oriented x3 Musculoskeletal: other (2+ pitting edema in all ext) Psychiatric: mood/affect appropriate, cooperative - Lab 07/18/17 05:00 07/19/17 07:13 Most recent lab results ABG pH 7.283 pH Units (7.350-7.450) L 07/10/17 16:06 ABG pCO2 37.7 mm Hg 07/10/17 16:06 ABG pO2 56.5 mm Hg (80.0-90.0) L 07/10/17 16:06 ABG HCO3 17.4 mmol/L (20.0-26.0) L 07/10/17 16:06 ABG O2 Saturation 89.5 % (95.0-99.0) L 07/10/17 16:06 Calcium 8.7 mg/dL (8.4-10.2) 07/19/17 07:13 Phosphorus 6.10 mg/dL (2.5-4.5) H 07/11/17 10:16 Magnesium 2.90 mg/dL (1.7-2.3) H 07/11/17 10:16 Urine Creatinine 101.1 mg/dL (0.1-20.0) H 07/11/17 Unknown Urine Sodium 38 mEq/L 07/10/17 Unknown Urine Total Protein 112 mg/dL (5-11.8) H 07/11/17 Unknown
[2017-07-19] MEDS ORDERED: COREG PO SCH (11:27)
--- NOTE | 2017-07-19 11:27 | Progress Note ---
Assessment and Plan Increase coreg. Cont Coumadin and heparin gtt. D/c heparin gtt once tx INR of 2-3 is achieved. The patient has been seen in conjunction with Dr. Gonzalez who agrees with the assessment and plan of care. - Patient Problems (1) Acute renal failure (ARF) Current Visit: Yes Status: Acute Qualifiers: Acute renal failure type: A (2) Acute systolic CHF (congestive heart failure) Current Visit: Yes Status: Acute (3) Dilated cardiomyopathy Current Visit: Yes Status: Chronic (4) Atrial flutter with rapid ventricular response Current Visit: Yes Status: Acute (5) Acute respiratory failure Current Visit: Yes Status: Resolved Qualifiers: Respiratory failure complication: R (6) History of hypertension Current Visit: Yes Status: Chronic (7) Hyperlipidemia Current Visit: Yes Status: Chronic Qualifiers: Hyperlipidemia type: H (8) Diabetes Current Visit: Yes Status: Chronic Qualifiers: Diabetes mellitus type: D Diabetes mellitus complication status: D Diabetes mellitus complication detail: D Diabetic retinopathy severity: D Proliferative retinopathy type: P Diabetes mellitus macular edema: D 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 A&O. no current complaints. Remains in AFlutter with intermittent RVR on telemetry, HR 130s with activity. Heparin gtt infusing. INR 1.4 this AM. Objective Last Vital Signs Temp 97.7 F 07/19/17 08:49 Pulse 91 H 07/19/17 08:49 Resp 20 07/19/17 08:49 BP 102/75 07/19/17 10:01 Pulse Ox 98 07/19/17 09:38 - Physical Examination General: No Apparent Distress HEENT: Positive: PERRL, Normocephaly, Mucus Membranes Moist Neck: Positive: neck supple, trachea midline Cardiac: Positive: irregularly irregular, S1/S2, Tachycardia Lungs: Positive: Decreased Breath Sounds Neuro: Positive: Grossly Intact Abdomen: Positive: Other (distended). Negative: Tender Skin: Positive: Clear, Other (generalized edema). Negative: Wound Extremities: Present: edema (BUE/BLE and generalized edema) - Labs and Meds Cardiac Enzymes 07/19/17 Range/Units 07:13 AST 21 (5-40) units/L Coagulation 07/18/17 07/19/17 Range/Units 13:55 06:40 PT 16.7 H 17.9 H (12.2-14.9) Sec. INR 1.29 H 1.40 H (0.87-1.13) Comprehensive Metabolic Panel 07/19/17 Range/Units 07:13 Sodium 136 L (137-145) mmol/L Potassium 4.0 (3.6-5.0) mmol/L Chloride 99.9 (98-107) mmol/L Carbon Dioxide 24 (22-30) mmol/L BUN 22 H (9-20) mg/dL Creatinine 1.9 H (0.8-1.5) mg/dL Glucose 152 H (75-100) mg/dL Calcium 8.7 (8.4-10.2) mg/dL AST 21 (5-40) units/L ALT 18 (7-56) units/L Alkaline Phosphatase 131 H (35-129) units/L Total Protein 6.4 (6.3-8.2) g/dL Albumin 2.3 L (3.9-5) g/dL - Imaging and Cardiology Echo: report reviewed (Stress echo done 02/2009 was negative for ischemia, EF heber from 50-65%) Cardiac cath: report reviewed ([facility] 10/2000 at showed angiographically normal coronary arteries) - EKG Sinus rhythms and dysrhythmias: sinus tachycardia (low voltage)
[2017-07-19] MEDS ORDERED: NACL 0.9 (PRIMING MACHINE ONLY DIALYSIS) MC ONE (12:38)
[2017-07-19] MEDS: HEPARIN IV PRN (15:25)
[2017-07-19] MEDS ORDERED: COUMADIN PO SCH (17:00)
--- NOTE | 2017-07-19 18:17 | Progress Note ---
Assessment and Plan Assessment and plan: Acute kidney injury due to acute tubular necrosis Presented with Anasarca and volume overload Initiated on Hemodialysis since 07/10/17, Renally dose all meds and avoid nephrotoxic meds Outpatient dialysis arranged to continue hemodialysis on discharge. Acute respiratory failure due to CHF exacerbation. On supplemental Oxygen BIPAP prn Shock/Hypotension Cardiogenic shock Now resolved Off Levophed. Dobutamine drip discontinued 07/18/17 and he was transferred to Tele from ICU yesterday Atrial flutter Coreg for rate control Continue heparin drip and Coumadin Coumadin just started yesterday 07/18 Acute metabolic encephalopathy daniele from uremia has h/o fall, CT head was unremarkable on admission Improving mental status. He is now oriented to person, place and time. Hyperkalemia: This is now resolved with dialysis. Acute on chronic combined Systolic and diastolic congestive heart failure TTE shows low EF of 15 to 20% Dobutamine drip discontinued, less leg edema Diabetes mellitus type 2 on insulin: Was on Insulin at home A1C is 6.6, showing overall controlled diabetes SSI coverage for now hypoglycemia noted in the ED, corrected with 50% Dextrose elevated troponin likely from worsening renal function and underlying CHF Cardiology following Essential Hypertension,history Antihypertensives on hold because of hypotension DVT prophylaxis. On Heparin drip, Coumadin Full code status. Discussed with brother few days ago. On 07/17/17, Patient stated he is not fully aware of plan of care and I discussed plan and goals of care with him. I explained, he is on Dobutamine drip and will be transferred to Telemetry once off drip. History Interval history: Patient initially presented with shortness of breath, edema and fall at home, diagnosed with acute resp failure,shock,JA, CHF exacerbation. Transferred to Tele from ICU 07/18/17 feels better Less shortness of breath, No chest pain, Hospitalist Physical - Physical exam Narrative exam: Gen Appearance: Not in acute distress,Morbidly obese HEENT: normocephalic, atraumatic Neck: supple, no JVD Lungs: Clear to auscultation, no rales, no wheezing, Heart: S1 and S2 regular, no murmurs,no rubs or gallop, Abdomen: Soft , non tender, non distended, normal bowel sounds Extremity: Edema both lower ext, no clubbing or cyanosis, Neuro : Awake,alert, normal speech, Oriented in person, place, and time, moves all extremities - Constitutional Vitals: Temp Pulse Resp BP Pulse Ox 97.5 F L 88 20 116/72 98 07/19/17 15:35 07/19/17 15:35 07/19/17 15:35 07/19/17 16:45 07/19/17 09:38 General appearance: Present: no acute distress Results - Labs CBC & Chem 7: 07/18/17 05:00 07/19/17 07:13 Labs: Laboratory Last Values WBC 5.9 K/mm3 (4.5-11.0) 07/18/17 05:00 RBC 4.49 M/mm3 (3.65-5.03) 07/18/17 05:00 Hgb 11.6 gm/dl (11.8-15.2) L 07/18/17 05:00 Hct 35.3 % (35.5-45.6) L 07/18/17 05:00 MCV 79 fl (84-94) L 07/18/17 05:00 MCH 26 pg (28-32) L 07/18/17 05:00 MCHC 33 % (32-34) 07/18/17 05:00 RDW 22.4 % (13.2-15.2) H 07/18/17 05:00 Plt Count 111 K/mm3 (140-440) L 07/18/17 05:00 Lymph % (Auto) 10.3 % (13.4-35.0) L 07/18/17 05:00 [place] % (Auto) 13.6 % (0.0-7.3) H 07/18/17 05:00 Eos % (Auto) 1.8 % (0.0-4.3) 07/18/17 05:00 Baso % (Auto) 0.3 % (0.0-1.8) 07/18/17 05:00 Lymph # 0.6 K/mm3 (1.2-5.4) L 07/18/17 05:00 [place] # 0.8 K/mm3 (0.0-0.8) 07/18/17 05:00 Eos # 0.1 K/mm3 (0.0-0.4) 07/18/17 05:00 Baso # 0.0 K/mm3 (0.0-0.1) 07/18/17 05:00 Seg Neutrophils % 74.0 % (40.0-70.0) H 07/18/17 05:00 Seg Neutrophils # 4.4 K/mm3 (1.8-7.7) 07/18/17 05:00 PT 17.9 Sec. (12.2-14.9) H 07/19/17 06:40 INR 1.40 (0.87-1.13) H 07/19/17 06:40 APTT 39.8 Sec. (24.2-36.6) H 07/12/17 16:38 Heparin Anti-Xa Level 0.20 U.I./ml (0.3-0.7) L 07/19/17 15:17 ABG pH 7.283 pH Units (7.350-7.450) L 07/10/17 16:06 ABG pCO2 37.7 mm Hg 07/10/17 16:06 ABG pO2 56.5 mm Hg (80.0-90.0) L 07/10/17 16:06 ABG HCO3 17.4 mmol/L (20.0-26.0) L 07/10/17 16:06 ABG O2 Saturation 89.5 % (95.0-99.0) L 07/10/17 16:06 ABG O2 Content 7.9 (0.0-44) 07/10/17 16:06 ABG Base Excess -8.5 mmol/L (-2.0-3.0) L 07/10/17 16:06 ABG Hemoglobin 6.3 gm/dl (14.0-18.0) L 07/10/17 16:06 ABG Carboxyhemoglobin 1.8 % (0.0-5.0) 07/10/17 16:06 ABG Methemoglobin 0.3 % (0.0-1.5) 07/10/17 16:06 VBG pH 7.362 (7.320-7.420) 07/09/17 21:14 Oxyhemoglobin 87.5 % (95.0-99.0) L 07/10/17 16:06 FiO2 28 % 07/10/17 16:06 Sodium 136 mmol/L (137-145) L 07/19/17 07:13 Potassium 4.0 mmol/L (3.6-5.0) 07/19/17 07:13 Chloride 99.9 mmol/L (98-107) 07/19/17 07:13 Carbon Dioxide 24 mmol/L (22-30) 07/19/17 07:13 Anion Gap 16 mmol/L 07/19/17 07:13 BUN 22 mg/dL (9-20) H 07/19/17 07:13 Creatinine 1.9 mg/dL (0.8-1.5) H 07/19/17 07:13 Estimated GFR 45 ml/min 07/19/17 07:13 BUN/Creatinine Ratio 12 % 07/19/17 07:13 Glucose 152 mg/dL (75-100) H 07/19/17 07:13 POC Glucose 179 (70-105) H 07/19/17 16:17 Hemoglobin A1c 6.6 % (4-6) H 07/15/17 04:25 Lactic Acid 1.60 mmol/L (0.7-2.0) 07/09/17 23:11 Calcium 8.7 mg/dL (8.4-10.2) 07/19/17 07:13 Phosphorus 6.10 mg/dL (2.5-4.5) H 07/11/17 10:16 Magnesium 2.90 mg/dL (1.7-2.3) H 07/11/17 10:16 Total Bilirubin 2.10 mg/dL (0.1-1.2) H 07/19/17 07:13 Direct Bilirubin 1.5 mg/dL (0-0.2) H 07/11/17 14:32 Indirect Bilirubin 0.8 mg/dL 07/11/17 14:32 AST 21 units/L (5-40) 07/19/17 07:13 ALT 18 units/L (7-56) 07/19/17 07:13 Alkaline Phosphatase 131 units/L (35-129) H 07/19/17 07:13 Total Creatine Kinase 892 units/L (55-170) H 07/10/17 12:11 CK-MB (CK-2) 30.9 ng/mL (0.0-4.0) H 07/10/17 12:11 CK-MB (CK-2) Rel Index 3.4 (0-4) 07/10/17 12:11 Troponin T 0.267 ng/mL (0.00-0.029) H* 07/10/17 12:11 NT-Pro-B Natriuret Pep 41316 pg/mL (0-900) H 07/09/17 21:27 Serum Total Protein 6.1 g/dL (6.1-8.1) 07/13/17 Unknown Total Protein 6.4 g/dL (6.3-8.2) 07/19/17 07:13 Albumin 2.3 g/dL (3.9-5) L 07/19/17 07:13 Albumin/Globulin Ratio 0.6 % 07/19/17 07:13 Lggoe-3-Jygpzhqnl 0.4 g/dL (0.2-0.3) H 07/13/17 Unknown Bvokw-4-Dttpldzgo 0.7 g/dL (0.5-0.9) 07/13/17 Unknown Beta Globulins 0.6 g/dL (0.2-0.5) H 07/13/17 Unknown Gamma Globulins 1.5 g/dL (0.8-1.7) 07/13/17 Unknown Abnorm Protein Band 1 see below 07/13/17 Unknown PEP Interpretation see below H 07/13/17 Unknown Triglycerides 93 mg/dL (2-149) 07/09/17 21:27 Cholesterol 137 mg/dL (50-199) 07/09/17 21:27 LDL Cholesterol Direct 74 mg/dL (50-130) 07/09/17 21:27 HDL Cholesterol 45 mg/dL (40-59) 07/09/17 21:27 Cholesterol/HDL Ratio 3.04 % 07/09/17 21:27 Urine Color Priyanka (Yellow) 07/09/17 20:52 Urine Turbidity Clear (Clear) 07/09/17 20:52 Urine pH 5.0 (5.0-7.0) 07/09/17 20:52 Ur Specific [place] 1.014 (1.003-1.030) 07/09/17 20:52 Urine Protein 100 mg/dl mg/dL (Negative) 07/09/17 20:52 Urine Glucose (UA) Neg mg/dL (Negative) 07/09/17 20:52 Urine Ketones Neg mg/dL (Negative) 07/09/17 20:52 Urine Blood Neg (Negative) 07/09/17 20:52 Urine Nitrite Neg (Negative) 07/09/17 20:52 Urine Bilirubin Neg (Negative) 07/09/17 20:52 Urine Urobilinogen 4.0 mg/dL (<2.0) 07/09/17 20:52 Ur Leukocyte Esterase Sm (Negative) 07/09/17 20:52 Urine WBC (Auto) 17.0 /HPF (0.0-6.0) H 07/09/17 20:52 Urine RBC (Auto) 7.0 /HPF (0.0-6.0) 07/09/17 20:52 Urine Bacteria (Auto) 1+ /HPF (Negative) 07/09/17 20:52 Urine Mucus Few /HPF 07/09/17 20:52 Urine Eosinophils None seen (None Seen) 07/11/17 Unknown Urine Creatinine 101.1 mg/dL (0.1-20.0) H 07/11/17 Unknown Urine Microalbumin 27.9 mg/dL (0.1-34.0) 07/10/17 Unknown Microalb/Creat Ratio 274.8 ug/mg 07/10/17 Unknown Protein/Creatinin Ratio 1.11 07/11/17 Unknown Urine Sodium 38 mEq/L 07/10/17 Unknown Urine Urea Nitrogen 337 07/10/17 Unknown Urine Total Protein 112 mg/dL (5-11.8) H 07/11/17 Unknown Digoxin 0.7 ng/mL (0.9-2.0) L 07/16/17 06:00 Immunofix Electrophor see below 07/13/17 Unknown CHRISTOPHER Screen Negative (Negative) 07/11/17 09:19 Proteinase 3 (PR3) Ab <1.0 AI (<1.0) 07/11/17 09:19 Myeloperoxidase Ab <1.0 AI (<1.0) 07/11/17 09:19 Hepatitis A IgM Ab Non-reactive (NonReactive) 07/11/17 09:19 Hep Bs Antigen Non-reactive (Negative) 07/11/17 09:19 Hep B Core IgM Ab Non-reactive (NonReactive) 07/11/17 09:19 Hepatitis C Antibody Non-reactive (NonReactive) 07/11/17 09:19 HIV 1&2 Antibody Rapid Non react (Non React) 10/16/17 09:19 HIV P24 Antigen Non react (Non React) 07/11/17 09:19
[2017-07-20] MEDS: HEPARIN/ 0.45% NACL-25,000 UNIT/500 ML 25,000 UNIT/500 ML BAG IV SCH (03:44)
[2017-07-20 05:08] LABS: INR 2.07 (0.87-1.13)
[2017-07-20 05:14] LABS: Hematocrit 38.8 % (35.5-45.6); Hemoglobin 12.4 gm/dl (11.8-15.2); Red Blood Count 4.84 M/mm3 (3.65-5.03); White Blood Count 5.6 K/mm3 (4.5-11.0)
[2017-07-20 05:15] LABS: Mean Corpuscular HGB Conc 32 % (32-34); Mean Corpuscular Hemoglobin 26 pg (28-32); Mean Corpuscular Volume 80 fl (84-94); Platelet Count 143 K/mm3 (140-440); Red Cell Distribution Width 22.7 % (13.2-15.2)
[2017-07-20 05:53] LABS: Calcium 8.9 mg/dL (8.4-10.2); Chloride 94.6 mmol/L (98-107); Potassium 4.1 mmol/L (3.6-5.0)
[2017-07-20] MEDS: COREG PO SCH ×2 (10:05→22:01)
[2017-07-20] MEDS: BABY ASPIRIN PO SCH (10:05)
[2017-07-20] MEDS: NOVOLOG SUB-Q SCH ×4 (10:12→22:03)
--- NOTE | 2017-07-20 11:46 | Progress Note ---
Assessment and Plan Cont coreg. No ACEI/ARB at this time given renal insufficiency and intermittent low BPs. D/c heparin gtt and cont coumadin as INR is therapeutic this AM. Currently stable cardiac status. Will see on as needed basis. Recommend pt to follow up with primary deburrer at [place], Dr. Richards, within 3-5 business days of hospital discharge. The patient has been seen in conjunction with Dr. Gonzalez who agrees with the assessment and plan of care. - Patient Problems (1) Acute renal failure (ARF) Current Visit: Yes Status: Acute Qualifiers: Acute renal failure type: A (2) Acute systolic CHF (congestive heart failure) Current Visit: Yes Status: Acute (3) Dilated cardiomyopathy Current Visit: Yes Status: Chronic (4) Atrial flutter with rapid ventricular response Current Visit: Yes Status: Acute (5) Acute respiratory failure Current Visit: Yes Status: Resolved Qualifiers: Respiratory failure complication: R (6) History of hypertension Current Visit: Yes Status: Chronic (7) Hyperlipidemia Current Visit: Yes Status: Chronic Qualifiers: Hyperlipidemia type: H (8) Diabetes Current Visit: Yes Status: Chronic Qualifiers: Diabetes mellitus type: D Diabetes mellitus complication status: D Diabetes mellitus complication detail: D Diabetic retinopathy severity: D Proliferative retinopathy type: P Diabetes mellitus macular edema: D Diabetes mellitus prison insulin use: D Laterality: L Chronic kidney disease stage: C (9) Anasarca Current Visit: Yes Status: Acute (10) Normal coronary arteries Current Visit: Yes Status: Suspected Subjective Date of service: 07/20/17 Principal diagnosis: ARF; HF Interval history: Pt resting comfortably, NAD. A&O. no current complaints. Remains in AFlutter with CVR on tele. INR 2.07 this AM. Objective Vital Signs Temp Pulse Resp BP Pulse Ox 07/20/17 10:05 97/66 07/20/17 09:49 22 07/20/17 09:27 98 07/20/17 08:05 98.0 F 88 20 97/66 98 07/20/17 04:41 98.5 F 92 H 24 112/72 98 07/20/17 04:35 89 07/20/17 00:36 97.3 F L 96 H 19 124/83 99 07/19/17 23:58 89 20 99 07/19/17 22:43 89 105/62 07/19/17 22:40 99 07/19/17 20:00 89 07/19/17 19:43 97.4 F L 87 21 105/62 98 07/19/17 17:34 97.9 F 89 20 102/69 98 07/19/17 16:45 116/72 07/19/17 15:35 97.5 F L 88 20 116/61 07/19/17 15:20 88 106/55 07/19/17 15:15 88 110/69 07/19/17 15:00 88 127/69 07/19/17 14:45 82 106/63 07/19/17 14:30 88 118/70 07/19/17 14:15 87 116/78 07/19/17 14:00 89 108/71 07/19/17 13:45 89 110/66 07/19/17 13:30 88 110/64 07/19/17 13:15 88 107/70 07/19/17 13:00 90 111/75 07/19/17 12:45 89 111/76 07/19/17 12:30 89 141/62 07/19/17 12:15 92 H 150/76 07/19/17 12:00 90 126/60 07/19/17 11:50 90 162/84 - Physical Examination General: No Apparent Distress HEENT: Positive: PERRL, Normocephaly, Mucus Membranes Moist Neck: Positive: neck supple, trachea midline Cardiac: Positive: irregularly irregular, S1/S2 Lungs: Positive: Decreased Breath Sounds Neuro: Positive: Grossly Intact Abdomen: Positive: Other (distended). Negative: Tender Skin: Positive: Clear, Other (generalized edema). Negative: Wound Extremities: Present: edema (BUE/BLE and generalized edema) - Labs and Meds Coagulation 07/20/17 Range/Units 04:22 PT 24.3 H (12.2-14.9) Sec. INR 2.07 H (0.87-1.13) CBC 07/20/17 Range/Units 04:22 WBC 5.6 (4.5-11.0) K/mm3 RBC 4.84 (3.65-5.03) M/mm3 Hgb 12.4 (11.8-15.2) gm/dl Hct 38.8 (35.5-45.6) % Plt Count 143 (140-440) K/mm3 Comprehensive Metabolic Panel 07/20/17 Range/Units 04:22 Sodium 133 L (137-145) mmol/L Potassium 4.1 (3.6-5.0) mmol/L Chloride 94.6 L (98-107) mmol/L Carbon Dioxide 26 (22-30) mmol/L BUN 28 H (9-20) mg/dL Creatinine 2.7 H (0.8-1.5) mg/dL Glucose 167 H (75-100) mg/dL Calcium 8.9 (8.4-10.2) mg/dL - Imaging and Cardiology Echo: report reviewed (Stress echo done 02/2009 was negative for ischemia, EF heber from 50-65%) Cardiac cath: report reviewed ([facility] 10/2000 at showed angiographically normal coronary arteries) - EKG Sinus rhythms and dysrhythmias: sinus tachycardia (low voltage)
--- NOTE | 2017-07-20 13:27 | Progress Note ---
Assessment and Plan Acute renal failure possibly cardiorenal syndrome/ATN from low BP on intermittent hemodialysis: Unknown CKD: Anasarca with volume overload -Pt does have h/o DM so could have CKD from it, no BL Cr available. Likely has CKD. -UA showed 100 protein, Urine PCR is 1.11. Check SPEP/UPEP/IFX. -Urine also showed some red cells will eval for nephritic syndrome with CHRISTOPHER, ANCA, Anti-GBM, C3/C4, Hep panel, HIV. -HIV, Hep panel, CHRISTOPHER, ANCA, Anti-GBM, Complements, IFX, SPEP -ve. -Currently on IHD via fem VC. HD today, HD again tomorrow via fem VC. Target UF 3-4L with each HD. -Will consult Vascular Surgery to switch Fem VC to IJ Tunnel dialysis catheter ( Permcath) since may be dialysis dependant for now. -Patient accepted at [facility] on TTS at 10:30 a,m -Renally dose all meds and avoid nephrotoxic meds -Renal US -ve for hydronephrosis Hyponatremia, Hypotonic: -Likely hypervolemic -UF with HD Metabolic acidosis: -Improved with IHD. 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 -UF via HD Diabetes mellitus type 2 on insulin: -On insulin -Per primary Hypotension -BP on lower side, no BP meds except low dose Coreg for afib per cards. Atrial fibrillation: -Per cards. On low dose Coreg and anticoagulation. Pato Fisher MD Nephrology, Hypertension, Dialysis, Transplantation Phone no: [phone] Subjective Date of service: 07/20/17 Principal diagnosis: ARF; HF Interval history: Denies Cp/SHOB. Feels arm and leg swelling improving. Objective - Exam Narrative Exam: GE: AAOX3 HEENT: Normocephalic Neck: No JVD Chest: Coarse BS BL CVS: Tachycardic Abd: Soft/BS+ Ext: 2+ BLE edema, fem VC Neuro: AAOX3 - Vital Signs Vital signs: Vital Signs - 12hr 07/20/17 07/20/17 07/20/17 04:35 04:41 08:05 Temperature 98.5 F 98.0 F Pulse Rate 89 92 H 88 Respiratory 24 20 Rate Blood Pressure 112/72 97/66 O2 Sat by Pulse 98 98 Oximetry 10/25/17 10/25/17 10/25/17 09:27 09:49 10:05 Temperature Pulse Rate Respiratory 22 Rate Blood Pressure 97/66 O2 Sat by Pulse 98 Oximetry - Lab 07/20/17 04:22 07/20/17 04:22 Most recent lab results ABG pH 7.283 pH Units (7.350-7.450) L 07/10/17 16:06 ABG pCO2 37.7 mm Hg 07/10/17 16:06 ABG pO2 56.5 mm Hg (80.0-90.0) L 07/10/17 16:06 ABG HCO3 17.4 mmol/L (20.0-26.0) L 07/10/17 16:06 ABG O2 Saturation 89.5 % (95.0-99.0) L 07/10/17 16:06 Calcium 8.9 mg/dL (8.4-10.2) 07/20/17 04:22 Phosphorus 6.10 mg/dL (2.5-4.5) H 07/11/17 10:16 Magnesium 2.90 mg/dL (1.7-2.3) H 07/11/17 10:16 Urine Creatinine 101.1 mg/dL (0.1-20.0) H 07/11/17 Unknown Urine Sodium 38 mEq/L 07/10/17 Unknown Urine Total Protein 112 mg/dL (5-11.8) H 07/11/17 Unknown
[2017-07-20] MEDS ORDERED: NACL 0.9% 100 ML IV PRN ×2 (13:30→17:25)
--- NOTE | 2017-07-20 14:42 | Discharge Summary ---
Providers - Providers Date of Admission: 07/10/17 06:20 Attending physician: STEVEN LYNN MD 07/10/17 13:01 Consult to Physician [CONS] Routine Consulting Provider: ARGELIA COOLEY Reason For Exam: Vas Catheter placement Place consult to:: yamile service Notified:: yes Phone number called:: [phone] Was contact made?: Yes If yes, spoke with:: sophie Time called:: 13:19 Comment:: tra 07/10/17 13:50 Speech Therapy Evaluation and Treat [CONS] Routine Reason For Exam: Lethargy and not trying to take po 07/10/17 21:02 Consult to Physician [CONS] Routine Consulting Provider: KANDY SADLER Reason For Exam: chf, nstemi Place consult to:: Abdullahi Notified:: godfrey John Phone number called:: overhead page Was contact made?: Yes If yes, spoke with:: Godfrey John Time called:: 12:23 Comment:: as per Godfrey will put pt on her list 07/11/17 11:43 Consult to Dietitian/Nutrition [CONS] Routine Physician Instructions: Reason For Exam: Reason for Consult: Write/Manage Tube Feeding 07/16/17 08:42 PICC Line Insertion [Consult to PICC Line RN] [CONS] Routine Reason For Exam: picc/remove tlc Type Line:: PICC 07/16/17 08:48 Consult to Wound/ET Nurse [CONS] Routine Reason For Exam: sore on penis/lauren le 07/18/17 11:15 Speech Therapy Evaluation and Treat [CONS] Routine Reason For Exam: Re-evaluation diet advancement. 07/19/17 18:28 Physical Therapy Evaluation and Treat [CONS] Routine Comment: Reason For Exam: Gen weakness 07/20/17 13:31 Consult to Physician [CONS] Routine Consulting Provider: ARGELIA COOLEY Reason For Exam: Permcath placement for dialysis Place consult to:: Dr. Cooley Notified:: Kati DEMPSEY Was contact made?: Yes If yes, spoke with:: Fan Bond Time called:: 13:54 Primary care physician: HSE COORDINATOR Hospitalization Condition: Stable Exam - Constitutional Vitals: Temp Pulse Resp BP Pulse Ox 98.0 F 85 18 91/55 98 07/20/17 11:45 07/20/17 11:45 07/20/17 11:45 07/20/17 11:45 07/20/17 11:45 Plan Additional Instructions: You must have INR (warfarin or coumadin level), to monitor your blood thinner within 2 to 3 days of discharge. This can be done at Dialysis for which you are to go Tuesday, , Tuesday. Follow up with: PRIMARY CARE, [Primary Care Provider] - 3-5 Days Forms: Warfarin Discharge Instruction Prescriptions: Carvedilol [Coreg] 6.25 mg PO BID #60 tablet Warfarin [Coumadin] 5 mg PO QDAY #30 tablet
--- NOTE | 2017-07-20 15:30 | Event Note ---
Date: 07/20/17 Asked to evaluate the patient for permacath placement as he continues to require hemodialysis at this point. Discharge planning and progress. We will make the patient NPO after midnight, and scheduled the procedure for tomorrow.
--- NOTE | 2017-07-20 18:16 | Progress Note ---
Assessment and Plan Assessment and plan: 57-year-old man who presented with fluid overload, acute hypoxic respiratory failure, needed to be urgently intubated. Found to have end-stage renal disease. It is possible that the cause of the fluid overload was FDG renal disease Acute kidney injury most likely due to ATN, patient is most likely in end-stage renal disease, Nephrology on the case, patient for permacath tomorrow. Will need outpatient dialysis set up Acute hypoxic respiratory failure requiring mechanical ventilator greater than 96 hours Was due to fluid overload, Has been extubated, doing well, improved. Acute respiratory failure due to fluid overload Has received multiple episodes of dialysis and ultrafiltration, now resolved Cardiogenic shock, patient received pressors, now resolved. Acute exacerbation of chronic systolic CHF with pulmonary vascular congestion The patient received dobutamine drip, ultrafiltration to remove excess fluid, medications have been optimized Atrial flutter with hypercoagulable states Meds optimized, continue Coumadin for stroke prophylaxis, continue beta stacey Acute metabolic encephalopathy l likely due to uremia and shock, now resolved Hyperkalemia: This is now resolved with dialysis. Diabetes mellitus type 2 on insulin: Was on Insulin at home A1C is 6.6, showing overall controlled diabetes Likely needs less insulin given kidney failure SSI coverage for now hypoglycemia noted in the ED, corrected with 50% Dextrose Type II [place]/demand ischemia likely from worsening renal function and underlying CHF Cardiology input appreciated, no further workup Essential Hypertension,history BP meds were discontinued due to hypotension, continue beta stacey only DVT prophylaxis. Fully anticoagulated History Interval history: Patient denies any shortness of breath, states that lower extremity swelling is mostly resolved. Denies confusion. Hospitalist Physical - Physical exam Narrative exam: General.: Appears well, no distress, nontoxic HEENT: Moist mucous membranes, extraocular muscles intact, no lymphadenopathy Neck: supple Cardiac: S1-S2 heard Lungs: clear to auscultation bilaterally Abdomen: soft , nontender, nondistended, bowel sounds positive Extremities: trace bipedal edema Skin: no rash or lesions Neurologic: no gross focal deficits Psych: appropriate behavior, appropriate mood, corporative, judgment intact - Constitutional Vitals: Temp Pulse Resp BP Pulse Ox 98.0 F 85 18 91/55 98 07/20/17 11:45 07/20/17 11:45 07/20/17 11:45 07/20/17 11:45 07/20/17 11:45 General appearance: Present: no acute distress Results - Labs CBC & Chem 7: 07/20/17 04:22 07/22/17 05:52 Labs: Laboratory Last Values WBC 5.6 K/mm3 (4.5-11.0) 07/20/17 04:22 RBC 4.84 M/mm3 (3.65-5.03) 07/20/17 04:22 Hgb 12.4 gm/dl (11.8-15.2) 07/20/17 04:22 Hct 38.8 % (35.5-45.6) 07/20/17 04:22 MCV 80 fl (84-94) L 07/20/17 04:22 MCH 26 pg (28-32) L 07/20/17 04:22 MCHC 32 % (32-34) 07/20/17 04:22 RDW 22.7 % (13.2-15.2) H 07/20/17 04:22 Plt Count 143 K/mm3 (140-440) 07/20/17 04:22 Lymph % (Auto) 10.3 % (13.4-35.0) L 07/18/17 05:00 [place] % (Auto) 13.6 % (0.0-7.3) H 07/18/17 05:00 Eos % (Auto) 1.8 % (0.0-4.3) 07/18/17 05:00 Baso % (Auto) 0.3 % (0.0-1.8) 07/18/17 05:00 Lymph # 0.6 K/mm3 (1.2-5.4) L 07/18/17 05:00 Titus # 0.8 K/mm3 (0.0-0.8) 07/18/17 05:00 Eos # 0.1 K/mm3 (0.0-0.4) 07/18/17 05:00 Baso # 0.0 K/mm3 (0.0-0.1) 07/18/17 05:00 Seg Neutrophils % 74.0 % (40.0-70.0) H 07/18/17 05:00 Seg Neutrophils # 4.4 K/mm3 (1.8-7.7) 07/18/17 05:00 PT 24.3 Sec. (12.2-14.9) H 07/20/17 04:22 INR 2.07 (0.87-1.13) H 07/20/17 04:22 APTT 39.8 Sec. (24.2-36.6) H 07/12/17 16:38 Heparin Anti-Xa Level 0.49 U.I./ml (0.3-0.7) 07/20/17 10:05 ABG pH 7.283 pH Units (7.350-7.450) L 07/10/17 16:06 ABG pCO2 37.7 mm Hg 07/10/17 16:06 ABG pO2 56.5 mm Hg (80.0-90.0) L 07/10/17 16:06 ABG HCO3 17.4 mmol/L (20.0-26.0) L 07/10/17 16:06 ABG O2 Saturation 89.5 % (95.0-99.0) L 07/10/17 16:06 ABG O2 Content 7.9 (0.0-44) 07/10/17 16:06 ABG Base Excess -8.5 mmol/L (-2.0-3.0) L 07/10/17 16:06 ABG Hemoglobin 6.3 gm/dl (14.0-18.0) L 07/10/17 16:06 ABG Carboxyhemoglobin 1.8 % (0.0-5.0) 07/10/17 16:06 ABG Methemoglobin 0.3 % (0.0-1.5) 07/10/17 16:06 VBG pH 7.362 (7.320-7.420) 07/09/17 21:14 Oxyhemoglobin 87.5 % (95.0-99.0) L 07/10/17 16:06 FiO2 28 % 07/10/17 16:06 Sodium 133 mmol/L (137-145) L 07/20/17 04:22 Potassium 4.1 mmol/L (3.6-5.0) 07/20/17 04:22 Chloride 94.6 mmol/L (98-107) L 07/20/17 04:22 Carbon Dioxide 26 mmol/L (22-30) 07/20/17 04:22 Anion Gap 17 mmol/L 07/20/17 04:22 BUN 28 mg/dL (9-20) H 07/20/17 04:22 Creatinine 2.7 mg/dL (0.8-1.5) H 07/20/17 04:22 Estimated GFR 30 ml/min 07/20/17 04:22 BUN/Creatinine Ratio 10 % 07/20/17 04:22 Glucose 167 mg/dL (75-100) H 07/20/17 04:22 POC Glucose 212 (70-105) H 07/20/17 12:20 Hemoglobin A1c 6.6 % (4-6) H 07/15/17 04:25 Lactic Acid 1.60 mmol/L (0.7-2.0) 07/09/17 23:11 Calcium 8.9 mg/dL (8.4-10.2) 07/20/17 04:22 Phosphorus 6.10 mg/dL (2.5-4.5) H 07/11/17 10:16 Magnesium 2.90 mg/dL (1.7-2.3) H 07/11/17 10:16 Total Bilirubin 2.10 mg/dL (0.1-1.2) H 07/19/17 07:13 Direct Bilirubin 1.5 mg/dL (0-0.2) H 07/11/17 14:32 Indirect Bilirubin 0.8 mg/dL 07/11/17 14:32 AST 21 units/L (5-40) 07/19/17 07:13 ALT 18 units/L (7-56) 07/19/17 07:13 Alkaline Phosphatase 131 units/L (35-129) H 07/19/17 07:13 Total Creatine Kinase 892 units/L (55-170) H 07/10/17 12:11 CK-MB (CK-2) 30.9 ng/mL (0.0-4.0) H 07/10/17 12:11 CK-MB (CK-2) Rel Index 3.4 (0-4) 07/10/17 12:11 Troponin T 0.267 ng/mL (0.00-0.029) H* 07/10/17 12:11 NT-Pro-B Natriuret Pep 85370 pg/mL (0-900) H 07/09/17 21:27 Serum Total Protein 6.1 g/dL (6.1-8.1) 07/13/17 Unknown Total Protein 6.4 g/dL (6.3-8.2) 07/19/17 07:13 Albumin 2.3 g/dL (3.9-5) L 07/19/17 07:13 Albumin/Globulin Ratio 0.6 % 07/19/17 07:13 Dfqra-0-Uzdrfpxem 0.4 g/dL (0.2-0.3) H 07/13/17 Unknown Gxixs-1-Nnrgsclyd 0.7 g/dL (0.5-0.9) 07/13/17 Unknown Beta Globulins 0.6 g/dL (0.2-0.5) H 07/13/17 Unknown Gamma Globulins 1.5 g/dL (0.8-1.7) 07/13/17 Unknown Abnorm Protein Band 1 see below 07/13/17 Unknown PEP Interpretation see below H 07/13/17 Unknown Triglycerides 93 mg/dL (2-149) 07/09/17 21:27 Cholesterol 137 mg/dL (50-199) 07/09/17 21:27 LDL Cholesterol Direct 74 mg/dL (50-130) 07/09/17 21:27 HDL Cholesterol 45 mg/dL (40-59) 07/09/17 21:27 Cholesterol/HDL Ratio 3.04 % 07/09/17 21:27 Urine Color Priyanka (Yellow) 07/09/17 20:52 Urine Turbidity Clear (Clear) 07/09/17 20:52 Urine pH 5.0 (5.0-7.0) 07/09/17 20:52 Ur Specific [place] 1.014 (1.003-1.030) 07/09/17 20:52 Urine Protein 100 mg/dl mg/dL (Negative) 07/09/17 20:52 Urine Glucose (UA) Neg mg/dL (Negative) 07/09/17 20:52 Urine Ketones Neg mg/dL (Negative) 07/09/17 20:52 Urine Blood Neg (Negative) 07/09/17 20:52 Urine Nitrite Neg (Negative) 07/09/17 20:52 Urine Bilirubin Neg (Negative) 07/09/17 20:52 Urine Urobilinogen 4.0 mg/dL (<2.0) 07/09/17 20:52 Ur Leukocyte Esterase Sm (Negative) 07/09/17 20:52 Urine WBC (Auto) 17.0 /HPF (0.0-6.0) H 07/09/17 20:52 Urine RBC (Auto) 7.0 /HPF (0.0-6.0) 07/09/17 20:52 Urine Bacteria (Auto) 1+ /HPF (Negative) 07/09/17 20:52 Urine Mucus Few /HPF 07/09/17 20:52 Urine Eosinophils None seen (None Seen) 07/11/17 Unknown Urine Creatinine 101.1 mg/dL (0.1-20.0) H 07/11/17 Unknown Urine Microalbumin 27.9 mg/dL (0.1-34.0) 07/10/17 Unknown Microalb/Creat Ratio 274.8 ug/mg 07/10/17 Unknown Protein/Creatinin Ratio 1.11 07/11/17 Unknown Urine Sodium 38 mEq/L 07/10/17 Unknown Urine Urea Nitrogen 337 07/10/17 Unknown Urine Total Protein 112 mg/dL (5-11.8) H 07/11/17 Unknown Digoxin 0.7 ng/mL (0.9-2.0) L 07/16/17 06:00 Immunofix Electrophor see below 07/13/17 Unknown CHRISTOPHER Screen Negative (Negative) 07/11/17 09:19 Proteinase 3 (PR3) Ab <1.0 AI (<1.0) 07/11/17 09:19 Myeloperoxidase Ab <1.0 AI (<1.0) 07/11/17 09:19 Complement C3 94 mg/dL (90-180) 07/11/17 09:19 Complement C4 24 mg/dL (16-47) 07/11/17 03:45 Hepatitis A IgM Ab Non-reactive (NonReactive) 07/11/17 09:19 Hep Bs Antigen Non-reactive (Negative) 07/11/17 09:19 Hep B Core IgM Ab Non-reactive (NonReactive) 07/11/17 09:19 Hepatitis C Antibody Non-reactive (NonReactive) 07/11/17 09:19 HIV 1&2 Antibody Rapid Non react (Non React) 07/11/17 09:19 HIV P24 Antigen Non react (Non React) 07/11/17 09:19
--- NOTE | 2017-07-20 20:41 | Event Note ---
Date: 07/20/17 Update and Clarification: Patient is not accepted at [facility]. Case Management has been consulted for outpatient HD arrangement close to patient's residence to promote compliance Will assess dialysis needs daily and also monitor for renal recovery Scheduled for perm-catheter placement tomorrow Bing Durbin NP/Dr. Burdick [phone]
[2017-07-21 06:03] LABS: INR 2.21 (0.87-1.13)
[2017-07-21] MEDS: NOVOLOG SUB-Q SCH ×4 (07:28→22:39)
[2017-07-21] MEDS ORDERED: ANCEF/STERILE WATER 2 GM/20 ML 2 GM/20 ML SYRINGE IV NR (08:00)
--- NOTE | 2017-07-21 09:45 | Progress Note ---
Assessment and Plan Acute renal failure possibly cardiorenal syndrome/ATN from low BP on intermittent hemodialysis: Unknown CKD: Anasarca with volume overload - labs are pending this AM - HD today for ultrafiltration only -work up was negative including : CHRISTOPHER, ANCA, Anti-GBM, C3/C4, Complements, IFX, SPEP -vascular surgery consulted, permcath placement is pending -outpatient dialyssi placement is on going -Renally dose all meds and avoid nephrotoxic meds -Renal US -ve for hydronephrosis Hyponatremia, Hypotonic: -Likely hypervolemic -UF with HD Metabolic acidosis: -Improved with IHD. 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 -UF via HD Diabetes mellitus type 2 on insulin: -On insulin -Per primary Subjective Date of service: 07/21/17 Principal diagnosis: ARF; HF Interval history: denies overnight events Objective - Vital Signs Vital signs: Vital Signs - 12hr 07/20/17 07/21/17 07/21/17 22:01 00:34 00:50 Temperature 97.8 F Pulse Rate 88 91 H 89 Respiratory 20 20 Rate Blood Pressure 115/64 Blood Pressure 99/64 [Left] O2 Sat by Pulse 98 98 Oximetry 07/21/17 07/21/17 04:20 05:00 Temperature 98.3 F Pulse Rate 89 88 Respiratory 18 Rate Blood Pressure Blood Pressure 112/70 [Left] O2 Sat by Pulse 95 Oximetry - General Appearance General appearance: well-developed, well-nourished, obese EENT: ATNC, PERRL, mucous membranes moist Neck: no JVD, no carotid bruit Respiratory: Present: Decreased Breath Sounds Cardiology: regular, S1S2 Gastrointestinal: normoactive bowel sounds, no tenderness, no distended, no masses, obese Integumentary: no rash, warm and dry Neurologic: no focal deficit, no asterixis, alert and oriented x3 Musculoskeletal: other (2+ pitting edema in BLE) Psychiatric: mood/affect appropriate, cooperative - Lab 07/20/17 04:22 07/20/17 04:22 Most recent lab results ABG pH 7.283 pH Units (7.350-7.450) L 07/10/17 16:06 ABG pCO2 37.7 mm Hg 07/10/17 16:06 ABG pO2 56.5 mm Hg (80.0-90.0) L 07/10/17 16:06 ABG HCO3 17.4 mmol/L (20.0-26.0) L 07/10/17 16:06 ABG O2 Saturation 89.5 % (95.0-99.0) L 07/10/17 16:06 Calcium 8.9 mg/dL (8.4-10.2) 07/20/17 04:22 Phosphorus 6.10 mg/dL (2.5-4.5) H 07/11/17 10:16 Magnesium 2.90 mg/dL (1.7-2.3) H 07/11/17 10:16 Urine Creatinine 101.1 mg/dL (0.1-20.0) H 07/11/17 Unknown Urine Sodium 38 mEq/L 07/10/17 Unknown Urine Total Protein 112 mg/dL (5-11.8) H 07/11/17 Unknown
[2017-07-21] MEDS: COREG PO SCH ×2 (10:27→22:38)
--- NOTE | 2017-07-21 11:43 | Progress Note ---
Assessment and Plan Assessment and plan: 57-year-old man who presented with fluid overload, acute hypoxic respiratory failure, needed to be urgently intubated. Found to have end-stage renal disease. It is possible that the cause of the fluid overload was FDG renal disease Acute kidney injury most likely due to ATN, patient is most likely in end-stage renal disease, Nephrology on the case, patient for permacath tomorrow. Will need outpatient dialysis set up Acute hypoxic respiratory failure requiring mechanical ventilator greater than 96 hours Was due to fluid overload, Has been extubated, doing well, improved. Acute respiratory failure due to fluid overload Has received multiple episodes of dialysis and ultrafiltration, now resolved Cardiogenic shock, patient received pressors, now resolved. Acute exacerbation of chronic systolic CHF with pulmonary vascular congestion The patient received dobutamine drip, ultrafiltration to remove excess fluid, medications have been optimized Atrial flutter with hypercoagulable states Meds optimized, continue Coumadin for stroke prophylaxis, continue beta stacey Acute metabolic encephalopathy l likely due to uremia and shock, now resolved Hyperkalemia: This is now resolved with dialysis. Diabetes mellitus type 2 on insulin: Was on Insulin at home A1C is 6.6, showing overall controlled diabetes Likely needs less insulin given kidney failure SSI coverage for now hypoglycemia noted in the ED, corrected with 50% Dextrose Type II [place]/demand ischemia likely from worsening renal function and underlying CHF Cardiology input appreciated, no further workup Essential Hypertension,history BP meds were discontinued due to hypotension, continue beta stacey only DVT prophylaxis. Fully anticoagulated History Interval history: Patient denies any shortness of breath, states that lower extremity swelling is mostly resolved. Denies confusion. Hospitalist Physical - Physical exam Narrative exam: General.: Appears well, no distress, nontoxic HEENT: Moist mucous membranes, extraocular muscles intact, no lymphadenopathy Neck: supple Cardiac: S1-S2 heard Lungs: clear to auscultation bilaterally Abdomen: soft , nontender, nondistended, bowel sounds positive Extremities: trace bipedal edema Skin: no rash or lesions Neurologic: no gross focal deficits Psych: appropriate behavior, appropriate mood, corporative, judgment intact - Constitutional Vitals: Temp Pulse Resp BP Pulse Ox 97.8 F 87 18 100/67 96 07/21/17 10:45 07/21/17 10:45 07/21/17 10:45 07/21/17 10:45 07/21/17 10:45 General appearance: Present: no acute distress Results - Labs CBC & Chem 7: 07/20/17 04:22 07/22/17 05:52 Labs: Laboratory Last Values WBC 5.6 K/mm3 (4.5-11.0) 07/20/17 04:22 RBC 4.84 M/mm3 (3.65-5.03) 07/20/17 04:22 Hgb 12.4 gm/dl (11.8-15.2) 07/20/17 04:22 Hct 38.8 % (35.5-45.6) 07/20/17 04:22 MCV 80 fl (84-94) L 07/20/17 04:22 MCH 26 pg (28-32) L 07/20/17 04:22 MCHC 32 % (32-34) 07/20/17 04:22 RDW 22.7 % (13.2-15.2) H 07/20/17 04:22 Plt Count 143 K/mm3 (140-440) 07/20/17 04:22 Lymph % (Auto) 10.3 % (13.4-35.0) L 07/18/17 05:00 [place] % (Auto) 13.6 % (0.0-7.3) H 07/18/17 05:00 Eos % (Auto) 1.8 % (0.0-4.3) 07/18/17 05:00 Baso % (Auto) 0.3 % (0.0-1.8) 07/18/17 05:00 Lymph # 0.6 K/mm3 (1.2-5.4) L 07/18/17 05:00 [place] # 0.8 K/mm3 (0.0-0.8) 07/18/17 05:00 Eos # 0.1 K/mm3 (0.0-0.4) 07/18/17 05:00 Baso # 0.0 K/mm3 (0.0-0.1) 07/18/17 05:00 Seg Neutrophils % 74.0 % (40.0-70.0) H 07/18/17 05:00 Seg Neutrophils # 4.4 K/mm3 (1.8-7.7) 07/18/17 05:00 PT 25.6 Sec. (12.2-14.9) H 07/21/17 03:37 INR 2.21 (0.87-1.13) H 07/21/17 03:37 APTT 39.8 Sec. (24.2-36.6) H 07/12/17 16:38 Heparin Anti-Xa Level 0.49 U.I./ml (0.3-0.7) 07/20/17 10:05 ABG pH 7.283 pH Units (7.350-7.450) L 07/10/17 16:06 ABG pCO2 37.7 mm Hg 07/10/17 16:06 ABG pO2 56.5 mm Hg (80.0-90.0) L 07/10/17 16:06 ABG HCO3 17.4 mmol/L (20.0-26.0) L 07/10/17 16:06 ABG O2 Saturation 89.5 % (95.0-99.0) L 07/10/17 16:06 ABG O2 Content 7.9 (0.0-44) 07/10/17 16:06 ABG Base Excess -8.5 mmol/L (-2.0-3.0) L 07/10/17 16:06 ABG Hemoglobin 6.3 gm/dl (14.0-18.0) L 07/10/17 16:06 ABG Carboxyhemoglobin 1.8 % (0.0-5.0) 07/10/17 16:06 ABG Methemoglobin 0.3 % (0.0-1.5) 07/10/17 16:06 VBG pH 7.362 (7.320-7.420) 07/09/17 21:14 Oxyhemoglobin 87.5 % (95.0-99.0) L 07/10/17 16:06 FiO2 28 % 07/10/17 16:06 Sodium 133 mmol/L (137-145) L 07/20/17 04:22 Potassium 4.1 mmol/L (3.6-5.0) 07/20/17 04:22 Chloride 94.6 mmol/L (98-107) L 07/20/17 04:22 Carbon Dioxide 26 mmol/L (22-30) 07/20/17 04:22 Anion Gap 17 mmol/L 07/20/17 04:22 BUN 28 mg/dL (9-20) H 07/20/17 04:22 Creatinine 2.7 mg/dL (0.8-1.5) H 07/20/17 04:22 Estimated GFR 30 ml/min 07/20/17 04:22 BUN/Creatinine Ratio 10 % 07/20/17 04:22 Glucose 167 mg/dL (75-100) H 07/20/17 04:22 POC Glucose 201 (70-105) H 07/20/17 21:21 Hemoglobin A1c 6.6 % (4-6) H 07/15/17 04:25 Lactic Acid 1.60 mmol/L (0.7-2.0) 07/09/17 23:11 Calcium 8.9 mg/dL (8.4-10.2) 07/20/17 04:22 Phosphorus 6.10 mg/dL (2.5-4.5) H 07/11/17 10:16 Magnesium 2.90 mg/dL (1.7-2.3) H 07/11/17 10:16 Total Bilirubin 2.10 mg/dL (0.1-1.2) H 07/19/17 07:13 Direct Bilirubin 1.5 mg/dL (0-0.2) H 07/11/17 14:32 Indirect Bilirubin 0.8 mg/dL 07/11/17 14:32 AST 21 units/L (5-40) 07/19/17 07:13 ALT 18 units/L (7-56) 07/19/17 07:13 Alkaline Phosphatase 131 units/L (35-129) H 07/19/17 07:13 Total Creatine Kinase 892 units/L (55-170) H 07/10/17 12:11 CK-MB (CK-2) 30.9 ng/mL (0.0-4.0) H 07/10/17 12:11 CK-MB (CK-2) Rel Index 3.4 (0-4) 07/10/17 12:11 Troponin T 0.267 ng/mL (0.00-0.029) H* 07/10/17 12:11 NT-Pro-B Natriuret Pep 76823 pg/mL (0-900) H 07/09/17 21:27 Serum Total Protein 6.1 g/dL (6.1-8.1) 07/13/17 Unknown Total Protein 6.4 g/dL (6.3-8.2) 07/19/17 07:13 Albumin 2.3 g/dL (3.9-5) L 07/19/17 07:13 Albumin/Globulin Ratio 0.6 % 07/19/17 07:13 Puecy-4-Upgpgmwcg 0.4 g/dL (0.2-0.3) H 07/13/17 Unknown Phplo-6-Tttwfzrqo 0.7 g/dL (0.5-0.9) 07/13/17 Unknown Beta Globulins 0.6 g/dL (0.2-0.5) H 07/13/17 Unknown Gamma Globulins 1.5 g/dL (0.8-1.7) 07/13/17 Unknown Abnorm Protein Band 1 see below 07/13/17 Unknown PEP Interpretation see below H 07/13/17 Unknown Triglycerides 93 mg/dL (2-149) 07/09/17 21:27 Cholesterol 137 mg/dL (50-199) 07/09/17 21:27 LDL Cholesterol Direct 74 mg/dL (50-130) 07/09/17 21:27 HDL Cholesterol 45 mg/dL (40-59) 07/09/17 21:27 Cholesterol/HDL Ratio 3.04 % 07/09/17 21:27 Urine Color Priyanka (Yellow) 07/09/17 20:52 Urine Turbidity Clear (Clear) 07/09/17 20:52 Urine pH 5.0 (5.0-7.0) 07/09/17 20:52 Ur Specific [place] 1.014 (1.003-1.030) 07/09/17 20:52 Urine Protein 100 mg/dl mg/dL (Negative) 07/09/17 20:52 Urine Glucose (UA) Neg mg/dL (Negative) 07/09/17 20:52 Urine Ketones Neg mg/dL (Negative) 07/09/17 20:52 Urine Blood Neg (Negative) 07/09/17 20:52 Urine Nitrite Neg (Negative) 07/09/17 20:52 Urine Bilirubin Neg (Negative) 07/09/17 20:52 Urine Urobilinogen 4.0 mg/dL (<2.0) 07/09/17 20:52 Ur Leukocyte Esterase Sm (Negative) 07/09/17 20:52 Urine WBC (Auto) 17.0 /HPF (0.0-6.0) H 07/09/17 20:52 Urine RBC (Auto) 7.0 /HPF (0.0-6.0) 07/09/17 20:52 Urine Bacteria (Auto) 1+ /HPF (Negative) 07/09/17 20:52 Urine Mucus Few /HPF 07/09/17 20:52 Urine Eosinophils None seen (None Seen) 07/11/17 Unknown Urine Creatinine 101.1 mg/dL (0.1-20.0) H 07/11/17 Unknown Urine Microalbumin 27.9 mg/dL (0.1-34.0) 07/10/17 Unknown Microalb/Creat Ratio 274.8 ug/mg 07/10/17 Unknown Protein/Creatinin Ratio 1.11 07/11/17 Unknown Urine Sodium 38 mEq/L 07/10/17 Unknown Urine Urea Nitrogen 337 07/10/17 Unknown Urine Total Protein 112 mg/dL (5-11.8) H 07/11/17 Unknown Digoxin 0.7 ng/mL (0.9-2.0) L 07/16/17 06:00 Immunofix Electrophor see below 07/13/17 Unknown CHRISTOPHER Screen Negative (Negative) 07/11/17 09:19 Proteinase 3 (PR3) Ab <1.0 AI (<1.0) 07/11/17 09:19 Myeloperoxidase Ab <1.0 AI (<1.0) 07/11/17 09:19 Complement C3 94 mg/dL (90-180) 07/11/17 09:19 Complement C4 24 mg/dL (16-47) 07/11/17 03:45 Hepatitis A IgM Ab Non-reactive (NonReactive) 07/11/17 09:19 Hep Bs Antigen Non-reactive (Negative) 07/11/17 09:19 Hep B Core IgM Ab Non-reactive (NonReactive) 07/11/17 09:19 Hepatitis C Antibody Non-reactive (NonReactive) 07/11/17 09:19 HIV 1&2 Antibody Rapid Non react (Non React) 07/11/17 09:19 HIV P24 Antigen Non react (Non React) 07/11/17 09:19
[2017-07-21] MEDS: HEPARIN IV PRN (14:01)
[2017-07-21] MEDS ORDERED: NACL 0.9 (PRIMING MACHINE ONLY DIALYSIS) MC ONE (14:15)
[2017-07-21] MEDS ORDERED: COUMADIN PO SCH (17:00)
--- NOTE | 2017-07-21 17:37 | Event Note ---
Date: 07/21/17 Asked to eval the pt for a PC. I had a long discussion with the pt discussing the reasons to convert from a femoral VC to an IJ PC. Pt stated understanding, but refuses to agree at this point. He wants to discuss the condition of his kidneys with nephrology 1st. I asked if he would be willing to have a PC placed tomorrow after he spoke with nephrology. "Absolutely not" the earliest he would consider proceeding would be next Tuesday.
[2017-07-21] MEDS: BABY ASPIRIN PO SCH (19:20)
[2017-07-22 04:51] LABS: INR 1.96 (0.87-1.13)
[2017-07-22 06:34] LABS: Chloride 95.2 mmol/L (98-107); Phosphorous 2.1 mg/dL (2.5-4.5); Potassium 4.5 mmol/L (3.6-5.0)
[2017-07-22] MEDS: COREG PO SCH ×2 (11:01→21:51)
[2017-07-22] MEDS: BABY ASPIRIN PO SCH (11:01)
[2017-07-22] MEDS: NOVOLOG SUB-Q SCH ×4 (11:01→21:55)
--- NOTE | 2017-07-22 12:12 | Progress Note ---
Assessment and Plan Acute renal failure possibly cardiorenal syndrome/ATN from low BP on intermittent hemodialysis: Unknown CKD: Anasarca with volume overload - will hold HD today, will order 24 hours creatinine clearance and hold dialysis during the weekend unless needed, if no improvement he will need permcath placed Tuesday -work up was negative including : CHRISTOPHER, ANCA, Anti-GBM, C3/C4, Complements, IFX, SPEP -outpatient dialyssi placement is on going -Renally dose all meds and avoid nephrotoxic meds -Renal US -ve for hydronephrosis Hyponatremia, Hypotonic: -Likely hypervolemic Metabolic acidosis: -Improved with IHD. 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 Diabetes mellitus type 2 on insulin: -On insulin -Per primary Subjective Date of service: 07/22/17 Principal diagnosis: ARF; HF Interval history: patient tolerated HD well yesterday Objective - Vital Signs Vital signs: Vital Signs - 12hr 07/22/17 07/22/17 07/22/17 00:20 04:47 10:00 Temperature 98.7 F 97.6 F Pulse Rate 89 89 87 Respiratory 20 20 20 Rate Blood Pressure 93/64 103/72 [Left] O2 Sat by Pulse 96 97 Oximetry - General Appearance General appearance: well-developed, well-nourished EENT: ATNC, PERRL, mucous membranes moist Neck: no JVD, no carotid bruit Respiratory: Present: Clear to Ascultation. Absent: Rales, Ronchi Cardiology: regular, S1S2 Gastrointestinal: normoactive bowel sounds Integumentary: no rash, warm and dry Neurologic: no focal deficit, no asterixis, alert and oriented x3 Musculoskeletal: other (trace pitting edema in BLE) Psychiatric: mood/affect appropriate, cooperative - Lab 07/20/17 04:22 07/22/17 05:52 Most recent lab results ABG pH 7.283 pH Units (7.350-7.450) L 07/10/17 16:06 ABG pCO2 37.7 mm Hg 07/10/17 16:06 ABG pO2 56.5 mm Hg (80.0-90.0) L 07/10/17 16:06 ABG HCO3 17.4 mmol/L (20.0-26.0) L 07/10/17 16:06 ABG O2 Saturation 89.5 % (95.0-99.0) L 07/10/17 16:06 Calcium 9.0 mg/dL (8.4-10.2) 07/22/17 05:52 Phosphorus 2.10 mg/dL (2.5-4.5) L 07/22/17 05:52 Magnesium 2.90 mg/dL (1.7-2.3) H 07/11/17 10:16 Urine Creatinine 101.1 mg/dL (0.1-20.0) H 07/11/17 Unknown Urine Sodium 38 mEq/L 07/10/17 Unknown Urine Total Protein 112 mg/dL (5-11.8) H 07/11/17 Unknown
--- NOTE | 2017-07-22 15:39 | Progress Note ---
Assessment and Plan Assessment and plan: 57-year-old man who presented with fluid overload, acute hypoxic respiratory failure, needed to be urgently intubated. Found to have end-stage renal disease. It is possible that the cause of the fluid overload was FDG renal disease Acute kidney injury most likely due to ATN, patient is most likely in end-stage renal disease, Nephrology on the case Patient is currently refusing permacath as he will like to see his renal function will recover, he was counseled that a vas cath in the groin is a nidus for infection and he understands the risk and would rather wait till Tuesday. Holding dialysis for now to assess to see if renal function will return, obtain 24-hour urine The patient does not improve, he'll be declared end-stage renal disease on Tuesday and will get permacath Acute hypoxic respiratory failure requiring mechanical ventilator greater than 96 hours Was due to fluid overload, Has been extubated, doing well, improved. Acute respiratory failure due to fluid overload Has received multiple episodes of dialysis and ultrafiltration, now resolved Cardiogenic shock, patient received pressors, now resolved. Acute exacerbation of chronic systolic CHF with pulmonary vascular congestion The patient received dobutamine drip, ultrafiltration to remove excess fluid, medications have been optimized Atrial flutter with hypercoagulable states Meds optimized, continue Coumadin for stroke prophylaxis, continue beta stacey Acute metabolic encephalopathy l likely due to uremia and shock, now resolved Hyperkalemia: This is now resolved with dialysis. Diabetes mellitus type 2 on insulin: Was on Insulin at home A1C is 6.6, showing overall controlled diabetes Likely needs less insulin given kidney failure SSI coverage for now hypoglycemia noted in the ED, corrected with 50% Dextrose Type II NC/demand ischemia likely from worsening renal function and underlying CHF Cardiology input appreciated, no further workup Essential Hypertension,history BP meds were discontinued due to hypotension, continue beta stacey only DVT prophylaxis. Fully anticoagulated History Interval history: Patient denies any shortness of breath, states that lower extremity swelling is mostly resolved. Denies confusion. At this point he is not interested in getting a permacath, he would like to wait to see if his renal function will recover Hospitalist Physical - Physical exam Narrative exam: General.: Appears well, no distress, nontoxic HEENT: Moist mucous membranes, extraocular muscles intact, no lymphadenopathy Neck: supple Cardiac: S1-S2 heard Lungs: clear to auscultation bilaterally Abdomen: soft , nontender, nondistended, bowel sounds positive Extremities: trace bipedal edema Skin: no rash or lesions Neurologic: no gross focal deficits Psych: appropriate behavior, appropriate mood, corporative, judgment intact - Constitutional Vitals: Temp Pulse Resp BP Pulse Ox 97.6 F 87 20 103/72 97 07/22/17 04:47 07/22/17 10:00 07/22/17 10:00 07/22/17 04:47 07/22/17 04:47 General appearance: Present: no acute distress Results - Labs CBC & Chem 7: 07/20/17 04:22 07/22/17 05:52 Labs: Laboratory Last Values WBC 5.6 K/mm3 (4.5-11.0) 07/20/17 04:22 RBC 4.84 M/mm3 (3.65-5.03) 07/20/17 04:22 Hgb 12.4 gm/dl (11.8-15.2) 07/20/17 04:22 Hct 38.8 % (35.5-45.6) 07/20/17 04:22 MCV 80 fl (84-94) L 07/20/17 04:22 MCH 26 pg (28-32) L 07/20/17 04:22 MCHC 32 % (32-34) 07/20/17 04:22 RDW 22.7 % (13.2-15.2) H 07/20/17 04:22 Plt Count 143 K/mm3 (140-440) 07/20/17 04:22 Lymph % (Auto) 10.3 % (13.4-35.0) L 07/18/17 05:00 [place] % (Auto) 13.6 % (0.0-7.3) H 07/18/17 05:00 Eos % (Auto) 1.8 % (0.0-4.3) 07/18/17 05:00 Baso % (Auto) 0.3 % (0.0-1.8) 07/18/17 05:00 Lymph # 0.6 K/mm3 (1.2-5.4) L 07/18/17 05:00 [place] # 0.8 K/mm3 (0.0-0.8) 07/18/17 05:00 Eos # 0.1 K/mm3 (0.0-0.4) 07/18/17 05:00 Baso # 0.0 K/mm3 (0.0-0.1) 07/18/17 05:00 Seg Neutrophils % 74.0 % (40.0-70.0) H 07/18/17 05:00 Seg Neutrophils # 4.4 K/mm3 (1.8-7.7) 07/18/17 05:00 PT 23.3 Sec. (12.2-14.9) H 07/22/17 03:49 INR 1.96 (0.87-1.13) H 07/22/17 03:49 APTT 39.8 Sec. (24.2-36.6) H 07/12/17 16:38 Heparin Anti-Xa Level 0.49 U.I./ml (0.3-0.7) 07/20/17 10:05 ABG pH 7.283 pH Units (7.350-7.450) L 07/10/17 16:06 ABG pCO2 37.7 mm Hg 07/10/17 16:06 ABG pO2 56.5 mm Hg (80.0-90.0) L 07/10/17 16:06 ABG HCO3 17.4 mmol/L (20.0-26.0) L 07/10/17 16:06 ABG O2 Saturation 89.5 % (95.0-99.0) L 07/10/17 16:06 ABG O2 Content 7.9 (0.0-44) 07/10/17 16:06 ABG Base Excess -8.5 mmol/L (-2.0-3.0) L 07/10/17 16:06 ABG Hemoglobin 6.3 gm/dl (14.0-18.0) L 07/10/17 16:06 ABG Carboxyhemoglobin 1.8 % (0.0-5.0) 07/10/17 16:06 ABG Methemoglobin 0.3 % (0.0-1.5) 07/10/17 16:06 VBG pH 7.362 (7.320-7.420) 07/09/17 21:14 Oxyhemoglobin 87.5 % (95.0-99.0) L 07/10/17 16:06 FiO2 28 % 07/10/17 16:06 Sodium 134 mmol/L (137-145) L 07/22/17 05:52 Potassium 4.5 mmol/L (3.6-5.0) 07/22/17 05:52 Chloride 95.2 mmol/L (98-107) L 07/22/17 05:52 Carbon Dioxide 25 mmol/L (22-30) 07/22/17 05:52 Anion Gap 18 mmol/L 07/22/17 05:52 BUN 28 mg/dL (9-20) H 07/22/17 05:52 Creatinine 3.1 mg/dL (0.8-1.5) H 07/22/17 05:52 Estimated GFR 25 ml/min 07/22/17 05:52 BUN/Creatinine Ratio 9 % 07/22/17 05:52 Glucose 158 mg/dL (75-100) H 07/22/17 05:52 POC Glucose 157 (70-105) H 07/22/17 12:16 Hemoglobin A1c 6.6 % (4-6) H 07/15/17 04:25 Lactic Acid 1.60 mmol/L (0.7-2.0) 07/09/17 23:11 Calcium 9.0 mg/dL (8.4-10.2) 07/22/17 05:52 Phosphorus 2.10 mg/dL (2.5-4.5) L 07/22/17 05:52 Magnesium 2.90 mg/dL (1.7-2.3) H 07/11/17 10:16 Total Bilirubin 2.10 mg/dL (0.1-1.2) H 07/19/17 07:13 Direct Bilirubin 1.5 mg/dL (0-0.2) H 07/11/17 14:32 Indirect Bilirubin 0.8 mg/dL 07/11/17 14:32 AST 21 units/L (5-40) 07/19/17 07:13 ALT 18 units/L (7-56) 07/19/17 07:13 Alkaline Phosphatase 131 units/L (35-129) H 07/19/17 07:13 Total Creatine Kinase 892 units/L (55-170) H 07/10/17 12:11 CK-MB (CK-2) 30.9 ng/mL (0.0-4.0) H 07/10/17 12:11 CK-MB (CK-2) Rel Index 3.4 (0-4) 07/10/17 12:11 Troponin T 0.267 ng/mL (0.00-0.029) H* 07/10/17 12:11 NT-Pro-B Natriuret Pep 09002 pg/mL (0-900) H 07/09/17 21:27 Serum Total Protein 6.1 g/dL (6.1-8.1) 07/13/17 Unknown Total Protein 6.4 g/dL (6.3-8.2) 07/19/17 07:13 Albumin 2.3 g/dL (3.9-5) L 07/19/17 07:13 Albumin/Globulin Ratio 0.6 % 07/19/17 07:13 Rttxq-8-Imtciulut 0.4 g/dL (0.2-0.3) H 07/13/17 Unknown Hpvgg-4-Cxquqsrdu 0.7 g/dL (0.5-0.9) 07/13/17 Unknown Beta Globulins 0.6 g/dL (0.2-0.5) H 07/13/17 Unknown Gamma Globulins 1.5 g/dL (0.8-1.7) 07/13/17 Unknown Abnorm Protein Band 1 see below 07/13/17 Unknown PEP Interpretation see below H 07/13/17 Unknown Triglycerides 93 mg/dL (2-149) 07/09/17 21:27 Cholesterol 137 mg/dL (50-199) 07/09/17 21:27 LDL Cholesterol Direct 74 mg/dL (50-130) 07/09/17 21:27 HDL Cholesterol 45 mg/dL (40-59) 07/09/17 21:27 Cholesterol/HDL Ratio 3.04 % 07/09/17 21:27 Urine Color Priyanka (Yellow) 07/09/17 20:52 Urine Turbidity Clear (Clear) 07/09/17 20:52 Urine pH 5.0 (5.0-7.0) 07/09/17 20:52 Ur Specific [place] 1.014 (1.003-1.030) 07/09/17 20:52 Urine Protein 100 mg/dl mg/dL (Negative) 07/09/17 20:52 Urine Glucose (UA) Neg mg/dL (Negative) 07/09/17 20:52 Urine Ketones Neg mg/dL (Negative) 07/09/17 20:52 Urine Blood Neg (Negative) 07/09/17 20:52 Urine Nitrite Neg (Negative) 07/09/17 20:52 Urine Bilirubin Neg (Negative) 07/09/17 20:52 Urine Urobilinogen 4.0 mg/dL (<2.0) 07/09/17 20:52 Ur Leukocyte Esterase Sm (Negative) 07/09/17 20:52 Urine WBC (Auto) 17.0 /HPF (0.0-6.0) H 07/09/17 20:52 Urine RBC (Auto) 7.0 /HPF (0.0-6.0) 07/09/17 20:52 Urine Bacteria (Auto) 1+ /HPF (Negative) 07/09/17 20:52 Urine Mucus Few /HPF 07/09/17 20:52 Urine Eosinophils None seen (None Seen) 07/11/17 Unknown Urine Creatinine 101.1 mg/dL (0.1-20.0) H 07/11/17 Unknown Urine Microalbumin 27.9 mg/dL (0.1-34.0) 07/10/17 Unknown Microalb/Creat Ratio 274.8 ug/mg 07/10/17 Unknown Protein/Creatinin Ratio 1.11 07/11/17 Unknown Urine Sodium 38 mEq/L 07/10/17 Unknown Urine Urea Nitrogen 337 07/10/17 Unknown Urine Total Protein 112 mg/dL (5-11.8) H 07/11/17 Unknown Digoxin 0.7 ng/mL (0.9-2.0) L 07/16/17 06:00 Immunofix Electrophor see below 07/13/17 Unknown CHRISTOPHER Screen Negative (Negative) 07/11/17 09:19 Proteinase 3 (PR3) Ab <1.0 AI (<1.0) 07/11/17 09:19 Myeloperoxidase Ab <1.0 AI (<1.0) 07/11/17 09:19 Complement C3 94 mg/dL (90-180) 07/11/17 09:19 Complement C4 24 mg/dL (16-47) 07/11/17 03:45 Hepatitis A IgM Ab Non-reactive (NonReactive) 07/11/17 09:19 Hep Bs Antigen Non-reactive (Negative) 07/11/17 09:19 Hep B Core IgM Ab Non-reactive (NonReactive) 07/11/17 09:19 Hepatitis C Antibody Non-reactive (NonReactive) 07/11/17 09:19 HIV 1&2 Antibody Rapid Non react (Non React) 07/11/17 09:19 HIV P24 Antigen Non react (Non React) 07/11/17 09:19
[2017-07-22] MEDS: COUMADIN PO SCH (18:49)
[2017-07-23 04:23] LABS: INR 1.68 (0.87-1.13)
[2017-07-23 05:37] LABS: Calcium 8.6 mg/dL (8.4-10.2); Phosphorous 2.3 mg/dL (2.5-4.5); Potassium 4.2 mmol/L (3.6-5.0)
[2017-07-23] MEDS: NOVOLOG SUB-Q SCH ×4 (08:35→22:54)
[2017-07-23] MEDS: COREG PO SCH ×2 (10:44→22:49)
[2017-07-23] MEDS: BABY ASPIRIN PO SCH (10:44)
[2017-07-23] MEDS ORDERED: SODIUM PHOSPHATE 15 MMOL in NACL 0.9% 250ML 250 ML IV ONE (13:00)
--- NOTE | 2017-07-23 13:40 | Progress Note ---
Assessment and Plan Assessment and plan: 57-year-old man who presented with fluid overload, acute hypoxic respiratory failure, needed to be urgently intubated. Found to have end-stage renal disease. It is possible that the cause of the fluid overload was FDG renal disease Acute kidney injury most likely due to ATN, patient is most likely in end-stage renal disease, Nephrology on the case Patient is currently refusing permacath as he will like to see his renal function will recover, he was counseled that a vas cath in the groin is a nidus for infection and he understands the risk and would rather wait till Tuesday. Holding dialysis for now to assess to see if renal function will return, obtain 24-hour urine The patient does not improve, he'll be declared end-stage renal disease on Tuesday and will get permacath Acute hypoxic respiratory failure requiring mechanical ventilator greater than 96 hours Was due to fluid overload, Has been extubated, doing well, improved. Acute respiratory failure due to fluid overload Has received multiple episodes of dialysis and ultrafiltration, now resolved Cardiogenic shock, patient received pressors, now resolved. Acute exacerbation of chronic systolic CHF with pulmonary vascular congestion The patient received dobutamine drip, ultrafiltration to remove excess fluid, medications have been optimized Atrial flutter with hypercoagulable states Meds optimized, continue Coumadin for stroke prophylaxis, continue beta stacey Acute metabolic encephalopathy l likely due to uremia and shock, now resolved Hyperkalemia: This is now resolved with dialysis. Diabetes mellitus type 2 on insulin: Was on Insulin at home A1C is 6.6, showing overall controlled diabetes Likely needs less insulin given kidney failure SSI coverage for now hypoglycemia noted in the ED, corrected with 50% Dextrose Type II CT/demand ischemia likely from worsening renal function and underlying CHF Cardiology input appreciated, no further workup Essential Hypertension,history BP meds were discontinued due to hypotension, continue beta stacey only DVT prophylaxis. Fully anticoagulated Patient is very anxious about getting permacath and being put on outpatient HD, he was reassured and the plan was again explained to him History Interval history: Patient denies any shortness of breath, states that lower extremity swelling is manageable. Denies confusion. At this point he is not interested in getting a permacath, he would like to wait to see if his renal function will recover Hospitalist Physical - Physical exam Narrative exam: General.: Appears well, no distress, nontoxic HEENT: Moist mucous membranes, extraocular muscles intact, no lymphadenopathy Neck: supple Cardiac: S1-S2 heard Lungs: clear to auscultation bilaterally Abdomen: soft , nontender, nondistended, bowel sounds positive Extremities: 1 plus bipedal edema Skin: multiple abrasians on BLE, elbows, penile ulcer, and small ulcers under breast fold and pannus Neurologic: no gross focal deficits Psych: appropriate behavior, appropriate mood, corporative, judgment intact - Constitutional Vitals: Temp Pulse Resp BP Pulse Ox 97.6 F 86 20 109/75 96 07/23/17 04:46 07/23/17 04:46 07/23/17 04:46 07/23/17 04:46 07/23/17 04:46 General appearance: Present: no acute distress Results - Labs CBC & Chem 7: 07/20/17 04:22 07/23/17 04:37 Labs: Laboratory Last Values WBC 5.6 K/mm3 (4.5-11.0) 07/20/17 04:22 RBC 4.84 M/mm3 (3.65-5.03) 07/20/17 04:22 Hgb 12.4 gm/dl (11.8-15.2) 07/20/17 04:22 Hct 38.8 % (35.5-45.6) 07/20/17 04:22 MCV 80 fl (84-94) L 07/20/17 04:22 MCH 26 pg (28-32) L 07/20/17 04:22 MCHC 32 % (32-34) 07/20/17 04:22 RDW 22.7 % (13.2-15.2) H 07/20/17 04:22 Plt Count 143 K/mm3 (140-440) 07/20/17 04:22 Lymph % (Auto) 10.3 % (13.4-35.0) L 07/18/17 05:00 [place] % (Auto) 13.6 % (0.0-7.3) H 07/18/17 05:00 Eos % (Auto) 1.8 % (0.0-4.3) 07/18/17 05:00 Baso % (Auto) 0.3 % (0.0-1.8) 07/18/17 05:00 Lymph # 0.6 K/mm3 (1.2-5.4) L 07/18/17 05:00 [place] # 0.8 K/mm3 (0.0-0.8) 07/18/17 05:00 Eos # 0.1 K/mm3 (0.0-0.4) 07/18/17 05:00 Baso # 0.0 K/mm3 (0.0-0.1) 07/18/17 05:00 Seg Neutrophils % 74.0 % (40.0-70.0) H 07/18/17 05:00 Seg Neutrophils # 4.4 K/mm3 (1.8-7.7) 07/18/17 05:00 PT 20.6 Sec. (12.2-14.9) H 07/23/17 03:39 INR 1.68 (0.87-1.13) H 07/23/17 03:39 APTT 39.8 Sec. (24.2-36.6) H 07/12/17 16:38 Heparin Anti-Xa Level 0.49 U.I./ml (0.3-0.7) 07/20/17 10:05 ABG pH 7.283 pH Units (7.350-7.450) L 07/10/17 16:06 ABG pCO2 37.7 mm Hg 07/10/17 16:06 ABG pO2 56.5 mm Hg (80.0-90.0) L 07/10/17 16:06 ABG HCO3 17.4 mmol/L (20.0-26.0) L 07/10/17 16:06 ABG O2 Saturation 89.5 % (95.0-99.0) L 07/10/17 16:06 ABG O2 Content 7.9 (0.0-44) 07/10/17 16:06 ABG Base Excess -8.5 mmol/L (-2.0-3.0) L 07/10/17 16:06 ABG Hemoglobin 6.3 gm/dl (14.0-18.0) L 07/10/17 16:06 ABG Carboxyhemoglobin 1.8 % (0.0-5.0) 07/10/17 16:06 ABG Methemoglobin 0.3 % (0.0-1.5) 07/10/17 16:06 VBG pH 7.362 (7.320-7.420) 07/09/17 21:14 Oxyhemoglobin 87.5 % (95.0-99.0) L 07/10/17 16:06 FiO2 28 % 07/10/17 16:06 Sodium 134 mmol/L (137-145) L 07/23/17 04:37 Potassium 4.2 mmol/L (3.6-5.0) 07/23/17 04:37 Chloride 96.0 mmol/L (98-107) L 07/23/17 04:37 Carbon Dioxide 23 mmol/L (22-30) 07/23/17 04:37 Anion Gap 19 mmol/L 07/23/17 04:37 BUN 33 mg/dL (9-20) H 07/23/17 04:37 Creatinine 2.9 mg/dL (0.8-1.5) H 07/23/17 04:37 Estimated GFR 27 ml/min 07/23/17 04:37 BUN/Creatinine Ratio 11 % 07/23/17 04:37 Glucose 161 mg/dL (75-100) H 07/23/17 04:37 POC Glucose 149 (70-105) H 07/23/17 07:59 Hemoglobin A1c 6.6 % (4-6) H 07/15/17 04:25 Lactic Acid 1.60 mmol/L (0.7-2.0) 07/09/17 23:11 Calcium 8.6 mg/dL (8.4-10.2) 07/23/17 04:37 Phosphorus 2.30 mg/dL (2.5-4.5) L 07/23/17 04:37 Magnesium 2.90 mg/dL (1.7-2.3) H 07/11/17 10:16 Total Bilirubin 2.10 mg/dL (0.1-1.2) H 07/19/17 07:13 Direct Bilirubin 1.5 mg/dL (0-0.2) H 07/11/17 14:32 Indirect Bilirubin 0.8 mg/dL 07/11/17 14:32 AST 21 units/L (5-40) 07/19/17 07:13 ALT 18 units/L (7-56) 07/19/17 07:13 Alkaline Phosphatase 131 units/L (35-129) H 07/19/17 07:13 Total Creatine Kinase 892 units/L (55-170) H 07/10/17 12:11 CK-MB (CK-2) 30.9 ng/mL (0.0-4.0) H 07/10/17 12:11 CK-MB (CK-2) Rel Index 3.4 (0-4) 07/10/17 12:11 Troponin T 0.267 ng/mL (0.00-0.029) H* 07/10/17 12:11 NT-Pro-B Natriuret Pep 07319 pg/mL (0-900) H 07/09/17 21:27 Serum Total Protein 6.1 g/dL (6.1-8.1) 07/13/17 Unknown Total Protein 6.4 g/dL (6.3-8.2) 07/19/17 07:13 Albumin 2.3 g/dL (3.9-5) L 07/19/17 07:13 Albumin/Globulin Ratio 0.6 % 07/19/17 07:13 Huzhs-3-Cdswwhdpj 0.4 g/dL (0.2-0.3) H 07/13/17 Unknown Lqrgw-3-Awodqvatl 0.7 g/dL (0.5-0.9) 07/13/17 Unknown Beta Globulins 0.6 g/dL (0.2-0.5) H 07/13/17 Unknown Gamma Globulins 1.5 g/dL (0.8-1.7) 07/13/17 Unknown Abnorm Protein Band 1 see below 07/13/17 Unknown PEP Interpretation see below H 07/13/17 Unknown Triglycerides 93 mg/dL (2-149) 07/09/17 21: Cholesterol 137 mg/dL (50-199) 07/09/17 21:27 LDL Cholesterol Direct 74 mg/dL (50-130) 07/09/17 21:27 HDL Cholesterol 45 mg/dL (40-59) 07/09/17 21:27 Cholesterol/HDL Ratio 3.04 % 07/09/17 21:27 Urine Color Priyanka (Yellow) 07/09/17 20:52 Urine Turbidity Clear (Clear) 07/09/17 20:52 Urine pH 5.0 (5.0-7.0) 07/09/17 20:52 Ur Specific [place] 1.014 (1.003-1.030) 07/09/17 20:52 Urine Protein 100 mg/dl mg/dL (Negative) 07/09/17 20:52 Urine Glucose (UA) Neg mg/dL (Negative) 07/09/17 20:52 Urine Ketones Neg mg/dL (Negative) 07/09/17 20:52 Urine Blood Neg (Negative) 07/09/17 20:52 Urine Nitrite Neg (Negative) 07/09/17 20:52 Urine Bilirubin Neg (Negative) 07/09/17 20:52 Urine Urobilinogen 4.0 mg/dL (<2.0) 07/09/17 20:52 Ur Leukocyte Esterase Sm (Negative) 07/09/17 20:52 Urine WBC (Auto) 17.0 /HPF (0.0-6.0) H 07/09/17 20:52 Urine RBC (Auto) 7.0 /HPF (0.0-6.0) 07/09/17 20:52 Urine Bacteria (Auto) 1+ /HPF (Negative) 07/09/17 20:52 Urine Mucus Few /HPF 07/09/17 20:52 Urine Eosinophils None seen (None Seen) 07/11/17 Unknown Urine Creatinine 101.1 mg/dL (0.1-20.0) H 07/11/17 Unknown Urine Microalbumin 27.9 mg/dL (0.1-34.0) 07/10/17 Unknown Microalb/Creat Ratio 274.8 ug/mg 07/10/17 Unknown Protein/Creatinin Ratio 1.11 07/11/17 Unknown Urine Sodium 38 mEq/L 07/10/17 Unknown Urine Urea Nitrogen 337 07/10/17 Unknown Urine Total Protein 112 mg/dL (5-11.8) H 07/11/17 Unknown Digoxin 0.7 ng/mL (0.9-2.0) L 07/16/17 06:00 Immunofix Electrophor see below 07/13/17 Unknown CHRISTOPHER Screen Negative (Negative) 07/11/17 09:19 Proteinase 3 (PR3) Ab <1.0 AI (<1.0) 07/11/17 09:19 Myeloperoxidase Ab <1.0 AI (<1.0) 07/11/17 09:19 Complement C3 94 mg/dL (90-180) 07/11/17 09:19 Complement C4 24 mg/dL (16-47) 07/11/17 03:45 Hepatitis A IgM Ab Non-reactive (NonReactive) 07/11/17 09:19 Hep Bs Antigen Non-reactive (Negative) 07/11/17 09:19 Hep B Core IgM Ab Non-reactive (NonReactive) 07/11/17 09:19 Hepatitis C Antibody Non-reactive (NonReactive) 07/11/17 09:19 HIV 1&2 Antibody Rapid Non react (Non React) 07/11/17 09:19 HIV P24 Antigen Non react (Non React) 07/11/17 09:19
--- NOTE | 2017-07-23 13:57 | Progress Note ---
Assessment and Plan Acute renal failure possibly cardiorenal syndrome/ATN from low BP on intermittent hemodialysis: Unknown CKD: Anasarca with volume overload -Pt does have h/o DM so could have CKD from it, no BL Cr available. Likely has CKD. -UA showed 100 protein, Urine PCR is 1.11. Check SPEP/UPEP/IFX. -Urine also showed some red cells will eval for nephritic syndrome with CHRISTOPHER, ANCA, Anti-GBM, C3/C4, Hep panel, HIV. -HIV, Hep panel, CHRISTOPHER, ANCA, Anti-GBM, Complements, IFX, SPEP -ve. -Currently on IHD via fem VC. Holding HD for now to see if recovers. -24 hour Cr Cl has been ordered. -If does not recover over weekend then will need permcath placement and HD placement -Start bumex 2 mg q8h IV. -Renally dose all meds and avoid nephrotoxic meds -Renal US -ve for hydronephrosis Hyponatremia, Hypotonic: -Likely hypervolemic -UF with HD Metabolic acidosis: -Improved with IHD. 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 -Start bumex diuresis Diabetes mellitus type 2 on insulin: -On insulin -Per primary Atrial fibrillation: -Per cards. On low dose Coreg and anticoagulation. Plan d/w pt at bedside. Pato Fisher MD Nephrology, Hypertension, Dialysis, Transplantation Phone no: [phone] Subjective Date of service: 07/23/17 Principal diagnosis: ARF; HF Interval history: Denies Cp/SHOB. Making urine. Objective - Exam Narrative Exam: GE: AAOX3 HEENT: Normocephalic Neck: No JVD Chest: Coarse BS BL CVS: Tachycardic Abd: Soft/BS+ Ext: 2+ BLE edema Neuro: AAOX3 - Vital Signs Vital signs: Vital Signs - 12hr 07/23/17 04:46 Temperature 97.6 F Pulse Rate 86 Respiratory 20 Rate Blood Pressure 109/75 O2 Sat by Pulse 96 Oximetry - Lab 07/20/17 04:22 07/23/17 04:37 Most recent lab results ABG pH 7.283 pH Units (7.350-7.450) L 07/10/17 16:06 ABG pCO2 37.7 mm Hg 07/10/17 16:06 ABG pO2 56.5 mm Hg (80.0-90.0) L 07/10/17 16:06 ABG HCO3 17.4 mmol/L (20.0-26.0) L 07/10/17 16:06 ABG O2 Saturation 89.5 % (95.0-99.0) L 07/10/17 16:06 Calcium 8.6 mg/dL (8.4-10.2) 07/23/17 04:37 Phosphorus 2.30 mg/dL (2.5-4.5) L 07/23/17 04:37 Magnesium 2.90 mg/dL (1.7-2.3) H 07/11/17 10:16 Urine Creatinine 101.1 mg/dL (0.1-20.0) H 07/11/17 Unknown Urine Sodium 38 mEq/L 07/10/17 Unknown Urine Total Protein 112 mg/dL (5-11.8) H 07/11/17 Unknown
[2017-07-23] MEDS: COUMADIN PO SCH (16:48)
[2017-07-24 06:20] LABS: INR 1.44 (0.87-1.13)
[2017-07-24 06:22] LABS: Chloride 93.8 mmol/L (98-107); Phosphorous 2.7 mg/dL (2.5-4.5); Potassium 4.4 mmol/L (3.6-5.0)
[2017-07-24] MEDS: COREG PO SCH ×2 (09:05→21:04)
[2017-07-24] MEDS: NOVOLOG SUB-Q SCH ×4 (09:11→22:11)
[2017-07-24] MEDS: BABY ASPIRIN PO SCH (10:16)
--- NOTE | 2017-07-24 15:41 | Progress Note ---
Assessment and Plan Assessment and plan: 57-year-old man who presented with fluid overload, acute hypoxic respiratory failure, needed to be urgently intubated. Found to have end-stage renal disease. It is possible that the cause of the fluid overload was acute on chronic renal disease Acute kidney injury most likely due to ATN, patient is most likely approaching end-stage renal disease, Nephrology on the case Patient is currently refusing permacath as he will like to see his renal function will recover, he was counseled that a vas cath in the groin is a nidus for infection and he understands the risk and would rather wait till Tuesday. Holding dialysis for now to assess to see if renal function will return, obtain 24-hour urine The patient does not improve, he'll be declared end-stage renal disease on Tuesday and will get permacath Acute hypoxic respiratory failure requiring mechanical ventilator greater than 96 hours Was due to fluid overload, Has been extubated, doing well, improved. Acute respiratory failure due to fluid overload Has received multiple episodes of dialysis and ultrafiltration, now resolved Cardiogenic shock, patient received pressors, now resolved. Acute exacerbation of chronic systolic CHF with pulmonary vascular congestion The patient received dobutamine drip, ultrafiltration to remove excess fluid, medications have been optimized Atrial flutter with hypercoagulable state Meds optimized, continue Coumadin for stroke prophylaxis, continue beta stacey Acute metabolic encephalopathy l likely due to uremia and shock, now resolved Hyperkalemia: This is now resolved with dialysis. Diabetes mellitus type 2 on insulin: Was on Insulin at home A1C is 6.6, showing overall controlled diabetes Likely needs less insulin given kidney failure SSI coverage for now hypoglycemia noted in the ED, corrected with 50% Dextrose Type II OK/demand ischemia likely from worsening renal function and underlying CHF Cardiology input appreciated, no further workup Essential Hypertension,history BP meds were discontinued due to hypotension, continue beta stacey only DVT prophylaxis. Fully anticoagulated Patient is very anxious about getting permacath and being put on outpatient HD, he was reassured and the plan was again explained to him History Interval history: Patient denies any shortness of breath, states that lower extremity swelling is manageable. Denies confusion. At this point he is not interested in getting a permacath, he would like to wait to see if his renal function will recover Hospitalist Physical - Physical exam Narrative exam: General.: Appears well, no distress, nontoxic HEENT: Moist mucous membranes, extraocular muscles intact, no lymphadenopathy Neck: supple Cardiac: S1-S2 heard Lungs: clear to auscultation bilaterally Abdomen: soft , nontender, nondistended, bowel sounds positive Extremities: 1 plus bipedal edema Skin: multiple abrasians on BLE, elbows, penile ulcer, and small ulcers under breast fold and pannus Neurologic: no gross focal deficits Psych: appropriate behavior, appropriate mood, corporative, judgment intact - Constitutional Vitals: Temp Pulse Resp BP Pulse Ox 98.4 F 76 18 94/68 100 07/24/17 13:25 07/24/17 13:25 07/24/17 08:00 07/24/17 13:25 07/24/17 08:00 General appearance: Present: no acute distress Results - Labs CBC & Chem 7: 07/20/17 04:22 07/26/17 05:02 Labs: Laboratory Last Values WBC 5.6 K/mm3 (4.5-11.0) 07/20/17 04:22 RBC 4.84 M/mm3 (3.65-5.03) 07/20/17 04:22 Hgb 12.4 gm/dl (11.8-15.2) 07/20/17 04:22 Hct 38.8 % (35.5-45.6) 07/20/17 04:22 MCV 80 fl (84-94) L 07/20/17 04:22 MCH 26 pg (28-32) L 07/20/17 04:22 MCHC 32 % (32-34) 07/20/17 04:22 RDW 22.7 % (13.2-15.2) H 07/20/17 04:22 Plt Count 143 K/mm3 (140-440) 07/20/17 04:22 Lymph % (Auto) 10.3 % (13.4-35.0) L 07/18/17 05:00 [place] % (Auto) 13.6 % (0.0-7.3) H 07/18/17 05:00 Eos % (Auto) 1.8 % (0.0-4.3) 07/18/17 05:00 Baso % (Auto) 0.3 % (0.0-1.8) 07/18/17 05:00 Lymph # 0.6 K/mm3 (1.2-5.4) L 07/18/17 05:00 [place] # 0.8 K/mm3 (0.0-0.8) 07/18/17 05:00 Eos # 0.1 K/mm3 (0.0-0.4) 07/18/17 05:00 Baso # 0.0 K/mm3 (0.0-0.1) 07/18/17 05:00 Seg Neutrophils % 74.0 % (40.0-70.0) H 07/18/17 05:00 Seg Neutrophils # 4.4 K/mm3 (1.8-7.7) 07/18/17 05:00 PT 18.3 Sec. (12.2-14.9) H 07/24/17 05:33 INR 1.44 (0.87-1.13) H 07/24/17 05:33 APTT 39.8 Sec. (24.2-36.6) H 07/12/17 16:38 Heparin Anti-Xa Level 0.49 U.I./ml (0.3-0.7) 07/20/17 10:05 ABG pH 7.283 pH Units (7.350-7.450) L 07/10/17 16:06 ABG pCO2 37.7 mm Hg 07/10/17 16:06 ABG pO2 56.5 mm Hg (80.0-90.0) L 07/10/17 16:06 ABG HCO3 17.4 mmol/L (20.0-26.0) L 07/10/17 16:06 ABG O2 Saturation 89.5 % (95.0-99.0) L 07/10/17 16:06 ABG O2 Content 7.9 (0.0-44) 07/10/17 16:06 ABG Base Excess -8.5 mmol/L (-2.0-3.0) L 07/10/17 16:06 ABG Hemoglobin 6.3 gm/dl (14.0-18.0) L 07/10/17 16:06 ABG Carboxyhemoglobin 1.8 % (0.0-5.0) 07/10/17 16:06 ABG Methemoglobin 0.3 % (0.0-1.5) 07/10/17 16:06 VBG pH 7.362 (7.320-7.420) 07/09/17 21:14 Oxyhemoglobin 87.5 % (95.0-99.0) L 07/10/17 16:06 FiO2 28 % 07/10/17 16:06 Sodium 133 mmol/L (137-145) L 07/24/17 05:33 Potassium 4.4 mmol/L (3.6-5.0) 07/24/17 05:33 Chloride 93.8 mmol/L (98-107) L 07/24/17 05:33 Carbon Dioxide 25 mmol/L (22-30) 07/24/17 05:33 Anion Gap 19 mmol/L 07/24/17 05:33 BUN 39 mg/dL (9-20) H 07/24/17 05:33 Creatinine 3.3 mg/dL (0.8-1.5) H 07/24/17 05:33 Estimated GFR 24 ml/min 07/24/17 05:33 BUN/Creatinine Ratio 12 % 07/24/17 05:33 Glucose 146 mg/dL (75-100) H 07/24/17 05:33 POC Glucose 181 (70-105) H 07/24/17 11:51 Hemoglobin A1c 6.6 % (4-6) H 07/15/17 04:25 Lactic Acid 1.60 mmol/L (0.7-2.0) 07/09/17 23:11 Calcium 9.0 mg/dL (8.4-10.2) 07/24/17 05:33 Phosphorus 2.70 mg/dL (2.5-4.5) 07/24/17 05:33 Magnesium 2.90 mg/dL (1.7-2.3) H 07/11/17 10:16 Total Bilirubin 2.10 mg/dL (0.1-1.2) H 07/19/17 07:13 Direct Bilirubin 1.5 mg/dL (0-0.2) H 07/11/17 14:32 Indirect Bilirubin 0.8 mg/dL 07/11/17 14:32 AST 21 units/L (5-40) 07/19/17 07:13 ALT 18 units/L (7-56) 07/19/17 07:13 Alkaline Phosphatase 131 units/L (35-129) H 07/19/17 07:13 Total Creatine Kinase 892 units/L (55-170) H 07/10/17 12:11 CK-MB (CK-2) 30.9 ng/mL (0.0-4.0) H 07/10/17 12:11 CK-MB (CK-2) Rel Index 3.4 (0-4) 07/10/17 12:11 Troponin T 0.267 ng/mL (0.00-0.029) H* 07/10/17 12:11 NT-Pro-B Natriuret Pep 29755 pg/mL (0-900) H 07/09/17 21:27 Serum Total Protein 6.1 g/dL (6.1-8.1) 07/13/17 Unknown Total Protein 6.4 g/dL (6.3-8.2) 07/19/17 07:13 Albumin 2.3 g/dL (3.9-5) L 07/19/17 07:13 Albumin/Globulin Ratio 0.6 % 07/19/17 07:13 Bukav-3-Zecvdcnzc 0.4 g/dL (0.2-0.3) H 07/13/17 Unknown Ygbpx-3-Ikcmpfsyy 0.7 g/dL (0.5-0.9) 07/13/17 Unknown Beta Globulins 0.6 g/dL (0.2-0.5) H 07/13/17 Unknown Gamma Globulins 1.5 g/dL (0.8-1.7) 07/13/17 Unknown Abnorm Protein Band 1 see below 07/13/17 Unknown PEP Interpretation see below H 07/13/17 Unknown Triglycerides 93 mg/dL (2-149) 07/09/17 21: Cholesterol 137 mg/dL (50-199) 07/09/17 21:27 LDL Cholesterol Direct 74 mg/dL (50-130) 07/09/17 21:27 HDL Cholesterol 45 mg/dL (40-59) 07/09/17 21:27 Cholesterol/HDL Ratio 3.04 % 07/09/17 21:27 Urine Color Priyanka (Yellow) 07/09/17 20:52 Urine Turbidity Clear (Clear) 07/09/17 20:52 Urine pH 5.0 (5.0-7.0) 07/09/17 20:52 Ur Specific [place] 1.014 (1.003-1.030) 07/09/17 20:52 Urine Protein 100 mg/dl mg/dL (Negative) 07/09/17 20:52 Urine Glucose (UA) Neg mg/dL (Negative) 07/09/17 20:52 Urine Ketones Neg mg/dL (Negative) 07/09/17 20:52 Urine Blood Neg (Negative) 07/09/17 20:52 Urine Nitrite Neg (Negative) 07/09/17 20:52 Urine Bilirubin Neg (Negative) 07/09/17 20:52 Urine Urobilinogen 4.0 mg/dL (<2.0) 07/09/17 20:52 Ur Leukocyte Esterase Sm (Negative) 07/09/17 20:52 Urine WBC (Auto) 17.0 /HPF (0.0-6.0) H 07/09/17 20:52 Urine RBC (Auto) 7.0 /HPF (0.0-6.0) 07/09/17 20:52 Urine Bacteria (Auto) 1+ /HPF (Negative) 07/09/17 20:52 Urine Mucus Few /HPF 07/09/17 20:52 Urine Eosinophils None seen (None Seen) 07/11/17 Unknown Urine Total Volume 210 07/22/17 00:49 Urine Creatinine 375.3 mg/dL (0.1-20.0) H 07/22/17 00:49 Height (in) 70.0 inches 07/22/17 00:49 Weight (lb) 292.4 lbs 07/22/17 00:49 Creatinine Clearance 14 07/22/17 00:49 Urine Microalbumin 27.9 mg/dL (0.1-34.0) 07/10/17 Unknown Microalb/Creat Ratio 274.8 ug/mg 07/10/17 Unknown Protein/Creatinin Ratio 1.11 07/11/17 Unknown Urine Sodium 38 mEq/L 07/10/17 Unknown Urine Urea Nitrogen 337 07/10/17 Unknown Urine Total Protein 112 mg/dL (5-11.8) H 07/11/17 Unknown Digoxin 0.7 ng/mL (0.9-2.0) L 07/16/17 06:00 Immunofix Electrophor see below 07/13/17 Unknown CHRISTOPHER Screen Negative (Negative) 07/11/17 09:19 Proteinase 3 (PR3) Ab <1.0 AI (<1.0) 07/11/17 09:19 Myeloperoxidase Ab <1.0 AI (<1.0) 07/11/17 09:19 Complement C3 94 mg/dL (90-180) 07/11/17 09:19 Complement C4 24 mg/dL (16-47) 07/11/17 03:45 Hepatitis A IgM Ab Non-reactive (NonReactive) 07/11/17:19 Hep Bs Antigen Non-reactive (Negative) 07/11/17:19 Hep B Core IgM Ab Non-reactive (NonReactive) 07/11/17 09:19 Hepatitis C Antibody Non-reactive (NonReactive) 07/11/17 09:19 HIV 1&2 Antibody Rapid Non react (Non React) 07/11/17 09:19 HIV P24 Antigen Non react (Non React) 07/11/17 09:19
[2017-07-24] MEDS ORDERED: COUMADIN PO SCH (17:00)
--- NOTE | 2017-07-24 17:11 | Progress Note ---
Assessment and Plan Acute renal failure possibly cardiorenal syndrome/ATN from low BP on intermittent hemodialysis: Unknown CKD: Anasarca with volume overload -Pt does have h/o DM so could have CKD from it, no BL Cr available. Likely has CKD. -UA showed 100 protein, Urine PCR is 1.11. Check SPEP/UPEP/IFX. -Urine also showed some red cells will eval for nephritic syndrome with CHRISTOPHER, ANCA, Anti-GBM, C3/C4, Hep panel, HIV. -HIV, Hep panel, CHRISTOPHER, ANCA, Anti-GBM, Complements, IFX, SPEP -ve. -Currently on IHD via fem VC. Holding HD for now to see if recovers. -24 hour Cr Cl has been ordered. -If does not recover over weekend then will need permcath placement and HD placement -Started bumex 2 mg q8h IV. -Renally dose all meds and avoid nephrotoxic meds -Renal US -ve for hydronephrosis Hyponatremia, Hypotonic: -Likely hypervolemic -UF with HD Metabolic acidosis: -Improved with IHD. 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 -Start bumex diuresis Diabetes mellitus type 2 on insulin: -On insulin -Per primary Atrial fibrillation: -Per cards. On low dose Coreg and anticoagulation. Plan d/w pt at bedside. Pato Fisher MD Nephrology, Hypertension, Dialysis, Transplantation Phone no: [phone] Subjective Date of service: 07/24/17 Principal diagnosis: ARF; HF Interval history: Denies Cp/SHOB. Making urine. Objective - Exam Narrative Exam: GE: AAOX3 HEENT: Normocephalic Neck: No JVD Chest: Coarse BS BL CVS: Tachycardic Abd: Soft/BS+ Ext: 2+ BLE edema Neuro: AAOX3 - Vital Signs Vital signs: Vital Signs - 12hr 07/24/17 07/24/17 07/24/17 05:30 05:39 08:00 Temperature 97.9 F 98.3 F Pulse Rate 85 82 89 Respiratory 20 18 Rate Blood Pressure 96/57 92/67 [Left] O2 Sat by Pulse 79 L 98 100 Oximetry 07/24/17 13:25 Temperature 98.4 F Pulse Rate 76 Respiratory Rate Blood Pressure 94/68 [Left] O2 Sat by Pulse Oximetry - Lab 07/20/17 04:22 07/24/17 05:33 Most recent lab results ABG pH 7.283 pH Units (7.350-7.450) L 07/10/17 16:06 ABG pCO2 37.7 mm Hg 07/10/17 16:06 ABG pO2 56.5 mm Hg (80.0-90.0) L 07/10/17 16:06 ABG HCO3 17.4 mmol/L (20.0-26.0) L 07/10/17 16:06 ABG O2 Saturation 89.5 % (95.0-99.0) L 07/10/17 16:06 Calcium 9.0 mg/dL (8.4-10.2) 07/24/17 05:33 Phosphorus 2.70 mg/dL (2.5-4.5) 07/24/17 05:33 Magnesium 2.90 mg/dL (1.7-2.3) H 07/11/17 10:16 Urine Creatinine 375.3 mg/dL (0.1-20.0) H 07/22/17 00:49 Urine Sodium 38 mEq/L 07/10/17 Unknown Urine Total Protein 112 mg/dL (5-11.8) H 07/11/17 Unknown
[2017-07-25 05:57] LABS: Calcium 8.8 mg/dL (8.4-10.2); Chloride 93.1 mmol/L (98-107); Phosphorous 2.7 mg/dL (2.5-4.5)
[2017-07-25 05:58] LABS: INR 1.28 (0.87-1.13)
--- NOTE | 2017-07-25 10:23 | Progress Note ---
Assessment and Plan Assessment and plan: Acute kidney injury most likely due to ATN, patient is most likely in end-stage renal disease, Nephrology on the case Patient is currently refusing permacath as he will like to see his renal function will recover and he will have further discussion with nephrology. Holding dialysis for now to assess to see if renal function will return, f/u 24- hour urine ?? If patient does not improve, he'll be declared end-stage renal disease on Tuesday and will get permacath--await nephrology discussion Acute hypoxic respiratory failure requiring mechanical ventilator greater than 96 hours Was due to fluid overload, Has been extubated, doing well, improved. Cardiogenic shock-- patient received pressors, now resolved. Acute exacerbation of chronic systolic CHF with pulmonary vascular congestion The patient received dobutamine drip, ultrafiltration has been performed to remove fluid, medications have been optimized Atrial flutter with hypercoagulable states Meds optimized, continue Coumadin for stroke prophylaxis, continue beta stacey Acute metabolic encephalopathy Etiology was likely due to uremia and shock, now resolved Hyperkalemia This is now resolved with dialysis. Diabetes mellitus type 2 on insulin Was on Insulin at home A1C is 6.6, showing overall controlled diabetes Likely needs less insulin given kidney failure SSI coverage for now hypoglycemia noted in the ED, corrected with 50% Dextrose, now resolved Type II MD/demand ischemia likely from worsening renal function and underlying CHF Cardiology input appreciated, no further workup Essential Hypertension BP meds were discontinued due to hypotension, continue beta stacey only DVT prophylaxis. Fully anticoagulated Patient is very anxious about getting permacath and being put on outpatient HD, await discussion with nephrology History Interval history: no new issues overnight. Hospitalist Physical - Constitutional Vitals: Temp Pulse Resp BP Pulse Ox 98.3 F 84 18 106/69 99 07/25/17 08:00 07/25/17 08:00 07/25/17 08:00 07/25/17 08:00 07/25/17 08:00 General appearance: Present: no acute distress - EENT Eyes: Present: PERRL, EOM intact ENT: hearing intact, clear oral mucosa, dentition normal - Neck Neck: Present: supple, normal ROM - Respiratory Respiratory effort: normal Respiratory: bilateral: CTA - Cardiovascular Rhythm: regular Heart Sounds: Present: S1 & S2. Absent: gallop, rub - Extremities Extremities: no ischemia, No edema, Full ROM - Abdominal General gastrointestinal: soft, non-tender, non-distended, normal bowel sounds - Integumentary Integumentary: Present: clear, warm, dry - Neurologic Neurologic: CNII-XII intact, moves all extremities Results - Labs CBC & Chem 7: 07/20/17 04:22 07/25/17 04:56 Labs: Laboratory Last Values WBC 5.6 K/mm3 (4.5-11.0) 07/20/17 04:22 RBC 4.84 M/mm3 (3.65-5.03) 07/20/17 04:22 Hgb 12.4 gm/dl (11.8-15.2) 07/20/17 04:22 Hct 38.8 % (35.5-45.6) 07/20/17 04:22 MCV 80 fl (84-94) L 07/20/17 04:22 MCH 26 pg (28-32) L 07/20/17 04:22 MCHC 32 % (32-34) 07/20/17 04:22 RDW 22.7 % (13.2-15.2) H 07/20/17 04:22 Plt Count 143 K/mm3 (140-440) 07/20/17 04:22 Lymph % (Auto) 10.3 % (13.4-35.0) L 07/18/17 05:00 [place] % (Auto) 13.6 % (0.0-7.3) H 07/18/17 05:00 Eos % (Auto) 1.8 % (0.0-4.3) 07/18/17 05:00 Baso % (Auto) 0.3 % (0.0-1.8) 07/18/17 05:00 Lymph # 0.6 K/mm3 (1.2-5.4) L 07/18/17 05:00 [place] # 0.8 K/mm3 (0.0-0.8) 07/18/17 05:00 Eos # 0.1 K/mm3 (0.0-0.4) 07/18/17 05:00 Baso # 0.0 K/mm3 (0.0-0.1) 07/18/17 05:00 Seg Neutrophils % 74.0 % (40.0-70.0) H 07/18/17 05:00 Seg Neutrophils # 4.4 K/mm3 (1.8-7.7) 07/18/17 05:00 PT 16.6 Sec. (12.2-14.9) H 07/25/17 04:56 INR 1.28 (0.87-1.13) H 07/25/17 04:56 APTT 39.8 Sec. (24.2-36.6) H 07/12/17 16:38 Heparin Anti-Xa Level 0.49 U.I./ml (0.3-0.7) 07/20/17 10:05 ABG pH 7.283 pH Units (7.350-7.450) L 07/10/17 16:06 ABG pCO2 37.7 mm Hg 07/10/17 16:06 ABG pO2 56.5 mm Hg (80.0-90.0) L 07/10/17 16:06 ABG HCO3 17.4 mmol/L (20.0-26.0) L 07/10/17 16:06 ABG O2 Saturation 89.5 % (95.0-99.0) L 07/10/17 16:06 ABG O2 Content 7.9 (0.0-44) 07/10/17 16:06 ABG Base Excess -8.5 mmol/L (-2.0-3.0) L 07/10/17 16:06 ABG Hemoglobin 6.3 gm/dl (14.0-18.0) L 07/10/17 16:06 ABG Carboxyhemoglobin 1.8 % (0.0-5.0) 07/10/17 16:06 ABG Methemoglobin 0.3 % (0.0-1.5) 07/10/17 16:06 VBG pH 7.362 (7.320-7.420) 07/09/17 21:14 Oxyhemoglobin 87.5 % (95.0-99.0) L 07/10/17 16:06 FiO2 28 % 07/10/17 16:06 Sodium 133 mmol/L (137-145) L 07/25/17 04:56 Potassium 5.0 mmol/L (3.6-5.0) 07/25/17 04:56 Chloride 93.1 mmol/L (98-107) L 07/25/17 04:56 Carbon Dioxide 28 mmol/L (22-30) 07/25/17 04:56 Anion Gap 17 mmol/L 07/25/17 04:56 BUN 44 mg/dL (9-20) H 07/25/17 04:56 Creatinine 3.5 mg/dL (0.8-1.5) H 07/25/17 04:56 Estimated GFR 22 ml/min 07/25/17 04:56 BUN/Creatinine Ratio 13 % 07/25/17 04:56 Glucose 150 mg/dL (75-100) H 07/25/17 04:56 POC Glucose 237 (70-105) H 07/24/17 21:43 Hemoglobin A1c 6.6 % (4-6) H 07/15/17 04:25 Lactic Acid 1.60 mmol/L (0.7-2.0) 07/09/17 23:11 Calcium 8.8 mg/dL (8.4-10.2) 07/25/17 04:56 Phosphorus 2.70 mg/dL (2.5-4.5) 07/25/17 04:56 Magnesium 2.90 mg/dL (1.7-2.3) H 07/11/17 10:16 Total Bilirubin 2.10 mg/dL (0.1-1.2) H 07/19/17 07:13 Direct Bilirubin 1.5 mg/dL (0-0.2) H 07/11/17 14:32 Indirect Bilirubin 0.8 mg/dL 07/11/17 14:32 AST 21 units/L (5-40) 07/19/17 07:13 ALT 18 units/L (7-56) 07/19/17 07:13 Alkaline Phosphatase 131 units/L (35-129) H 07/19/17 07:13 Total Creatine Kinase 892 units/L (55-170) H 07/10/17 12:11 CK-MB (CK-2) 30.9 ng/mL (0.0-4.0) H 07/10/17 12:11 CK-MB (CK-2) Rel Index 3.4 (0-4) 07/10/17 12:11 Troponin T 0.267 ng/mL (0.00-0.029) H* 07/10/17 12:11 NT-Pro-B Natriuret Pep 45530 pg/mL (0-900) H 07/09/17 21:27 Serum Total Protein 6.1 g/dL (6.1-8.1) 07/13/17 Unknown Total Protein 6.4 g/dL (6.3-8.2) 07/19/17 07:13 Albumin 2.3 g/dL (3.9-5) L 07/19/17 07:13 Albumin/Globulin Ratio 0.6 % 07/19/17 07:13 Haqbw-2-Tlfhosllc 0.4 g/dL (0.2-0.3) H 07/13/17 Unknown Wcdct-9-Ezsckxavu 0.7 g/dL (0.5-0.9) 07/13/17 Unknown Beta Globulins 0.6 g/dL (0.2-0.5) H 07/13/17 Unknown Gamma Globulins 1.5 g/dL (0.8-1.7) 07/13/17 Unknown Abnorm Protein Band 1 see below 07/13/17 Unknown PEP Interpretation see below H 07/13/17 Unknown Triglycerides 93 mg/dL (2-149) 07/09/17 21:27 Cholesterol 137 mg/dL (50-199) 07/09/17 21:27 LDL Cholesterol Direct 74 mg/dL (50-130) 07/09/17 21:27 HDL Cholesterol 45 mg/dL (40-59) 07/09/17 21:27 Cholesterol/HDL Ratio 3.04 % 07/09/17 21:27 Urine Color Priyanka (Yellow) 07/09/17 20:52 Urine Turbidity Clear (Clear) 07/09/17 20:52 Urine pH 5.0 (5.0-7.0) 07/09/17 20:52 Ur Specific [place] 1.014 (1.003-1.030) 07/09/17 20:52 Urine Protein 100 mg/dl mg/dL (Negative) 07/09/17 20:52 Urine Glucose (UA) Neg mg/dL (Negative) 07/09/17 20:52 Urine Ketones Neg mg/dL (Negative) 07/09/17 20:52 Urine Blood Neg (Negative) 07/09/17 20:52 Urine Nitrite Neg (Negative) 07/09/17 20:52 Urine Bilirubin Neg (Negative) 07/09/17 20:52 Urine Urobilinogen 4.0 mg/dL (<2.0) 07/09/17 20:52 Ur Leukocyte Esterase Sm (Negative) 07/09/17 20:52 Urine WBC (Auto) 17.0 /HPF (0.0-6.0) H 07/09/17 20:52 Urine RBC (Auto) 7.0 /HPF (0.0-6.0) 07/09/17 20:52 Urine Bacteria (Auto) 1+ /HPF (Negative) 07/09/17 20:52 Urine Mucus Few /HPF 07/09/17 20:52 Urine Eosinophils None seen (None Seen) 07/11/17 Unknown Urine Total Volume 210 07/22/17 00:49 Urine Creatinine 375.3 mg/dL (0.1-20.0) H 07/22/17 00:49 Height (in) 70.0 inches 07/22/17 00:49 Weight (lb) 292.4 lbs 07/22/17 00:49 Creatinine Clearance 14 07/22/17 00:49 Urine Microalbumin 27.9 mg/dL (0.1-34.0) 07/10/17 Unknown Microalb/Creat Ratio 274.8 ug/mg 07/10/17 Unknown Protein/Creatinin Ratio 1.11 07/11/17 Unknown Urine Sodium 38 mEq/L 07/10/17 Unknown Urine Urea Nitrogen 337 07/10/17 Unknown Urine Total Protein 112 mg/dL (5-11.8) H 07/11/17 Unknown Digoxin 0.7 ng/mL (0.9-2.0) L 07/16/17 06:00 Immunofix Electrophor see below 07/13/17 Unknown CHRISTOPHER Screen Negative (Negative) 07/11/17 09:19 Proteinase 3 (PR3) Ab <1.0 AI (<1.0) 07/11/17 09: Myeloperoxidase Ab <1.0 AI (<1.0) 07/11/17 09:19 Complement C3 94 mg/dL (90-180) 07/11/17 09:19 Complement C4 24 mg/dL (16-47) 07/11/17 03:45 Hepatitis A IgM Ab Non-reactive (NonReactive) 07/11/17:19 Hep Bs Antigen Non-reactive (Negative) 07/11/17 09:19 Hep B Core IgM Ab Non-reactive (NonReactive) 07/11/17 09:19 Hepatitis C Antibody Non-reactive (NonReactive) 07/11/17 09:19 HIV 1&2 Antibody Rapid Non react (Non React) 07/11/17 09:19 HIV P24 Antigen Non react (Non React) 07/11/17 09:19
--- NOTE | 2017-07-25 11:57 | Progress Note ---
Assessment and Plan - Patient Problems (1) Acute renal failure (ARF) Current Visit: Yes Status: Acute Qualifiers: Acute renal failure type: A Plan to address problem: Hemodialysis has been on hold over the weekend to monitor for renal recovery 24 hour urine creatinine clearance noted to be 14 ml/min. Current serum creatinine heber to 3.5 today No signs of renal recovery thus far, most likely will need hemodialysis long- term Will consult vascular surgeon to remove femoral vascular catheter as this is a risk for infection Patient continues to refuse to have perm-catheter placed Since patient continues to refuse to have perm-catheter placed, he can be discharged from renal standpoint ` Avoid Nephrotoxic agents Renally dose medications Obtain daily weights (2) Acute systolic CHF (congestive heart failure) Current Visit: Yes Status: Acute Plan to address problem: TTE- LV EF of 15 to 20% S/P Dobutamine drip On Coumadin Cardiology following (3) Type 2 diabetes mellitus with insulin therapy Current Visit: Yes Status: Acute Plan to address problem: As per primary team Subjective Date of service: 07/25/17 Principal diagnosis: ARF; HF Interval history: Patient seen sitting up at edge of bed. Dr. Cortez at bedside thoroughly answering patient's questions and using computer screen to show patient his current renal labs and he explained to patient that he will need femoral catheter removed due to risk of infection and that he will need Perm-catheter placed due to no signs of renal recovery. Patient continues to refuse perm- catheter placement. Objective - Vital Signs Vital signs: Vital Signs - 12hr 07/25/17 07/25/17 07/25/17 00:29 04:42 08:00 Temperature 98.7 F 98.5 F 98.3 F Pulse Rate 86 87 84 Respiratory 20 16 18 Rate Blood Pressure 117/83 116/84 106/69 [Left] O2 Sat by Pulse 100 100 99 Oximetry - General Appearance General appearance: well-developed, appears stated age EENT: ATNC, PERRL, hearing intact, vision intact Neck: no JVD, supple Respiratory: Present: Decreased Breath Sounds Cardiology: regular, S1S2 Gastrointestinal: normoactive bowel sounds Integumentary: warm and dry Neurologic: alert and oriented x3 Musculoskeletal: joint swelling, other (1-2+ edema to BLE) Psychiatric: other (un-cooperative) - Lab 07/20/17 04:22 07/25/17 04:56 Most recent lab results ABG pH 7.283 pH Units (7.350-7.450) L 07/10/17 16:06 ABG pCO2 37.7 mm Hg 07/10/17 16:06 ABG pO2 56.5 mm Hg (80.0-90.0) L 07/10/17 16:06 ABG HCO3 17.4 mmol/L (20.0-26.0) L 07/10/17 16:06 ABG O2 Saturation 89.5 % (95.0-99.0) L 07/10/17 16:06 Calcium 8.8 mg/dL (8.4-10.2) 07/25/17 04:56 Phosphorus 2.70 mg/dL (2.5-4.5) 07/25/17 04:56 Magnesium 2.90 mg/dL (1.7-2.3) H 07/11/17 10:16 Urine Creatinine 375.3 mg/dL (0.1-20.0) H 07/22/17 00:49 Urine Sodium 38 mEq/L 07/10/17 Unknown Urine Total Protein 112 mg/dL (5-11.8) H 07/11/17 Unknown
[2017-07-25] MEDS: NOVOLOG SUB-Q SCH ×5 (12:00→22:09)
[2017-07-25] MEDS: COREG PO SCH ×2 (12:22→22:10)
[2017-07-25] MEDS: BABY ASPIRIN PO SCH (12:23)
[2017-07-25] MEDS ORDERED: TRIPLE ANTIBIOTIC TP ONE (16:27)
[2017-07-25] MEDS ORDERED: COUMADIN PO SCH (17:00)
[2017-07-26 06:11] LABS: Calcium 8.9 mg/dL (8.4-10.2); Chloride 94.7 mmol/L (98-107); INR 1.3 (0.87-1.13); Potassium 4.8 mmol/L (3.6-5.0)
--- NOTE | 2017-07-26 09:36 | Progress Note ---
Assessment and Plan (1) Acute renal failure (ARF) Current Visit: Yes Status: Acute Qualifiers: Acute renal failure type: A Plan to address problem: improved Cr but BUN cont to rise s/p femoral cath removal yesterday will start torsemide 20 mg BID Ok to be discharged from renal standpoint, he will need to f/u as an outpatient , patient was told if worsening of SOB or swelling prior to be seen in the office to go to the ER ` Avoid Nephrotoxic agents Renally dose medications Obtain daily weights (2) Acute systolic CHF (congestive heart failure) Current Visit: Yes Status: Acute Plan to address problem: TTE- LV EF of 15 to 20% S/P Dobutamine drip On Coumadin Cardiology following torsemide as above (3) Type 2 diabetes mellitus with insulin therapy Current Visit: Yes Status: Acute Plan to address problem per primary Subjective Date of service: 07/26/17 Principal diagnosis: ARF; HF Interval history: denies SOB, mentions mild worsening of swelling Objective - Vital Signs Vital signs: Vital Signs - 12hr 07/25/17 07/25/17 07/26/17 22:00 22:10 00:53 Temperature 98.3 F Pulse Rate 84 80 86 Respiratory 22 Rate Blood Pressure 98/72 Blood Pressure 102/60 [Left] O2 Sat by Pulse 95 Oximetry 07/26/17 07/26/17 07/26/17 05:03 07:46 08:36 Temperature 98.4 F 99.1 F Pulse Rate 84 84 71 Respiratory 20 20 Rate Blood Pressure Blood Pressure 113/74 102/67 [Left] O2 Sat by Pulse 97 94 97 Oximetry - General Appearance General appearance: well-developed, well-nourished, appears stated age EENT: ATNC, PERRL, mucous membranes moist Neck: no JVD, no carotid bruit Respiratory: Present: Decreased Breath Sounds. Absent: Rales, Ronchi Cardiology: regular, S1S2 Gastrointestinal: normoactive bowel sounds, obese Integumentary: no rash, warm and dry Neurologic: no focal deficit, no asterixis, alert and oriented x3 Musculoskeletal: other (1-2+ pitting edema in BLE) Psychiatric: mood/affect appropriate, cooperative - Lab 07/20/17 04:22 07/26/17 05:02 Most recent lab results ABG pH 7.283 pH Units (7.350-7.450) L 07/10/17 16:06 ABG pCO2 37.7 mm Hg 07/10/17 16:06 ABG pO2 56.5 mm Hg (80.0-90.0) L 07/10/17 16:06 ABG HCO3 17.4 mmol/L (20.0-26.0) L 07/10/17 16:06 ABG O2 Saturation 89.5 % (95.0-99.0) L 07/10/17 16:06 Calcium 8.9 mg/dL (8.4-10.2) 07/26/17 05:02 Phosphorus 3.00 mg/dL (2.5-4.5) 07/26/17 05:02 Magnesium 2.90 mg/dL (1.7-2.3) H 07/11/17 10:16 Urine Creatinine 375.3 mg/dL (0.1-20.0) H 07/22/17 00:49 Urine Sodium 38 mEq/L 07/10/17 Unknown Urine Total Protein 112 mg/dL (5-11.8) H 07/11/17 Unknown
[2017-07-26] MEDS ORDERED: DEMADEX PO SCH (10:00)
[2017-07-26] MEDS: BABY ASPIRIN PO SCH (10:28)
[2017-07-26] MEDS: COREG PO SCH (10:28)
[2017-07-26] MEDS: NOVOLOG SUB-Q SCH ×2 (10:29→14:58)
--- NOTE | 2017-07-26 10:45 | Discharge Summary ---
<LITA HOANG - Last Filed: 07/26/17 10:31> Providers - Providers Date of Admission: 07/10/17 06:20 Date of discharge: 07/26/17 Attending physician: LITA HOANG 07/10/17 13:01 Consult to Physician [CONS] Routine Consulting Provider: ARGELIA COOLEY Reason For Exam: Vas Catheter placement Place consult to:: answering service Notified:: yes Phone number called:: [phone] Was contact made?: Yes If yes, spoke with:: sophie Time called:: 13:19 Comment:: tra 07/10/17 13:50 Speech Therapy Evaluation and Treat [CONS] Routine Reason For Exam: Lethargy and not trying to take po 07/11/17 11:43 Consult to Dietitian/Nutrition [CONS] Routine Physician Instructions: Reason For Exam: Reason for Consult: Write/Manage Tube Feeding 07/16/17 08:42 PICC Line Insertion [Consult to PICC Line RN] [CONS] Routine Reason For Exam: picc/remove tlc Type Line:: PICC 07/16/17 08:48 Consult to Wound/ET Nurse [CONS] Routine Reason For Exam: sore on penis/lauren le 07/18/17 11:15 Speech Therapy Evaluation and Treat [CONS] Routine Reason For Exam: Re-evaluation diet advancement. 07/19/17 18:28 Physical Therapy Evaluation and Treat [CONS] Routine Comment: Reason For Exam: Gen weakness 07/20/17 13:31 Consult to Physician [CONS] Routine Consulting Provider: ARGELIA COOLEY Reason For Exam: Permcath placement for dialysis Place consult to:: Dr. Cooley Notified:: Kati DEMPSEY Was contact made?: Yes If yes, spoke with:: Fan Bond Time called:: 13:54 07/20/17 15:13 Consult to Case Management [CONS] Routine Services Needed at Discharge: Other Notified:: Case management Additional Physician Instructions: LORRAINE Sequeira Primary care physician: LICENSED FUNERAL DIRECTOR AND EMBALMER Hospitalization Reason for admission: AMS, SOB Condition: Stable Hospital course: This is a 57 year old male with PMH of diabetes mellitus type 2 insulin dependent, hypertension, and systolic HF who presented to [facility] ED last night with complaints of shortness of breath, bilateral upper and lower extremity edema. On admission, SCr level was 4.5 with BUN of 134, SCr increased to 4.7 with BUN level of 138 today. BNP level was 21,165, IV fluids discontinued, lactic acid 1.60, CK level 1099, and troponin T 0.253. Chest X Ray on 07/09/17 showed cardiomegaly, otherwise no acute findings. CT Head without contrast on showed no acute intracranial abnormality. Pt. was seen by nephrology and cardiology. The patient was admitted with diagnosis of acute renal failure, hyperkalemia, metabolic encephalopathy, acute hypoxic respiratory failure and acute systolic heart failure. The patient was noted to have anasarca and mild transaminitis and hyperbilirubinemia related to congestive hepatopathy. The patient initially was emergently intubated and underwent emergent hemodialysis. Pt later extubated and transferred to the floor. Echo revealed EF of 15-20%. The acute exacerbation of systolic CHF/cardiogenic shock was treated with dobutamine drip, ultrafiltration to remove excess fluid and medications were optimized. Pt. also suffered from Atrial flutter with hypercoagulable states requiring heparin drip initially and rate control meds. pt. is now therapeutic with coumadin. Plans were for permcath placement and continued HD but he refused permcath placement and later had femoral cath removed. Since the patient is refusing hemodialysis, patient will be discharged home with torsemide 20 mg twice a day. Dedicated discharge time 38 minutes. Disposition: DC-01 TO HOME OR SELFCARE Time spent for discharge: 38 - Discharge Diagnoses (1) Acute renal failure (ARF) Status: Acute QualifierTitle: Acute renal failure type: A (2) Acute systolic CHF (congestive heart failure) Status: Acute (3) Anasarca Status: Acute (4) Atrial flutter with rapid ventricular response Status: Acute (5) CHF (congestive heart failure) Status: Acute QualifierTitle: Congestive heart failure type: unspecified congestive heart failure type Congestive heart failure chronicity: unspecified congestive heart failure chronicity Qualified Code(s): I50.9 - Heart failure, unspecified (6) Hyperkalemia Status: Acute (7) Systolic and diastolic CHF, acute Status: Acute (8) Type 2 diabetes mellitus Status: Acute QualifierTitle: Diabetes mellitus complication status: D Diabetes mellitus complication detail: D Diabetic retinopathy severity: D Proliferative retinopathy type: P Diabetes mellitus macular edema: D 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 Laterality: L Chronic kidney disease stage: C (9) Dilated cardiomyopathy Status: Chronic (10) History of hypertension Status: Chronic (11) Hyperlipidemia Status: Chronic QualifierTitle: Hyperlipidemia type: H (12) Acute respiratory failure Status: Resolved QualifierTitle: Respiratory failure complication: R Core Measure Documentation - Palliative Care Palliative Care/ Comfort Measures: Not Applicable - Core Measures Any of the following diagnoses?: heart failure - Heart Failure Discharge Requirements SHILPA/ARB for LVSD if EF <40%: No Reason for no SHILPA/ARB: Renal impairment Beta stacey at discharge: Yes Exam - Constitutional Vitals: Temp Pulse Resp BP Pulse Ox 99.1 F 71 20 102/67 97 07/26/17 08:36 07/26/17 08:36 07/26/17 08:36 07/26/17 08:36 07/26/17 08:36 General appearance: Present: no acute distress, well-nourished - EENT Eyes: Present: PERRL ENT: hearing intact, clear oral mucosa - Neck Neck: Present: supple, normal ROM - Respiratory Respiratory effort: normal Respiratory: bilateral: CTA - Cardiovascular Heart Sounds: Present: S1 & S2. Absent: rub, click - Extremities Extremities: pulses symmetrical Extremity abnormal: edema Peripheral Pulses: within normal limits - Abdominal General gastrointestinal: Present: soft, non-tender, non-distended, normal bowel sounds Male genitourinary: Present: penile edema, scrotal edema - Integumentary Integumentary: Present: clear, warm, dry - Musculoskeletal Musculoskeletal: gait normal, strength equal bilaterally - Psychiatric Psychiatric: appropriate mood/affect, intact judgment & insight - Neurologic Neurologic: CNII-XII intact, moves all extremities Plan Activity: no restrictions Weight Bearing Status: Weight Bear as Tolerated Diet: low salt, renal Follow up with: PRIMARY MD KELVIN [Primary Care Provider] - 3-5 Days BILLY RESENDIZ MD [Staff Physician] - 7 Days ALLISON NICHOLS MD [Staff Physician] - 7 Days Forms: Warfarin Discharge Instruction Prescriptions: Aspirin EC [Aspirin Enteric Coated TAB] 81 mg PO QDAY #30 tablet. Carvedilol [Coreg] 6.25 mg PO BID #60 tablet Carvedilol [Coreg] 6.25 mg PO BID #60 tablet Meclizine [Antivert] 12.5 mg PO BID PRN #30 tablet PRN Reason: Vertigo Torsemide [Demadex] 20 mg PO BID@0600,1800 #60 tablet Warfarin [Coumadin] 5 mg PO QDAY #30 tablet Warfarin [Coumadin] 5 mg PO DAILY@1700 #60 tablet <ESA PATE - Last Filed: 07/26/17 15:56> Providers - Providers Date of Admission: 07/10/17 06:20 Attending physician: LITA HOANG 07/10/17 13:01 Consult to Physician [CONS] Routine Consulting Provider: ARGELIA COOLEY Reason For Exam: Vas Catheter placement Place consult to:: answering service Notified:: yes Phone number called:: [phone] Was contact made?: Yes If yes, spoke with:: sophie Time called:: 13:19 Comment:: tra 07/10/17 13:50 Speech Therapy Evaluation and Treat [CONS] Routine Reason For Exam: Lethargy and not trying to take po 07/11/17 11:43 Consult to Dietitian/Nutrition [CONS] Routine Physician Instructions: Reason For Exam: Reason for Consult: Write/Manage Tube Feeding 07/16/17 08:42 PICC Line Insertion [Consult to PICC Line RN] [CONS] Routine Reason For Exam: picc/remove tlc Type Line:: PICC 07/16/17 08:48 Consult to Wound/ET Nurse [CONS] Routine Reason For Exam: sore on penis/lauren le 07/18/17 11:15 Speech Therapy Evaluation and Treat [CONS] Routine Reason For Exam: Re-evaluation diet advancement. 07/19/17 18:28 Physical Therapy Evaluation and Treat [CONS] Routine Comment: Reason For Exam: Gen weakness 07/20/17 13:31 Consult to Physician [CONS] Routine Consulting Provider: ARGELIA COOLEY Reason For Exam: Permcath placement for dialysis Place consult to:: Dr. Cooley Notified:: Kati DEMPSEY Was contact made?: Yes If yes, spoke with:: Fan Bond Time called:: 13:54 07/20/17 15:13 Consult to Case Management [CONS] Routine Services Needed at Discharge: Other Notified:: Case management Additional Physician Instructions: LORRAINE Sequeira Primary care physician: LIC[employer]ED FUNERAL DIRECTOR AND EMBALMER Exam - Constitutional Vitals: Temp Pulse Resp BP Pulse Ox 98.6 F 85 20 114/75 96 07/26/17 13:34 07/26/17 13:34 07/26/17 13:34 07/26/17 13:34 07/26/17 13:34
[2017-07-26 13:35] VITALS: BP 114/75
== END 2017-07-26 16:15 | disposition home or self-care (01) | DRG 682 ==
LOC: ED 19:58 → 4A 07-10 06:20 → CC1 07-10 19:18 → 4A 07-18 22:30
PROVIDERS: ADMIT Internal Medicine; ATTEND Hospitalist
PROC: 4A033R1 Measurement of Arterial Saturation, Peripheral, Percutaneous Approach (ICD-10-PCS; principal; 2017-07-10)
PROC: 5A1D70Z Performance of Urinary Filtration, Intermittent, Less than 6 Hours Per Day (ICD-10-PCS; 2017-07-10)
PROC: 5A09457 Assistance with Respiratory Ventilation, 24-96 Consecutive Hours, Continuous Positive Airway Pressure (ICD-10-PCS; 2017-07-10)
PROC: 06HM33Z Insertion of Infusion Device into Right Femoral Vein, Percutaneous Approach (ICD-10-PCS; 2017-07-10)
PROC: 5A1D70Z Performance of Urinary Filtration, Intermittent, Less than 6 Hours Per Day (ICD-10-PCS; 2017-07-11)
PROC: 5A1D70Z Performance of Urinary Filtration, Intermittent, Less than 6 Hours Per Day (ICD-10-PCS; 2017-07-12)
PROC: 5A1D70Z Performance of Urinary Filtration, Intermittent, Less than 6 Hours Per Day (ICD-10-PCS; 2017-07-13)
PROC: 5A1D70Z Performance of Urinary Filtration, Intermittent, Less than 6 Hours Per Day (ICD-10-PCS; 2017-07-14)
PROC: 5A1D70Z Performance of Urinary Filtration, Intermittent, Less than 6 Hours Per Day (ICD-10-PCS; 2017-07-15)
PROC: 5A1D70Z Performance of Urinary Filtration, Intermittent, Less than 6 Hours Per Day (ICD-10-PCS; 2017-07-16)
PROC: 5A1D70Z Performance of Urinary Filtration, Intermittent, Less than 6 Hours Per Day (ICD-10-PCS; 2017-07-18)
PROC: 5A1D70Z Performance of Urinary Filtration, Intermittent, Less than 6 Hours Per Day (ICD-10-PCS; 2017-07-19)
PROC: 5A1D70Z Performance of Urinary Filtration, Intermittent, Less than 6 Hours Per Day (ICD-10-PCS; 2017-07-20)
PROC: 5A1D70Z Performance of Urinary Filtration, Intermittent, Less than 6 Hours Per Day (ICD-10-PCS; 2017-07-21)
DX: N17.9 Acute kidney failure, unspecified (principal); I50.41 Acute combined systolic (congestive) and diastolic (congestive) heart failure; G93.41 Metabolic encephalopathy; J96.00 Acute respiratory failure, unspecified whether with hypoxia or hypercapnia; M62.82 Rhabdomyolysis; I13.0 Hypertensive heart and chronic kidney disease with heart failure and stage 1 through stage 4 chronic kidney disease, or unspecified chronic kidney disease; E87.0 Hyperosmolality and hypernatremia; I42.0 Dilated cardiomyopathy; I48.92 Unspecified atrial flutter; Z68.41 Body mass index [BMI] 40.0-44.9, adult; E11.649 Type 2 diabetes mellitus with hypoglycemia without coma; E11.22 Type 2 diabetes mellitus with diabetic chronic kidney disease; E78.5 Hyperlipidemia, unspecified; E66.01 Morbid (severe) obesity due to excess calories; Z79.899 Other long term (current) drug therapy; Z82.49 Family history of ischemic heart disease and other diseases of the circulatory system
CPT/HCPCS: 36415; 36600; 70450; 71010; 74000; 76770; 80048; 80053; 80061; 80074; 80162; 81001; 82043; 82140; 82550; 82553; 82565; 82570; 82575; 82803; 82805; 82962; 83036; 83735; 83880; 84100; 84156; 84165; 84166; 84300; 84484; 84520; 85014; 85018; 85025; 85027; 85049; 85520; 85610; 85730; 86021; 86038; 86160; 86334; 87040; 87086; 87806; 89050; 90686; 90732; 93005; 93010; 93306; 94660; 94760; 99285; A6250; C1752; C1769; J0690; J1160; J1250; J1644; J1650; J1815; J1940; J2405; J7030; J7040; J7042; J7050; J7120